=== PATIENT | female | born 1985 | race Caucasian/White ===

== ENCOUNTER 2023-02-04 21:21 | Emergency (ER) | payer OTHER, SELFPAY ==
[2023-02-04 21:29] VITALS: BP 140/104; PULSE 93; RESP 18; TEMP 37.6; O2SAT 98; BMI 32.8
--- NOTE | 2023-02-04 21:57 | XR_ITS ---
[address] [address] Patient Name: AMY SUTTON MRN: [id number] date: 1985 Sex: F Assigned Patient Location: ED.MAIN Current Patient Location: ER Accession/Order Number: [id number] Exam Date: 02/04/2023 22:25 Report Date: 02/04/2023 22:56 At the request of: JERROD HERNÁNDEZ Procedure: XR hip RT 2V w/ pelvis EXAM: XR hip RT 2V w/ pelvis HISTORY: Pain after stepping off of a conveyor belt COMPARISON: None. TECHNIQUE: AP pelvis and 2 views of the right hip FINDINGS: No osseous lesion, fracture, dislocation or subluxation. Joint spaces are normal. No visualized effusion. No visualized soft tissue edema. IMPRESSION: Normal x-rays Electronically authenticated by: BAM CAPUTO Date: 02/04/2023 22:56
--- NOTE | 2023-02-04 22:09 | ED.LOWEXI1 ---
HPI - Extremity Injury (Lower) General Chief Complaint: Extremity Injury, Lower Stated Complaint: WC-HIP PAIN Time Seen by Provider: 02/04/23 21:40 Source: patient Mode of arrival: walk-in Limitations: no limitations History of Present Illness HPI Narrative: This 37-year-old female presents from work for evaluation of right hip pain and decreased range of motion. The patient was at work and stepped up onto a conveyer belt approximately 18 inches off of the ground. She states when she put her leg up on this area she felt a pop in the anterior aspect of her right hip. She stepped down and now has pain with external rotation of the right hip and flexion at the right hip. She is able to ambulate. She states she feels like it needs to pop back in place but it has not. She denies any fall. She denies any weakness numbness or tingling. She has pain in the hip joint and medial aspect of the right leg. No additional injuries or complaints. She took Tylenol prior to arrival. Related Data Home Medications Medication Instructions Recorded Confirmed albuterol sulfate 90 mcg/actuation 2 puff inhalation Q6H PRN 02/04/23 02/04/23 aerosol inhaler shortness of breath or wheezing amitriptyline 10 mg tablet 10 mg PO BEDTIME 02/04/23 02/04/23 azelastine 137 mcg (0.1 %) nasal 1 spray intranasal Q12H 02/04/23 02/04/23 spray aerosol buspirone 10 mg tablet 10 mg PO BID 02/04/23 02/04/23 fluticasone 250 mcg-salmeterol 50 1 inh inhalation Q12H 02/04/23 02/04/23 mcg/dose blistr powdr for inhalation hydroxyzine HCl 25 mg tablet 25 mg PO Q8H PRN anxiety 02/04/23 02/04/23 levocetirizine 5 mg tablet 5 mg PO DAILY 02/04/23 02/04/23 montelukast 10 mg tablet 10 mg PO DAILY 02/04/23 02/04/23 sucralfate 1 gram tablet 1 g PO BID 02/04/23 02/04/23 Allergies Allergy/AdvReac Type Severity Reaction Status Date / Time Penicillins Allergy Unknown Verified 02/04/23 21:29 Review of Systems ROS Status of ROS 10 or more systems reviewed and unremarkable except as noted in history and below [facility] Social History Smoking status: Former smoker Exam Narrative Exam Narrative: Constitutional: Nontoxic, well-appearing female resting currently on the stretcher, respiratory distress Vital signs: Patient is afebrile with normal pulse, blood pressure is elevated at 140/104, she is not hypoxic with pulse ox of 98 percent on room air HEENT, normocephalic atraumatic, mucous murmurs are moist and pink, pupils are equal and reactive Neck: Supple, nontender Lungs: Clear to auscultation bilaterally with good air entry, no wheezing rhonchi or rales appreciated Abd; soft, nondistended, nontender Back: Nontender Extremity: Tenderness at the anterior right hip at the area of the insertion of the ilioinguinal tendon, patient is able to flex at the right hip to approximately 45 degrees and experiences pain. She has pain and decreased motion with adduction of the right hip, leg lengths are equal , no weakness or numbness appreciated Neuro: normal neuro exam, upper and lower extremity strength and sensation are intact Constitutional Vital Signs - 24 hr 02/04/23 21:29 Temperature 99.6 F Pulse Rate [Monitor] 93 H Respiratory Rate 18 Blood Pressure [Left Arm] 140/104 H Pulse Oximetry 98 Oxygen Delivery Method Room Air Course Vital Signs Vital signs: Vital Signs Temperature 99.6 F 02/04/23 21: Pulse Rate 93 H 02/04/23 21:29 Respiratory Rate 18 02/04/23 21:29 Blood Pressure 140/104 H 02/04/23 21:29 Pulse Oximetry 98 02/04/23 21:29 Oxygen Delivery Method Room Air 02/04/23 21:29 Temperature 99.6 F 02/04/23 21:29 Pulse Rate 93 H 02/04/23 21:29 Respiratory Rate 18 02/04/23 21:29 Blood Pressure 140/104 H 02/04/23 21:29 Pulse Oximetry 98 02/04/23 21:29 Oxygen Delivery Method Room Air 02/04/23 21:29 MDM - Extremity Injury (Lower) MDM Narrative Medical decision making narrative: This 37-year-old female presents for evaluation of a right hip/inguinal area injury. She was at work and stepped up onto a conveyer belt when she felt a pop in her hip area. Since that time she has had pain in the hip joint and ilioinguinal area of her right hip joint Pain with abduction of the right leg. Leg lengths are equal. She did not fall. She has pain and some tenderness along the medial aspect of the right femur as well. She is neurovascularly intact. She was medicated emergency department with ibuprofen and an x-ray of the right hip was ordered. The x-ray is normal. Gentle osteopathic manipulation was used to try to gently reduce the ligamentous strain. She tolerated this well but had minimal relief with it. She was medicated with a Norflex prior to discharge. She will be discharged home with prescription for ibuprofen and Flexeril to use as needed. She was given referral information for outpatient occupational health for follow-up. She is ambulatory and otherwise stable for discharge. Discharge Plan Discharge Chief Complaint: Extremity Injury, Lower Clinical Impression: Strain of right groin, Disorder of ligament of right hip Patient Disposition: Home, Self-Care Time of Disposition Decision: 23:10 Condition: Good Prescriptions / Home Meds: No Action albuterol sulfate 90 mcg/actuation HFA aerosol inhaler 2 puff INHALATION Q6H PRN (Reason: shortness of breath or wheezing) amitriptyline 10 mg tablet 10 mg PO BEDTIME azelastine 137 mcg (0.1 %) aerosol,spray 1 spray INTRANASAL Q12H buspirone 10 mg tablet 10 mg PO BID fluticasone propion-salmeterol 250-50 mcg/dose blister with device 1 inh INHALATION Q12H hydroxyzine HCl 25 mg tablet 25 mg PO Q8H PRN (Reason: anxiety) levocetirizine 5 mg tablet 5 mg PO DAILY montelukast 10 mg tablet 10 mg PO DAILY sucralfate 1 gram tablet 1 g PO BID Instructions: Groin Strain (ED) Additional Instructions: Perform gentle stretching, use moist heat, perform range of motion exercises as tolerated. Follow up with workman's comp as soon as possible. Use ibuprofen and muscle relaxants as needed for pain and spasm. Stand Alone Forms: Portal Instructions Referrals: CINTHIA MARK [Primary Care Provider] - 1 week
[2023-02-04] MEDS: IBUPROFEN 600 MG TABLET PO (22:40)
[2023-02-04] MEDS: ORPHENADRINE CITRATE 100 MG TABLET.ER PO (23:26)
== END 2023-02-04 23:30 | disposition home or self-care (01) ==
PROVIDERS: Emergency Provider Emergency Medicine; PCP Family Medicine
DX: S39.011A Strain of muscle, fascia and tendon of abdomen, initial encounter (principal); M24.251 Disorder of ligament, right hip; X50.9XXA Other and unspecified overexertion or strenuous movements or postures, initial encounter; Z87.891 Personal history of nicotine dependence; Z79.899 Other long term (current) drug therapy
CPT/HCPCS: 73502; 99283

== ENCOUNTER 2024-08-31 18:39 | Emergency (ER) | payer OTHER, SELFPAY ==
[2024-08-31 19:13] VITALS: BP 139/93; PULSE 91; TEMP 36.7; O2SAT 99; BMI 31.3
--- NOTE | 2024-08-31 19:47 | ED_ITS ---
HPI - Skin/Abscess/Foreign Bdy General Chief complaint: Skin/Abscess/Foreign Body Stated complaint: rash on hands Time Seen by Provider: 08/31/24 19:29 Source: patient Mode of arrival: walk-in Limitations: no limitations History of Present Illness HPI narrative: 39-year-old female presents for rash which is present on both hands. It started several days ago when she was at work. She wears gloves at work but they are the same close she has been wearing for an extended period of time. She has not come into contact with any chemicals or cleaning agents. She has worked at the same place for a year. It is on both hands but worse on the right than the left. She saw her family doctor who put her on a steroid cream but it does not seem to be helping. Related Data Home Medications ?Medication ?Instructions ?Recorded ?Confirmed albuterol sulfate 90 mcg/actuation 2 puff inhalation Q6H PRN 02/04/23 08/31/24 aerosol inhaler shortness of breath or wheezing amitriptyline 10 mg tablet 10 mg PO BEDTIME 02/04/23 08/31/24 azelastine 137 mcg (0.1 %) nasal 1 spray intranasal Q12H 02/04/23 08/31/24 spray buspirone 10 mg tablet 10 mg PO BID 02/04/23 08/31/24 fluticasone 250 mcg-salmeterol 50 1 inh inhalation Q12H 02/04/23 08/31/24 mcg/dose blistr powdr for inhalation hydroxyzine HCl 25 mg tablet 25 mg PO Q8H PRN anxiety 02/04/23 08/31/24 levocetirizine 5 mg tablet 5 mg PO DAILY 02/04/23 08/31/24 montelukast 10 mg tablet 10 mg PO DAILY 02/04/23 08/31/24 sucralfate 1 gram tablet 1 g PO BID 02/04/23 08/31/24 benralizumab 30 mg/mL subcutaneous mg subcut 08/31/24 auto-injector (Fasenra Pen) metformin 500 mg tablet,extended mg PO 08/31/24 release 24 hr Previous Rx's ?Medication ?Instructions ?Recorded prednisone 10 mg tablet See Rx Instructions .Route 08/31/24 .COMPLEX #30 tabs Allergies Allergy/AdvReac Type Severity Reaction Status Date / Time Penicillins Allergy Unknown Unknown Verified 08/31/24 19:18 Review of Systems ROS Narrative A ten point review of systems is negative except as noted above. PFSH PFSH Social History Smoking status: Former smoker Little interest or pleasure in doing things: not at all Feeling down, depressed, or hopeless: not at all Exam Narrative Exam Narrative: Nurses note and vital signs reviewed and patient is not hypoxic. General: The patient appears well and in no apparent distress. Patient is resting comfortably on cart. Skin: Warm, dry, no pallor noted. There is erythematous raised rash present on both hands, particular the dorsum of the right hand. There is no open area or drainage. Head: Normocephalic, atraumatic Eye: Normal conjunctiva, no drainage Ears, Nose, Mouth, and Throat: oral mucosa is moist. Nares patent. Tongue not swollen Cardiovascular: Regular Rate and Rhythm Respiratory: Patient is in no distress, no accessory muscle use Musculoskeletal: No joint swelling Neurological: A&O, normal speech Psychiatric: Cooperative Constitutional Vital Signs, click to edit/add: Last Vital Signs Temp 98.1 F 08/31/24 19:13 Pulse 91 H 08/31/24 19:13 Resp 18 08/31/24 19:13 BP 139/93 H 08/31/24 19:13 Pulse Ox 99 08/31/24 19:13 O2 Del Method Room Air 08/31/24 19:13 Course Vital Signs Vital signs: Vital Signs Temperature 98.1 F 08/31/24 19:13 Pulse Rate 91 H 08/31/24 19:13 Respiratory Rate 18 08/31/24 19:13 Blood Pressure 139/93 H 08/31/24 19:13 Pulse Oximetry 99 08/31/24 19:13 Oxygen Delivery Method Room Air 08/31/24 19:13 Temperature 98.1 F 08/31/24 19:13 Pulse Rate 91 H 08/31/24 19:13 Respiratory Rate 18 08/31/24 19:13 Blood Pressure 139/93 H 08/31/24 19:13 Pulse Oximetry 99 08/31/24 19:13 Oxygen Delivery Method Room Air 08/31/24 19:13 MDM - Skin/Abscess/Foreign Bdy MDM Narrative Medical decision making narrative: I suspect that this is a contact dermatitis and this was discussed thoroughly with the patient. She will continue the steroid cream but was given IM Solu- Medrol here and prescribed prednisone. She will take Benadryl at home for itching. Treatment diagnosis and follow-up were discussed with the patient. I do not suspect a fungal infection. Differential Diagnosis Differential diagnosis: Likely abscess of skin or subcutaneous tissue, dermatophytosis, allergic reaction to drug, cellulitis and contact dermatitis Discharge Plan Discharge Chief Complaint: Skin/Abscess/Foreign Body Clinical Impression: Contact dermatitis Patient Disposition: Home, Self-Care Time of Disposition Decision: 19:47 Condition: Good Mode of Transportation: Private Vehicle Prescriptions / Home Meds: New prednisone 10 mg tablet See Rx Instructions .ROUTE .COMPLEX Qty: 30 0RF Rx Instructions: 4 by mouth daily for three days then 3 by mouth daily for three days then 2 by mouth daily for three days then 1 by mouth daily for three days No Action albuterol sulfate 90 mcg/actuation HFA aerosol inhaler 2 puff INHALATION Q6H PRN (Reason: shortness of breath or wheezing) amitriptyline 10 mg tablet 10 mg PO BEDTIME azelastine 137 mcg (0.1 %) aerosol,spray 1 spray INTRANASAL Q12H buspirone 10 mg tablet 10 mg PO BID fluticasone propion-salmeterol 250-50 mcg/dose blister with device 1 inh INHALATION Q12H hydroxyzine HCl 25 mg tablet 25 mg PO Q8H PRN (Reason: anxiety) levocetirizine 5 mg tablet 5 mg PO DAILY montelukast 10 mg tablet 10 mg PO DAILY sucralfate 1 gram tablet 1 g PO BID metformin 500 mg tablet extended release 24 hr PO Fasenra Pen 30 mg/mL auto-injector SUBCUT Print Language: Liberian Instructions: Contact Dermatitis (ED) Referrals: Myranda Villegas NP [Primary Care Provider] - 1 week
[2024-08-31] MEDS: METHYLPREDNISOLONE SOD SUCC PF 125 MG/2 ML VIAL IM (19:55)
--- NOTE | 2024-08-31 20:14 | PC.NURSE ---
Bilateral hand red with rash to dorsum side of hands. C/O itching
== END 2024-08-31 20:05 | disposition home or self-care (01) ==
PROVIDERS: Emergency Provider Emergency Medicine; PCP Nurse Practitioner Family
DX: L25.9 Unspecified contact dermatitis, unspecified cause (principal); Z87.891 Personal history of nicotine dependence
CPT/HCPCS: 96372; 99284; J2919

== ENCOUNTER 2024-10-06 11:01 | Outpatient (OUT) | payer OTHER, SELFPAY ==
--- OUTSIDE RECORDS SUMMARY | 2024-10-06 11:18 | XMS_ITS | CCD ---
Author Organization [facility] Care Team Providers Care Photovoltaic Installation Technician Name Role Phone Balaa, Anas Unavailable Unavailable Balaa, Anas Unavailable Unavailable CASAREZ, TARANG Unavailable Unavailable ALELE, ESTER Unavailable Unavailable AMSTUTZ, NKECHI W Unavailable Unavailable Charlie Wolff Unavailable Unavailable D.DR JUANIS Unavailable Unavailable Saud Rutledge Unavailable Unavailable Amstutz, Nkechi Primary Care Provider MIYA MATSON Attending Unavailable MIYA MATSON Referring Unavailable AMSTUTZ, NKECHI Primary Care Unavailable MIYA MATSON Attending Unavailable MIYA MATSON Referring Unavailable AMSTUTZ, NKECHI Primary Care Unavailable Amstutz, Nkechi W Primary Care Provider Amstutz CHEMIST FOOD - LEADERSHIP DEVELOPMENT INSTRUCTOR, Nkechi W Primary Care Provider AMSTUTZ, NKECHI W Primary Care Unavailable GABE TOLEDO Referring Unavailable AMSTUTZ, NKECHI W Primary Care Unavailable GABE TOLEDO Referring Unavailable AMSTUTZ, NKECHI W Primary Care Unavailable GABE TOLEDO Referring Unavailable AMSTUTZ, NKECHI W Primary Care Unavailable AMSTUTZ, NKECHI W Primary Care Unavailable SKYE ANDERSONEN Referring Unavailable AMSTUTZ, NKECHI W Primary Care Unavailable SKYE ANDERSONEN Referring Unavailable AMSTUTZ, NKECHI W Primary Care Unavailable GABE TOLEDO Referring Unavailable AMSTUTZ, NKECHI W Primary Care Unavailable AMSTUTZ, NKECHI W Primary Care Unavailable AMSTUTZ, NKECHI W Primary Care Unavailable AMSTUTZ, NKECHI W Primary Care Unavailable AMSTUTZ, NKECHI W Primary Care Unavailable AMSTUTZ, NKECHI W Primary Care Unavailable AMSTUTZ, NKECHI W Primary Care Unavailable AMSTUTZ, NKECHI W Primary Care Unavailable AMSTUTZ, NKECHI W Primary Care Unavailable AMSTUTZ, NKECHI W Primary Care Unavailable AMSTUTZ, NKECHI W Primary Care Unavailable AMSTUTZ, NKECHI W Primary Care Unavailable AMSTUTZ, NKECHI W Primary Care Unavailable AMSTUTZ, NKECHI W Primary Care Unavailable AMSTUTZ, NKECHI W Primary Care Unavailable AMSTUTZ, NKECHI W Primary Care Unavailable AMSTUTZ, NKECHI W Primary Care Unavailable AMSTUTZ, NKECHI W Primary Care Unavailable AMSTUTZ, NKECHI W Primary Care Unavailable AMSTUTZ, NKECHI W Primary Care Unavailable AMSTUTZ, NKECHI W Primary Care Unavailable AMSTUTZ, NKECHI W Primary Care Unavailable AMSTUTZ, NKECHI W Primary Care Unavailable AMSTUTZ, NKECHI W Primary Care Unavailable AMSTUTZ, NKECHI W Primary Care Unavailable AMSTUTZ, NKECHI W Primary Care Unavailable AMSTUTZ, NKECHI W Primary Care Unavailable THEO CHAMBERS Attending Unavailable BREN ANDERSON Referring Unavailable AMSTUTZ, NKECHI W Primary Care Unavailable AMSTUTZ, NKECHI W Primary Care Unavailable AMSTUTZ, NKECHI W Primary Care Unavailable Jose Hines MD Referring Unavailable AMSTUTZ, NKECHI W Primary Care Unavailable Jose Hines MD Referring Unavailable AMSTUTZ, NKECHI W Primary Care Unavailable Jose Hines MD Referring Unavailable AMSTUTZ, NKECHI W Primary Care Unavailable BREN ANDERSON Referring Unavailable AMSTUTZ, NKECHI W Primary Care Unavailable AMSTUTZ, NKECHI W Primary Care Unavailable AMSTUTZ, NKECHI W Primary Care Unavailable AMSTUTZ, NKECHI W Primary Care Unavailable AMSTUTZ, NKECHI W Primary Care Unavailable AMSTUTZ, NKECHI W Primary Care Unavailable AMSTUTZ, NKECHI W Primary Care Unavailable AMSTUTZ, NKECHI W Primary Care Unavailable AMSTUTZ, NKECHI W Primary Care Unavailable AMSTUTZ, NKECHI W Primary Care Unavailable AMSTUTZ, NKECHI W Primary Care Unavailable AMSTUTZ, NKECHI W Primary Care Unavailable AMSTUTZ, NKECHI W Primary Care Unavailable AMSTUTZ, NKECHI W Primary Care Unavailable AMSTUTZ, NKECHI W Primary Care Unavailable AMSTUTZ, NKECHI W Primary Care Unavailable AMSTUTZ, NKECHI W Primary Care Unavailable AMSTUTZ, NKECHI W Primary Care Unavailable AMSTUTZ, NKECHI W Primary Care Unavailable AMSTUTZ, NKECHI W Primary Care Unavailable AMSTUTZ, NKECHI W Primary Care Unavailable AMSTUTZ, NKECHI W Primary Care Unavailable AMSTUTZ, NKECHI W Primary Care Unavailable AMSTUTZ, NKECHI W Primary Care Unavailable AMSTUTZ, NKECHI W Primary Care Unavailable AMSTUTZ, NKECHI W Primary Care Unavailable AMSTUTZ, NKECHI W Primary Care Unavailable AMSTUTZ, NKECHI W Primary Care Unavailable AMSTUTZ, NKECHI W Primary Care Unavailable BREN ANDERSON Referring Unavailable AMSTUTZ, NKECHI W Primary Care Unavailable AMSTUTZ, NKECHI W Primary Care Unavailable Amstutz LEADERSHIP DEVELOPMENT INSTRUCTOR, Nkechi Primary Care Provider Izabella Vargas Unavailable Yuko Stockton Unavailable KaleyEloisa Unavailable CINTHIA MARK Primary Care Unavailable AMEYA, DR TINY Yadav Admitting Unavailabl e AMEYA, DR TINY Yadav Attending Unavailabl e AMEYA, DR TINY Yadav Consulting Unavailabl e DAHLIA, DR BAM Townsend Consulting Unavailable Kampfer, Myranda Unavailable NO FAMILY, PHYSICIAN Primary Care Provider Unava ilable DO Javier Moralez Jr Attending Provider Kamnealfer, Myranda Primary Care Unavailable Keisha Brush MD Primary Care Provider Nelly SUPERVISOR PRESSING DEPARTMENT, Myranda Unavailable JENNIFER SALAS Attending Unavailable KAMPFER, MYRANDA A Referring Unavailable KAMPFER, MYRANDA A Primary Care Unavailable JENNIFER SALASG Attending Unavailable KAMPFER, MYRANDA A Referring Unavailable ESSEL, JENNIFER GONG Primary Care Unavailable ESSTYSON, JENNIFER GONG Referring Unavailable ESSEL, JENNIFER GONG Primary Care Unavailable ESSEL, JENNIFER GONG Referring Unavailable ESSEL, JENNIFER GONG Primary Care Unavailable Jennifer Salas MD Primary Care Provider JENNIFER SALAS Referring Unavailable ESSEL, JENNIFER GONG Primary Care Unavailable ESSEL, JENNIFER GONG Primary Care Unavailable MIYA VILCHIS Attending Unavailable NON STAFF Primary Care Provider UnavailSalvador Rachel DO Emergency Provider [phone] NON STAFF Primary Care Unavailable Salvador Brooke Attending Unavailable Salvador Brooke Admitting Unavailable Kampfer CHEMIST FOOD-LEADERSHIP DEVELOPMENT INSTRUCTOR, Myranda A Primary Care Provider NELLY, MYRANDA Attending Unavailable KAMPFER, MYRANDA Attending Unavailable KAMPFER, MYRANDA Attending Unavailable KAMPFER, MYRANDA Attending Unavailable ZACKMIHAELA MULLIGAN Attending Unavailable KARINA, CHARLES Attending Unavailable DION PERALTA Attending Unavailable DION PERALTA Referring Unavailable RAMBASEKARON Attending Unavailable KAMPFER, MYRANDA Referring Unavailable KAMPFER, MYRANDA Attending Unavailable RAMBASEK, ARON Kurtz Attending Unavailable MIHAELA DIXON Attending Unavailable KAMPFER, MYRANDA Attending Unavailable KARINA, CHARLES Attending Unavailable KAMPFER, MYRANDA Referring Unavailable KARINA, CHARLES Attending Unavailable KARINA, CHARLES Attending Unavailable LAKHWINDER, SHAUNA Attending Unavailable ZACK, MIHAELA Cole Attending Unavailable LAKHWINDER, SHAUNA Attending Unavailable Allergies Allergy Classification Reported Allergen(s) Allergy Type Date of Onset Reaction(s) Facility Bacitracin (1 source) Bacitracin Drug Allergy 7 Dermatitis [facility] Penicillins (antibiotic) (2 sources) Penicillins Drug Allergy 2 Rash, Other (See Comments), Anaphylaxis [facility] Phone: venlafaxine (1 source) venlafaxine Drug Allergy 9 [facility] Phone: (13 sources) penicillin; Translations: [penicillin] Drug Allergy [address] [facility] (20 sources) Bacitracin; Translations: [BACITRACIN] Drug Allergy 7 Dermatitis, Rash [place], [place] (18 sources) Penicillins; Translations: [PENICILLINS] Propensity to adverse reactions to drug 2 Rash, Other (See Comments) [place] (20 sources) venlafaxine; Translations: [VENLAFAXINE] Drug Allergy 9 Other: See Comments, Swelling [place], [place] (1 source) Penicillins Drug allergy (disorder) 4 [facility] Repository (10 sources) Penicillins Drug Allergy 2 Anaphylaxis, Other: See Comments, Rash, Hives, Other (See Comments) [facility] (20 sources) Penicillins Drug Intolerance 3 Unknown [facility] Medications Current Medications Medication Drug Class(es) Dates Sig (Normalized) Sig (Original) [id number] 200 actuat albuterol 0.09 mg/actuat metered dose inhaler (20 sources) beta2-Adrenergic Agonist Start: 04-03-2022 take 2 puff(s) by inhalation every four hours for wheezing albuterol HFA 90 mcg/act inhaler Indications: Moderate persistent asthma without complication ([facility]) Inhale 2 puffs every 4 (four) hours if needed for shortness of breath or wheezing 18 g 06/16/2024 Active Start: 07-22-2020 take 2 puff(s) by in halation four times daily as needed for wheezing albuterol sulfate HFA 108 (90 Base) MCG/ACT inhaler Indications: Mild persistent asthma without complication Inhale 2 puffs into the lungs 4 times daily as needed for Wheezing 1 Inhaler 5 07/22/2020 Active take 2 puff(s) by in halation every six hours as needed albuterol (PROVENTIL HFA;VENTOLIN HFA) 90 mcg/actuation inhaler Inhale 2 puffs every 6 (six) hours as needed. Active albuterol sulfate HFA 108 (90 Base) MCG/ACT inhaler (8 sources) Start: 07-22-2020 take 2 puff(s) by inhalation four times daily as needed for wheezing albuterol sulfate HFA 108 (90 Base) MCG/ACT inhaler Indications: Mild persistent asthma without complication Inhale 2 puffs into the lungs 4 times daily as needed for Wheezing 1 Inhaler 5 07/22/2020 Active Start: 04-03-2020 take 2 puff(s) by in halation four times daily as needed for wheezing albuterol sulfate HFA 108 (90 Base) MCG/ACT inhaler Indications: Mild persistent asthma without complication Inhale 2 puffs into the lungs 4 times daily as needed for Wheezing 1 Inhaler 3 04/03/2020 Active alcaftadine 2.5 mg/ml ophthalmic solution (20 sources) Start: 04-14-2024 End: 09-15-2024 take 1 drop(s) into the eye(s) once daily Alcaftadine 0.25 % solution Indications: Environmental allergies Administer 1 drop into affected eye(s) Daily 5 mL 3 04/14/2024 09/15/2024 Discontinued End: 04-12-2024 Alcaftadine 0.25 % solution Administer into affected eye(s) 04/12/2024 Discontinued (Reorder) amitriptyline hydrochloride 10 mg oral tablet (20 sources) Tricyclic Antidepressant Start: 03-17-2024 End: 09-13-2024 take 1 tablet by mouth at bedtime amitriptyline (Elavil) 10 MG tablet Indications: Anxious mood as adjustment reaction (CMS/HCC) , Depression, unspecified depression type (CMS/HCC) TAKE 1 TABLET BY MOUTH AT BEDTIME 90 tablet 1 09/11/2024 Active Start: 09-10-2023 End: 03-08-2024 take 1 tablet by mouth at bedtime amitriptyline (Elavil) 10 MG tablet Indications: Anxious mood as adjustment reaction (CMS/HCC) , Depression, unspecified depression type (CMS/HCC) Take 1 tablet (10 mg) by mouth at bedtime 90 tablet 1 09/10/2023 03/08/2024 Active Start: 03-08-2023 End: 09-08-2023 take 1 tablet by mouth at bedtime amitriptyline (Elavil) 10 MG tablet Indications: Anxious mood as adjustment reaction (CMS/HCC) , Depression, unspecified depression type (CMS/HCC) Take 1 tablet (10 mg) by mouth at bedtime. 90 tablet 1 03/08/2023 09/08/2023 Discontinued (Reorder) azelastine hydrochloride 0.137 mg/actuat metered dose nasal spray (20 sources) Histamine-1 Receptor Antagonist Start: 02-02-2024 End: 02-01-2025 take 2 spray(s) nasal route in the morning azelastine (Astelin) 0.1 % nasal spray Indications: Allergic rhinitis due to mold Administer 2 sprays into each nostril in the morning and 2 sprays before bedtime. Use in each nostril as directed. 90 mL 3 02/02/2024 02/01/2025 Active Start: 12-13-2023 End: 04-28-2024 take 1 spray(s) nasal route once azelastine (Astelin) 0.1 % nasal spray Indications: Allergic rhinitis, unspecified seasonality, unspecified trigger Administer 1 spray into each nostril every 12 (twelve) hours 30 mL 1 12/13/2023 04/28/2024 Discontinued (Duplicate order) Start: 11-04-2022 take 1 spray(s) nasal route on ce azelastine (Astelin) 0.1 % nasal spray Administer 1 spray into each nostril every 12 (twelve) hours. 0 11/04/2022 Active azelastine hydrochloride 0.137 mg/actuat / fluticasone propionate 0.05 mg/actuat metered dose nasal spray (6 sources) Corticosteroid, Histamine-1 Receptor Antagonist Start: 07-22-2020 take 1 spray(s) nasal route twice daily Azelastine-Fluticasone 137-50 MCG/ACT SUSP Indications: Non-seasonal allergic rhinitis due to pollen 1 spray to each nostril twice daily 3 Bottle 3 07/22/2020 Active 1 ml benralizumab 30 mg/ml auto-injector (20 sources) Interleukin-5 Receptor alpha-directed Cytolytic Antibody Start: 07-21-2024 Fasenra Pen 30 MG/ML injection Indications: Severe persistent asthma without complication (CMS/HCC) INJECT 1 PEN SUBCUTANEOUSLY EVERY 8 WEEKS 1 mL 6 07/21/2024 Active Start: 09-15-2023 End: 09-15-2023 benralizumab (Fasenra) injec tion 30 mg Start: 12-09-2022 End: 08-30-2024 benralizumab (Fasenra) 30 MG /ML injection Inject 30 mg under the skin every 28 (twenty-eight) days. 12/09/2022 08/30/2024 Discontinued inject 1 mL by subcu taneous injection once benralizumab (FASENRA PEN) 30 mg/mL SUBQ injection Inject 1 mL (30 mg total) under the skin once. Active busPIRone hydrochloride 10 mg oral tablet (20 sources) Start: 09-11-2024 take 1 tablet by mouth in the morning busPIRone (Buspar) 10 MG tablet Indications: Anxiety TAKE 1 TABLET BY MOUTH IN THE MORNING THEN TAKE 1 TABLET BEFORE BEDTIME 180 tablet 1 09/11/2024 Active Start: 03-17-2024 take 1 tablet by marysol th in the morning busPIRone (Buspar) 10 MG tablet Indications: Anxiety Take 1 tablet (10 mg) by mouth in the morning and 1 tablet (10 mg) before bedtime. 180 tablet 1 03/17/2024 Active Start: 03-15-2023 End: 09-14-2023 take 1 tablet by mouth twice daily busPIRone (Buspar) 10 MG tablet Indications: Anxiety take 1 tablet by mouth twice a day 180 tablet 1 09/14/2023 Active Start: 09-28-2022 take 1 tablet by marysol th at bedtime busPIRone (BUSPAR) 7.5 mg tablet Take 1 tablet (7.5 mg total) by mouth in the morning and at bedtime. 09/28/2022 Active cholecalciferol 5000 unt oral tablet (3 sources) Vitamin D take 1 tablet by mouth once daily Cholecalciferol (VITAMIN D3) 5000 units TABS Take 1 tablet by mouth daily 0 Active clindamycin 300 mg oral capsule (2 sources) Lincosamide Antibacterial Start: 025 clindamycin (Cleocin) 300 MG capsule 09/20/2024 Active cyproheptadine hydrochloride 4 mg oral tablet (3 sources) take 1 tablet by mouth every eight hours Cyproheptadine HCl 4 MG 1 tablet Orally Three times a day Active dexlansoprazole 60 mg delayed release oral capsule (2 sources) Proton Pump Inhibitor take 1 capsule by mouth once daily dexlansoprazole (DEXILANT) 60 MG CPDR delayed release capsule Take 60 mg by mouth daily 0 Active ERGOCALCIFEROL, VITAMIN D2, ORAL (9 sources) ERGOCALCIFEROL, VITAMIN D2, ORAL Take by mouth in the morning and at bedtime. Active ERGOCALCIFEROL, VITAMIN D2, ORAL Take by mouth in the morning and at bedtime. 0 Active escitalopram 20 mg oral tablet (15 sources) Serotonin Reuptake Inhibitor Start: 09-19-2020 take 1 tablet by mouth once daily escitalopram (LEXAPRO) 20 MG tablet Indications: TOSHIA (generalized anxiety disorder) Take 1 tablet by mouth daily 30 tablet 11 09/19/2020 Active Start: 02-19-2020 take 1 tablet by marysol th once daily escitalopram (LEXAPRO) 20 MG tablet Indications: TOSHIA (generalized anxiety disorder) Take 1 tablet by mouth daily 30 tablet 11 02/19/2020 Active Start: 05-29-2019 take 1 tablet by marysol th once daily escitalopram (LEXAPRO) 10 MG tablet Take 1 tablet by mouth daily 90 tablet 3 05/29/2019 Active Lexapro Active esomeprazole 40 mg granules for oral suspension (17 sources) Proton Pump Inhibitor take 40 mg by mouth once daily before breakfast esomeprazole (NexIUM) 40 mg packet Take 40 mg by mouth every morning before breakfast. Active take 40 mg by mouth twice daily esomeprazole Magnesium (NEXIUM) 40 MG PACK Take 40 mg by mouth 2 times daily 0 Active FA/mv,Ca,iron,min/lycopene/l ut (MULTIVITAL ORAL) (9 sources) FA/mv,Ca,iron,mi n/lycopene/lut (MULTIVITAL ORAL) Take by mouth daily. Active FA/mv,Ca,iron,mi n/lycopene/lut (MULTIVITAL ORAL) Take by mouth daily. 0 Active famotidine 20 mg oral tablet (6 sources) Histamine-2 Receptor Antagonist take 2 tablets by mouth once daily famotidine (PEPCID) 20 MG tablet Take 40 mg by mouth nightly 0 Active take 1 tablet by mouth once ren y famotidine (PEPCID) 20 MG tablet Take 20 mg by mouth nightly 0 Active fexofenadine hydrochloride 180 mg oral tablet (3 sources) Histamine-1 Receptor Antagonist Start: 04-03-2020 End: 05-03-2020 take 1 tablet by mouth once daily fexofenadine (ROSA ELENA) 180 MG tablet Take 1 tablet by mouth daily 30 tablet 0 04/03/2020 05/03/2020 Active fluticasone propionate 0.05 mg/actuat metered dose nasal spray (20 sources) Corticosteroid Start: 02-02-2024 End: 02-01-2025 take 2 spray(s) nasal route in the morning fluticasone propionate (FLONASE) 50 mcg/actuation nasal spray Administer 2 sprays into each nostril in the morning. 02/02/2024 02/01/2025 Active Start: 02-02-2024 End: 02-01-2025 take 2 spray(s) nasal route once daily fluticasone (Flonase) 50 MCG/ACT nasal spray Indications: Allergic rhinitis due to mold Administer 2 sprays into each nostril Daily Shake gently. Before first use, prime pump. After use, clean tip and replace cap. 48 g 11 02/02/2024 02/01/2025 Active Start: 10-08-2014 fluticasone (F LONASE) 50 mcg/actuation nasal spray Use in the nose q 24 HR. 0 10/08/2014 Active Start: 10-08-2014 take 1 spray(s) nasa l route once daily Fluticasone Propionate 50 MCG/ACT 1 spray in each nostril Nasally Once a day for 30 day(s) Oct, Not-Taking take 1 spray(s) nasa l route once daily fluticasone (FLONASE) 50 MCG/ACT nasal spray 1 spray by Each Nostril route daily 0 Active Comment on above: Use in the nose q 24 HR. 60 actuat formoterol fumarate 0.005 mg/actuat / mometasone furoate 0.2 mg/actuat metered dose inhaler (5 sources) Corticosteroid, beta2-Adrenergic Agonist Start: 020 take 2 puff(s) by mouth twice daily mometasone-formoterol (DULERA) 200-5 MCG/ACT inhaler 2 puffs inhaled twice daily. Rinse mouth well after use. 3 Inhaler 1 07/22/2020 Active hydrocortisone 25 mg/ml topical cream (3 sources) Corticosteroid Start: 024 End: 024 hydrocortisone 2.5 % cream Indications: Dermatitis Apply topically 2 (two) times a day for 14 days Apply wet cloth to the skin around the eyes for 5 minutes followed by hydrocortisone cream to the wet skin followed by petroleum jelly. 20 g 2 04/12/2024 04/26/2024 Active hydrOXYzine hydrochloride 25 mg oral tablet (20 sources) Antihistamine Start: 023 take 1 tablet by mouth three times daily as needed hydrOXYzine (ATARAX) 25 mg tablet Take 1 tablet (25 mg total) by mouth 3 (three) times a day as needed. 11/05/2022 Active Start: 04-01-2021 take 1 tablet by marysol th once daily at bedtime hydrOXYzine HCl (ATARAX) 25 mg tablet Take 1 tablet by mouth daily at bedtime. 0 04/01/2021 Active Start: 04-24-2019 hydrOXYzine (A TARAX) 25 MG tablet 1-2 tablets once daily at bedtime. May cause drowsiness. 60 tablet 11 04/24/2019 Active take 1 tablet by marysol th once daily hydrOXYzine (ATARAX) 25 MG tablet Take 25 mg by mouth daily 0 Active Comment on above: Take 1 tablet by marysol th daily at bedtime. hyoscyamine sulfate 0.125 mg sublingual tablet (4 sources) Start: 02-28-2020 Hyoscyamine Sulfate SL (LEVSIN/SL) 0.125 MG SUBL Indications: Hypersensitivity reaction, initial encounter , Esophageal dysphagia Take 1 SL tab every 4-6 hours as needed for esophogeal spasms 15 each 0 02/28/2020 Active Start: 02-19-2020 Hyoscyamine Barbosa lfate SL (LEVSIN/SL) 0.125 MG SUBL Indications: Hypersensitivity reaction, initial encounter , Esophageal dysphagia Take 1 SL tab every 4-6 hours as needed for esophogeal spasms 15 each 0 02/19/2020 Active levocetirizine dihydrochloride 5 mg oral tablet (20 sources) Histamine-1 Receptor Antagonist Start: 09-25-2022 End: 04-10-2024 take 1 tablet by mouth in the morning levocetirizine (XYZAL) 5 mg tablet Take 1 tablet (5 mg total) by mouth in the morning. 09/25/2022 Active Start: 11-29-2020 take 1 tablet by marysol th twice daily levocetirizine 5 mg tablet Take 1 tablet by mouth twice daily. 0 11/29/2020 Active Start: 07-29-2020 End: 10-27-2020 take 1 tablet by mouth twice daily levocetirizine (XYZAL ALLERGY 24HR) 5 MG tablet Indications: High plasma histamine Take 1 tablet by mouth 2 times daily 180 tablet 0 07/29/2020 10/27/2020 Active Start: 01-13-2019 End: 07-15-2019 take 1 tablet by mouth once daily levocetirizine (XYZAL) 5 MG tablet Indications: Foreign body sensation in throat , Seasonal allergic rhinitis due to pollen Take 1 tablet by mouth nightly 90 tablet 1 01/13/2019 07/15/2019 Active Comment on above: Take 1 tablet by marysol th twice daily. levothyroxine sodium 0.025 mg oral tablet (7 sources) l-Thyroxine Start: take 1 tablet by mouth once daily levothyroxine (SYNTHROID) 25 MCG tablet Indications: Subclinical hypothyroidism TAKE 1 TABLET BY MOUTH DAILY TAKE WITH WATER ON AN EMPTY STOMACH- WAIT 30 MINS BEFORE EATING/MEDS 90 tablet 1 01/07/2021 Active Start: 07-25-2018 take 1 tablet by marysol once daily SYNTHROID 25 MCG tablet Indications: Subclinical hypothyroidism Take 1 tablet by mouth daily Take with water on an empty stomach- wait 30 minutes before eating or taking other meds. 30 tablet 11 07/25/2018 Active 1 ml mepolizumab 100 mg/ml auto-injector (4 sources) Interleukin-5 Antagonist Start: 08-07-2020 NUCALA 100 MG/ML SOAJ injection Nucala Active 24 hr metFORMIN hydrochloride 500 mg extended release oral tablet (20 sources) Biguanide Start: 05-24-2024 End: 05-24-2025 take 1 tablet by mouth every twenty-four hours at mealtime metFORMIN XR (Glucophage-XR) 500 MG 24 hr tablet Indications: PCOS (polycystic ovarian syndrome) , Insulin resistance Take 1 tablet (500 mg) by mouth in the evening. Take with meals Do not crush, chew, or split. 30 tablet 11 05/24/2024 05/24/2025 Active methylPREDNISolone 4 mg oral tablet (4 sources) Corticosteroid Start: 07-26-2021 methylPREDNISolone 4 MG as directed Orally Once a day for 6 days Jul, Active Start: 03-23-2019 methylPREDNISo lone (MEDROL DOSEPACK) 4 MG tablet Indications: Throat swelling Take by mouth. 21 tablet 0 03/23/2019 Active 120 actuat mometasone furoate 0.1 mg/actuat metered dose inhaler (3 sources) Corticosteroid Start: 04-03-2020 take 2 puff(s) by inhalation twice daily mometasone (ASMANEX HFA) 100 MCG/ACT AERO inhaler Inhale 2 puffs into the lungs 2 times daily 1 Inhaler 1 04/03/2020 Active Multiple Vitamins-Minerals (MULTIVITAMIN ADULT, MINERALS, PO) (20 sources) Multiple Vitamins-Minerals (MULTIVITAMIN ADULT, MINERALS, PO) Multivitamin Active Multiple Vitamin s-Minerals (MULTIVITAMIN ADULT, MINERALS, PO) Multivitamin 0 Active NUCALA 100 MG/ML SOAJ injection (5 sources) Start: 08-07-2020 NUCALA 100 MG/ML SOAJ injection omeprazole 40 mg delayed release oral capsule (2 sources) Proton Pump Inhibitor Start: 04-18-2019 take 1 capsule by mouth twice daily omeprazole (PRILOSEC) 40 MG delayed release capsule TAKE 1 CAPSULE BY MOUTH TWICE A DAY 1 04/18/2019 Active pantoprazole 40 mg delayed release oral tablet (9 sources) Proton Pump Inhibitor take 1 tablet by mouth in the morning pantoprazole (PROTONIX) 40 mg EC tablet Take 1 tablet (40 mg total) by mouth in the morning. Active phentermine hydrochloride 37.5 mg oral tablet (20 sources) Sympathomimetic Amine Anorectic Start: 06-26-2024 End: 11-21-2024 take 1 tablet by mouth before mealtime phentermine (Adipex-P) 37.5 MG tablet Indications: Encounter for weight management Take 1 tablet (37.5 mg) by mouth in the morning. Take before meals. 90 tablet 08/23/2024 11/21/2024 Active polyethylene glycol 3350 79629 mg powder for oral solution (20 sources) Osmotic Laxative Start: 02-03-2024 polyethylene glycol, PEG, 3350 (Glycolax) 17 GM/SCOOP powder Indications: Slow transit constipation Take 17 g by mouth 1 (one) time each day at the same time 510 g 1 02/03/2024 Active Start: 11-04-2022 polyethylene g lycol, PEG, 3350 (Glycolax) 17 GM/SCOOP powder Take 17 g by mouth 1 (one) time each day at the same time. 0 11/04/2022 Active Post-OP Shoe/Soft Top Women - (1 source) Start: 07-30-2021 Post-OP Shoe/Soft Top Women - as directed contusion right foot Jul, Active Semaglutide-Weig ht Management (Wegovy) 0.25 MG/0.5ML solution auto-injector (7 sources) Start: 05-19-2024 End: 06-18-2024 inject 0.25 mg by subcutaneous injection every week Semaglutide-Weight Management (Wegovy) 0.25 MG/0.5ML solution auto-injector Indications: Obesity (BMI 30-39.9) , ZOEY (obstructive sleep apnea) Inject 0.25 mg under the skin 1 (one) time per week 2 mL 05/19/2024 06/18/2024 Active sennosides, fci 8.6 mg oral tablet (20 sources) Start: 11-04-2022 take 2 tablets by mouth once daily sennosides (Senokot) 8.6 MG tablet Take 2 tablets by mouth 1 (one) time each day at the same time. 11/04/2022 Active sucralfate 1000 mg oral tablet (20 sources) Aluminum Complex Start: 01-25-2023 take 1 tablet by mouth twice daily sucralfate (Carafate) 1 g tablet Indications: Gastroesophageal reflux disease without esophagitis take 1 tablet by mouth twice a day ON AN EMPTY STOMACH 60 tablet 1 01/25/2023 Active Start: 04-24-2019 End: 01-16-2020 take 1 tablet by mouth four times daily sucralfate (CARAFATE) 1 GM tablet Take 1 tablet by mouth 4 times daily 120 tablet 2 04/24/2019 01/16/2020 Discontinued 28 actuat tiotropium 0.86422 mg/actuat inhalation spray (20 sources) Anticholinergic Start: 03-31-2024 End: 03-31-2025 tiotropium (Spiriva Respimat) 1.25 MCG/ACT inhaler Indications: Severe persistent asthma without complication (CMS/HCC) Inhale 2 puffs Daily 1 each 5 03/31/2024 03/31/2025 Active Start: 09-15-2023 End: 09-14-2024 tiotropium (Spiriva Respimat ) 1.25 MCG/ACT inhaler Indications: Severe persistent asthma without complication (CMS/HCC) Inhale 2 puffs in the morning. 1 each 5 09/15/2023 09/14/2024 Active Start: 03-06-2021 take 1.25 ug by mouth once shahbaz ly tiotropium bromide (SPIRIVA RESPIMAT) 1.25 mcg/actuation mist INHALE 2 PUFFS BY MOUTH INTO THE LUNGS DAILY 0 03/06/2021 Active Start: 09-12-2020 SPIRIVA RESPIM AT 1.25 MCG/ACT AERS inhaler take 1 capsule by in halation once daily tiotropium (SPIRIVA) 18 mcg per inhalation capsule Indications: maintenance therapy for asthma Place 1 capsule into inhaler and inhale once daily Indications: controller medication for asthma. Active Comment on above: INHALE 2 PUFFS BY MO UTH INTO THE LUNGS DAILY topiramate 50 mg oral tablet (3 sources) topiramate (TOPAMAX) 50 MG tablet Indications: Shortness of breath , Amenorrhea , Sensation of swollen throat Take by mouth 2 times daily 0 Active ubrogepant 100 mg oral tablet (10 sources) Start: 08-04-20 End: 10-13-19 24 take 1 tablet by mouth once daily as needed Ubrogepant (Ubrelvy) 100 MG tablet Indications: Intractable migraine without status migrainosus, unspecified migraine type (CMS/HCC) Take 100 mg by mouth Daily as needed (migraines) 10 tablet 0 09/13/2023 10/13/2023 Active 24 hr venlafaxine 37.5 mg extended release oral capsule (4 sources) Serotonin and Norepinephrine Reuptake Inhibitor Start: 03-30-20 take 1 capsule by mouth once daily venlafaxine (EFFEXOR XR) 37.5 MG extended release capsule Indications: Anxiety Take 1 capsule by mouth daily I would prefer patient to have tablets 30 capsule 0 03/30/2019 Active Start: 06-29-[address] [facility] once daily venlafaxine (EFFEXOR XR) 75 MG extended release capsule Indications: Anxious mood as adjustment reaction Take 1 capsule by mouth daily 90 capsule 3 06/29/2018 Active Completed/Discontinued Medications Medication Drug Class(es) Dates Sig (Normalized) Sig (Original) azithromycin 250 mg oral tablet (3 sources) Macrolide Antimicrobial Start: 10-08-2014 Azithromycin 250 MG 2 tablets on the first day, then 1 tablet daily for 4 days Orally Once a day for 5 day(s) Oct, Not-Taking barium sulfate 60 % suspension 100 mL (1 source) Start: 02-23-2020 End: 02-23-2020 barium sulfate 60 % suspension 100 mL barium sulfate 98 % suspension 140 mL (1 source) Start: 02-23-2020 End: 02-23-2020 barium sulfate 98 % suspension 140 mL benoxinate hydrochloride 4 mg/ml / fluorescein sodium 2.5 mg/ml ophthalmic solution (1 source) Diagnostic Dye Start: 04-08-2022 End: 04-09-2022 fluorescein-benox inate 0.25-0.4 % 1 Drop (FLURESS) emollient clobetasol propionate 0.5 mg/ml topical cream (5 sources) Corticosteroid Start: 08-30-2024 End: 09-26-2024 clobetasol propionate (Temovate) 0.05 % emollient cream Indications: Dyshidrotic dermatitis Apply topically 2 (two) times a day Apply thin layer to affected area. 60 g 08/30/2024 09/26/2024 Discontinued (Other) dextromethorphan hydrobromide 3 mg/ml / promethazine hydrochloride 1.25 mg/ml oral solution (1 source) Phenothiazine, Uncompetitive C-atpolp-R-aspartat e Receptor Antagonist, Sigma-1 Agonist Start: 10-08-2014 Promethazine-DM 6.25-15 MG/5ML 5 ml as needed Orally every 4-6 hrs for 5 day(s) Oct, Not-Taking doxycycline hyclate 100 mg oral capsule (5 sources) Tetracycline-class Drug Start: 09-09-2024 End: 09-26-2024 take 1 capsule by mouth in the morning doxycycline (Vibramycin) 100 MG capsule Take 100 mg by mouth in the morning and 100 mg in the evening. 09/09/2024 09/26/2024 Discontinued (Other) Start: 05-13-2023 End: 09-08-2023 doxycycline (Vibramycin) 100 MG capsule [id number] 0.3 ml EPINEPHrine 1 mg/ml auto-injector (18 sources) alpha-Adrenergic Agonist, beta-Adrenergic Agonist, Catecholamine Start: 05-22-2020 EPINEPHrine (EPIP EN) 0.3 mg/0.3 mL auto-injector Dispense 2 packs of 2 (total 4 devices). Use as directed, STAT for allergic reaction. 0 05/22/2020 Active Start: 03-16-2019 EPINEPHrine (A UVI-Q) 0.3 MG/0.3ML SOAJ injection Indications: High plasma histamine , Throat fullness Dispense 2 packs of 2 (total 4 devices). Use as directed, STAT for allergic reaction. 4 each 2 03/16/2019 Active EPINEPHrine (EPI PEN) 0.3 MG/0.3ML SOAJ injection Inject 0.3 mg into the muscle as needed Use as directed for allergic reaction 0 Active Comment on above: Dispense 2 packs of 2 (total 4 devices). Use as directed, STAT for allergic reaction. ergocalciferol 1.25 mg oral capsule (20 sources) Provitamin D2 Compound Start: 03-17-20 take 1 capsule by mouth every week ergocalciferol 50,000 unit capsule (VITAMIN D2, DRISDOL) TAKE 1 CAPSULE BY MOUTH ONCE A WEEK FOR 90 DAYS 0 03/17/2022 Active ergocalciferol ( Vitamin D2) 1.25 MG (66863 UT) capsule Vitamin D (Ergocalciferol) Active Comment on above: TAKE 1 CAPSULE BY MO UTH ONCE A WEEK FOR 90 DAYS fluticasone / salmeterol (13 sources) Corticosteroid, beta2-Adrenergic Agonist Start: 02-20-2021 take 1 puff(s) by mouth twice daily fluticasone-salmet vaughn (ADVAIR, WIXELA) 250-50 mcg/dose inhaler One puff inhaled twice daily. Rinse mouth well after use. 0 02/20/2021 Active Start: 11-13-2020 take 1 puff(s) by mo uth twice daily fluticasone-salmeterol (ADVAIR DISKUS) 250-50 MCG/DOSE AEPB Indications: Moderate persistent asthma without complication One puff inhaled twice daily. Rinse mouth well after use. 1 Inhaler 11 11/13/2020 Active take 1 puff(s) by in halation in the morning fluticasone propion-salmeteroL (ADVAIR) 250-50 mcg/dose DISKUS Inhale 1 puff in the morning and 1 puff before bedtime. Active take 1 puff(s) by in halation in the morning fluticasone propion-salmeteroL (ADVAIR) 250-50 mcg/dose DISKUS Inhale 1 puff in the morning and 1 puff before bedtime. 0 Active End: 09-08-2023 fluticasone-salmeterol (Adva ir Diskus) 250-50 MCG/DOSE diskus inhaler Inhale 2 (two) times a day. 0 09/08/2023 Discontinued (Other) Comment on above: One puff inhaled twi ce daily. Rinse mouth well after use. gadoterate meglumine (DOTAREM) injection 13.5 mL (1 source) Start: 11-24-19 End: 11-24-19 gadoterate meglumine (DOTAREM) injection 13.5 mL gadoterate meglumine (DOTAREM) intravenous solution 18 mL (1 source) Start: 02-23-20 End: 02-23-20 gadoterate meglumine (DOTAREM) intravenous solution 18 mL ipratropium bromide 0.042 mg/actuat metered dose nasal spray (20 sources) Anticholinergic Start: 04-12-20 End: 09-26-19 take 2 spray(s) nasal route in the morning, then take 2 spray(s) nasal route in the evening, then take 2 spray(s) nasal route at bedtime ipratropium (Atrovent) 0.06 % nasal spray Indications: Chronic rhinitis Administer 2 sprays into each nostril in the morning and 2 sprays in the evening and 2 sprays before bedtime. 15 mL 11 04/12/2024 09/26/2024 Discontinued (Other) Start: 04-12-2024 End: 07-11-2024 take 2 spray(s) nasal route three times daily ipratropium (ATROVENT) 42 mcg (0.06 %) nasal spray Administer 2 sprays into each nostril 3 (three) times a day. 04/12/2024 07/11/2024 montelukast 10 mg oral tablet (17 sources) Leukotriene Receptor Antagonist Start: 07-24-2021 take 1 tablet by mouth once daily at bedtime montelukast (SINGULAIR) 10 mg tablet TAKE 1 TABLET BY MOUTH EVERYDAY AT BEDTIME 0 07/24/2021 Active Start: 05-22-2020 montelukast (S INGULAIR) 10 MG tablet Take one tablet once AT NIGHT 90 tablet 3 05/22/2020 Active Start: 03-16-2019 take 1 tablet by marysol th once daily montelukast (SINGULAIR) 10 MG tablet Indications: Non-seasonal allergic rhinitis due to pollen Take 1 tablet by mouth nightly 30 tablet 11 03/16/2019 Active Singulair Active Comment on above: TAKE 1 TABLET BY MARYSOL TH EVERYDAY AT BEDTIME Multivitamin preparation (1 source) multivitamin (MULTIPLE VITAMINS ORAL) Take by mouth. 0 Active Comment on above: Take by mouth. phenylephrine hydrochloride 25 mg/ml ophthalmic solution (1 source) alpha-1 Adrenergic Agonist Start: End: PHENYLephrine 2.5 % 1 Drop (AK-DILATE, KIKO-SYNEPHRINE) Promethazine-DM 6.25-15 MG/5ML (2 sources) Start: Promethazine-DM 6.25-15 MG/5ML 5 ml as needed Orally every 4-6 hrs for 5 day(s) Oct, Not-Taking proparacaine hydrochloride 5 mg/ml ophthalmic solution (1 source) Local Anesthetic Start: End: proparacaine 0.5 % 1 Drop (ALCAINE) sincalide 0.005 mg injection (1 source) Cholecystokinin Analog Start: End: sincalide (KINEVAC) injection 1.36 mcg sodium bicard-citric acid-simethicone (EZ GAS II) packet 1 each (1 source) Start: End: sodium bicard-citric acid-simethicone (EZ GAS II) packet 1 each technetium mebrofenin (CHOLETEC) injection 6 millicurie (1 source) Start: End: technetium mebrofenin (CHOLETEC) injection 6 millicurie traZODone hydrochloride 50 mg oral tablet (20 sources) Serotonin Reuptake Inhibitor Start: End: take 1 tablet by mouth at bedtime traZODone (Desyrel) 50 MG tablet Indications: ZOEY (obstructive sleep apnea) TAKE 1 TABLET BY MOUTH AT BEDTIME 30 tablet 1 06/16/2024 08/23/2024 Discontinued tropicamide 10 mg/ml ophthalmic solution (1 source) Anticholinergic Start: End: tropicamide 1 % 1 Drop (MYDRIACYL) Problems Active Problems Problem Classification Problem Date Documented Da te Episodic/Chronic Abdominal pain (1 source) Pain in female pelvis; Translations: [Pelvic and perineal pain] 06-26-2024 Episodic Adjustment disorders (20 sources) Adjustment disorder with anxious mood; Translations: [Adjustment disorder with anxiety] Onset: 10-14-2016 Chronic Administrative/social admission (6 sources) Counseling procedure with explicit context; Translations: [Other specified counseling] 09-07-2023 Episodic Adverse effects of medical drugs (1 source) Adverse effect of unspecified drugs, medicaments and biological substances, initial encounter; Translations: [Allergic reaction to allergen immunotherapy] Allergic reactions (2 sources) Flexural atopic dermatitis; Translations: [Other atopic dermatitis] 04-12-2024 Chronic Anxiety disorders (20 sources) Anxiety; Translations: [Anxiety disorder, unspecified] Onset: 3 01-16-2023 Chronic Asthma (20 sources) Uncomplicated mild persistent asthma; Translations: [Moderate persistent asthma] Onset: 0 Resolved: 1 04-18-2020 Chronic Esophageal disorders (20 sources) Laryngopharyngeal reflux; Translations: [Gastro-esophageal reflux disease without esophagitis] Onset: 7 07-07-2017 Chronic Headache; including migraine (20 sources) Migraine; Translations: [Migraine, unspecified, not intractable, without status migrainosus] Onset: 2 Chronic Inflammation; infection of eye (except that caused by tuberculosis or sexually transmitteddisease) (1 source) Disorder of optic nerve; Translations: [Unspecified optic neuritis] Chronic Malaise and fatigue (1 source) Fatigue; Translations: [Chronic fatigue] Episodic Menstrual disorders (20 sources) Dysmenorrhea; Translations: [Dysmenorrhea, unspecified] Onset: 4 05-19-2024 Chronic Mood disorders (1 source) Depressive disorder; Translations: [Depression, unspecified depression type (CMS/HCC)] 09-08-2023 Chronic Nonspecific chest pain (5 sources) Tight chest; Translations: [Other chest pain] Onset: 2 Episodic Nutritional deficiencies (20 sources) Vitamin D deficiency; Translations: [Vitamin D deficiency, unspecified] Onset: 2 01-16-2023 Chronic Other endocrine disorders (2 sources) Pituitary cyst; 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)] Chronic Other endocrine disorders (2 sources) Other disorders of pituitary gland; Translations: [Other disorders of pituitary gland] Onset: 9 Chronic Other endocrine disorders (4 sources) Polycystic ovary syndrome; Translations: [Polycystic ovarian syndrome] 09-08-2023 Chronic Other eye disorders (4 sources) Unspecified optic atrophy; 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, left] Onset: 9 Chronic Other female genital disorders (1 source) Pain in female genitalia on intercourse; Translations: [Unspecified dyspareunia] 06-26-2024 Chronic Other female genital disorders (1 source) Abnormal uterine bleeding; Translations: [Abnormal uterine and vaginal bleeding, unspecified] 09-26-2024 Chronic Other gastrointestinal disorders (1 source) Dysphagia; Translations: [Dysphagia, unspecified type] Episodic Other lower respiratory disease (5 sources) Dyspnea on exertion; Translations: [MG (dyspnea on exertion)] Episodic Other nervous system disorders (20 sources) Demyelinating disease of central nervous system; Translations: [Demyelinating disease of central nervous system, unspecified] Onset: 2 01-16-2023 Chronic Other nutritional; endocrine; and metabolic disorders (6 sources) Body mass index 30+ - obesity; Translations: [Obesity, unspecified] 05-19-2024 Chronic Other nutritional; endocrine; and metabolic disorders (2 sources) Obesity caused by energy imbalance; Translations: [Morbid (severe) obesity due to excess calories] 05-19-2024 Chronic Other nutritional; endocrine; and metabolic disorders (2 sources) Insulin resistance; Translations: [Insulin resistance] 05-24-2024 Chronic Other nutritional; endocrine; and metabolic disorders (14 sources) Weight increased; Translations: [Abnormal weight gain] Onset: 4 07-24-2024 Episodic Other screening for suspected conditions (not mental disorders or infectious disease) (11 sources) Abnormal quantity of physiologic substance; Translations: [Other specified abnormal findings of blood chemistry] Onset: 0 07-29-2020 Episodic Other skin disorders (1 source) Vesicular eczema; Translations: [Dyshidrosis [pompholyx]] 08-30-2024 Episodic Other upper respiratory disease (1 source) Allergic rhinitis due to pollen; Translations: [Allergic rhinitis due to pollen] Chronic Other upper respiratory disease (20 sources) Allergic rhinitis; Translations: [Allergic rhinitis, unspecified] Onset: 3 01-16-2023 Chronic Other upper respiratory disease (2 sources) Chronic rhinitis; Translations: [Chronic rhinitis] 04-12-2024 Chronic Other upper respiratory infections (17 sources) Chronic sphenoidal sinusitis; Translations: [Chronic pansinusitis] Onset: 7 07-26-2017 Chronic Residual codes; unclassified (20 sources) Obstructive sleep apnea syndrome; Translations: [Obstructive sleep apnea (adult) (pediatric)] Onset: 3 12-31-2022 Chronic Skin and subcutaneous tissue infections (4 sources) Cellulitis of right upper limb; Translations: [Cellulitis of right upper limb] Onset: 5 09-15-2024 Episodic Substance-related disorders (20 sources) Nicotine dependence, other tobacco product, uncomplicated; Translations: [Smoker] Onset: 2 01-16-2023 Chronic Unclassified (1 source) Abnormal Chemistries / [id number]() Onset: 8 Unclassified (20 sources) Patient on antidepressant monitoring plan Onset: 4 05-19-2024 Unclassified (1 source) Wound Check Onset: 5 Unclassified (1 source) had biopsy on wrist 1 week ago, pain in hand and going up arm Onset: 5 Unclassified (1 source) Genetic Evaluation Onset: 4 Past or Other Problems Problem Classification Problem Date Documented Da te Episodic/Chronic Allergic reactions (20 sources) Environmental allergy; Translations: [Allergy to nut] Onset: 7 10-14-2016 Episodic Blindness and vision defects (20 sources) Sector or arcuate defects, left eye; Translations: [Sector or arcuate visual field defects] Onset: 2 Episodic Cardiac dysrhythmias (10 sources) Palpitations; Translations: [Palpitations] Onset: 0 07-22-2020 Episodic Esophageal disorders (15 sources) Laryngopharyngeal reflux; Translations: [Laryngopharyngeal reflux (LPR)] Onset: 7 07-07-2017 Episodic Headache; including migraine (20 sources) Headache; Translations: [Rhinogenic headache] Onset: 7 07-24-2017 Episodic Immunizations and screening for infectious disease (2 sources) Contact with and (suspected) exposure to other viral communicable diseases Onset: 1 Resolved: 1 Episodic Mood disorders (20 sources) Mood disorders Onset: 3 Resolved: 4 05-14-2023 Nausea and vomiting (1 source) Nausea Onset: 1 Resolved: 1 Episodic Other connective tissue disease (1 source) Pain in right foot Onset: 1 Resolved: 1 Episodic Other gastrointestinal disorders (20 sources) Slow transit constipation; Translations: [Slow transit constipation] Onset: 3 01-16-2023 Episodic Other nutritional; endocrine; and metabolic disorders (16 sources) Weight gain; Translations: [Abnormal weight gain] Onset: 7 12-10-2016 Episodic Other upper respiratory disease (16 sources) Deviated nasal septum; Translations: [Deviated nasal septum] Onset: 7 07-24-2017 Episodic Other upper respiratory disease (16 sources) Bleeding from nose; Translations: [Epistaxis] Onset: 7 07-26-2017 Episodic Other upper respiratory disease (16 sources) Lennie bullosa; Translations: [Other specified disorders of nose and nasal sinuses] Onset: 7 07-24-2017 Episodic Other upper respiratory disease (16 sources) Hypertrophy of nasal turbinates; Translations: [Hypertrophy of nasal turbinates] Onset: 7 07-26-2017 Episodic Other upper respiratory infections (1 source) Acute upper respiratory infection, unspecified Onset: 1 Resolved: 1 Episodic Residual codes; unclassified (20 sources) Family history of malignant neoplasm of ovary; Translations: [Family history of malignant neoplasm of ovary] Onset: 4 09-08-2023 Episodic Residual codes; unclassified (3 sources) Family history of malignant neoplasm of ovary; Translations: [Family history of malignant neoplasm of ovary] Onset: 4 Episodic Retinal detachments; defects; vascular occlusion; and retinopathy (20 sources) Retinal round hole; Translations: [Round hole, left eye] Onset: 2 Episodic Superficial injury; contusion (1 source) Contusion of right foot, initial encounter Onset: 1 Resolved: 1 Episodic Unclassified (1 source) Abnormal Chemistries; Translations: [Abnormal Chemistries] Onset: 8 Results Test Name Value Interpretation Reference Range Facility BI MAMMOGRAM SCREENING TOMOS YNTHESIS BILATERALon 06-23-2024 BI MAMMOGRAM SCREENING TOMOSYNTHESIS BILATERAL This is a summary report. The complete report is available in the patient's medical record. If you cannot access the medical record, please contact the sending organization for a detailed fax or copy. Examination: BI MAMMOGRAM SCREENING TOMOSYNTHESIS BILATERAL Clinical History: screening Technique: Screening digital mammography study of both breasts was performed with 2-D and 3-D tomosynthesis imaging. Study was compared to the prior exam dated 05/31/2023. Findings: There is no evidence of interval dominant spiculated mass, grouped microcalcifications, or skin thickening which would be suggestive of malignancy. Axillary lymph nodes are noted bilaterally. IMPRESSION: Impression: No specific evidence of malignancy seen in either breast. BIRADS 2 - Benign DENSITY: The breasts are heterogeneously dense, which may obscure small masses FOLLOW-UP: Routine Screening Mamm ELECTRONICALLY SIGNED BY: Sukumar Fitzgerald M.D. Normal Not Available US PELVIC WITH TRANSVAGINALo n 05-08-2024 US PELVIC WITH TRANSVAGINAL US PELVIC WITH TRANSVAGINAL Clinical history: Dysmenorrhea family history of ovarian cancer Findings:Transabdomin al ultrasound was performed of the pelvis.. Endovaginal sonography was also performed to better evaluate the pelvic and adnexal structures.. Uterus measures 7.5 cm in length and 3.6 cm in AP diameter. Myometrium unremarkable. Endometrium trilaminar measuring 8.5 mm. Right ovary 3.7 x 1.7 x 2.4 cm. Left ovary 2.9 x 2.4 x 2.3 cm. No adnexal mass or free fluid in the pelvis. Small bilateral ovarian follicles. Impression: Unremarkable pelvic ultrasound. Finalized by Paresh Chacon MD on 05/08/2024 3:11 PM Normal [facility] HBSab Qnt LCon 03-18-2023 Hep B Surf Ab Quant LC <3.1 Low Immun ity>9. 9 [facility] Comment on above: Result Comment: Stat us of Immunity Anti-HBs Level Inconsistent with Immunity 0.0 - 9.9 Consistent with Immunity >9.9 Performed At: [facility] [address] [place], [place] [id number] Nayeli Hanna PhD Ph:[phone] Performed By: #### 5 [id number] #### [facility] (DEFAULT) [address] [place] [id number] Lab - Toxicology Resultson 0 03-18-2023 Lab - Toxicology Results [id number] Normal [facility] Measles/Mumps/Rubella Immuni ty LCon 03-18-2023 Mumps Abs, IgG LC 43.4 AU/mL Invalid Interpretation Code Immune >10.9 [facility] Comment on above: Result Comment: Nega tive <9.0 Equivocal 9.0 - 10.9 Positive >10.9 A positive result generally indicates past exposure to Mumps virus or previous vaccination. Performed At: [facility] [address] [place], [place] [id number] Nayeli Hanna PhD Ph:[phone] Performed By: #### 5 [id number] #### [facility] (DEFAULT) [address] [place] [id number] Rubella Antibodies, IgG LC 4.57 index Invalid Interpretation Code Immune >0.99 [facility] Comment on above: Result Comment: Non- immune <0.90 Equivocal 0.90 - 0.99 Immune >0.99 Performed By: #### 5 [id number] #### [facility] (DEFAULT) [address] [place] [id number] Rubeola Ab, IgG, EIA LC 93.3 AU/mL Invalid Interpretation Code Immune >16.4 [facility] Comment on above: Result Comment: Nega tive <13.5 Equivocal 13.5 - 16.4 Positive >16.4 Presence of antibodies to Rubeola is presumptive evidence of immunity except when acute infection is suspected. Performed By: #### 5 [id number] #### [facility] (DEFAULT) [address] [place] [id number] Nicotine Metabolite, Urine L Con 03-18-2023 Cotinine LC Negative Invalid Interpretation Code [id number] [facility] Comment on above: Result Comment: Perf ormed At: [facility] [address] [facility], [place] [id number] Maia Pascual PhD Ph:[phone] Performed By: #### 1 [id number] #### [facility] (DEFAULT) [address] [place] [address] Body fluid albumin measureme nt (mass/volume)Ordered By: Javier Moralez on 08-11-2022 Albumin (Body fld) [Mass/Vol] 4.2 g/dL 3.2-5.5 [facility] Cholesterol [Mass/volume] in Serum or PlasmaOrdered By: Javier Moralez on 08-11-2022 Cholesterol [Mass/Vol] 221 mg/dL 140-200 [facility] Comment on above: Chol less than 200 m g/dl low riskChol 201-239 mg/dl borderline riskChol 240 mg/dl and greater high risk Cholesterol in LDL Calc [Mas s/Vol]Ordered By: Javier Moralez on 08-11-2022 Cholesterol in LDL [Mass/Vol] 136 mg/dL 0-100 [facility] Comment on above: LDL ATP III CLASSIFI CATIONLDL less than 100 mg/dL OptimalLDL 100-129 mg/dL Near or above optimalLDL 130-159 mg/dL Borderline highLDL 160-189 mg/dL HighLDL greater than 189 mg/dL Very high Cholesterol in VLDL Calc [Ma ss/Vol]Ordered By: Javier Moralez on 08-11-2022 Cholesterol in VLDL [Mass/Vol] 45 mg/dL [facility] Creatinine and Glomerular fi ltration rate.predicted panel (S/P/Bld)Ordered By: Javier Moralez on 08-11-2022 Creatinine [Mass/Vol] 0.89 mg/dL 0.44-1.03 [facility] Estimated glomerular filtrat ion rate (GFR) non- AmericanOrdered By: Javier Moralez on 08-11-2022 GFR/1.73 sq M.predicted among non-blacks MDRD (S/P/Bld) [Vol rate/Area] > 60 mL/Min [facility] Globulin Calc (S) [Mass/Vol] Ordered By: Javier Moralez on 08-11-2022 Globulin (S) [Mass/Vol] 3.6 g/dL F [facility] - Chemistry and C hemistry - challengeOrdered By: Javier Moralez on 08-11-2022 Glucose [Mass/Vol] 88 mg/dL 70-100 [facility] No Panel InformationOrdered By: Javier Moralez on 08-11-2022 Estimated GFR () > 60 mL/Min [facility] Comment on above: GFR estimated refere nce range: According to KDOQI guidelines, <60 ml/min/1.73m2 is sufficient to diagnose a patient with chronic kidney disease. Pharmacy Creatinine Clearance (Chem N/A [facility] Triglycerides Reflex 229 mg/dL 35-149 [facility] Comment on above: TRIG ATP III CLASSIF ICATIONTRIG less than 150 mg/dL NormalTRIG 150-199 mg/dL Borderline highTRIG 200-500 mg/dL High TRIG greater than 500 mg/dL Very highStandard traceable to the Center for Disease Conrtrol and Prevention (CDC) test method. Protein [Mass/volume] in Ser um or PlasmaOrdered By: Javier Moralez on 08-11-2022 Protein [Mass/Vol] 7.8 g/dL 6.1-7.9 [facility] Serum or plasma alanine palma otransferase measurement without P-5'-P (enzymatic activiOrdered By: Javier Moralez on 08-11-2022 ALT No additional P-5'-P [Catalytic activity/Vol] 27 U/L 10-60 [facility] Serum or plasma albumin/glob ulin mass ratioOrdered By: Javier Moralez on 08-11-2022 Albumin/Globulin [Mass ratio] 1.2 {ratio} [facility] Serum or plasma alkaline dominic sphatase measurement (enzymatic activity/volume)Ordered By: Javier Moralez on 08-11-2022 ALP [Catalytic activity/Vol] 100 U/L 32-92 [facility] Serum or plasma anion gap de terminationOrdered By: Javier Moralez on 08-11-2022 Anion gap [Moles/Vol] 17.0 mmol/L 6.0-15.0 [facility] Serum or plasma aspartate am inotransferase measurement (enzymatic activity/volume)Ordered By: Javier Moralez on 08-11-2022 AST [Catalytic activity/Vol] 27 U/L 10-42 [facility] Serum or plasma calcium flor urement (mass/volume)Ordered By: Javier Moralez on 08-11-2022 Calcium [Mass/Vol] 9.4 mg/dL 8.2-10.2 [facility] Serum or plasma chloride drake surement (moles/volume)Ordered By: Javier Moralez on 08-11-2022 Chloride [Moles/Vol] 99 mmol/L 95-114 [facility] Serum or plasma high density lipoprotein (HDL) cholesterol measurementOrdered By: Javier Moralez on 08-11-2022 Cholesterol in HDL [Mass/Vol] 39 mg/dL 35-85 [facility] Comment on above: HDL CHOL ATP-III CLA SSIFICATION Cardiovascular RiskHDL > or equal to 60 mg/dL LOWHDL < 40 mg/dL HIGH Serum or plasma potassium me asurement (moles/volume)Ordered By: Javier Moralez on 08-11-2022 Potassium [Moles/Vol] 3.9 mmol/L 3.5-5.1 [facility] Serum or plasma sodium measu rement (moles/volume)Ordered By: Javier Moralez on 08-11-2022 Sodium [Moles/Vol] 135 mmol/L 136-146 [facility] Serum or plasma total biliru bin measurement (mass/volume)Ordered By: Javier Moralez on 08-11-2022 Bilirubin [Mass/Vol] 0.5 mg/dL 0.3-1.2 [facility] Serum or plasma total carbon dioxide measurement (moles/volume)Ordered By: Javier Moralez on 08-11-2022 CO2 [Moles/Vol] 22.9 mmol/L 22.0-30.0 [facility] Serum or plasma total choles terol/high density lipoprotein (HDL) cholesterol mass ratOrdered By: aJvier Moralez on 08-11-2022 Cholesterol.total/Mary Jo sterol in HDL [Mass ratio] 5.7 {ratio} <5.0 [facility] Serum or plasma urea nitroge n measurement (mass/volume)Ordered By: Javier Moralez on 08-11-2022 Urea nitrogen [Mass/Vol] 12 mg/dL 05-01 [facility] Cytology Cervical or vaginal smear or scraping studyon 07-01-2022 [facility] CBC AUTO DIFFon 04-10-2022 BASO # 0.1 103/ul Normal 0.0-0.1 [facility] Comment on above: Performed By: #### C BC #### [facility] [address] [address] [address] Gene Ryder Basophils/100 WBC (Bld) 0.9 % Normal 0.2-2.0 [facility] Comment on above: Performed By: #### C BC #### [facility] [address] [place] [address] Dr. Gene Ryder EO # 0.1 103/ul Normal 0.0-0.7 [facility] Comment on above: Performed By: #### C BC #### [facility] [address] [address] [address] Gene Ryder Eosinophils/100 WBC (Bld) 1.4 % Normal 0.9-7.0 [facility] Comment on above: Performed By: #### C BC #### [facility] [address] [address] [address] Gene Ryder Erythrocyte distribution width (RBC) [Ratio] 12.9 % Normal 11.0-15.0 [facility] Comment on above: Performed By: #### C BC #### [facility] [address] [place] [address] Dr. Gene Ryder Hematocrit (Bld) [Volume fraction] 40.4 % Normal 36.0-48.0 [facility] Comment on above: Performed By: #### C BC #### [facility] [address] [place] [address] Dr. Gene Ryder Hemoglobin (Bld) [Mass/Vol] 13.0 g/dL Normal 12.0-16.0 [facility] Comment on above: Performed By: #### C BC #### [facility] [address] [place] [address] Dr. Gene Ryder IG # 0.03 10e3/ul Normal 0.00-0.03 [facility] Comment on above: Performed By: #### C BC #### [facility] [address] [place] [address] Dr. Gene Ryder IG % 0.4 % Normal 0.0-0.5 [facility] Comment on above: Performed By: #### C BC #### [facility] [address] [place] [address] Dr. Gene Ryder LYMPH # 2.1 103/ul Normal 1.2-3.8 [facility] Comment on above: Performed By: #### C BC #### [facility] [address] [place] [address] Dr. Gene Ryder Lymphocytes/100 WBC (Bld) 27.4 % Normal 20.5-60.0 [facility] Comment on above: Performed By: #### C BC #### [facility] [address] [place] [address] Dr. Gene Ryder MANUAL DIFF REQ NO Normal [facility] Comment on above: Performed By: #### C BC #### [facility] [address] [place] [address] Dr. Gene Ryder MCH (RBC) [Entitic mass] 29.0 pg Normal 26.7-34.0 [facility] Comment on above: Performed By: #### C BC #### [facility] [address] [place] [address] Dr. Gene Ryder MCHC (RBC) [Mass/Vol] 32.2 g/dL Normal 29.9-35.2 [facility] Comment on above: Performed By: #### C BC #### [facility] [address] [place] [address] Dr. Gene Ryder MCV (RBC) [Entitic vol] 90.2 fL Normal 81.0-99.0 [facility] Comment on above: Performed By: #### C BC #### [facility] [address] [place] [address] Dr. Gene Ryder MONO # 0.6 103/ul Normal 0.3-0.8 [facility] Comment on above: Performed By: #### C BC #### [facility] [address] [place] [address] Dr. Gene Ryder Monocytes/100 WBC (Bld) 8.1 % Normal 1.7-12.0 [facility] Comment on above: Performed By: #### C BC #### [facility] [address] [place] [address] Dr. Gene Ryder NEUT # 4.7 103/ul Normal 1.4-6.5 [facility] Comment on above: Performed By: #### C BC #### [facility] [address] [place] [address] Dr. Gene Ryder Neutrophils/100 WBC (Bld) 61.8 % Normal 43.0-75.0 [facility] Comment on above: Performed By: #### C BC #### [facility] [address] [place] [address] Dr. Gene Ryder Platelet mean volume (Bld) [Entitic vol] 9.6 fL Normal 9.5-13.5 [facility] Comment on above: Performed By: #### C BC #### [facility] [address] [place] [address] Dr. Gene Ryder PLT 248 103/ul Normal 150-450 [facility] Comment on above: Performed By: #### C BC #### [facility] [address] [place] [address] Dr. Gene Ryder RBC 4.48 106/ul Normal 4.20-5.40 [facility] Comment on above: Performed By: #### C BC #### [facility] [address] [place] [address] Dr. Gene Ryder WBC 7.7 103/ul Normal 4.0-11.0 [facility] Comment on above: Performed By: #### C BC #### [facility] [address] [place] [address] Dr. Gene Ryder PROF CHEM 8 (BAS METB)on Anion gap [Moles/Vol] 9.7 mmol/L Normal [facility] Comment on above: Performed By: #### B PAPITO, HSTROPN #### [facility] [address] [address] [address] Gene Ryder Calcium [Mass/Vol] 8.7 mg/dL Normal 8.5-10.1 [facility] Comment on above: Performed By: #### B PAPITO, HSTROPN #### [facility] [address] [address] [address] Gene Ryder Chloride [Moles/Vol] 105 mmol/L Normal 98-107 [facility] Comment on above: Performed By: #### B PAPITO, HSTROPN #### [facility] [address] [place] [address] Dr. Gene Ryder CO2 [Moles/Vol] 29.6 mmol/L Normal 21.0-32.0 [facility] Comment on above: Performed By: #### B PAPITO, HSTROPN #### [facility] [address] [place] [address] Dr. Gene Ryder Creatinine [Mass/Vol] 0.85 mg/dL Normal 0.55-1.02 [facility] Comment on above: Performed By: #### B PAPITO, HSTROPN #### [facility] [address] [place] [address] Dr. Gene Ryder EGFR-AF MALAGASY >60 Normal >=60 [facility] Comment on above: Performed By: #### B PAPITO, HSTROPN #### [facility] [address] [place] [address] Dr. Gene Ryder EGFR-NON AF MALAGASY >60 Normal >=60 [facility] Comment on above: Performed By: #### B PAPITO, HSTROPN #### [facility] [address] [place] [address] Dr. Gene Ryder Glucose [Mass/Vol] 101 mg/dL Normal 74-106 [facility] Comment on above: Performed By: #### B PAPITO, HSTROPN #### [facility] [address] [place] [address] Dr. Gene Ryder Potassium [Moles/Vol] 4.3 mmol/L Normal 3.5-5.1 [facility] Comment on above: Performed By: #### B PAPITO, HSTROPN #### [facility] [address] [address] [address] Gene Ryder Sodium [Moles/Vol] 140 mmol/L Normal 136-145 [facility] Comment on above: Performed By: #### B PAPITO, HSTROPN #### [facility] [address] [address] [address] Gene Ryder Urea nitrogen [Mass/Vol] 12.0 mg/dL Normal 7.0-18.0 [facility] Comment on above: Performed By: #### B PAPITO, HSTROPN #### [facility] [address] [place] [address] Dr. Gene Ryder Urea nitrogen/Creatinine [Mass ratio] 14.1 mg/mg Normal [facility] Comment on above: Performed By: #### B PAPITO, HSTROPN #### [facility] [address] [place] [address] Dr. Gene Ryder TROPONIN, HIGH SENSITIVITYon 04-10-2022 HSTROP 3.1 pg/mL Critically low 4.0-51.3 [facility] Comment on above: Result Comment: CUT- OFF POINTS HAVE BEEN ESTABLISHED BASED ON THE FOURTH UNIVERSAL DEFINITIONS OF MYOCARDIAL INFARCTION. THE UPPER REFERENCE LIMIT (URL) OF TROPONIN, DEFINED THE 99TH PERCENTILE OF cTnI DISTRIBUTION IN A REFERENCE POPULATION, HAS BEEN CONFIRMED THE DECISION THRESHOLD FOR [place] DIAGNOSIS. Performed By: #### B PAPITO, HSTROPN #### [facility] [address] [place] [address] Dr. Gene Ryder XR CHEST 1 Von 04-10-2022 XR CHEST 1 V EXAMINATION: XR CHES T 1 V HISTORY: CHEST PAIN, UNSPECIFIED COMPARISON: No relevant comparison available. TECHNIQUE: Portable FINDINGS: LUNGS: No significant pulmonary parenchymal abnormalities. VASCULATURE: No increased pulmonary vasculature. PLEURA: No pneumothorax, effusion, or pleural thickening. CARDIAC: No cardiomegaly or cardiac silhouette abnormality. MEDIASTINUM: No visible mass or adenopathy. BONES: No fracture or visible bone lesion. OTHER: Negative. IMPRESSION: No acute disease. Electronically authenticated by: BMA VILLAGOMEZ Date: 2022-04-10 11:59 Normal [facility] XR Chest 2 Views*on 03-17-20 22 XR Chest 2 Views* HISTORY: Asthma FINDINGS: No acute cardiac or pulmonary disease is identified. No worrisome mass lesions or infiltrates are seen. No pulmonary edema or pneumothorax is present. Cardiac silhouette size is normal. Skeletal structures are unremarkable. IMPRESSION: No focal infiltrates, evidence of air trapping or significant peribronchial thickening. Report reported and signed by Tapan Prado on 03/17/[address] [facility] XR foot RT min 3V*on 021 XR foot RT min 3V* [facility] Other XR foot RT min 3V* [facility] Main [place] [employer] Other XR foot RT min 3V* [address] [place] [address] [facility] [employer] Other XR foot RT min 3V* [place] [id number] [facility] [employer] Other XR foot RT min 3V* XRay Report [employer] Other XR foot RT min 3V* Signed [employer] Other XR foot RT min 3V* Patient: Becka Loredo MR#: [id number] [employer] Other XR foot RT min 3V* 843 [facility] [employer] Other XR foot RT min 3V* : 1985 Acct:[id number] [employer] Other XR foot RT min 3V* Age/Sex: 36 / F ADM Date: 07/30/21 [employer] [facility] Other XR foot RT min 3V* Loc: XDUCLY Room: Type: [facility] Other XR foot RT min 3V* Attending Dr: [place] WIGGINS [employer] Other XR foot RT min 3V* Ordering Provider: FELICIANO [place] [employer] Other XR foot RT min 3V* Date of Service: 07/30/21 [employer] Other XR foot RT min 3V* XR/XR foot RT min 3V*: Right foot pain [employer] Other XR foot RT min 3V* Copies to: FELICIANO [place] [employer] Other XR foot RT min 3V* CLINICAL HISTORY: Patient dropped a heavy ceramic plant pot on her right foot yesterday, pain over [employer] Other XR foot RT min 3V* the dorsal surface o f the mid to distal first and second metatarsals and first and second toes. [employer] Other XR foot RT min 3V* XR foot RT min 3V* [employer] Other XR foot RT min 3V* COMPARISON: None [employer] Other XR foot RT min 3V* FINDINGS: AP, latera l and oblique views of the right foot were obtained. There is no evidence of [employer] Other XR foot RT min 3V* fracture, dislocatio n or bony erosion. No radiopaque foreign body is noted. [employer] Other XR foot RT min 3V* XR/XR foot RT min 3V* [employer] Other XR foot RT min 3V* IMPRESSION: [employer] Other XR foot RT min 3V* INTACT BONY STRUCTURES. [employer] Other XR foot RT min 3V* Impression dictated by: Sachin Monroy M.D.07/30/2021 9:51 AM [employer] Other XR foot RT min 3V* Dictation Location: RADIO-PC-13 [facility] [employer] Other XR foot RT min 3V* Transcribed By: GURJIT 07/30/21 0951 [place] [employer] Other XR foot RT min 3V* Dictated By: Sachin Monroy MD 07/30/21 0946 [place] [employer] Other XR foot RT min 3V* Signed By: [employer] Other XR foot RT min 3V* 07/30/21 0951 [place] [employer] Other COVID Quick Testingon 2020 Result Negative [employer] Other COVID Quick Testingon 2020 Result Negative [employer] Other MRI BRAIN WITHOUT AND WITH C ONTRASTon 02-23-2021 MRI BRAIN WITHOUT AND WITH CONTRAST MRI BRAIN WITHOUT AND WITH CONTRAST, 02/22/2021 10:56 AM. INDICATION: Paresthesia, Vitamin D deficiency, Optic atrophy, Hyperreflexia, . COMPARISON: No applicable prior studies available for comparison in the PACS at time of image interpretation. TECHNIQUE: Multiple axial diffusion, axial gradient echo, axial and sagittal T2 FLAIR, axial T2, axial T1, as well as post gadolinium axial, coronal, and sagittal T1 weighted images were obtained through the brain. FINDINGS: No intracranial hemorrhage. No extra-axial fluid collection. No mass effect. No midline shift. No herniation. No pathologic intracranial enhancement. No acute infarct. No focal parenchymal signal abnormality. Ventricles and sulci are age appropriate. Basal cisterns are patent and symmetric. Central intracranial vascular flow voids appear grossly intact. Dural venous sinuses, which this examination is not tailored to evaluate, appear to enhance normally. Trace mucosal inflammatory changes in the bilateral ethmoid air cells. Slight rightward nasal septal deviation. Mastoid air cells are essentially clear. Intraorbital soft tissues appear grossly normal. Calvarial marrow signal appears normal. Metallic susceptibility artifact noted in the region of the right temporal scalp. IMPRESSION: AGE-APPROPRIATE MRI BRAIN WITHOUT AND WITH GADOLINIUM. DICTATED BY MIYA CARLSON M.D. Workstation ID:[id number] Pt has bar ear piercing that can't be taken out. 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 INDICATION: Paresthesia, Vitamin D deficiency, Optic atrophy, Hyperreflexia, . COMPARISON: No applicable prior studies available for comparison in the PACS at time of image interpretation. TECHNIQUE: Multiple axial and sagittal pre-gadolinium T1, postgadolinium T1, and T2 weighted images as well as sagittal STIR images were obtained through the cervical spine. FINDINGS: Straightening of cervical lordosis. Vertebral alignment is anatomic. Vertebral body heights maintained at all visualized levels. No evidence of acute fracture or aggressive intraosseous lesion. Moderate chronic degenerative endplate changes noted at C6-7 in association with Schmorl's node deformities and some mineralization of the disc. Mild multilevel cervical spondylotic changes with degenerative endplate changes, disc desiccation and slight loss of height, posterior disc bulging and associated marginal endplate osteophytosis, uncovertebral and facet arthropathy with ligamentum flavum thickening, as follows: C2-3: Mild posterior disc osteophyte complex and ligamentum flavum thickening slightly contours the ventral and dorsolateral thecal sac with slight abutment of the dorsal cord, without significant canal stenosis. Bilateral neural foramina are patent. C3-4: Mild posterior disc osteophyte complex and ligamentum flavum thickening slightly contours the ventral and dorsolateral thecal sac without significant canal stenosis. Minimal uncovertebral and facet arthropathy without significant neural foraminal stenosis. C4-5: Mild posterior disc osteophyte complex and ligamentum flavum thickening slightly contours the ventral and dorsolateral thecal sac without significant canal stenosis. Minimal uncovertebral and facet arthropathy without significant neural foraminal stenosis. C5-6: Mild posterior disc osteophyte complex and ligamentum flavum thickening slightly contours the ventral and dorsolateral thecal sac with slight abutment of the ventral cord, without significant canal stenosis. Mild uncovertebral and facet arthropathy mildly asymmetrically narrows the left neural foramen. C6-7: Posterior disc osteophyte complex slightly eccentric to the right, slightly indenting the right ventral cord without significant canal stenosis. Mild uncovertebral and facet arthropathy without significant neural foraminal stenosis. C7-T1: Slight generalized disc bulge and facet arthropathy without significant canal or neural foraminal stenosis. Cervical cord demonstrates normal signal throughout. No pathologic intrathecal mass lesion or focal signal abnormality. No epidural hematoma or abscess. Paraspinous musculature and prevertebral soft tissues appear normal. Mild multilevel anterior endplate osteophytosis most pronounced at C6-7. No extraspinal abnormality identified within the [id number]. IMPRESSION: NO EVIDENCE OF ACUTE CERVICAL SPINE FRACTURE/MALALIGNMENT . NONSPECIFIC STRAIGHTENING OF CERVICAL LORDOSIS, POSSIBLY REFLECTING MUSCLE SPASM. MILD MULTILEVEL CERVICAL SPONDYLOTIC CHANGES DETAILED ABOVE, MOST PRONOUNCED AT C6-7 WHERE THERE IS SLIGHT INDENTATION OF THE RIGHT VENTRAL CORD WITHOUT SIGNIFICANT CANAL OR NEURAL FORAMINAL STENOSIS. NO CORD LESION, EDEMA OR COMPRESSION. NO EPIDURAL ABSCESS OR HEMATOMA.. 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 It has not been cleared or approved by the [place] Food and Drug Administration. This test was performed in a CLIA certified laboratory and is intended for clinical purposes. Performed By: [facility] [address] [place] [address] Assistant County Attorney: Radha Zheng MD Performed By: #### C BCWD #### [facility] [address] [place] [address] #### MGT2, MGT1, AIISE #### [facility] [address] [facility] [address] IG Stephna 01-11-2021 IG E 33 IU/mL Normal <101 [facility] Comment on above: Result Comment: [employer] [address] [place] [address] [phone] Performed By: #### C BCWD #### [facility] [address] [place] [address] #### MGT2, MGT1, AIISE #### [facility] [address] [facility] [address] CBC Auto DifferentialOrdered By: Bren Anderson on 01-10-2021 Basophils (Bld) [#/Vol] 0.1 10*3/uL [facility] Work Phone: Basophils/100 WBC (Bld) 1.4 % [facility] [employer] Work Phone: Eosinophils Absolute 0.1 [facility] [employer] Work Phone: Eosinophils/100 WBC (Bld) 1.1 % [facility] Phone: Erythrocyte distribution width (RBC) [Ratio] 13.5 % 11.5 - 14.5 % [facility] Phone: Erythrocyte distribution width (RBC) [Ratio] 46.8 fL High 35.0 - 45.0 fL [employer] Work Phone: Hematocrit (Bld) [Volume fraction] 43.3 % 37.0 - 47.0 % [facility] Phone: Hemoglobin.gastrointest inal spec 1 Ql (Stl) 13.2 Gend[employer] Jamalon Work Phone: Immature Grans (Abs) 0.01 [facility] [employer] Work Phone: Immature granulocytes/100 WBC (Bld) 0.2 % [employer] Work Phone: Interpretation and review of laboratory results Abnormal [employer] Work Phone: Lymphocytes Absolute 2.0 [facility] [employer] Work Phone: Lymphocytes/100 WBC (Bld) 30.3 % [facility] Phone: MCH (RBC) [Entitic mass] 28.8 pg 26.0 - 33.0 pg [employer] Work Phone: MCHC (RBC) [Mass/Vol] 30.5 g/dL Low [facility] Work Phone: MCV (RBC) [Entitic vol] 94.3 fL 81.0 - 99.0 fL [facility] [employer] Work Phone: Monocytes Absolute 0.6 [facility] [employer] Work Phone: Monocytes/100 WBC (Bld) 9.8 % M [facility] [employer] Work Phone: nRBC 0 /100 wbc [facility] [employer] Work Phone: Comment on above: Performed at [facility] [address] [place] [id number] Platelet mean volume (Bld) [Entitic vol] 9.8 fL 9.4 - 12.4 fL [facility] [employer] Phone: Platelets (Bld) [#/Vol] 280 10*3/uL [facility] [employer] Work Phone: RBC (Bld) [#/Vol] 4.59 10*6/uL [facility] [employer] Work Phone: Segmented neutrophils/100 WBC (Bld) 57.2 % [facility] [employer] Work Phone: Segs Absolute 3.8 [facility] Work Phone: WBC (Bld) [#/Vol] 6.6 10*3/uL [facility] [employer] Work Phone: [facility] [employer] Work Phone: CBC WITH DIFFERENTIALon 06-0 4-2020 ABS BASOPHILS 0.1 thou/mm3 Normal 0.0-0.1 [facility] Comment on above: Performed By: #### Gurdeep BURGESSWD #### [facility] [address] [place] [address] #### MGT2, MGT1, AIISE #### [facility] [address] [facility] [address] ABS EOSINOPHILS 0.1 thou/mm3 Normal 0.0-0.4 [facility] Comment on above: Performed By: #### C JENIFERWD #### [facility] [address] [address] #### MGT2, MGT1, AIISE #### [facility] [address] [place] [address] ABS IMMATURE GRANS (IG) 0.01 thou/mm3 Normal 0.00-0.07 [facility] Comment on above: Performed By: #### C BCWD #### [address] [address] #### MGT2, MGT1, AIISE #### [facility] [address] [place] [address] ABS LYMPHOCYTES 2.0 thou/mm3 Normal 1.0-4.8 [facility] Comment on above: Performed By: #### C BCWD #### [address] [address] #### MGT2, MGT1, AIISE #### [facility] [address] [place] [address] ABS MONOCYTES 0.6 thou/mm3 Normal 0.4-1.3 [facility] Comment on above: Performed By: #### C BCWD #### [address] [address] #### MGT2, MGT1, AIISE #### [facility] [address] [place] [address] ABS NEUTROPHILS 3.8 thou/mm3 Normal 1.8-7.7 [facility] Comment on above: Performed By: #### C BCWD #### [address] [address] #### MGT2, MGT1, AIISE #### [facility] [address] [place] [address] Basophils/100 WBC (Bld) 1.4 % Normal [facility] Comment on above: Performed By: #### C BCWD #### [address] [address] #### MGT2, MGT1, AIISE #### [facility] [address] [place] [address] Eosinophils/100 WBC (Bld) 1.1 % Normal [facility] Comment on above: Performed By: #### C BCWD #### [address] [address] #### MGT2, MGT1, AIISE #### [facility] [address] [facility] [address] Erythrocyte distribution width (RBC) [Ratio] 13.5 % Normal 11.5-14.5 [facility] Comment on above: Performed By: #### C BCWD #### [address] [address] #### MGT2, MGT1, AIISE #### [facility] [address] [facility] [address] Hematocrit (Bld) [Volume fraction] 43.3 % Normal 37.0-47.0 [facility] Comment on above: Performed By: #### C BCWD #### [address] [address] #### MGT2, MGT1, AIISE #### [facility] [address] [facility] [address] Hemoglobin (Bld) [Mass/Vol] 13.2 g/dL Normal 12.0-16.0 [facility] Comment on above: Performed By: #### C BCWD #### [address] [address] #### MGT2, MGT1, AIISE #### [facility] [address] [facility] [address] IMMATURE GRANS (IG) 0.2 % Normal [facility] Comment on above: Performed By: #### C BCWD #### [address] [address] #### MGT2, MGT1, AIISE #### [facility] [address] [facility] [address] Lymphocytes/100 WBC (Bld) 30.3 % Normal [facility] Comment on above: Performed By: #### C BCWD #### [address] [address] #### MGT2, MGT1, AIISE #### [facility] [address] [facility] [address] MCH (RBC) [Entitic mass] 28.8 pg Normal 26.0-33.0 [facility] Comment on above: Performed By: #### C BCWD #### [facility] [address] [address] #### MGT2, MGT1, AIISE #### [facility] [address] [facility] [place] [address] MCHC (RBC) [Mass/Vol] 30.5 g/dL Low 32.2-35.5 [facility] Comment on above: Performed By: #### C BCWD #### [facility] [address] [place] [address] #### MGT2, MGT1, AIISE #### [facility] [address] [facility] [place] [address] MCV (RBC) [Entitic vol] 94.3 fL Normal 81.0-99.0 [facility] Comment on above: Performed By: #### C BCWD #### [address] [address] #### MGT2, MGT1, AIISE #### [facility] [address] [facility] [place] [address] Monocytes/100 WBC (Bld) 9.8 % Normal [facility] Comment on above: Performed By: #### C BCWD #### [facility] [address] [address] #### MGT2, MGT1, AIISE #### [facility] [address] [facility] [place] [address] Neutrophils/100 WBC (Bld) 57.2 % Normal [facility] Comment on above: Performed By: #### C BCWD #### [facility] [address] [address] #### MGT2, MGT1, AIISE #### [facility] [address] [facility] [place] [address] NRBC 0 /100 wbc Normal [facility] Comment on above: Performed By: #### C BCWD #### [facility] [address] [place] [address] #### MGT2, MGT1, AIISE #### [facility] [address] [facility] [place] [address] PLATELET 280 thou/mm3 Normal 130-400 [facility] Comment on above: Performed By: #### C BCWD #### [facility] [address] [address] #### MGT2, MGT1, AIISE #### [facility] [address] [facility] [address] Platelet mean volume (Bld) [Entitic vol] 9.8 fL Normal 9.4-12.4 [facility] Comment on above: Performed By: #### C BCWD #### [address] [address] #### MGT2, MGT1, AIISE #### [facility] [address] [facility] [address] RBC 4.59 mill/mm3 Normal 4.20-5.40 [facility] Comment on above: Performed By: #### C BCWD #### [address] [address] #### MGT2, MGT1, AIISE #### [facility] [address] [facility] [address] RDW-SD 46.8 fL High 35.0-45.0 [facility] Comment on above: Performed By: #### C BCWD #### [facility] [address] [place] [address] #### MGT2, MGT1, AIISE #### [facility] [address] [facility] [address] WBC 6.6 thou/mm3 Normal 4.8-10.8 [facility] Comment on above: Performed By: #### C BCWD #### [address] [address] #### MGT2, MGT1, AIISE #### [facility] [address] [facility] [address] PAPon 10-14-2020 Microscopic observation Cyto stain Nom (Cvx) SEE BELOW Normal [facility] Comment on above: Result Comment: INTERPRETATION Cervical-Endocervical material, (Thin prep vial, Imaging-assisted review): Specimen Adequacy: Satisfactory for evaluation. - Endocervical/transformation zone component present. Descriptive Diagnosis: NEGATIVE FOR INTRAEPITHELIAL LESION OR MALIGNANCY. Shift in eunice suggestive of bacterial vaginosis. Comments: High Risk HPV testing was ordered. Manager Economic: SELENE Neely(ASCP) Electronically Signed Out clifford/10/11/2020 Procedure/Addendum HPV Procedure Report Date Ordered: 10/10/2020 Status: Signed Out Date Complete: 10/10/2020 By: SELENE Gale(ASCP) Date Reported: 10/14/2020 INTERPRETATION Dwight HPV DNA High Risk HPV Sample Thin Prep (Ref Range) HPV Type 16 Not Detected (Not Detected) HPV Type 18 Not Detected (Not Detected) Other High Risk HPV Not Detected (Not Detected) This test amplifies and detects DNA of 14 high-risk HPV types associated with cervical cancer and its precursor lesions (HPV types 16, 18, 31, 33, 35, 39, 45, 51, 52, 56, 58, 59, 66, and 68). Sensitivity may be affected by specimen collection methods, stage of infection, and the presence of interfering substances. Results should be interpreted in conjunction with other available laboratory and clinical data. A negative high-risk HPV result does not exclude the possibility of future cytologic HSIL or underlying CIN2-3 or cancer. This test is intended for medical purposes only and is not valid for the evaluation of suspected sexual abuse or for other forensic purposes. Clinical History: Z12.4 Encounter for screening for malignant neoplasm of cervix Co-Test: ThinPrep Pap with high risk HPV testing Date of prior pap: 2017 LMP: 09/2020 Source of Specimen: 1: Cervical-Endocervical material, (Thin prep vial, Imaging-assisted review) Specimen was processed and screened at [facility], [address] [place] [id number] Patient Name: BECKA LOREDO MR#: [id number] Performed By: #### C BCWD #### [facility] [address] [place] [address] #### MGT2, MGT1, AIISE #### [facility] [address] [facility] [address] CORTISOL, FREE (URINE)on CORTISOL URINE FREE SEE BELOW Normal [facility] Comment on above: Result Comment: Hour s Collected Random hr Total Volume Random mL Cortisol, Urine Free - per volume 40.70 ug/L Cortisol, Urine Free - ratio to COLLAR STARCHER 25.92 ug/g C Reference Interval: Cortisol ug/g voice network administrator Female Prepubertal: Less than 25 ug/g voice network administrator 18 years and older: Less than 24 ug/g voice network administrator : Less than 59 ug/g voice network administrator Male Prepubertal: Less than 25 ug/g voice network administrator 18 years and older: Less than 32 ug/g voice network administrator Cortisol, Urine Free - per 24h N/A <=45.0 ug/d Creatinine, Urine - per volume 157 mg/dL Creatinine, Urine - per 24h N/A 700-1600 mg/d Cortisol, Urine Interpretation See Note INTERPRETIVE INFORMATION: Cortisol Urine Free by LC-MS/MS The optimal specimen for this testing is a 24-hour urine collection. Mass per day calculations are not reported for the following specimen types: a random collection, a collection with duration of less than 20 hours, a collection with duration of greater than 28 hours, or a collection with total volume less than 400 mL or greater than 5000 mL. Ratios to creatinine may be useful for these evaluations. Baseline urinary free cortisol excretion less than 5 ug/d may be consistent with adrenal insufficiency. Access complete set of age- and/or gender-specific reference intervals for this test in the [employer] ([employer]). Test developed and characteristics determined by [facility]. See Compliance Statement B: [employer]/Y[employer]uto Performed by [facility], [address] [place] [id number] [email or web address], Radha Zheng MD - Lab. Director Performed By: #### Gurdeep THOMPSON #### [facility] [address] [place] [address] #### MGT2, MGT1, AIISE #### [facility] [address] [facility] [address] HISTAMINE WHOLE BLOODon 08-10 HISTAMINE WHOLE BLOOD SEE BELOW Normal [facility] Comment on above: Result Comment: Hist amine, Whole Blood [phone] nmol/L INTERPRETIVE INFORMATION: Histamine, Whole Blood Test developed and characteristics determined by [facility]. See Compliance Statement D: [employer]/CS Performed By: [facility] [address] [place] [address] Assistant County Attorney: Radha Zheng MD Performed By: #### Gurdeep THOMPSON #### [facility] [address] [place] [address] #### MGT2, MGT1, AIISE #### [facility] [address] [facility] [address] ANION GAPon 09-03-2020 Anion gap [Moles/Vol] 9.0 mmol/L Normal 8.0-16.0 [facility] Comment on above: Result Comment: ANIO N GAP = Sodium -(Chloride + CO2) Performed By: #### C BCWD #### [facility] [address] [place] [address] #### MGT2, MGT1, AIISE #### [facility] [address] [facility] [address] Anion Gapon 09-03-2020 Anion gap [Moles/Vol] 9.0 mmol/L 8 - 16 meq/L [place], [place] Comment on above: ANION GAP = Sodium - (Chloride + CO2) Performed at [facility] [address] [place] [address] CALCIUM (IONIZED) * WBon CALCIUM (IONIZED) * WB 1.20 mmol/L Normal 1.12-1.32 [facility] Comment on above: Performed By: #### C BCWD #### [facility] [address] [place] [address] #### MGT2, MGT1, AIISE #### [facility] [address] [facility] [address] CARDIAC STRESS TEST EXERCISE ONLYon 09-03-2020 Non-Imaging Stress Test Demographics Patient Name HERMAN Patel Gender Female MR # [id number] Race Ethnicity Room Number Date of Study 09/03/2020 Accession Number [id number] Referring Physician BOSSMAN Durand Date of 1985 Stress staff Annemarie Bird LPN Age 35 year(s) Interpreting Flora Garcia MD Physician The procedure was explained in detail to the patient. Risks, complications and alternative treatments were reviewed. Written consent was obtained. Procedure Type of Study Nuclear Stress Test:Non-Imaging Stress Test, GXT Exercise. Procedure Date Date: 09/03/2020 Start: 11:28 Medical History:Patient history obtained by: Maliha MOSHER. Risk Factors The patient risk factors include:Current - Every day tobacco use and chronic lung disease. Rest ECG Normal sinus rhythm. No ischemic EKG changes. Standing HR:70 bpmStanding BP:107/69 mmHg Stress Stress Type: Exercise Peak HR: 174 bpm HR BP Product: 97634 Peak BP: 160/80 mmHg Max Exercise: 12.1 METS Predicted HR: 183 bpm % of predicted HR: 95 Test duration:10.02 min Reason for Termination: Physician request Stress Interpretation Exercise EKG stress test is not suggestive for ischemia. Results ECG Nonspecific ST-T wave changes. No ischemic EKG changes. Symptoms No chest pain during the stress. Patient developed SOB which resolved after she took her asthma inhaler at the end of the study.. Stress Protocol: Exercise - Varinder +--------+-----+----+ +-----+--- -----+---+--+-------- +------+----+ !Stage # !Time !Work!Speed/Grade!Hea rt!Blood !RPE!CP!Pain !Pain !Pain! ! ! ! ! !Rate !Pressure! ! !Location!Action!Type ! +--------+-----+----+ +-----+--- -----+---+--+-------- +------+----+ !1.0 !03:00!4.7 !1.7/10.0 !120 !140/80 ! ! ! ! ! ! +--------+-----+----+ +-----+--- -----+---+--+-------- +------+----+ !2.0 !06:00!7.1 !2.5/12.0 !142 !160/80 ! ! ! ! ! ! +--------+-----+----+ +-----+--- -----+---+--+-------- +------+----+ !3.0 !09:00!10.1!3.4/14.0 !158 !156/86 ! ! ! ! ! ! +--------+-----+----+ +-----+--- -----+---+--+-------- +------+----+ !4.0 !12:00!12.1!4.2/16.0 !174 ! ! ! ! ! ! ! +--------+-----+----+ +-----+--- -----+---+--+-------- +------+----+ !Recovery!00:00! ! !174 !152/84 ! ! ! ! ! ! +--------+-----+----+ +-----+--- -----+---+--+-------- +------+----+ !Recovery!02:00! ! !116 !145/80 ! ! ! ! ! ! +--------+-----+----+ +-----+--- -----+---+--+-------- +------+----+ !Recovery!05:00! ! !93 !123/69 ! ! ! ! ! ! +--------+-----+----+ +-----+--- -----+---+--+-------- +------+----+ Conclusions Summary No chest pain during the stress. Patient developed SOB which resolved after she took her asthma inhaler at the end of the study. 12.1 METS achieved. Exercise EKG stress test is not suggestive for ischemia. Recommendation Clinical correlation is recommended. Signatures - - [email or web address]?DocKey=[id number] [id number] [id number]%3d %3d [facility] [place] [place] Juan José, [place] Incoming Cardiovascular Orders To [facility] - 09/03/2020 7:36 PM EST Non-Imaging Stress Test Demographics Patient Name HERMAN Patel Gender Female MR # [id number] Race Ethnicity Room Number Date of Study 09/03/2020 Accession Number [id number] Referring Physician BOSSMAN Durand Date of 1985 Stress staff Annemarie Bird LPN Age 35 year(s) Interpreting Flora Garcia MD Physician The procedure was explained in detail to the patient. Risks, complications and alternative treatments were reviewed. Written consent was obtained. Procedure Type of Study Nuclear Stress Test:Non-Imaging Stress Test, GXT Exercise. Procedure Date Date: 09/03/2020 Start: 11:28 Medical History:Patient history obtained by: Maliha MOSHER. Risk Factors The patient risk factors include:Current - Every day tobacco use and chronic lung disease. Rest ECG Normal sinus rhythm. No ischemic EKG changes. Standing HR:70 bpmStanding BP:107/69 mmHg Stress Stress Type: Exercise Peak HR: 174 bpm HR BP Product: 33199 Peak BP: 160/80 mmHg Max Exercise: 12.1 METS Predicted HR: 183 bpm % of predicted HR: 95 Test duration:10.02 min Reason for Termination: Physician request Stress Interpretation Exercise EKG stress test is not suggestive for ischemia. Results ECG Nonspecific ST-T wave changes. No ischemic EKG changes. Symptoms No chest pain during the stress. Patient developed SOB which resolved after she took her asthma inhaler at the end of the study.. Stress Protocol: Exercise - Varinder +--------+-----+----+ +-----+--- -----+---+--+-------- +------+---- + !Stage # !Time !Work!Speed/Grade!Hea rt!Blood !RPE!CP!Pain !Pain !Pain! ! ! ! ! !Rate !Pressure! ! !Location!Action!Type ! +--------+-----+----+ +-----+--- -----+---+--+-------- +------+---- + !1.0 !03:00!4.7 !1.7/10.0 !120 !140/80 ! ! ! ! ! ! +--------+-----+----+ +-----+--- -----+---+--+-------- +------+---- + !2.0 !06:00!7.1 !2.5/12.0 !142 !160/80 ! ! ! ! ! ! +--------+-----+----+ +-----+--- -----+---+--+-------- +------+---- + !3.0 !09:00!10.1!3.4/14.0 !158 !156/86 ! ! ! ! ! ! +--------+-----+----+ +-----+--- -----+---+--+-------- +------+---- + !4.0 !12:00!12.1!4.2/16.0 !174 ! ! ! ! ! ! ! +--------+-----+----+ +-----+--- -----+---+--+-------- +------+---- + !Recovery!00:00! ! !174 !152/84 ! ! ! ! ! ! +--------+-----+----+ +-----+--- -----+---+--+-------- +------+---- + !Recovery!02:00! ! !116 !145/80 ! ! ! ! ! ! +--------+-----+----+ +-----+--- -----+---+--+-------- +------+---- + !Recovery!05:00! ! !93 !123/69 ! ! ! ! ! ! +--------+-----+----+ +-----+--- -----+---+--+-------- +------+---- + Conclusions Summary No chest pain during the stress. Patient developed SOB which resolved after she took her asthma inhaler at the end of the study. 12.1 METS achieved. Exercise EKG stress test is not suggestive for ischemia. Recommendation Clinical correlation is recommended. Signatures - - [email or web address]=[id number] ezyfwh4zeKxCWskNNS%3d %3d [place], [place] CBC Auto Differentialon 08-10 Basophils (Bld) [#/Vol] 0.1 10*3/uL [facility], [place] Basophils/100 WBC (Bld) 0.9 % M [place], [place] Eosinophils (Bld) [#/Vol] 0.1 10*3/uL [facility], [place] Eosinophils/100 WBC (Bld) 0.7 % [place], [place] Erythrocyte distribution width (RBC) [Ratio] 14.7 % High 11.5 - 14.5 % [place] Hematocrit (Bld) [Volume fraction] 43.4 % 37 - 47 % [place] Hemoglobin (Bld) [Mass/Vol] 13.7 g/dL [place] Immature Grans (Abs) 0.03 [place], [place] Immature granulocytes (Bld) [#/Vol] 0.4 % [place] Interpretation and review of laboratory results Abnormal [place] Lymphocytes (Bld) [#/Vol] 2.2 10*3/uL [place] Lymphocytes/100 WBC (Bld) 28.7 % [place] MCH (RBC) [Entitic mass] 28.7 pg 26 - 33 pg [place] MCHC (RBC) [Mass/Vol] 31.6 g/dL Low [facility] [place], [place] MCV (RBC) [Entitic vol] 90.8 fL 81 - 99 fL [place], [place] Monocytes (Bld) [#/Vol] 0.6 10*3/uL [place] Monocytes/100 WBC (Bld) 8.5 % [place], [place] Nucleated RBC/100 WBC (Bld) [Ratio] 0 % /100 wbc [place], [place] Comment on above: Performed at [facility] [address] [place] [address] Platelet mean volume (Bld) [Entitic vol] 9.9 fL 9.4 - 12.4 fL [place], [place] Platelets (Bld) [#/Vol] 245 10*3/uL [place] RBC (Bld) [#/Vol] 4.78 10*6/uL [place] RDW-SD 49.2 fL High 35 - 45 fL [place] Segmented neutrophils/100 WBC (Bld) 60.8 % [place] Segs Absolute 4.6 [place], [place] WBC (Bld) [#/Vol] 7.5 10*3/uL [place] CBC WITH DIFFERENTIALon 08-10 ABS BASOPHILS 0.1 thou/mm3 Normal 0.0-0.1 [facility] Comment on above: Performed By: #### C BCWD #### [facility] [address] [place] [address] #### MGT2, MGT1, AIISE #### [facility] [address] [place] [address] ABS EOSINOPHILS 0.1 thou/mm3 Normal 0.0-0.4 [facility] Comment on above: Performed By: #### C BCWD #### [address] [address] #### MGT2, MGT1, AIISE #### [facility] [address] [place] [address] ABS IMMATURE GRANS (IG) 0.03 thou/mm3 Normal 0.00-0.07 [facility] Comment on above: Performed By: #### C BCWD #### [address] [address] #### MGT2, MGT1, AIISE #### [facility] [address] [facility] [place] [address] ABS LYMPHOCYTES 2.2 thou/mm3 Normal 1.0-4.8 [facility] Comment on above: Performed By: #### C BCWD #### [address] [address] #### MGT2, MGT1, AIISE #### [facility] [address] [place] [address] ABS MONOCYTES 0.6 thou/mm3 Normal 0.4-1.3 [facility] Comment on above: Performed By: #### C BCWD #### [facility] [address] [place] [address] #### MGT2, MGT1, AIISE #### [facility] [address] [place] [address] ABS NEUTROPHILS 4.6 thou/mm3 Normal 1.8-7.7 [facility] Comment on above: Performed By: #### C BCWD #### [facility] [address] [place] [address] #### MGT2, MGT1, AIISE #### [facility] [address] [facility] [place] [address] Basophils/100 WBC (Bld) 0.9 % Normal [facility] Comment on above: Performed By: #### C BCWD #### [address] [address] #### MGT2, MGT1, AIISE #### [facility] [address] [facility] [address] Eosinophils/100 WBC (Bld) 0.7 % Normal [facility] Comment on above: Performed By: #### C BCWD #### [address] [address] #### MGT2, MGT1, AIISE #### [facility] [address] [facility] [address] Erythrocyte distribution width (RBC) [Ratio] 14.7 % High 11.5-14.5 [facility] Comment on above: Performed By: #### C BCWD #### [address] [address] #### MGT2, MGT1, AIISE #### [facility] [address] [facility] [address] Hematocrit (Bld) [Volume fraction] 43.4 % Normal 37.0-47.0 [facility] Comment on above: Performed By: #### C BCWD #### [address] [address] #### MGT2, MGT1, AIISE #### [facility] [address] [facility] [address] Hemoglobin (Bld) [Mass/Vol] 13.7 g/dL Normal 12.0-16.0 [facility] Comment on above: Performed By: #### C BCWD #### [address] [address] #### MGT2, MGT1, AIISE #### [facility] [address] [facility] [address] IMMATURE GRANS (IG) 0.4 % Normal [facility] Comment on above: Performed By: #### C BCWD #### [address] [address] #### MGT2, MGT1, AIISE #### [facility] [address] [facility] [address] Lymphocytes/100 WBC (Bld) 28.7 % Normal [facility] Comment on above: Performed By: #### C BCWD #### [address] [address] #### MGT2, MGT1, AIISE #### [facility] [address] [facility] [place] [place] [address] MCH (RBC) [Entitic mass] 28.7 pg Normal 26.0-33.0 [facility] Comment on above: Performed By: #### C BCWD #### [address] [address] #### MGT2, MGT1, AIISE #### [facility] [address] [facility] [place] [address] MCHC (RBC) [Mass/Vol] 31.6 g/dL Low 32.2-35.5 [facility] Comment on above: Performed By: #### C BCWD #### [address] [address] #### MGT2, MGT1, AIISE #### [facility] [address] [facility] [place] [address] MCV (RBC) [Entitic vol] 90.8 fL Normal 81.0-99.0 [facility] Comment on above: Performed By: #### C BCWD #### [address] [address] #### MGT2, MGT1, AIISE #### [facility] [address] [facility] [place] [address] Monocytes/100 WBC (Bld) 8.5 % Normal [facility] Comment on above: Performed By: #### C BCWD #### [address] [address] #### MGT2, MGT1, AIISE #### [facility] [address] [facility] [place] [address] Neutrophils/100 WBC (Bld) 60.8 % Normal [facility] Comment on above: Performed By: #### C BCWD #### [facility] [address] [place] [address] #### MGT2, MGT1, AIISE #### [facility] [address] [facility] [address] NRBC 0 /100 wbc Normal [facility] Comment on above: Performed By: #### C BCWD #### [address] [address] #### MGT2, MGT1, AIISE #### [facility] [address] [facility] [address] PLATELET 245 thou/mm3 Normal 130-400 [facility] Comment on above: Performed By: #### C BCWD #### [facility] [address] [place] [address] #### MGT2, MGT1, AIISE #### [facility] [address] [facility] [place] [address] Platelet mean volume (Bld) [Entitic vol] 9.9 fL Normal 9.4-12.4 [facility] Comment on above: Performed By: #### C BCWD #### [facility] [address] [place] [address] #### MGT2, MGT1, AIISE #### [facility] [address] [facility] [address] RBC 4.78 mill/mm3 Normal 4.20-5.40 [facility] Comment on above: Performed By: #### C BCWD #### [facility] [address] [address] #### MGT2, MGT1, AIISE #### [facility] [address] [facility] [address] RDW-SD 49.2 fL High 35.0-45.0 [facility] Comment on above: Performed By: #### C BCWD #### [facility] [address] [address] #### MGT2, MGT1, AIISE #### [facility] [address] [facility] [address] WBC 7.5 thou/mm3 Normal 4.8-10.8 [facility] Comment on above: Performed By: #### C BCWD #### [facility] [address] [place] [address] #### MGT2, MGT1, AIISE #### [facility] [address] [facility] [address] COMP. METABOLIC PANELon 08-10 Albumin [Mass/Vol] 4.5 g/dL Normal 3.5-5.1 [facility] Comment on above: Performed By: #### C BCWD #### [facility] [address] [address] #### MGT2, MGT1, AIISE #### [facility] [address] [facility] [place] [address] ALP [Catalytic activity/Vol] 87 U/L Normal 38-126 [facility] Comment on above: Performed By: #### C BCWD #### [facility] [address] [place] [address] #### MGT2, MGT1, AIISE #### [facility] [address] [facility] [place] [address] ALT [Catalytic activity/Vol] 11 U/L Normal 11-66 [facility] Comment on above: Performed By: #### C BCWD #### [facility] [address] [place] [address] #### MGT2, MGT1, AIISE #### [facility] [address] [facility] [place] [address] AST [Catalytic activity/Vol] 17 U/L Normal 5-40 [facility] Comment on above: Performed By: #### C BCWD #### [facility] [address] [place] [address] #### MGT2, MGT1, AIISE #### [facility] [address] [facility] [place] [address] Bilirubin [Mass/Vol] 0.5 mg/dL Normal 0.3-1.2 [facility] Comment on above: Performed By: #### C BCWD #### [facility] [address] [place] [address] #### MGT2, MGT1, AIISE #### [facility] [address] [facility] [place] [address] Calcium [Mass/Vol] 9.6 mg/dL Normal 8.5-10.5 [facility] Comment on above: Performed By: #### C BCWD #### [facility] [address] [place] [address] #### MGT2, MGT1, AIISE #### [facility] [address] [facility] [place] [address] Chloride [Moles/Vol] 101 mmol/L Normal 98-111 [facility] Comment on above: Performed By: #### C BCWD #### [facility] [address] [place] [address] #### MGT2, MGT1, AIISE #### [facility] [address] [place] [address] CO2 [Moles/Vol] 28 mmol/L Normal 23-33 [facility] Comment on above: Performed By: #### C BCWD #### [facility] [address] [place] [address] #### MGT2, MGT1, AIISE #### [facility] [address] [place] [address] Creatinine [Mass/Vol] 0.7 mg/dL Normal 0.4-1.2 [facility] Comment on above: Performed By: #### C BCWD #### [facility] [address] [place] [address] #### MGT2, MGT1, AIISE #### [facility] [address] [place] [address] Glucose [Mass/Vol] 88 mg/dL Normal 70-108 [facility] Comment on above: Performed By: #### C BCWD #### [facility] [address] [place] [address] #### MGT2, MGT1, AIISE #### [facility] [address] [place] [address] Potassium [Moles/Vol] 4.3 mmol/L Normal 3.5-5.2 [facility] Comment on above: Performed By: #### C BCWD #### [facility] [address] [place] [address] #### MGT2, MGT1, AIISE #### [facility] [address] [place] [address] Protein [Mass/Vol] 7.2 g/dL Normal 6.1-8.0 [facility] Comment on above: Performed By: #### C BCWD #### [facility] [address] [place] [address] #### MGT2, MGT1, AIISE #### [facility] [address] [place] [address] Sodium [Moles/Vol] 138 mmol/L Normal 135-145 [facility] Comment on above: Performed By: #### C BCWD #### [facility] [address] [place] [address] #### MGT2, MGT1, AIISE #### [facility] [address] [facility] [place] [address] Urea nitrogen [Mass/Vol] 14 mg/dL Normal 7- [facility] Comment on above: Performed By: #### C BCWD #### [facility] [address] [place] [address] #### MGT2, MGT1, AIISE #### [facility] [address] [facility] [address] Calcium, Ionizedon Calcium [Mass/Vol] 1.2 mmol/L 1.12 - 1. 32 mmol/L [place], [place] Comment on above: Performed at [facility] [address] [place] [address] Comprehensive Metabolic Pane lexx 09-03-2020 Albumin [Mass/Vol] 4.5 g/dL 3.5 - 5.1 g/dL [place], [place] ALP [Catalytic activity/Vol] 87 U/L 38 - 126 U/L [place] ALT [Catalytic activity/Vol] 11 U/L 11 - 66 U/L [place] Comment on above: Performed at [facility] [address] [place] [address] AST [Catalytic activity/Vol] 17 U/L 5 - 40 U/L [place] Bilirubin Ql (U) 0.5 mg/dL 0.3 - 1.2 mg/dL [place] Calcium [Mass/Vol] 9.6 mg/dL 8.5 - 10. 5 mg/dL [place] Chloride [Moles/Vol] 101 mmol/L 98 - 11 1 meq/L [place] CO2 [Moles/Vol] 28 mmol/L 23 - 33 meq/L [place] Creatinine [Mass/Vol] 0.7 mg/dL 0.4 - 1.2 mg/dL [place] Glucose [Mass/Vol] 88 mg/dL 70 - 108 mg/dL [place] Potassium [Moles/Vol] 4.3 mmol/L 3.5 - 5.2 meq/L [place] Protein [Mass/Vol] 7.2 g/dL 6.1 - 8 g/dL [place] Sodium [Moles/Vol] 138 mmol/L 135 - 145 meq/L [place] Urea nitrogen [Mass/Vol] 14 mg/dL 7 - 22 mg/dL [place] ECHOCARDIOGRAM COMPLETE 2D W DOPPLER W COLORon 09-03-2020 ECHOCARDIOGRAM COMPLETE 2D W DOPPLER W COLOR Transthoracic Echocardiography Report (TTE) Demographics Patient Name HERMAN REYES Gender Female M MR # [id number] Race Ethnicity Room Number Date of Study 09/03/2020 Number Date of 1985 Referring Physician BOSSMAN Durand MD Age 35 year(s) Flight Service Agent Theo Mclean RDCS, T Interpreting Flora Garcia MD Physician Procedure Type of Study TTE procedure:ECHOCARDIOG CRISTEL COMPLETE 2D W DOPPLER W COLOR. Procedure Date Date: 09/03/2020 Start: 12:59 PM Study Location: Echo Lab Technical Quality: Adequate visualization Indications:Dyspnea on exertion. Additional Medical History:Pituitary cyst, GERD, Shortness of breath, Asthma, Smoker, Family history of heart disease. Patient Status: Routine Height: 65 inches Weight: 164 pounds BSA: 1.82 m^2 BMI: 27.29 kg/m^2 BP: 116/84 mmHg Conclusions Summary Normal left ventricle size and systolic function. Ejection fraction was estimated at 55-60%. There were no regional left ventricular wall motion abnormalities and wall thickness was within normal limits. Mild tricuspid regurgitation. Signature - - Findings Mitral Valve The mitral valve structure was normal with normal leaflet separation. DOPPLER: The transmitral velocity was within the normal range with no evidence for mitral stenosis. There was no evidence of mitral regurgitation. Aortic Valve The aortic valve was trileaflet with normal thickness and cuspal separation. DOPPLER: Transaortic velocity was within the normal range with no evidence of aortic stenosis. There was no evidence of aortic regurgitation. Tricuspid Valve The tricuspid valve structure was normal with normal leaflet separation. DOPPLER: There was no evidence of tricuspid stenosis. There was evidence of Mild tricuspid regurgitation. Pulmonic Valve The pulmonic valve leaflets exhibited normal thickness, no calcification, and normal cuspal separation. DOPPLER: The transpulmonic velocity was within the normal range with no evidence for regurgitation. Left Atrium Left atrial size was normal. Left Ventricle Normal left ventricle size and systolic function. Ejection fraction was estimated at 55-60%. There were no regional left ventricular wall motion abnormalities and wall thickness was within normal limits. Right Atrium Right atrial size was normal. Right Ventricle The right ventricular size was normal with normal systolic function and wall thickness. Pericardial Effusion The pericardium was normal in appearance with no evidence of a pericardial effusion. Pleural Effusion No evidence of pleural effusion. Aorta / Great Vessels -Aortic root dimension within normal limits. -The Pulmonary artery is within normal limits. -IVC size is within normal limits with normal respiratory phasic changes. M-Mode/2D Measurements AND Calculations LV Diastolic LV Systolic Dimension: AV Cusp Separation: 2 cmLA Dimension: 4.8 3.7 cm Dimension: 3.2 cmAO Root cm LV Volume Diastolic: 73.5 Dimension: 2.9 cmLA Area: 11 LV FS:22.9 % ml cm^2 LV PW LV Volume Systolic: 38.8 Diastolic: 0.7 ml cm LV EDV/LV EDV Index: 73.5 Septum ml/40 m^2LV ESV/LV ESV RV Diastolic Dimension: 2.3 cm Diastolic: 0.7 Index: 38.8 ml/21 m^2 cm EF Calculated: 47.2 % LA/Aorta: 1.1 LV Length: 7.6 cm LA volume/Index: 21.7 ml /12m^2 LV Area Diastolic: 25.8 cm^2 LV Area Systolic: 17.1 cm^2 Doppler Measurements AND Calculations MV Peak E-Wave: 95.5 cm/s AV Peak Velocity: 145 LVOT Peak Velocity: 113 MV Peak A-Wave: 57.8 cm/s cm/s cm/s MV E/A Ratio: 1.65 AV Peak Gradient: LVOT Peak Gradient: 5 MV Peak Gradient: 3.65 8.41 mmHg mmHg mmHg TV Peak E-Wave: 53.1 cm/s MV Deceleration Time: 232 TV Peak A-Wave: 36.8 cm/s msec IVRT: 77 msec TV Peak Gradient: 1.13 mmHg MV E' Septal Velocity: TR Velocity:190 cm/s 13.4 cm/s AV DVI (Vmax):0.78 TR Gradient:14.44 mmHg MV A' Septal Velocity: 9.8 PV Peak Velocity: 56.1 cm/s cm/s MV E' Lateral Velocity: PV Peak Gradient: 1.26 16.4 cm/s mmHg MV A' Lateral Velocity: 8.5 cm/s E/E' septal: 7.13 E/E' lateral: 5.82 [email or web address] %2fTpPTxEERtvA%3d%3d Normal [facility] Echo 2D w doppler w color co mpleteon 09-03-2020 Transthoracic Echocardiography Report (TTE) Demographics Patient Name HERMAN REYES Gender Female M MR # [id number] Race Ethnicity Room Number Date of Study 09/03/2020 Number Date of 1985 Referring Physician BOSSMAN Durand MD Age 35 year(s) Flight Service Agent Theo Mclean, TOBY, RVT Interpreting Flora Garcia MD Physician Procedure Type of Study TTE procedure:ECHOCARDIOG CRISTEL COMPLETE 2D W DOPPLER W COLOR. Procedure Date Date: 09/03/2020 Start: 12:59 PM Study Location: Echo Lab Technical Quality: Adequate visualization Indications:Dyspnea on exertion. Additional Medical History:Pituitary cyst, GERD, Shortness of breath, Asthma, Smoker, Family history of heart disease. Patient Status: Routine Height: 65 inches Weight: 164 pounds BSA: 1.82 m^2 BMI: 27.29 kg/m^2 BP: 116/84 mmHg Conclusions Summary Normal left ventricle size and systolic function. Ejection fraction was estimated at 55-60%. There were no regional left ventricular wall motion abnormalities and wall thickness was within normal limits. Mild tricuspid regurgitation. Signature - - Findings Mitral Valve The mitral valve structure was normal with normal leaflet separation. DOPPLER: The transmitral velocity was within the normal range with no evidence for mitral stenosis. There was no evidence of mitral regurgitation. Aortic Valve The aortic valve was trileaflet with normal thickness and cuspal separation. DOPPLER: Transaortic velocity was within the normal range with no evidence of aortic stenosis. There was no evidence of aortic regurgitation. Tricuspid Valve The tricuspid valve structure was normal with normal leaflet separation. DOPPLER: There was no evidence of tricuspid stenosis. There was evidence of Mild tricuspid regurgitation. Pulmonic Valve The pulmonic valve leaflets exhibited normal thickness, no calcification, and normal cuspal separation. DOPPLER: The transpulmonic velocity was within the normal range with no evidence for regurgitation. Left Atrium Left atrial size was normal. Left Ventricle Normal left ventricle size and systolic function. Ejection fraction was estimated at 55-60%. There were no regional left ventricular wall motion abnormalities and wall thickness was within normal limits. Right Atrium Right atrial size was normal. Right Ventricle The right ventricular size was normal with normal systolic function and wall thickness. Pericardial Effusion The pericardium was normal in appearance with no evidence of a pericardial effusion. Pleural Effusion No evidence of pleural effusion. Aorta / Great Vessels -Aortic root dimension within normal limits. -The Pulmonary artery is within normal limits. -IVC size is within normal limits with normal respiratory phasic changes. M-Mode/2D Measurements & Calculations LV Diastolic LV Systolic Dimension: AV Cusp Separation: 2 cmLA Dimension: 4.8 3.7 cm Dimension: 3.2 cmAO Root cm LV Volume Diastolic: 73.5 Dimension: 2.9 cmLA Area: 11 LV FS:22.9 % ml cm^2 LV PW LV Volume Systolic: 38.8 Diastolic: 0.7 ml cm LV EDV/LV EDV Index: 73.5 Septum ml/40 m^2LV ESV/LV ESV RV Diastolic Dimension: 2.3 cm Diastolic: 0.7 Index: 38.8 ml/21 m^2 cm EF Calculated: 47.2 % LA/Aorta: 1.1 LV Length: 7.6 cm LA volume/Index: 21.7 ml /12m^2 LV Area Diastolic: 25.8 cm^2 LV Area Systolic: 17.1 cm^2 Doppler Measurements & Calculations MV Peak E-Wave: 95.5 cm/s AV Peak Velocity: 145 LVOT Peak Velocity: 113 MV Peak A-Wave: 57.8 cm/s cm/s cm/s MV E/A Ratio: 1.65 AV Peak Gradient: LVOT Peak Gradient: 5 MV Peak Gradient: 3.65 8.41 mmHg mmHg mmHg TV Peak E-Wave: 53.1 cm/s MV Deceleration Time: 232 TV Peak A-Wave: 36.8 cm/s msec IVRT: 77 msec TV Peak Gradient: 1.13 mmHg MV E' Septal Velocity: TR Velocity:190 cm/s 13.4 cm/s AV DVI (Vmax):0.78 TR Gradient:14.44 mmHg MV A' Septal Velocity: 9.8 PV Peak Velocity: 56.1 cm/s cm/s MV E' Lateral Velocity: PV Peak Gradient: 1.26 16.4 cm/s mmHg MV A' Lateral Velocity: 8.5 cm/s E/E' septal: 7.13 E/E' lateral: 5.82 [id number]%[id number] tvA%3d%3d [facility] [place] [place] Juan José, [facility] Incoming Cardiovascular Orders To [facility] - 09/03/2020 7:19 PM EST Transthoracic Echocardiography Report (TTE) Demographics Patient Name HERMAN REYES Gender Female M MR # [id number] Race Ethnicity Room Number Date of Study 09/03/2020 Number Date of 1985 Referring Physician BOSSMAN Durand MD Age 35 year(s) Flight Service Agent Theo Mclean RDCS, RVT Interpreting Flora Garcia MD Physician Procedure Type of Study TTE procedure:ECHOCARDIOG CRISTEL COMPLETE 2D W DOPPLER W COLOR. Procedure Date Date: 09/03/2020 Start: 12:59 PM Study Location: Echo Lab Technical Quality: Adequate visualization Indications:Dyspnea on exertion. Additional Medical History:Pituitary cyst, GERD, Shortness of breath, Asthma, Smoker, Family history of heart disease. Patient Status: Routine Height: 65 inches Weight: 164 pounds BSA: 1.82 m^2 BMI: 27.29 kg/m^2 BP: 116/84 mmHg Conclusions Summary Normal left ventricle size and systolic function. Ejection fraction was estimated at 55-60%. There were no regional left ventricular wall motion abnormalities and wall thickness was within normal limits. Mild tricuspid regurgitation. Signature - - Findings Mitral Valve The mitral valve structure was normal with normal leaflet separation. DOPPLER: The transmitral velocity was within the normal range with no evidence for mitral stenosis. There was no evidence of mitral regurgitation. Aortic Valve The aortic valve was trileaflet with normal thickness and cuspal separation. DOPPLER: Transaortic velocity was within the normal range with no evidence of aortic stenosis. There was no evidence of aortic regurgitation. Tricuspid Valve The tricuspid valve structure was normal with normal leaflet separation. DOPPLER: There was no evidence of tricuspid stenosis. There was evidence of Mild tricuspid regurgitation. Pulmonic Valve The pulmonic valve leaflets exhibited normal thickness, no calcification, and normal cuspal separation. DOPPLER: The transpulmonic velocity was within the normal range with no evidence for regurgitation. Left Atrium Left atrial size was normal. Left Ventricle Normal left ventricle size and systolic function. Ejection fraction was estimated at 55-60%. There were no regional left ventricular wall motion abnormalities and wall thickness was within normal limits. Right Atrium Right atrial size was normal. Right Ventricle The right ventricular size was normal with normal systolic function and wall thickness. Pericardial Effusion The pericardium was normal in appearance with no evidence of a pericardial effusion. Pleural Effusion No evidence of pleural effusion. Aorta / Great Vessels -Aortic root dimension within normal limits. -The Pulmonary artery is within normal limits. -IVC size is within normal limits with normal respiratory phasic changes. M-Mode/2D Measurements & Calculations LV Diastolic LV Systolic Dimension: AV Cusp Separation: 2 cmLA Dimension: 4.8 3.7 cm Dimension: 3.2 cmAO Root cm LV Volume Diastolic: 73.5 Dimension: 2.9 cmLA Area: 11 LV FS:22.9 % ml cm^2 LV PW LV Volume Systolic: 38.8 Diastolic: 0.7 ml cm LV EDV/LV EDV Index: 73.5 Septum ml/40 m^2LV ESV/LV ESV RV Diastolic Dimension: 2.3 cm Diastolic: 0.7 Index: 38.8 ml/21 m^2 cm EF Calculated: 47.2 % LA/Aorta: 1.1 LV Length: 7.6 cm LA volume/Index: 21.7 ml /12m^2 LV Area Diastolic: 25.8 cm^2 LV Area Systolic: 17.1 cm^2 Doppler Measurements & Calculations MV Peak E-Wave: 95.5 cm/s AV Peak Velocity: 145 LVOT Peak Velocity: 113 MV Peak A-Wave: 57.8 cm/s cm/s cm/s MV E/A Ratio: 1.65 AV Peak Gradient: LVOT Peak Gradient: 5 MV Peak Gradient: 3.65 8.41 mmHg mmHg mmHg TV Peak E-Wave: 53.1 cm/s MV Deceleration Time: 232 TV Peak A-Wave: 36.8 cm/s msec IVRT: 77 msec TV Peak Gradient: 1.13 mmHg MV E' Septal Velocity: TR Velocity:190 cm/s 13.4 cm/s AV DVI (Vmax):0.78 TR Gradient:14.44 mmHg MV A' Septal Velocity: 9.8 PV Peak Velocity: 56.1 cm/s cm/s MV E' Lateral Velocity: PV Peak Gradient: 1.26 16.4 cm/s mmHg MV A' Lateral Velocity: 8.5 cm/s E/E' septal: 7.13 E/E' lateral: 5.82 [email or web address]%[id number] tvA%3d%3d [place], [place] Exercise Cardiolite Stresson 09-03-2020 Exercise Cardiolite Stress Non-Imaging Stress Test Demographics Patient Name HERMAN Patel Gender Female MR # [id number] Race Ethnicity Room Number Date of Study 09/03/2020 Accession Number [id number] Referring Physician BOSSMAN Durand Date of 1985 Stress staff Annemarie Bird LPN Age 35 year(s) Interpreting Flora Garcia MD Physician The procedure was explained in detail to the patient. Risks, complications and alternative treatments were reviewed. Written consent was obtained. Procedure Type of Study Nuclear Stress Test:Non-Imaging Stress Test, GXT Exercise. Procedure Date Date: 09/03/2020 Start: 11:28 Medical History:Patient history obtained by: Maliha MOSHER. Risk Factors The patient risk factors include:Current - Every day tobacco use and chronic lung disease. Rest ECG Normal sinus rhythm. No ischemic EKG changes. Standing HR:70 bpmStanding BP:107/69 mmHg Stress Stress Type: Exercise Peak HR: 174 bpm HR BP Product: [id number] Peak BP: 160/80 mmHg Max Exercise: 12.1 METS Predicted HR: 183 bpm % of predicted HR: 95 Test duration:10.02 min Reason for Termination: Physician request Stress Interpretation Exercise EKG stress test is not suggestive for ischemia. Results ECG Nonspecific ST-T wave changes. No ischemic EKG changes. Symptoms No chest pain during the stress. Patient developed SOB which resolved after she took her asthma inhaler at the end of the study.. Stress Protocol: Exercise - Varinder +--------+-----+----+ +-----+--- -----+---+--+-------- +------+----+ !Stage # !Time !Work!Speed/Grade!Hea rt!Blood !RPE!CP!Pain !Pain !Pain! ! ! ! ! !Rate !Pressure! ! !Location!Action!Type ! +--------+-----+----+ +-----+--- -----+---+--+-------- +------+----+ !1.0 !03:00!4.7 !1.7/10.0 !120 !140/80 ! ! ! ! ! ! +--------+-----+----+ +-----+--- -----+---+--+-------- +------+----+ !2.0 !06:00!7.1 !2.5/12.0 !142 !160/80 ! ! ! ! ! ! +--------+-----+----+ +-----+--- -----+---+--+-------- +------+----+ !3.0 !09:00!10.1!3.4/14.0 !158 !156/86 ! ! ! ! ! ! +--------+-----+----+ +-----+--- -----+---+--+-------- +------+----+ !4.0 !12:00!12.1!4.2/16.0 !174 ! ! ! ! ! ! ! +--------+-----+----+ +-----+--- -----+---+--+-------- +------+----+ !Recovery!00:00! ! !174 !152/84 ! ! ! ! ! ! +--------+-----+----+ +-----+--- -----+---+--+-------- +------+----+ !Recovery!02:00! ! !116 !145/80 ! ! ! ! ! ! +--------+-----+----+ +-----+--- -----+---+--+-------- +------+----+ !Recovery!05:00! ! !93 !123/69 ! ! ! ! ! ! +--------+-----+----+ +-----+--- -----+---+--+-------- +------+----+ Conclusions Summary No chest pain during the stress. Patient developed SOB which resolved after she took her asthma inhaler at the end of the study. 12.1 METS achieved. Exercise EKG stress test is not suggestive for ischemia. Recommendation Clinical correlation is recommended. Signatures - - [email or web address] Hour Translation/MDWeb?DocKey=[id number] Normal [facility] GFR, ESTIMATEDon 09-03-2020 GFR/1.73 sq M.predicted MDRD (S/P/Bld) [Vol rate/Area] mL/min/{1.73_m2} Normal [facility] Comment on above: Result Comment: Leandra kurtz Description GFR, ml/min/1.73 m2 - At increased risk > or = 60 (with chronic kidney disease risk factors) 1 Normal or increased GFR > or = 90 2 Mildly or decreased GFR 60 - 89 3 Moderately decreased GFR 30 - 59 4 Severely decreased GFR 15 - 29 5 Kidney failure <15 (or dialysis) Estimated GFR calculated using abbreviated MDRD formula as recommended by National Kidney Foundation. Calculation based upon serum creatinine and adjusted for age, gender & race. Giovanna. Internal Med., Vol. 139 (2) pg 137-147. Performed By: #### [facility] #### [facility] [address] [place] [address] #### MGT2, MGT1, AIISE #### [facility] [address] [facility] [address] Glomerular Filtration Rate, Estimatedon 09-03-2020 Gary Jacques Filt Rate >90 ml/min/1 .73 m2 [place], [place] Comment on above: Stage Description GF R, ml/min/1.73 m2 - At increased risk > or = 60 (with chronic kidney disease risk factors) 1 Normal or increased GFR > or = 90 2 Mildly or decreased GFR 60 - 89 3 Moderately decreased GFR 30 - 59 4 Severely decreased GFR 15 - 29 5 Kidney failure <15 (or dialysis) Estimated GFR calculated using abbreviated MDRD formula as recommended by National Kidney Foundation. Calculation based upon serum creatinine and adjusted for age, gender & race. Giovanna. Internal Med., Vol. 139 (2) pg 137-147. Performed at [facility] [address] [place] [address] Holter monitor 48 houron Zakiya Mclean 09/03/2020 4:22 PM The skin was prepped and a holter monitor was applied. The patient was instructed on the documentation of symptoms and the purpose of the holter as well as the things to avoid while wearing the holter. The patient was instructed to remove and return the holter on 09/05/2020. The serial number of the holter that was applied is [id number] [place], [place] LIPID PANELon 09-03-2020 Cholesterol [Mass/Vol] 178 mg/dL Normal 100-199 [facility] Comment on above: Result Comment: <200 Desirable 200 - 239 Borderline High >239 High Performed By: #### C BCWD #### [facility] [address] [address] #### MGT2, MGT1, AIISE #### [facility] [address] [facility] [address] Cholesterol in HDL [Mass/Vol] 44 mg/dL Normal [facility] Comment on above: Result Comment: Refe r to General Chemistry for CHOL and TRIG results. HDL CLASSIFICATIONS FOR PATIENTS > 20 YEARS OLD. <40 Undesirable (Major Risk Factor) >60 Protective (Negative Risk Factor) Performed By: #### C BCWD #### [facility] [address] [place] [address] #### MGT2, MGT1, AIISE #### [facility] [address] [facility] [address] Cholesterol in LDL [Mass/Vol] 103 mg/dL Normal [facility] Comment on above: Result Comment: Refe r to General Chemistry for CHOL and TRIG results. LDL CLASSIFICATIONS FOR PATIENTS >20 YEARS OLD: Determination Invalid if TRIG >400 <100 Optimal 100 - 129 Near or Above Optimal 130 - 159 Borderline High 160 - 189 High Risk >189 Very High Risk Performed By: #### C BCWD #### [facility] [address] [place] [address] #### MGT2, MGT1, AIISE #### [facility] [address] [facility] [address] Triglyceride [Mass/Vol] 157 mg/dL Normal 0-199 S [facility] Comment on above: Result Comment: <150 Desirable 150 - 199 Borderline High 200 - 499 High >449 Very High Ranges are based upon NCEP/ATP III guidelines. Performed By: #### C BCWD #### [facility] [address] [place] [address] #### MGT2, MGT1, AIISE #### [facility] [address] [facility] [address] Lipid Panelon 09-03-2020 Cholesterol [Mass/Vol] 178 mg/dL 100 - 199 mg/dL [place] Comment on above: <200 Desirable 200 - 239 Borderline High >239 High Cholesterol in HDL [Mass/Vol] 44 mg/dL [place] Comment on above: Refer to General Paula simone for CHOL and TRIG results. HDL CLASSIFICATIONS FOR PATIENTS > 20 YEARS OLD. <40 Undesirable (Major Risk Factor) >60 Protective (Negative Risk Factor) Cholesterol in LDL [Mass/Vol] 103 mg/dL [place] Comment on above: Refer to General Paula simone for CHOL and TRIG results. LDL CLASSIFICATIONS FOR PATIENTS >20 YEARS OLD: Determination Invalid if TRIG >400 <100 Optimal 100 - 129 Near or Above Optimal 130 - 159 Borderline High 160 - 189 High Risk >189 Very High Risk Performed at [facility] [address] [place] [address] Triglyceride [Mass/Vol] 157 mg/dL 0 - 199 mg/dL [place] Comment on above: <150 Desirable 150 - 199 Borderline High 200 - 499 High >449 Very High Ranges are based upon NCEP/ATP III guidelines. PARATHYROID HORMONE (PTH)on 09-03-2020 PARATHYROID HORMONE (PTH) 31.6 pg/mL Normal 15.0-65.0 [facility] Comment on above: Performed By: #### C BCWD #### [facility] [address] [place] [address] #### MGT2, MGT1, AIISE #### [facility] [address] [facility] [address] PTH, Intacton 09-03-2020 Pth Intact 31.6 pg/mL 15 - 65 pg/mL [place] Comment on above: Performed at [facility] [address] [place] [address] ANION GAPon 08-23-2020 Anion gap [Moles/Vol] 13.0 mmol/L Normal 8.0-16.0 [facility] Comment on above: Result Comment: ANIO N GAP = Sodium -(Chloride + CO2) Performed By: #### C BCWD #### [facility] [address] [place] [address] #### MGT2, MGT1, AIISE #### [facility] [address] [facility] [address] Anion Gapon 08-23-2020 Anion gap [Moles/Vol] 13.0 mmol/L 8 - 16 meq/L [place] Comment on above: ANION GAP = Sodium - (Chloride + CO2) Performed at [facility] [address] [place] [address] Brain Natriuretic Peptideon 08-23-2020 Natriuretic peptide B (Bld) [Mass/Vol] 95.2 pg/mL 0 - 450 pg/mL [place] Comment on above: Values < 300 pg/ml rule out , or make the probability of heart failure highly unlikely. Values which rule in heart failue are as follows: AGE RANGE <50 years >450 pg/ml 50-75 years >900 pg/ml >75 years >1800 pg/ml Performed at [facility] [address] [place] [address] CALCULATED OSMOLALITYon 08-09 Osmolality [Osmolality] 279.7 mosm/kg Normal 275.0-300 .0 [facility] Comment on above: Performed By: #### C BCWD #### [facility] [address] [place] [address] #### MGT2, MGT1, AIISE #### [facility] [address] [facility] [address] CBC Auto Differentialon 08-09 Basophils (Bld) [#/Vol] 0.1 10*3/uL [place] Basophils/100 WBC (Bld) 0.8 % [place] Elliptocytes 1+ Absent [place] Eosinophils (Bld) [#/Vol] 0.1 10*3/uL [place] Eosinophils/100 WBC (Bld) 1 % [place] Erythrocyte distribution width (RBC) [Ratio] 14.6 % High 11.5 - 14.5 % [place] Hematocrit (Bld) [Volume fraction] 40.7 % 37 - 47 % [place] Hemoglobin (Bld) [Mass/Vol] 12.8 g/dL [place] Immature Grans (Abs) 0.04 [place] Immature granulocytes (Bld) [#/Vol] 0.3 % [place] Interpretation and review of laboratory results Abnormal [place] Lymphocytes (Bld) [#/Vol] 5.8 10*3/uL [place] Lymphocytes/100 WBC (Bld) 43.9 % [place] MCH (RBC) [Entitic mass] 29.0 pg 26 - 33 pg [place] MCHC (RBC) [Mass/Vol] 31.4 g/dL [place] MCV (RBC) [Entitic vol] 92.1 fL 81 - 99 fL [place] Monocytes (Bld) [#/Vol] 1.1 10*3/uL [place] Monocytes/100 WBC (Bld) 8.5 % [place] Nucleated RBC/100 WBC (Bld) [Ratio] 0 % /100 wbc [place] Platelet mean volume (Bld) [Entitic vol] 10.7 fL 9.4 - 12.4 fL [place] Platelets (Bld) [#/Vol] 338 10*3/uL [place] Platelets (Bld) [#/Vol] ADEQUATE Adequate M [place], [place] Poikilocytes 1+ Absent [place] Comment on above: Performed at [facility] [address] [place] [address] RBC (Bld) [#/Vol] 4.42 10*6/uL [place] RDW-SD 49.5 fL High 35 - 45 fL [place] Segmented neutrophils/100 WBC (Bld) 45.5 % [place] Segs Absolute 6.0 [place], [place] WBC (Bld) [#/Vol] 13.1 10*3/uL [place] CBC WITH DIFFERENTIALon 08-09 ELLIPTOCYTES 1 Normal Absent [facility] Comment on above: Performed By: #### C BCWD #### [facility] [address] [place] [address] #### MGT2, MGT1, AIISE #### [facility] [address] [facility] [place] [address] PLATELET ESTIMATE ADEQUATE Normal Adequate [facility] Comment on above: Performed By: #### C BCWD #### [facility] [address] [place] [address] #### MGT2, MGT1, AIISE #### [facility] [address] [facility] [place] [address] POIKILOCYTOSIS [address] [facility] Comment on above: Performed By: #### C BCWD #### [facility] [address] [place] [address] #### MGT2, MGT1, AIISE #### [facility] [address] [facility] [place] [address] ABS BASOPHILS 0.1 thou/mm3 Normal 0.0-0.1 [facility] Comment on above: Performed By: #### C BCWD #### [facility] [address] [place] [address] #### MGT2, MGT1, AIISE #### [facility] [address] [place] [address] ABS EOSINOPHILS 0.1 thou/mm3 Normal 0.0-0.4 [facility] Comment on above: Performed By: #### C BCWD #### [address] [address] #### MGT2, MGT1, AIISE #### [facility] [address] [facility] [place] [place] [address] ABS IMMATURE GRANS (IG) 0.04 thou/mm3 Normal 0.00-0.07 [facility] Comment on above: Performed By: #### C BCWD #### [address] [address] #### MGT2, MGT1, AIISE #### [facility] [address] [facility] [place] [address] ABS LYMPHOCYTES 5.8 thou/mm3 High 1.0-4.8 [facility] Comment on above: Performed By: #### C BCWD #### [facility] [address] [place] [address] #### MGT2, MGT1, AIISE #### [facility] [address] [facility] [place] [address] ABS MONOCYTES 1.1 thou/mm3 Normal 0.4-1.3 [facility] Comment on above: Performed By: #### C BCWD #### [facility] [address] [place] [address] #### MGT2, MGT1, AIISE #### [facility] [address] [facility] [place] [address] ABS NEUTROPHILS 6.0 thou/mm3 Normal 1.8-7.7 [facility] Comment on above: Performed By: #### C BCWD #### [facility] [address] [place] [address] #### MGT2, MGT1, AIISE #### [facility] [address] [facility] [place] [address] Basophils/100 WBC (Bld) 0.8 % Normal [facility] Comment on above: Performed By: #### C BCWD #### [facility] [address] [place] [address] #### MGT2, MGT1, AIISE #### [facility] [address] [facility] [address] Eosinophils/100 WBC (Bld) 1.0 % Normal [facility] Comment on above: Performed By: #### C BCWD #### [address] [address] #### MGT2, MGT1, AIISE #### [facility] [address] [facility] [address] Erythrocyte distribution width (RBC) [Ratio] 14.6 % High 11.5-14.5 [facility] Comment on above: Performed By: #### C BCWD #### [address] [address] #### MGT2, MGT1, AIISE #### [facility] [address] [facility] [address] Hematocrit (Bld) [Volume fraction] 40.7 % Normal 37.0-47.0 [facility] Comment on above: Performed By: #### C BCWD #### [address] [address] #### MGT2, MGT1, AIISE #### [facility] [address] [facility] [address] Hemoglobin (Bld) [Mass/Vol] 12.8 g/dL Normal 12.0-16.0 [facility] Comment on above: Performed By: #### C BCWD #### [address] [address] #### MGT2, MGT1, AIISE #### [facility] [address] [facility] [address] IMMATURE GRANS (IG) 0.3 % Normal [facility] Comment on above: Performed By: #### C BCWD #### [address] [address] #### MGT2, MGT1, AIISE #### [facility] [address] [facility] [address] Lymphocytes/100 WBC (Bld) 43.9 % Normal [facility] Comment on above: Performed By: #### C BCWD #### [address] [address] #### MGT2, MGT1, AIISE #### [facility] [address] [facility] [place] [address] MCH (RBC) [Entitic mass] 29.0 pg Normal 26.0-33.0 [facility] Comment on above: Performed By: #### C BCWD #### [facility] [address] [place] [address] #### MGT2, MGT1, AIISE #### [facility] [address] [facility] [place] [address] MCHC (RBC) [Mass/Vol] 31.4 g/dL Low 32.2-35.5 [facility] Comment on above: Performed By: #### C BCWD #### [facility] [address] [place] [address] #### MGT2, MGT1, AIISE #### [facility] [address] [facility] [place] [address] MCV (RBC) [Entitic vol] 92.1 fL Normal 81.0-99.0 [facility] Comment on above: Performed By: #### C BCWD #### [facility] [address] [place] [address] #### MGT2, MGT1, AIISE #### [facility] [address] [facility] [place] [address] Monocytes/100 WBC (Bld) 8.5 % Normal [facility] Comment on above: Performed By: #### C BCWD #### [facility] [address] [place] [address] #### MGT2, MGT1, AIISE #### [facility] [address] [facility] [place] [address] Neutrophils/100 WBC (Bld) 45.5 % Normal [facility] Comment on above: Performed By: #### C BCWD #### [facility] [address] [place] [address] #### MGT2, MGT1, AIISE #### [facility] [address] [facility] [place] [address] NRBC 0 /100 wbc Normal [facility] Comment on above: Performed By: #### C BCWD #### [facility] [address] [place] [address] #### MGT2, MGT1, AIISE #### [facility] [address] [facility] [address] PLATELET 338 thou/mm3 Normal 130-400 [facility] Comment on above: Performed By: #### C BCWD #### [facility] [address] [place] [address] #### MGT2, MGT1, AIISE #### [facility] [address] [facility] [address] Platelet mean volume (Bld) [Entitic vol] 10.7 fL Normal 9.4-12.4 [facility] Comment on above: Performed By: #### C BCWD #### [address] [address] #### MGT2, MGT1, AIISE #### [facility] [address] [facility] [address] RBC 4.42 mill/mm3 Normal 4.20-5.40 [facility] Comment on above: Performed By: #### C BCWD #### [address] [address] #### MGT2, MGT1, AIISE #### [facility] [address] [facility] [address] RDW-SD 49.5 fL High 35.0-45.0 [facility] Comment on above: Performed By: #### C BCWD #### [address] [address] #### MGT2, MGT1, AIISE #### [facility] [address] [facility] [address] WBC 13.1 thou/mm3 High 4.8-10.8 [facility] Comment on above: Performed By: #### C BCWD #### [address] [address] #### MGT2, MGT1, AIISE #### [facility] [address] [facility] [address] COMP. METABOLIC PANELon 08-09 Albumin [Mass/Vol] 4.5 g/dL Normal 3.5-5.1 [facility] Comment on above: Performed By: #### C BCWD #### [address] [address] #### MGT2, MGT1, AIISE #### [facility] [address] [facility] [place] [address] ALP [Catalytic activity/Vol] 97 U/L Normal 38-126 [facility] Comment on above: Performed By: #### C BCWD #### [facility] [address] [place] [address] #### MGT2, MGT1, AIISE #### [facility] [address] [facility] [place] [address] ALT [Catalytic activity/Vol] 20 U/L Normal 11-66 [facility] Comment on above: Performed By: #### C BCWD #### [facility] [address] [place] [address] #### MGT2, MGT1, AIISE #### [facility] [address] [facility] [place] [address] AST [Catalytic activity/Vol] 25 U/L Normal 5-40 [facility] Comment on above: Performed By: #### C BCWD #### [facility] [address] [place] [address] #### MGT2, MGT1, AIISE #### [facility] [address] [facility] [place] [address] Bilirubin [Mass/Vol] 0.2 mg/dL Low 0.3-1.2 [facility] Comment on above: Performed By: #### C BCWD #### [facility] [address] [place] [address] #### MGT2, MGT1, AIISE #### [facility] [address] [facility] [place] [address] Calcium [Mass/Vol] 9.3 mg/dL Normal 8.5-10.5 [facility] Comment on above: Performed By: #### C BCWD #### [facility] [address] [place] [address] #### MGT2, MGT1, AIISE #### [facility] [address] [facility] [place] [address] Chloride [Moles/Vol] 103 mmol/L Normal 98-111 [facility] Comment on above: Performed By: #### C BCWD #### [facility] [address] [place] [address] #### MGT2, MGT1, AIISE #### [facility] [address] [place] [address] CO2 [Moles/Vol] 24 mmol/L Normal 23-33 [facility] Comment on above: Performed By: #### C BCWD #### [facility] [address] [place] [address] #### MGT2, MGT1, AIISE #### [facility] [address] [facility] [place] [address] Creatinine [Mass/Vol] 1.0 mg/dL Normal 0.4-1.2 [facility] Comment on above: Performed By: #### C BCWD #### [facility] [address] [place] [address] #### MGT2, MGT1, AIISE #### [facility] [address] [facility] [place] [address] Glucose [Mass/Vol] 109 mg/dL High 70-108 [facility] Comment on above: Performed By: #### C BCWD #### [facility] [address] [address] #### MGT2, MGT1, AIISE #### [facility] [address] [facility] [place] [address] POTASSIUM WITH REFLEX MG 3.5 meq/L Normal 3.5-5.2 [facility] Comment on above: Performed By: #### C BCWD #### [facility] [address] [place] [address] #### MGT2, MGT1, AIISE #### [facility] [address] [facility] [place] [address] Protein [Mass/Vol] 7.7 g/dL Normal 6.1-8.0 [facility] Comment on above: Performed By: #### C BCWD #### [facility] [address] [place] [address] #### MGT2, MGT1, AIISE #### [facility] [address] [facility] [place] [address] Sodium [Moles/Vol] 140 mmol/L Normal 135-145 [facility] Comment on above: Performed By: #### C BCWD #### [facility] [address] [place] [address] #### MGT2, MGT1, AIISE #### [facility] [address] [facility] [place] [address] Urea nitrogen [Mass/Vol] 12 mg/dL Normal 7-22 [facility] Comment on above: Performed By: #### C BCWD #### [facility] [address] [place] [address] #### MGT2, MGT1, AIISE #### [facility] [address] [facility] [address] Comprehensive Metabolic Pane l w/ Reflex to MGon 08-23-2020 Albumin [Mass/Vol] 4.5 g/dL 3.5 - 5.1 g/dL [place] ALP [Catalytic activity/Vol] 97 U/L 38 - 126 U/L [place] ALT [Catalytic activity/Vol] 20 U/L 11 - 66 U/L [place] Comment on above: Performed at [facility] [address] [place] [address] AST [Catalytic activity/Vol] 25 U/L 5 - 40 U/L [place] Bilirubin Ql (U) 0.2 mg/dL Low 0.3 - 1.2 mg/dL [place] Calcium [Mass/Vol] 9.3 mg/dL 8.5 - 10. 5 mg/dL [place] Chloride [Moles/Vol] 103 mmol/L 98 - 11 1 meq/L [place] CO2 [Moles/Vol] 24 mmol/L 23 - 33 meq/L [place] Creatinine [Mass/Vol] 1 mg/dL 0.4 - 1.2 mg/dL [place] Glucose [Mass/Vol] 109 mg/dL High 70 - 108 mg/dL [place] Interpretation and review of laboratory results Abnormal [place] Potassium [Moles/Vol] 3.5 mmol/L 3.5 - 5.2 meq/L [place] Protein [Mass/Vol] 7.7 g/dL 6.1 - 8 g/dL [place] Sodium [Moles/Vol] 140 mmol/L 135 - 145 meq/L [place] Urea nitrogen [Mass/Vol] 12 mg/dL 7 - 22 mg/dL [place] GFR, ESTIMATEDon 08-23-2020 GFR/1.73 sq M.predicted MDRD (S/P/Bld) [Vol rate/Area] 62 mL/min/{1.73_m2} Abnormal [facility] Comment on above: Result Comment: Sangvicenta e Description GFR, ml/min/1.73 m2 - At increased risk > or = 60 (with chronic kidney disease risk factors) 1 Normal or increased GFR > or = 90 2 Mildly or decreased GFR 60 - 89 3 Moderately decreased GFR 30 - 59 4 Severely decreased GFR 15 - 29 5 Kidney failure <15 (or dialysis) Estimated GFR calculated using abbreviated MDRD formula as recommended by National Kidney Foundation. Calculation based upon serum creatinine and adjusted for age, gender & race. Giovanna. Internal Med., Vol. 139 (2) pg 137-147. Performed By: #### C BCWD #### [facility] [address] [place] [address] #### MGT2, MGT1, AIISE #### [facility] [address] [facility] [address] Glomerular Filtration Rate, Estimatedon 08-23-2020 Est, Glom Filt Rate 62 Abnormal ml/min/1 .73 m2 [place] Comment on above: Stage Description GF R, ml/min/1.73 m2 - At increased risk > or = 60 (with chronic kidney disease risk factors) 1 Normal or increased GFR > or = 90 2 Mildly or decreased GFR 60 - 89 3 Moderately decreased GFR 30 - 59 4 Severely decreased GFR 15 - 29 5 Kidney failure <15 (or dialysis) Estimated GFR calculated using abbreviated MDRD formula as recommended by National Kidney Foundation. Calculation based upon serum creatinine and adjusted for age, gender & race. Giovanna. Internal Med., Vol. 139 (2) pg 137-147. Performed at [facility] [address] [place] [address] Interpretation and review of laboratory results Abnormal [place] MAGNESIUMon 08-23-2020 Magnesium [Mass/Vol] 2.1 mg/dL Normal 1.6-2.4 [facility] Comment on above: Performed By: #### C BCWD #### [facility] [address] [place] [address] #### MGT2, MGT1, AIISE #### [facility] [address] [facility] [address] Magnesiumon 08-23-2020 Magnesium [Mass/Vol] 2.1 mg/dL 1.6 - 2 .4 mg/dL [place] Comment on above: Performed at [facility] [address] [place] [address] NT PRO-B NATRIURETIC PEPTIDE on 08-23-2020 Natriuretic peptide B (Bld) [Mass/Vol] 95.2 pg/mL Normal 0.0-450.0 [facility] Comment on above: Result Comment: Valu es < 300 pg/ml rule out , or make the probability of heart failure highly unlikely. Values which rule in heart failue are as follows: AGE RANGE <50 years >450 pg/ml 50-75 years >900 pg/ml >75 years >1800 pg/ml Performed By: #### C BCWD #### [address] [address] #### MGT2, MGT1, AIISE #### [facility] [address] [facility] [address] Osmolalityon 08-23-2020 Osmolality Calc 279.7 [place], [place] Comment on above: Performed at [address] [address] SCAN OF BLOOD SMEARon 2020 SCAN OF BLOOD SMEAR see below Normal [facility] Comment on above: Result Comment: Kadet willi Exceeded; Scan of Differential Slide Performed Performed By: #### C BCWD #### [address] [address] #### MGT2, MGT1, AIISE #### [facility] [address] [facility] [address] Scan of Blood Smearon 2020 SCAN OF BLOOD SMEAR see below [place], [place] Comment on above: Criteria Exceeded; S can of Differential Slide Performed Performed at [address] [address] TROPONIN-Ton 08-23-2020 TROPONIN-T < 0.010 Normal [facility] Comment on above: Result Comment: <0.0 10 ng/ml Normal > or = 0.010 ng/ml Elevated (99%) Consistent with myocardial damage Cardiac troponin values can be elevated by many disease states in addition to acute ischemia. These include, but are not limited to: chronic renal failure, CHF, CVA, pulmonary embolus, COPD, myocardial trauma/surgery, myocarditis, pericarditis, tachycardia, aortic dissection, amyloidosis, sepsis and strenuous exercise. Serial measurement of troponin is strongly recommended as a first step in determining whether a low level elevation represents an acute or chronic condition. Performed By: #### C BCWD #### [facility] [address] [place] [address] #### MGT2, MGT1, AIISE #### [facility] [address] [facility] [address] Troponinon 08-23-2020 Troponin T.cardiac [Mass/Vol] ug/L ng/ml [facility] [place] Comment on above: <0.010 ng/ml Normal > or = 0.010 ng/ml Elevated (99%) Consistent with myocardial damage Cardiac troponin values can be elevated by many disease states in addition to acute ischemia. These include, but are not limited to: chronic renal failure, CHF, CVA, pulmonary embolus, COPD, myocardial trauma/surgery, myocarditis, pericarditis, tachycardia, aortic dissection, amyloidosis, sepsis and strenuous exercise. Serial measurement of troponin is strongly recommended as a first step in determining whether a low level elevation represents an acute or chronic condition. Performed at [facility] [address] [address] XR CHEST PORTABLEon 08-23-19 XR CHEST PORTABLE Chest X-ray, 1 View COMPARISON: DX,SR - XR CHEST STANDARD (2 VW) - 03/28/2019 04:03 PM EDT FINDINGS: No consolidation. No pleural effusion. No pneumothorax. No cardiomegaly. No acute fracture. IMPRESSION: No acute findings. This document has been electronically signed by: Gustavo Hernandez MD on 08/23/2020 12:51 AM Interpreted by: Gustavo Hernandez MD Signed by: Gustavo Hernandez MD 08/23/20 Final result Normal [facility] Chest X-ray, 1 View COMPARISON: DX,SR - XR CHEST STANDARD (2 VW) - 03/28/2019 04:03 PM EDT FINDINGS: No consolidation. No pleural effusion. No pneumothorax. No cardiomegaly. No acute fracture. [place], [place], [place] Incoming Radiant Results From [employer] - 08/23/2020 12:52 AM EST Chest X-ray, 1 View COMPARISON: DX,SR - XR CHEST STANDARD (2 VW) - 03/28/2019 04:03 PM EDT FINDINGS: No consolidation. No pleural effusion. No pneumothorax. No cardiomegaly. No acute fracture. IMPRESSION: No acute findings. This document has been electronically signed by: Gustavo Hernandez MD on 08/23/2020 12:51 AM [place], [place] No acute findings. This document has been electronically signed by: Gustavo Hernandez MD on 08/23/2020 12:51 AM [place], [place] HISTAMINE WHOLE BLOODon 07-09 HISTAMINE WHOLE BLOOD SEE BELOW Normal [facility] Comment on above: Result Comment: Hist amine, Whole Blood 2611 H 180-1800 nmol/L INTERPRETIVE INFORMATION: Histamine, Whole Blood Test developed and characteristics determined by [facility]. See Compliance Statement D: [address].[employer]/ Performed By: [facility] [address] [place] [address] Assistant County Attorney: Radha Zheng MD Performed By: #### C BCWD #### [facility] [address] [place] [address] #### MGT2, MGT1, AIISE #### [facility] [address] [facility] [address] THRYOID PEOXIDASE ABon 07-24 THRYOID PEOXIDASE AB < 10.0 Normal 0.0-35.0 [facility] Comment on above: Result Comment: [employer] [address] [place] [address] Performed By: #### C BCWD #### [facility] [address] [place] [address] #### MGT2, MGT1, AIISE #### [facility] [address] [facility] [address] THYROXINE, TOTALon 0 T4 [Mass/Vol] 6.0 ug/dL Normal 4.5-10.9 [facility] Comment on above: Result Comment: [employer] [address] [place] [address] [phone] ([phone] Performed By: #### C BCWD #### [place] [address] #### MGT2, MGT1, AIISE #### [facility] [address] [facility] [address] T3 TOTALon 07-22-2020 T3 TOTAL 112 ng/dL Normal 72-181 [facility] Comment on above: Performed By: #### C BCWD #### [place] [address] #### MGT2, MGT1, AIISE #### [facility] [address] [facility] [address] T4 (FREE)on 07-22-2020 T4 (FREE) 0.88 ng/dL Low 0.93-1.76 [facility] Comment on above: Performed By: #### C BCWD #### [place] [address] #### MGT2, MGT1, AIISE #### [facility] [address] [facility] [address] TSH W/ REFLEX FT4on 07-22-20 20 TSH THIRD GENERATION 2.870 uIU/mL Normal 0.400-4.200 S [facility] Comment on above: Performed By: #### C BCWD #### [place] [address] #### MGT2, MGT1, AIISE #### [facility] [address] [facility] [address] ALLERGEN, INTERP, IMMUNCAP S CORE IGEon 06-01-2020 ALLERGEN, INTERP, IMMUNCAP SCORE IGE SEE BELOW Normal [facility] Comment on above: Result Comment: Kelvin rgen, Interp, Immunocap Score Ig See Note REFERENCE INTERVAL: Allergen, Interpretation Less than 0.10 kU/L......Class 0.....No significant level detected 0.10-0.34 kU/L...........Class 0/1...Clinical relevance undetermined 0.35-0.70 kU/L...........Class 1.....Low 0.71-3.50 kU/L...........Class 2.....Moderate 3.51-17.50 kU/L..........Class 3.....High 17.51-50.00 kU/L.........Class 4.....Very High 50.01-100.00 kU/L........Class 5.....Very High Greater than 100.00kU/L..Class 6.....Very High Allergen results of 0.10-0.34 kU/L are intended for specialist use as the clinical relevance is undetermined. Even though increasing ranges are reflective of increasing concentrations of allergen-specific IgE, these concentrations may not correlate with the degree of clinical response or skin testing results when challenged with a specific allergen. The correlation of allergy laboratory results with clinical history and in vivo reactivity to specific allergens is essential. A negative test may not rule out clinical allergy or even anaphylaxis. Performed By: [facility] [address] [place] [id number] Assistant County Attorney: Radha Zheng MD Performed By: #### V D25, VB12F #### [facility] [address] [place] [address] #### MGT1, AIISE #### [facility] [address] [facility] [address] [facility]. #1 REFERENCE GROUP [facility] 06-01-2020 [facility]. #1 REFERENCE REPORT SEE BELOW Abnormal [facility] Comment on above: Result Comment: Test name Result Flag Units RefRange Allergen, Food, Peanut IgE <0.10 kU/L <=0.34 Allergen, Food, Severe Peanut Johanna h 1 <0.10 kU/L <=0.09 Allergen, Food, Severe Peanut Johanna h 2 <0.10 kU/L <=0.09 Allergen, Food, Severe Peanut Johanna h 3 <0.10 kU/L <=0.09 Allergen, Food, Severe Peanut Johanna h 6 <0.10 kU/L <=0.09 Allergen, Food, Severe Peanut Johanna h 9 0.22 H kU/L <=0.09 Allergen, Food, Mild Peanut Johanna h 8 <0.10 kU/L <=0.09 Allergen, Food, Peanut Components Interp See Note Inconclusive: One or more peanut components were positive but Peanut IgE (whole peanut) was negative. Repeat testing with a new specimen or refer to a specialist. EER Allergen, Peanut Components See Note Access [facility] Enhanced Report using the link below: -Direct access: [email or web address] Performed By: [facility] [address] [place] [address] Assistant County Attorney: Radha Zheng MD Performed By: #### V D25, VB12F #### [facility] [address] [place] [address] #### MGT1, AIISE #### [facility] [address] [facility] [address] VITAMIN B12 FOLATEon 020 Cobalamin (Vitamin B12) [Mass/Vol] 572 pg/mL Normal 211-911 [facility] Comment on above: Performed By: #### V D25, VB12F #### [facility] [address] [place] [address] #### MGT1, AIISE #### [facility] [address] [facility] [address] FOLATE 19.0 ng/mL Normal 4.8-24.2 [facility] Comment on above: Performed By: #### V D25, VB12F #### [facility] [address] [place] [address] #### MGT1, AIISE #### [facility] [address] [facility] [address] VITAMIN D TOTAL 25 ([place])on VITAMIN D TOTAL 25 (OH) 29 ng/ml Low 30-100 S [facility] Comment on above: Result Comment: Iris min D Status Range Deficiency <20 ng/ml Insuffiency 20-30 ng/ml Sufficiency 30-100 ng/ml Toxicity >100 ng/ml Performed By: #### V D25, VB12F #### [facility] [address] [place] [address] #### MGT1, AIISE #### [facility] [address] [facility] [address] MISC REFERENCE TESTon 2019 MISC REFERENCE TEST see below Normal [facility] Comment on above: Performed By: #### C BCWD #### [facility] [address] [place] [address] #### MGT2, MGT1, AIISE #### [facility] [address] [facility] [address] HISTAMINE WHOLE BLOODon 05-09 HISTAMINE WHOLE BLOOD SEE BELOW Normal [facility] Comment on above: Result Comment: Hist amine, Whole Blood 2623 H 180-1800 nmol/L INTERPRETIVE INFORMATION: Histamine, Whole Blood Test developed and characteristics determined by [facility]. See Compliance Statement D: [employer] Performed By: [facility] [address] [place] [address] Assistant County Attorney: Radha Zheng MD Performed By: #### C BCWD #### [facility] [address] [place] [address] #### MGT2, MGT1, AIISE #### [facility] [address] [facility] [address] ALLERGEN, INTERP, IMMUNCAP S CORE IGEon 05-25-2020 ALLERGEN, INTERP, IMMUNCAP SCORE IGE SEE BELOW Normal [facility] Comment on above: Result Comment: Kelvin maria estheren, Interp, Immunocap Score Ig See Note REFERENCE INTERVAL: Allergen, Interpretation Less than 0.10 kU/L......Class 0.....No significant level detected 0.10-0.34 kU/L...........Class 0/1...Clinical relevance undetermined 0.35-0.70 kU/L...........Class 1.....Low 0.71-3.50 kU/L...........Class 2.....Moderate 3.51-17.50 kU/L..........Class 3.....High 17.51-50.00 kU/L.........Class 4.....Very High 50.01-100.00 kU/L........Class 5.....Very High Greater than 100.00kU/L..Class 6.....Very High Allergen results of 0.10-0.34 kU/L are intended for specialist use as the clinical relevance is undetermined. Even though increasing ranges are reflective of increasing concentrations of allergen-specific IgE, these concentrations may not correlate with the degree of clinical response or skin testing results when challenged with a specific allergen. The correlation of allergy laboratory results with clinical history and in vivo reactivity to specific allergens is essential. A negative test may not rule out clinical allergy or even anaphylaxis. Performed By: [facility] [address] [place] [address] Assistant County Attorney: Radha Zheng MD Performed By: #### C BCWD #### [place] [address] #### MGT2, MGT1, AIISE #### [facility] [address] [facility] [address] [facility]. #1 REFERENCE GROUP [facility] 05-25-2020 [facility]. #1 REFERENCE REPORT SEE BELOW Normal [facility] Comment on above: Result Comment: Test name Result Flag Units RefRange Allergen, Food, [place] IgE <0.10 kU/L <=0.34 Allergen, Food, [place] Nut IgE <0.10 kU/L <=0.34 Allergen, Food, Cashew IgE <0.10 kU/L <=0.34 Allergen, Food, Hazelnut IgE <0.10 kU/L <=0.34 Allergen, Food, Peanut IgE <0.10 kU/L <=0.34 Allergen, Food, Pecan IgE <0.10 kU/L <=0.34 Allergen, Food, [place] IgE <0.10 kU/L <=0.34 Allergen, Food, [place] (Juglans spp) IgE <0.10 kU/L <=0.34 Allergen, Interp, Immunocap Score IgE See Note REFERENCE INTERVAL: Allergen, Interpretation Less than 0.10 kU/L......Class 0.....No significant level detected 0.10-0.34 kU/L...........Class 0/1...Clinical relevance undetermined 0.35-0.70 kU/L...........Class 1.....Low 0.71-3.50 kU/L...........Class 2.....Moderate 3.51-17.50 kU/L..........Class 3.....High 17.51-50.00 kU/L.........Class 4.....Very High 50.01-100.00 kU/L........Class 5.....Very High Greater than 100.00kU/L..Class 6.....Very High Allergen results of 0.10-0.34 kU/L are intended for specialist use as the clinical relevance is undetermined. Even though increasing ranges are reflective of increasing concentrations of allergen-specific IgE, these concentrations may not correlate with the degree of clinical response or skin testing results when challenged with a specific allergen. The correlation of allergy laboratory results with clinical history and in vivo reactivity to specific allergens is essential. A negative test may not rule out clinical allergy or even anaphylaxis. Performed By: [facility] [address] [place] [address] Assistant County Attorney: Radha Zheng MD Performed By: #### C BCWD #### [place] [address] #### MGT2, MGT1, AIISE #### [facility] [address] [place] [id number] [facility]. #2 REFERENCE GROUP ONEAL Ton 05-25-2020 [facility]. #2 REFERENCE REPORT SEE BELOW Abnormal [facility] Comment on above: Result Comment: Test name Result Flag Units RefRange Allergen, Food, Peanut IgE <0.10 kU/L <=0.34 Allergen, Food, Severe Peanut Johanna h 1 <0.10 kU/L <=0.09 Allergen, Food, Severe Peanut Johanna h 2 <0.10 kU/L <=0.09 Allergen, Food, Severe Peanut Johanna h 3 <0.10 kU/L <=0.09 Allergen, Food, Severe Peanut Johanna h 6 <0.10 kU/L <=0.09 Allergen, Food, Severe Peanut Johanna h 9 0.27 H kU/L <=0.09 Allergen, Food, Mild Peanut Johanna h 8 <0.10 kU/L <=0.09 Allergen, Food, Peanut Components Interp See Note Inconclusive: One or more peanut components were positive but Peanut IgE (whole peanut) was negative. Repeat testing with a new specimen or refer to a specialist. EER Allergen, Peanut Components See Note Access [facility] Enhanced Report using the link below: -Direct access: [email or web address] Performed By: [facility] [address] [place] [address] Assistant County Attorney: Radha Zheng MD Performed By: #### Gurdeep THOMPSON #### [address] [address] #### MGT2, MGT1, AIISE #### [facility] [address] [facility] [address] IG Stephan 05-24-2020 IG E 35 IU/mL Normal <101 [facility] Comment on above: Result Comment: [address] [phone] ([phone] Performed By: #### Gurdeep BURGESSWD #### [address] [address] #### MGT2, MGT1, AIISE #### [facility] [address] [facility] [address] CBC WITH DIFFERENTIALon 05-09 ABS BASOPHILS 0.1 thou/mm3 Normal 0.0-0.1 [facility] Comment on above: Performed By: #### C JENIFERWD #### [address] [address] #### MGT2, MGT1, AIISE #### [facility] [address] [place] [address] ABS EOSINOPHILS 0.1 thou/mm3 Normal 0.0-0.4 [facility] Comment on above: Performed By: #### C BCWD #### [facility] [address] [place] [address] #### MGT2, MGT1, AIISE #### [facility] [address] [place] [address] ABS IMMATURE GRANS (IG) 0.03 thou/mm3 Normal 0.00-0.07 [facility] Comment on above: Performed By: #### C BCWD #### [address] [address] #### MGT2, MGT1, AIISE #### [facility] [address] [place] [address] ABS LYMPHOCYTES 2.6 thou/mm3 Normal 1.0-4.8 [facility] Comment on above: Performed By: #### C BCWD #### [address] [address] #### MGT2, MGT1, AIISE #### [facility] [address] [facility] [place] [place] [address] ABS MONOCYTES 0.8 thou/mm3 Normal 0.4-1.3 [facility] Comment on above: Performed By: #### C BCWD #### [address] [address] #### MGT2, MGT1, AIISE #### [facility] [address] [facility] [place] [place] [address] ABS NEUTROPHILS 4.3 thou/mm3 Normal 1.8-7.7 [facility] Comment on above: Performed By: #### C BCWD #### [address] [address] #### MGT2, MGT1, AIISE #### [facility] [address] [place] [address] Basophils/100 WBC (Bld) 1.1 % Normal [facility] Comment on above: Performed By: #### C BCWD #### [address] [address] #### MGT2, MGT1, AIISE #### [facility] [address] [facility] [place] [address] Eosinophils/100 WBC (Bld) 1.8 % Normal [facility] Comment on above: Performed By: #### C BCWD #### [address] [address] #### MGT2, MGT1, AIISE #### [facility] [address] [facility] [address] Erythrocyte distribution width (RBC) [Ratio] 14.4 % Normal 11.5-14.5 [facility] Comment on above: Performed By: #### C BCWD #### [address] [address] #### MGT2, MGT1, AIISE #### [facility] [address] [facility] [address] Hematocrit (Bld) [Volume fraction] 41.3 % Normal 37.0-47.0 [facility] Comment on above: Performed By: #### C BCWD #### [address] [address] #### MGT2, MGT1, AIISE #### [facility] [address] [facility] [address] Hemoglobin (Bld) [Mass/Vol] 12.7 g/dL Normal 12.0-16.0 [facility] Comment on above: Performed By: #### C BCWD #### [address] [address] #### MGT2, MGT1, AIISE #### [facility] [address] [facility] [address] IMMATURE GRANS (IG) 0.4 % Normal [facility] Comment on above: Performed By: #### C BCWD #### [address] [address] #### MGT2, MGT1, AIISE #### [facility] [address] [facility] [address] Lymphocytes/100 WBC (Bld) 32.6 % Normal [facility] Comment on above: Performed By: #### C BCWD #### [address] [address] #### MGT2, MGT1, AIISE #### [facility] [address] [facility] [address] MCH (RBC) [Entitic mass] 29.6 pg Normal 26.0-33.0 [facility] Comment on above: Performed By: #### C BCWD #### [facility] [address] [place] [address] #### MGT2, MGT1, AIISE #### [facility] [address] [facility] [place] [address] MCHC (RBC) [Mass/Vol] 30.8 g/dL Low 32.2-35.5 [facility] Comment on above: Performed By: #### C BCWD #### [facility] [address] [place] [address] #### MGT2, MGT1, AIISE #### [facility] [address] [place] [address] MCV (RBC) [Entitic vol] 96.3 fL Normal 81.0-99.0 [facility] Comment on above: Performed By: #### C JAY #### [address] [address] #### MGT2, MGT1, AIISE #### [facility] [address] [facility] [place] [address] Monocytes/100 WBC (Bld) 10.2 % Normal [facility] Comment on above: Performed By: #### C BCWD #### [facility] [address] [address] #### MGT2, MGT1, AIISE #### [facility] [address] [facility] [place] [place] [address] Neutrophils/100 WBC (Bld) 53.9 % Normal [facility] Comment on above: Performed By: #### C BCWD #### [address] [address] #### MGT2, MGT1, AIISE #### [facility] [address] [place] [address] NRBC 0 /100 wbc Normal [facility] Comment on above: Performed By: #### C BCWD #### [address] [address] #### MGT2, MGT1, AIISE #### [facility] [address] [place] [address] PLATELET 270 thou/mm3 Normal 130-400 [facility] Comment on above: Performed By: #### C BCWD #### [address] [address] #### MGT2, MGT1, AIISE #### [facility] [address] [facility] [address] Platelet mean volume (Bld) [Entitic vol] 10.9 fL Normal 9.4-12.4 [facility] Comment on above: Performed By: #### C BCWD #### [address] [address] #### MGT2, MGT1, AIISE #### [facility] [address] [facility] [address] RBC 4.29 mill/mm3 Normal 4.20-5.40 [facility] Comment on above: Performed By: #### C BCWD #### [address] [address] #### MGT2, MGT1, AIISE #### [facility] [address] [facility] [address] RDW-SD 50.4 fL High 35.0-45.0 [facility] Comment on above: Performed By: #### C BCWD #### [address] [address] #### MGT2, MGT1, AIISE #### [facility] [address] [facility] [address] WBC 8.0 thou/mm3 Normal 4.8-10.8 [facility] Comment on above: Performed By: #### C BCWD #### [address] [address] #### MGT2, MGT1, AIISE #### [facility] [address] [facility] [address] COVID-19 (SARS-COV-2), NAAon 04-12-2020 SARS-CoV-2 (COVID-19) RNA DENNISE+probe Ql (Unsp spec) Not detected Normal Not Detected [facility] Comment on above: Result Comment: This nucleic acid amplification test was developed and its performance characteristics determined by [facility]. Nucleic acid amplification tests include PCR and TMA. This test has not been FDA cleared or approved. This test has been authorized by FDA under an Emergency Use Authorization (EUA). This test is only authorized for the duration of time the declaration that circumstances exist justifying the authorization of the emergency use of in vitro diagnostic tests for detection of SARS-CoV-2 virus and/or diagnosis of COVID-19 infection under section 564(b)(1) of the Act, 21 U.S.C. 360bbb-3(b) (1), unless the authorization is terminated or revoked sooner. When diagnostic testing is negative, the possibility of a false negative result should be considered in the context of a patient's recent exposures and the presence of clinical signs and symptoms consistent with COVID-19. An individual without symptoms of COVID-19 and who is not shedding SARS-CoV-2 virus would expect to have a negative (not detected) result in this assay. Performed at: [facility] [address] [facility] [place] [id number] Stenocaptioner: Gil Zimmer MD, Phone: [phone] [place] ESOPHAGRAMon 02-23-2020 Normal esophagram. Final report electronically signed by Dr. Phil Mclean on 02/23/2020 9:35 AM [place], [place] PROCEDURE: FL ESOPHAGRAM CLINICAL INFORMATION: Gastroesophageal reflux TECHNIQUE: Following the oral administration of barium, swallowing mechanism and anatomy of the esophagus were evaluated in a double contrast esophagram. Swallowing was further evaluated with a marshmallow and bagel. 7 images were obtained. Total fluoroscopy time 1.5 minutes. COMPARISON: None FINDINGS: Swallowing mechanism is normal. No strictures or extrinsic abnormalities are identified in the esophagus. No mucosal lesions or ulcerations are seen. There is no stenosis or gastroesophageal reflux in the distal esophagus. No hiatal hernia is present. Both a marshmallow and bagel passed through the esophagus within 2 peristaltic contractions. [facility] [place], [place] Juan José, [facility] Incoming Radiant Results From [employer] retargetinge/Pacs - 02/23/2020 9:37 AM EDT PROCEDURE: FL ESOPHAGRAM CLINICAL INFORMATION: Gastroesophageal reflux TECHNIQUE: Following the oral administration of barium, swallowing mechanism and anatomy of the esophagus were evaluated in a double contrast esophagram. Swallowing was further evaluated with a marshmallow and bagel. 7 images were obtained. Total fluoroscopy time 1.5 minutes. COMPARISON: None FINDINGS: Swallowing mechanism is normal. No strictures or extrinsic abnormalities are identified in the esophagus. No mucosal lesions or ulcerations are seen. There is no stenosis or gastroesophageal reflux in the distal esophagus. No hiatal hernia is present. Both a marshmallow and bagel passed through the esophagus within 2 peristaltic contractions. IMPRESSION: Normal esophagram. Final report electronically signed by Dr. Phil Mclean on 02/23/2020 9:35 AM [employer] XR CHEST STANDARD (2 VW)on 03-28-2019 No acute disease. This report has been created using voice recognition software. It may contain minor errors which are inherent in voice recognition technology. Final report electronically signed by Dr. Ahmet Barrios on 03/28/2019 4:42 PM [place] PROCEDURE: XR CHEST (2 VW) CLINICAL INFORMATION: Short of breath on exertion. COMPARISON: Multiple previous most recent 11/03/2018 TECHNIQUE: PA and lateral views the chest. FINDINGS: Heart size is normal. No pleural effusions. No acute infiltrate. Subtle S-shaped scoliosis. [email or web address] [place] Juan José, [facility] Incoming Radiant Results From [employer] - 03/28/2019 4:44 PM EDT PROCEDURE: XR CHEST (2 VW) CLINICAL INFORMATION: Short of breath on exertion. COMPARISON: Multiple previous most recent 11/03/2018 TECHNIQUE: PA and lateral views the chest. FINDINGS: Heart size is normal. No pleural effusions. No acute infiltrate. Subtle S-shaped scoliosis. IMPRESSION: No acute disease. This report has been created using voice recognition software. It may contain minor errors which are inherent in voice recognition technology. Final report electronically signed by Dr. Ahmet Barrios on 03/28/2019 4:42 PM [employer] Homocysteine, Totalon 2018 Homocysteine, Total 9 mcmol/L Normal [facility] Comment on above: Result Comment: Refe rence Range: <=13 (Fasting) ADDITIONAL INFORMATION This test was developed and its performance characteristics determined by [facility] in a manner consistent with CLIA requirements. This test has not been cleared or approved by the U.S. Food and Drug Administration. Test Performed by: [facility], [place] [address] [place] [address] Performed By: #### L 913.90330 #### [facility] [address] [place] [address] Monoclonal Protein Studyon 0 02-27-2019 AG/G Ratio 1.09 Normal [facility] Comment on above: Performed By: #### L 922.1810 #### [facility] [address] [place] [address]8940 Albumin [Mass/Vol] 3.9 g/dL Normal 3.4-4.7 [facility] Comment on above: Performed By: #### L 922.1810 #### [facility] [address] [place] [address] 79752 Alpha-1 Globulin 0.2 g/dL Normal 0.1-0.3 [facility] Comment on above: Performed By: #### L 922.1810 #### [facility] [address] [place] [address] 95942 Alpha-2 Globulin 1.0 g/dL Normal 0.6-1.0 [facility] Comment on above: Performed By: #### L 922.1810 #### [facility] [address] [place] [address] 42719 Beta-Globulin 1.1 g/dL Normal 0.7-1.2 [facility] Comment on above: Performed By: #### L 922.1810 #### [facility] [address] [place] [address] 48099 Gamma-Globulin 1.2 g/dL Normal 0.6-1.6 [facility] Comment on above: Performed By: #### L 922.1810 #### [facility] [address] [place] [address] 33474 Immunofixation See Comments [facility] Comment on above: Result Comment: RESU LT: No monoclonal protein detected. Test Performed by: [facility] [address] [place] [address] Performed By: #### L 922.1810 #### [facility] [address] [place] [address] 95978 Impression See Comments Normal [facility] Comment on above: Result Comment: No a pparent monoclonal protein on serum electrophoresis. See Immunofixation. Performed By: #### L 922.1810 #### [facility] [address] [place] [address] 45078 Protein [Mass/Vol] 7.4 g/dL Normal 6.3 - 7.9 [facility] Comment on above: Performed By: #### L 922.1810 #### [facility] [address] [place] [address] 13881 DILIP Screenon 02-23-2019 DILIP Screen Negative Normal Negative [facility] Comment on above: Performed By: #### L 800.1101 #### Main Laboratory ([facility]) [address] [place] [address] Tommie Unger MD Lupus Like Anticoagulanton 0 02-23-2019 aPTT Coag (Bld) [Time] 33 s Normal 26 - 36 [facility] Comment on above: Performed By: #### L 910.93562, L910.77295, L911.87886, L913.58000 #### [facility] [address] [place] [address] 19368 DRVVT Screen Ratio 1.1 ratio Normal 0.0 - 1.1 [facility] Comment on above: Performed By: #### L 910.63136, L910.65491, L911.97685, L913.98449 #### [facility] [address] [place] [address] 84249 INR Coag (PPP) [Relative time] 1.0 {INR} Normal [facility] Comment on above: Performed By: #### L 910.40644, L910.10684, L911.96450, L913.84847 #### [facility] [address] [place] [address]324 Interpretation See Comments Normal [facility] Comment on above: Result Comment: No e vidence of a lupus-like anticoagulant based on results of Prothrombin Time (PT), Activated Partial Thromboplastin Time (APTT), and Dilute Russells Viper Venom Time (DRVVT). Interpretation not reviewed by physician. Test Performed by: [facility], [place] [address] [place] [address] Performed By: #### L 910.65132, L910.74562, L911.07203, L913.04136 #### [facility] [address] [place] [address] 19598 PT Coag (PPP) [Time] 11.2 s Normal 10.3 - 12.8 [facility] Comment on above: Performed By: #### L 910.34013, L910.92059, L911.82437, L913.11189 #### [facility] [address] [place] [address] 94932 Phospholipid Abs,IgG & IgMon 02-23-2019 Phospholipid Ab, IgG <9.4 Normal [facility] Comment on above: Result Comment: Refe rence Range: <15.0 (Negative) Test Performed by: [facility] [address] [place] [address] Performed By: #### L 910.14159, L910.29865, L911.56999, L913.25081 #### [address] [address] Phospholipid Ab, IgM <9.4 Normal [facility] Comment on above: Result Comment: Refe rence Range: <15.0 (Negative) Performed By: #### L 910.22682, L910.49168, L911.48474, L913.80697 #### [facility] [address] [place] [address]111 Protein C Activity Plasmaon 02-23-2019 Protein [Mass/Vol] 104 % Normal 70 - 150 [facility] Comment on above: Result Comment: ---- ADDITIONAL INFORMATION This test has been modified from the induction brazer's instructions. Its performance characteristics were determined by [facility] in a manner consistent with CLIA requirements. This test has not been cleared or approved by the U.S. Food and Drug Administration. Test Performed by: [facility], [place] [address] [place] [address] Performed By: #### L 910.13940, L910.35119, L911.19870, L913.27206 #### [address] [address] Protein S Antigenon 02-24-20 19 Protein [Mass/Vol] 108 % Normal 50 - 160 [facility] Comment on above: Result Comment: ---- ADDITIONAL INFORMATION This test has been modified from the induction brazer's instructions. Its performance characteristics were determined by [facility] in a manner consistent with CLIA requirements. This test has not been cleared or approved by the U.S. Food and Drug Administration. Test Performed by: [facility], [place] [address] [place] [address] Performed By: #### L 910.88283, L910.13559, L911.76042, L913.73857 #### [address] [address] C-Reactive Proteinon 019 CRP [Mass/Vol] mg/L Normal <1.0 [facility] Comment on above: Performed By: #### L 404.6400 #### Main Laboratory ([facility]) [address] [place] [address] Tommie Unger MD Erythrocyte Sedimentation Ra jessica 02-21-2019 ESR (Bld) [Velocity] 8 mm/h Normal <=20 [facility] Comment on above: Performed By: #### L 150.0000 #### Main Laboratory ([facility]) [address] [place] [address] Tommie Unger MD MRI Cervical Spine w/wo Cont joni 02-02-2019 MRI Cervical Spine w/wo Contr [facility] Radiology Department Patient: BECKA LOREDO [address] : 1985 Sex: Shereen [place] [id number] Location: MRI [phone] Unit #: [id number] [facility] #: [id number] Ordering Phys: Galo [place] MD Exam Date: 02/02/19 Exam: MRI MRI Cervical Spine w/wo Contr Result: STUDY: MRI CERVICAL SPINE WITH AND WITHOUT CONTRAST REASON FOR EXAM: Female, 33 years old. Optic neuritis, dizziness and loss of peripheral vision TECHNIQUE: Standardized fat and water weighted pulse sequences were obtained in the sagittal and axial following administration of 15ML IV Magnevist. COMPARISON: None FINDINGS: Normal foramen magnum and brainstem-cervical cord junction. Normal craniovertebral junction. Normal anterior atlantoaxial articulation. Normal odontoid process. There is straightening of the normal cervical lordosis. Normal vertebral bodies and posterior osseous elements. C2-3: Normal endplates. Normal disc height, signal and morphology. Normal central canal and intervertebral neural foramina. C3-4: Normal endplates. Normal disc height, signal and morphology. Normal central canal and intervertebral neural foramina. C4-5: Normal endplates. There is mild posterior disc bulge. Normal central canal and intervertebral neural foramina. C5-6: Normal endplates. There is mild posterior disc bulge. Normal central canal and intervertebral neural foramina. C6-7: There is moderate intervertebral disc space narrowing and mild Modic changes of the C7 superior endplate. There is mild posterior disc bulge and mild ventral thecal sac narrowing. Normal intervertebral neural foramina. C7-T1: Normal endplates. Normal disc height, signal and morphology. Normal central canal and intervertebral neural foramina. Normal cervical cord. No enhancing abnormality. Normal visualized soft tissue structures. IMPRESSION: Normal cervical cord. No enhancing abnormality. Mild degenerative changes of the cervical spine. Electronically Signed: Carolann Stover, at 12:54 EDT Tel , Service support , cc: Nkechi Durand [facility]; Galo Park MD Dictated by: Carolann Stover MD on 02/02/19 1251 Technologist: Becka Gibson RT(R) Transcribed by: Carolann Stover MD on 02/02/19 1254 Report Signed by: Jolanta ACOSTA, Carolann Oconnell on 02/02/19 1254 [facility] MR BRAIN WITH AND WITHOUT CO NTRASTon 11-23-2018 MR BRAIN WITH AND WITHOUT CONTRAST EXAMINATION: MRI OF THE BRAIN WITHOUT AND WITH CONTRAST; MRI OF THE ORBITS WITH AND WITHOUT CONTRAST 11/23/2018 TECHNIQUE: Multiplanar multisequence MRI of the head/brain was performed without and with the administration of intravenous contrast.; Multiplanar multisequence MRI of the orbits was performed with and without the administration of intravenous contrast. COMPARISON: None. 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 FINDINGS: INTRACRANIAL STRUCTURES/VENTRICLES : There is no acute infarct. The ventricles and cisternal spaces are normal in size, shape, and configuration for the age of the patient. No areas of abnormal signal are identified in the brain parenchyma. There is no midline shift or mass effect. No abnormal areas of enhancement are identified. Images through the pituitary reveal no obvious focal abnormality. The pituitary gland is normal in size and contour. The pituitary stock is midline. ORBITS: There is no abnormality of the visualized globes. The rectus muscles are symmetric bilaterally. There is slight increased fluid around the left optic nerve which may be related to atrophy. No abnormal enhancement of the optic nerves are identified. There is no obvious abnormality of the cavernous sinus region. This superior ophthalmic veins are normal bilaterally. SINUSES: There is minimal mucoperiosteal thickening of the ethmoid air cells. The remainder of the sinuses are clear. The mastoid air cells are clear. BONES/SOFT TISSUES: The bone marrow signal intensity appears normal. The soft tissues demonstrate no acute abnormality. IMPRESSION: No acute brain parenchymal abnormality. No obvious abnormality of the pituitary gland. There appears to be mild left optic atrophy. No abnormal enhancement is identified of the optic nerves. Mild mucoperiosteal thickening of the ethmoid air cells. ARCHANA/sy Workstation ID: [id number] Dictated by: JERROD TALAMANTES on WedNov 23, 2018 11:55:21 AM EDT Transcribed by: EMIL PATEL on WedNov 23, 2018 12:50:12 PM EDT Finalized by: JERROD TALAMANTES on WedNov 24, 2018 5:04:01 PM EDT Normal [facility] Comment on above: Order Comment: PT/FX PRECERT Reason for exam?: Optic disc atrophy Injury/Trauma or Illness?:Illness/Other How long have you had these symptoms (acute/chronic)?:Unknown Type of Exam?:Unknown Additional signs and symptoms?:1 yr ago loss of peripheral vision found on routine eye exam worse this years exam, headaches, pt states has optic neuritis MR ORBITS WITH AND WITHOUT C [facility] 11-23-2018 MR ORBITS WITH AND WITHOUT CONTRAST EXAMINATION: MRI OF THE BRAIN WITHOUT AND WITH CONTRAST; MRI OF THE ORBITS WITH AND WITHOUT CONTRAST 11/23/2018 TECHNIQUE: Multiplanar multisequence MRI of the head/brain was performed without and with the administration of intravenous contrast.; Multiplanar multisequence MRI of the orbits was performed with and without the administration of intravenous contrast. COMPARISON: None. 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 FINDINGS: INTRACRANIAL STRUCTURES/VENTRICLES : There is no acute infarct. The ventricles and cisternal spaces are normal in size, shape, and configuration for the age of the patient. No areas of abnormal signal are identified in the brain parenchyma. There is no midline shift or mass effect. No abnormal areas of enhancement are identified. Images through the pituitary reveal no obvious focal abnormality. The pituitary gland is normal in size and contour. The pituitary stock is midline. ORBITS: There is no abnormality of the visualized globes. The rectus muscles are symmetric bilaterally. There is slight increased fluid around the left optic nerve which may be related to atrophy. No abnormal enhancement of the optic nerves are identified. There is no obvious abnormality of the cavernous sinus region. This superior ophthalmic veins are normal bilaterally. SINUSES: There is minimal mucoperiosteal thickening of the ethmoid air cells. The remainder of the sinuses are clear. The mastoid air cells are clear. BONES/SOFT TISSUES: The bone marrow signal intensity appears normal. The soft tissues demonstrate no acute abnormality. IMPRESSION: No acute brain parenchymal abnormality. No obvious abnormality of the pituitary gland. There appears to be mild left optic atrophy. No abnormal enhancement is identified of the optic nerves. Mild mucoperiosteal thickening of the ethmoid air cells. [employer] Workstation ID: [id number] Dictated by: JERROD TALAMANTES on WedNov 23, 2018 11:55:21 AM EDT Transcribed by: EMIL PATEL on WedNov 23, 2018 12:50:12 PM EDT Finalized by: JERROD TALAMANTES on WedNov 24, 2018 5:04:01 PM EDT Normal [facility] Comment on above: Order Comment: PT/FX PRECERT Reason for exam?: Optic disc atrophy Injury/Trauma or Illness?:Illness/Other How long have you had these symptoms (acute/chronic)?:Unknown Type of Exam?:Unknown Additional signs and symptoms?:1 yr ago loss of peripheral vision found on routine eye exam worse this years exam, headaches, pt states has optic neuritis Gastroenterology Office/Clin ic Noteon 11-08-2017 Gastroenterology Office/Clinic Note Chief Complaint Acid reflux sore throatHistory of Present Illness Ms. Loredo is a 32 yo female who presents to the office for phlegm in the throat. She states she has constant throat drainage and feels like there is a mucus glob in the back of her throat. She says sometimes she cannot take a deep breath in. She gets chest tightness and feels like there is an air bubble trapped in the epigastric region. She gets reflux about once a week. She denies heartburn, a bad taste in her mouth or taste of bile/vomit, dysphagia, and weight loss. She says she was on Omeprazole 40mg daily for one year for these symptoms and was switched to Protonix 40mg daily 3 weeks ago. She states she has not noticed a difference since switching medications. She takes Tums daily because she feels like it coats her throat. She says she is unable to expel the phlegm to know what it looks like. Her PCP also thought her symptoms could be anxiety related so he increased her Effexor to 150mg daily which she states she has not noticed a difference. Originally her PCP thought it was sinus related because she has had frequent sinus issues and infections. She had sinus surgery in July by ENT Dr. Ambrose, in [place]. She says he did do a scope in the office and he said she had reflux disease. She drinks a lot of water at work. She states she only has these symptoms on the days she works. She works at [employer] and is exposed to a lot of chemicals, so she is unsure if it is an allergy or chemical related or relfux disease. She only get a 20 minute lunch break at work so she does eat fast sometimes. She has a history of constipation. She has a bowel movement 1-2 times a week. She takes Miralax three times a week. She does not take it more because it makes her stools soft and makes her go daily and she did not like that. She denies blood in the stool. She had a colonoscopy 06/24/16 that showed functional constipation.Review of Systems Constitutional: No fevers, chills, sweats Eye: No recent visual problems ENMT: No ear pain, nasal congestion, sore throat Respiratory: No shortness of breath, cough Cardiovascular: No Chest pain, palpitations, syncope Gastrointestinal: see HPI Genitourinary: No hematuriaPhysical Exam Vitals & Measurements BP: 118/80 HT: 165 cm WT: 71 kg BMI: 26.08 General: Alert and oriented, well nourished, no acute distress Eye: PERRL, normal conjunctiva Neck: Supple, non-tender, no JVD, no lymphadenopathy. Lungs: Clear to auscultation, non-labored respiration. Heart: Normal rate, regular rhythm, no murmur, gallop or edema. Abdomen: Soft, non-tender, non-distended, normal bowel sounds, no masses. Skin: Skin is warm, dry and pink, no rashes or lesions. Psychiatric: Cooperative, appropriate mood and affect. Additional Vitals Body Mass Index Measured: 26.08 kg/m2 BP Position/Location: SittingAssessment/Jaron n Constipation - Miralax daily - Fiber supplement daily - High fiber diet - Continue to drink a lot of water - Follow-up 5 weeks GERD (gastroesophageal reflux disease) - Continue Pantoprazole 40mg daily, denies need for refills - Avoid NSAIDs - GERD diet discussed & handout given - Avoid over eating, avoid eating 3 hours before bed - Elevate head at night - Eat slow during meals - Follow-up 5 weeks Phlegm in throat - Continue Pantoprazole 40mg daily, denies need for refills - Avoid NSAIDs - GERD diet discussed & handout given - Avoid over eating, avoid eating 3 hours before bed - Elevate head at night - Eat slow during meals - GERD vs. allergy/sinus vs. chemical exposure - May try an OTC allergy tablet daily on work days - Follow-up 5 weeksProblem List/Past Medical History Ongoing Menstrual abnormality Pituitary cyst Historical No qualifying dataProcedure/Surgica l History Colonoscopy (06/24/2016), DIAGNOSTIC COLONOSCOPY (06/24/2016).Medicati ons Effexor XR 150 mg oral capsule, extended release, 150 mg, 1 caps, Oral, Daily Protonix, Oral, DailyAllergies penicillin (rash)Social History Alcohol Current Substance Abuse Denies All Tobacco Current every day smoker, CigarettesFamily History Breast cancer: Grandmother (P). Heart disease: Father and Grandfather (P).Electronically signed by Becka Hancock CNP 11/08/17 14:[address] [facility] Hand Righton 03-10-2017 Hand Right [place] [id number] Diagnostic Imaging Radiology Report Name: HERMANVLADISLAVBECKA M Pt Type: REG ER MR #: [id number] Room & Bed: Date of : 1985 Date of Service: 03/10/17 Age: 31 Ordering Doctor: Charlie Wolff MD Sex: Female Family Doctor: Saud Rutledge Order #: [id number] Dictating Doctor: Paresh Catherine Admit Date: CC: WHRPT:HIE RIGHT HAND ADDITIONAL CLINICAL INFORMATION: Fourth finger pain following trauma. FINDINGS: Three views of the right hand were obtained. There is no evidence of fracture, dislocation, or radiopaque foreign body. IMPRESSION: Unremarkable right hand. THIS REPORT HAS BEEN ELECTRONICALLY SIGNED BY: 03/10/2017 21:00: Paresh Catherine MD 03/10/17 2104 DICTATED BY: Paresh Catherine CC: CONFIDENTIALITY NOTICE: This report is for the sole use of the intended recipient and may contain confidential and privileged information. Any unauthorized review, use, disclosure or distribution is prohibited. If you are not the intended recipient, please contact [facility] at [phone] and destroy all copies of the original. Normal [facility] No Panel Information [facility] Vital Signs Date Time Vital Sign Value Performing Clinician Facility 09-26-2024 10:50-0500 Body mass index (BMI) [Ratio] 33.98 kg/m2 [employer] Work Phone: [facility] 09-26-2024 10:50-0500 Body weight 87 kg [employer] Work Phone: [facility] 09-26-2024 10:50-0500 Diastolic blood pressure 84 mm[Hg] [employer] Work Phone: [facility] 09-26-2024 10:50-0500 Systolic blood pressure 112 mm[Hg] [employer] Work Phone: [facility] 09-20-2024 02:48-0500 Body height 165.1 cm [facility] 09-20-2024 02:48-0500 Body temperature 98.6 [degF] [facility] 09-20-2024 02:48-0500 Body weight 85.27 kg [facility] 09-20-2024 02:48-0500 Diastolic blood pressure 86 mm[Hg] [facility] 09-20-2024 02:48-0500 Heart rate 94 /min [facility] [facility] 09-20-2024 02:48-0500 Respiratory rate 20 /min [facility] 09-20-2024 02:48-0500 SaO2% (BldA) [Mass fraction] 100 % [facility] 09-20-2024 02:48-0500 Systolic blood pressure 141 mm[Hg] [facility] 09-15-2024 13:01-0500 Body height 160 cm Myranda Villegas [employer] Work Phone: [facility] 09-15-2024 13:01-0500 Body mass index (BMI) [Ratio] 33.34 kg/m2 Myranda Villegas [employer] Work Phone: [facility] 09-15-2024 13:01-0500 Body temperature 97.3 [degF] Myranda Villegas [employer] Work Phone: [facility] 09-15-2024 13:01-0500 Body weight 85.37 kg Myranda Villegas [employer] Work Phone: [facility] 09-15-2024 13:01-0500 Diastolic blood pressure 72 mm[Hg] Myranda Villegas [employer] Work Phone: [facility] 09-15-2024 13:01-0500 Heart rate 88 /min Myranda Villegas [employer] Work Phone: [facility] 09-15-2024 13:01-0500 SaO2% (BldA) [Mass fraction] 98 % Myranda Villegas [employer] Work Phone: [facility] 09-15-2024 13:01-0500 Systolic blood pressure 112 mm[Hg] Myranda Villegas [employer] Work Phone: [facility] 08-30-2024 15:21-0500 Body height 165.1 cm Myranda Villegas [employer] Work Phone: [facility] 08-30-2024 15:21-0500 Body mass index (BMI) [Ratio] 31.48 kg/m2 Myranda Villegas [employer] Work Phone: [facility] 08-30-2024 15:21-0500 Body temperature 98.29 [degF] Myranda Villegas [employer] Work Phone: [facility] 08-30-2024 15:21-0500 Body weight 85.82 kg Myranda Villegas [employer] Work Phone: [facility] 08-30-2024 15:21-0500 Diastolic blood pressure 80 mm[Hg] Myranda Villegas [employer] Work Phone: [facility] 08-30-2024 15:21-0500 Heart rate 95 /min Myranda Villegas [employer] Work Phone: [facility] 08-30-2024 15:21-0500 SaO2% (BldA) [Mass fraction] 99 % Myranda Villegas [employer] Work Phone: [facility] 08-30-2024 15:21-0500 Systolic blood pressure 124 mm[Hg] Myranda Villegas [employer] Work Phone: [facility] 08-23-2024 15:45-0500 Body mass index (BMI) [Ratio] 31.92 kg/m2 Shauna Keane PA Work Phone: [facility] 08-23-2024 15:45-0500 Body weight 87 kg Shauna Lakhwinder PA Work Phone: [facility] 08-23-2024 15:45-0500 Diastolic blood pressure 70 mm[Hg] Shauna Keane PA Work Phone: [facility] 08-23-2024 15:45-0500 Systolic blood pressure 120 mm[Hg] Shauna Lakhwinder PA Work Phone: [facility] 08-18-2024 09:00-0500 Body height 165.1 cm Mihaela Zack DO Work Phone: [facility] 08-18-2024 09:00-0500 Body mass index (BMI) [Ratio] 32.02 kg/m2 Mihaela Zack DO Work Phone: [facility] 08-18-2024 09:00-0500 Body weight 87.27 kg Mihaela Zack DO Work Phone: [facility] 08-18-2024 09:00-0500 Diastolic blood pressure 82 mm[Hg] Mihaela Zack DO Work Phone: [facility] 08-18-2024 09:00-0500 Heart rate 81 /min Mihaela Zack DO Work Phone: [facility] 08-18-2024 09:00-0500 SaO2% (BldA) [Mass fraction] 98 % Mihaela Zack DO Work Phone: [facility] 08-18-2024 09:00-0500 Systolic blood pressure 128 mm[Hg] Mihaela Zack DO Work Phone: [facility] 07-24-2024 11:32-0500 Body mass index (BMI) [Ratio] 31.95 kg/m2 Shauna EL Work Phone: [facility] 07-24-2024 11:32-0500 Body weight 87.09 kg Shauna EL Work Phone: [facility] 07-24-2024 11:32-0500 Diastolic blood pressure 72 mm[Hg] Shauna EL Work Phone: [facility] 07-24-2024 11:32-0500 Systolic blood pressure 118 mm[Hg] Shauna EL Work Phone: [facility] 06-26-2024 10:23-0500 Body mass index (BMI) [Ratio] 33.97 kg/m2 Chalres Karina DO Work Phone: [facility] 06-26-2024 10:23-0500 Body weight 92.59 kg Charles Karina DO Work Phone: [facility] 06-26-2024 10:23-0500 Diastolic blood pressure 84 mm[Hg] Charles Karina DO Work Phone: [facility] 06-26-2024 10:23-0500 Systolic blood pressure 122 mm[Hg] Charles Karina DO Work Phone: [facility] 05-24-2024 13:22-0400 Body mass index (BMI) [Ratio] 35.01 kg/m2 Charles Karina DO Work Phone: [facility] 05-24-2024 13:22-0400 Body weight 95.44 kg Charles Karina DO Work Phone: [facility] 05-24-2024 13:22-0400 Diastolic blood pressure 70 mm[Hg] Charels Karina DO Work Phone: [facility] 05-24-2024 13:22-0400 Systolic blood pressure 112 mm[Hg] Charles Karina DO Work Phone: [facility] 05-19-2024 10:53-0400 Body height 165.1 cm Myranda Marcusmelany [employer]PER[employer]OR [employer] Work Phone: [facility] 05-19-2024 10:53-0400 Body mass index (BMI) [Ratio] 35.18 kg/m2 Myranda Marcusmelany [employer]PER[employer]OR [employer] Work Phone: [facility] 05-19-2024 10:53-0400 Body weight 95.89 kg Myranda Marcusnealprema [employer]PER[employer]OR [employer] Work Phone: [facility] 05-19-2024 10:53-0400 Diastolic blood pressure 72 mm[Hg] Myranda Marcusnealprema [employer]PER[employer] Work Phone: [facility] 05-19-2024 10:53-0400 Heart rate 82 /min Myranda Marcusmelany SUPER[employer]OR [employer] Work Phone: [facility] 05-19-2024 10:53-0400 SaO2% (BldA) [Mass fraction] 97 % Myranda Marcusmelany [employer]PER[employer] Work Phone: [facility] 05-19-2024 10:53-0400 Systolic blood pressure 124 mm[Hg] Myranda Marcusmelany [employer]PER[employer] Work Phone: [facility] 05-02-2024 15:20-0400 Body height 165.1 cm Jennifer Salas MD Work Phone: [facility] 05-02-2024 15:20-0400 Body mass index (BMI) [Ratio] 35.51 kg/m2 Jennifer Salas MD Work Phone: [facility] [employer] 05-02-2024 15:20-0400 Body temperature 98.01 [degF] Jennifer Salas MD Work Phone: [facility] [employer] [facility] 05-02-2024 15:20-0400 Body weight 96.8 kg Jennifer Salas MD Work Phone: [facility] [employer] [facility] 05-02-2024 15:20-0400 Diastolic blood pressure 60 mm[Hg] Jennifer Salas MD Work Phone: [facility] 05-02-2024 15:20-0400 Heart rate 77 /min Jennifer Salas MD Work Phone: [facility] 05-02-2024 15:20-0400 SaO2% (BldA) [Mass fraction] 99 % Jennifer Salas MD Work Phone: [facility] [employer] [facility] 05-02-2024 15:20-0400 Systolic blood pressure 112 mm[Hg] Jennifer Salas MD Work Phone: [facility] [employer] [facility] 04-28-2024 11:06-0400 Body height 165.1 cm Mihaela Zack DO Work Phone: [facility] [employer] 04-28-2024 11:06-0400 Body mass index (BMI) [Ratio] 35.94 kg/m2 Mihaela Zack DO Work Phone: [facility] [employer] 04-28-2024 11:06-0400 Body weight 97.98 kg Mihaela Zack DO Work Phone: [facility] [employer] 04-28-2024 11:06-0400 Diastolic blood pressure 79 mm[Hg] Mihaela Zack DO Work Phone: [facility] [employer] 04-28-2024 11:06-0400 Heart rate 70 /min Mihaela Zack DO Work Phone: [facility] 04-28-2024 11:06-0400 SaO2% (BldA) [Mass fraction] 95 % Mihaela Zack DO Work Phone: [facility] 04-28-2024 11:06-0400 Systolic blood pressure 126 mm[Hg] Mihaela Zack DO Work Phone: [facility] 04-12-2024 14:42-0400 Body mass index (BMI) [Ratio] 35.45 kg/m2 Aron Newberry MD Work Phone: [facility] 04-12-2024 14:42-0400 Body weight 96.62 kg Aron Newberry MD Work Phone: [facility] 09-15-2023 16:04-0500 Body height 165.1 cm Mihaela Zack DO Work Phone: [facility] 09-15-2023 16:04-0500 Body mass index (BMI) [Ratio] 34.68 kg/m2 Mihaela Zack DO Work Phone: [facility] 09-15-2023 16:04-0500 Body weight 94.53 kg Mihaela Zack DO Work Phone: [facility] 09-15-2023 16:04-0500 Diastolic blood pressure 87 mm[Hg] Mihaela Zack DO Work Phone: [facility] 09-15-2023 16:04-0500 Heart rate 99 /min Mihaela Zack DO Work Phone: [facility] 09-15-2023 16:04-0500 SaO2% (BldA) [Mass fraction] 99 % Mihaela Zack DO Work Phone: [facility] 09-15-2023 16:04-0500 Systolic blood pressure 122 mm[Hg] Mihaela Zack DO Work Phone: [facility] 07-30-2021 10:05-0500 Body height 167.64 cm Yuko [place] [employer] Other 07-30-2021 10:05-0500 Body mass index (BMI) [Ratio] 29.86 kg/m2 [employer] [place] [employer] Other 07-30-2021 10:05-0500 Body temperature 97.8 [degF] [employer] [place] [employer] Other 07-30-2021 10:05-0500 Body weight 83.92 kg Yuko [place] [employer] Other 07-30-2021 10:05-0500 Diastolic blood pressure 95 mm[Hg] [employer] [place] [employer] Other 07-30-2021 10:05-0500 Respiratory rate 18 /min [employer]o [place] [employer] Other 07-30-2021 10:05-0500 SaO2% (BldA) [Mass fraction] 98 % [employer]o [place] [employer] Other 07-30-2021 10:05-0500 Systolic blood pressure 146 mm[Hg] [employer] [place] [employer] Other 07-26-2021 11:15-0500 Body height 167.64 cm Eloisa Roche Other [employer] Other 07-26-2021 11:15-0500 Body temperature 96.9 [degF] Eloisa Roche Other [employer] Other 07-26-2021 11:15-0500 SaO2% (BldA) [Mass fraction] 96 % Eloisa Roche [facility] [employer] Other 06-19-2021 10:55-0500 Body height 167.64 cm Izabella Ginty Other [employer] Other 06-19-2021 10:55-0500 Body mass index (BMI) [Ratio] 29.86 kg/m2 Izabella Ginty [facility] [employer] Other 06-19-2021 10:55-0500 Body temperature 98.5 [degF] Izabella Ginty Other [employer] Other 06-19-2021 10:55-0500 Body weight 83.92 kg Izabella Ginty Other [employer] Other 06-19-2021 10:55-0500 Respiratory rate 18 /min Izabella Ginty [facility] [employer] Other 06-19-2021 10:55-0500 SaO2% (BldA) [Mass fraction] 97 % Izabella Ginty [facility] [employer] Other 08-23-2020 01:29-0500 BP Diastolic 72 mm[Hg] [facility] [employer] [facility] , [place] 08-23-2020 01:29-0500 BP Systolic 114 mm[Hg] [facility] [employer] [facility] , [place] 08-23-2020 01:29-0500 Pulse (Heart Rate) 62 /min [facility], [place] 08-23-2020 01:29-0500 Pulse Oximetry 98 % [facility] , [place] 08-23-2020 01:29-0500 Respiratory Rate 14 /min [facility] [employer] [facility], [place] 08-22-2020 23:11-0500 BMI (Body Mass Index) 27.46 kg/m2 [facility], [place] 08-22-2020 23:11-0500 Body Temperature 98.4 [degF] Kenny [facility], [place] 08-22-2020 23:11-0500 Body weight 74.84 kg [facility] , [place] 08-22-2020 23:11-0500 Height 165.1 cm [facility] [place] 04-25-2020 09:42-0400 BMI (Body Mass Index) 24.96 kg/m2 Str 1 [facility], [place] 04-25-2020 09:42-0400 Body weight 68.[address] [facility] , [place] 01-16-2020 09:13-0400 Body Temperature 97.39 [degF] [facility] [place] 01-16-2020 09:13-0400 BP Diastolic 80 mm[Hg] Enrique [facility] , [place] 01-16-2020 09:13-0400 BP Systolic 129 mm[Hg] [facility] , [place] 01-16-2020 09:13-0400 Pulse (Heart Rate) 79 /min Enrique [facility], [place] 01-16-2020 09:13-0400 Pulse Oximetry 99 % [facility] , [place] 01-16-2020 09:13-0400 Respiratory Rate 16 /min Enrique [facility], [place] 11-23-2018 09:16-0400 Weight 68.[address] [facility] Encounters Encounter Date Encounter Type Care Provider Facility Start: 09-29-2024 End: 09-29-2024 Telephone encounter Melanie Mullen [facility] Work Phone: [facility] Start: 09-26-2024 End: 09-26-2024 Office outpatient visit 15 minutes Charles Collins DO Work Phone: [facility] Comment on above: Pre-op examination; Family history of ovarian cancer; Abnormal uterine bleeding (AUB); Menorrhagia with irregular cycle Start: 09-26-2024 End: 09-26-2024 Preprocedural examination done Charles Collins DO Work Phone: [facility] Start: 09-26-2024 End: 09-26-2024 ambulatory CHARLES PANDYAO Not Available Start: 09-20-2024 End: 09-20-2024 Emergency department patient visit [facility] Work Phone: Start: 09-15-2024 End: 09-15-2024 Bamboo flowsheet Myranda Villegas [employer]PER[employer] Work Phone: [facility] Start: 09-15-2024 End: 09-15-2024 Bamboo flowsheet Myranda Marcusnealprema [employer]PER[employer]OR [employer] Work Phone: [facility] Start: 09-15-2024 End: 09-15-2024 Office outpatient visit 15 minutes Myranda Marcusnealprema [employer] Work Phone: [facility] Comment on above: Cellulitis of right upper extremity (Primary Dx) Start: 09-15-2024 End: 09-15-2024 ambulatory MYRANDA VILLEGAS Not Available Start: 09-09-2024 End: 09-10-2024 Emergency department patient visit JENNIFER ANALI 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) Start: 08-30-2024 End: 08-30-2024 ambulatory MYRANDA VILLEGAS Not Available Start: 08-30-2024 End: 08-30-2024 Bamboo flowsheet Myranda Villegas [employer]PER[employer] Work Phone: [facility] Start: 08-30-2024 End: 08-30-2024 Bamboo flowsheet Myranda Villegas [employer]PER[employer] Work Phone: [facility] Start: 08-23-2024 End: 08-23-2024 Office outpatient visit 15 minutes Shauna EL Work Phone: [facility] Comment on above: Encounter for weight management Start: 08-23-2024 End: 08-23-2024 ambulatory SHAUNA KEANE Not Available Start: 08-23-2024 End: 08-23-2024 Bamboo flowsheet Shauna EL Work Phone: [facility] Start: 08-23-2024 End: 08-23-2024 Bamboo flowsheet Shauna EL Work Phone: [facility] Start: 08-18-2024 End: 08-18-2024 Bamboo flowsheet Mihaela K Zack DO Work Phone: [facility] Start: 08-18-2024 End: 08-18-2024 Bamboo flowsheet Mihaela K Zack DO Work Phone: [facility] Start: 08-18-2024 End: 08-18-2024 Office outpatient visit 15 minutes Mihaela K Zack DO Work Phone: [facility] Comment on above: Severe persistent as thma without complication (CMS/HCC) (Primary Dx) Start: 08-18-2024 End: 08-18-2024 ambulatory MIHAELA Kelsey ZACK Not Available Start: 08-11-2024 End: 08-11-2024 Telephone encounter Melanie Mullen [facility] Work Phone: [facility] Comment on above: Verbal Re-Assessment (Genetics Result Disclosure) Start: 07-24-2024 End: 07-24-2024 Bamboo flowsheet Shauna EL Work Phone: [facility] Start: 07-24-2024 End: 07-24-2024 Bamboo flowsheet Shauna EL Work Phone: [facility] Start: 07-24-2024 End: 07-24-2024 Patient encounter procedure Shauna EL Work Phone: [facility] Comment on above: Weight gain; Encounter for weight management Start: 07-24-2024 End: 07-24-2024 ambulatory SHAUNA KEANE Not Available Start: 07-21-2024 End: 07-21-2024 Refill Mihaelaaudelia Dixon DO Work Phone: [facility] Comment on above: Severe persistent as thma without complication (CMS/HCC) (Primary Dx) Start: 07-20-2024 End: 07-20-2024 ambulatory JENNIFER BRIONES [facility] Start: 07-19-2024 End: 07-19-2024 Telephone encounter Es Amara Chavez [facility] Work Phone: [facility] Start: 07-11-2024 End: 07-11-2024 ambulatory CHARLES KARINA Not Available Start: 07-11-2024 End: 07-11-2024 Phys/qhp telephone evaluation 5-10 min Charles Karina DO Work Phone: [facility] Comment on above: Family history of ov homero cancer Start: 06-26-2024 End: 06-26-2024 ambulatory CHARLES KARINA Not Available Start: 06-26-2024 End: 06-26-2024 Office outpatient visit 15 minutes Charles Karina DO Work Phone: [facility] Comment on above: Pre-op examination; Menorrhagia with regular cycle; Pelvic pain in female; Dyspareunia in female; Dysmenorrhea; Encounter for weight management Start: 06-26-2024 End: 06-26-2024 Preprocedural examination done Charles Karina DO Work Phone: [facility] Start: 06-23-2024 End: 06-23-2024 ambulatory MYRANDA VILLEGAS Not Available Start: 06-16-2024 End: 06-16-2024 Refill Myranda Villegas [employer] Work Phone: [facility] Comment on above: ZOEY (obstructive sle ep apnea) Start: 06-13-2024 End: 06-13-2024 Orders Only Myranda Villegas [employer] Work Phone: [facility] Comment on above: Obesity (BMI 30-39.9 ) (Primary Dx) Start: 05-31-2024 End: 05-31-2024 Telephone encounter Jennifer Salas MD Work Phone: [facility] Comment on above: Appointment Start: 05-30-2024 End: 05-30-2024 Telephone encounter Jennifer Salas MD Work Phone: [facility] Comment on above: Family history of ov homero cancer (Primary Dx) Start: 05-30-2024 End: 05-30-2024 ambulatory JENNIFER SALAS [facility] Start: 05-24-2024 End: 05-24-2024 Bamboo flowsheet Charles Karina DO Work Phone: [facility] Start: 05-24-2024 End: 05-24-2024 Bamboo flowsheet Charles Karina DO Work Phone: [facility] Start: 05-24-2024 End: 05-24-2024 Office outpatient visit 15 minutes Charles Karina DO Work Phone: [facility] Comment on above: PCOS (polycystic ova micah syndrome); Family history of ovarian cancer; Insulin resistance Start: 05-24-2024 End: 05-24-2024 ambulatory CHARLES KARINA Not Available Start: 05-19-2024 End: 05-19-2024 Bamboo flowsheet Myranda Villegas SUPER[employer] Work Phone: [facility] Start: 05-19-2024 End: 05-19-2024 Bamboo flowsheet Myranda Villegas SUPER[employer] Work Phone: [facility] Start: 05-19-2024 End: 05-19-2024 Patient encounter status Myranda Villegas SUPER[employer]OR [employer]MENT Work Phone: [facility] Work Phone: Start: 05-19-2024 End: 05-19-2024 Periodic preventive med est patient 40-64yrs yMranda Villegas SUPERVISOR [employer]MENT Work Phone: [facility] Comment on above: ZOEY (obstructive sle ep apnea) (Primary Dx); Encounter for wellness examination; Obesity (BMI 30-39.9); Screening mammogram for breast cancer; Morbid (severe) obesity due to excess calories ([facility]/HCC); Gastro-esophageal reflux disease without esophagitis; Body mass index (BMI) 35.0-35.9, adult; Demyelinating disease of central nervous system (HCC) ([facility]/HCC); Dysmenorrhea; Intractable migraine without status migrainosus, unspecified migraine type (CMS/HCC); Gastroesophageal reflux disease without esophagitis; Moderate persistent asthma without complication ([facility]/HCC); Environmental allergies; Retinal hole of left eye; Anxiety; Vitamin D deficiency; Allergic rhinitis, unspecified seasonality, unspecified trigger; Screening, lipid Start: 05-19-2024 End: 05-19-2024 ambulatory MYRANDA MARCUSNealPREMA Not Available Start: 05-09-2024 End: 05-09-2024 [facility] Start: 05-08-2024 End: 05-08-2024 ambulatory DORA ANALI [facility] Start: 05-03-2024 End: 08-14-2024 Telephone encounter Melanie Mullen [facility] Work Phone: [facility] Comment on above: GENETICS (CLERICAL) Start: 05-02-2024 End: 05-02-2024 Office outpatient new 60 minutes Jennifer Salas MD Work Phone: [facility] Comment on above: Dysmenorrhea (Primar y Dx); Family history of ovarian cancer Start: 05-02-2024 ambulatory JENNIFER SALAS [facility] Start: 04-28-2024 End: 04-28-2024 Bamboo flowsdelonte Dixon DO Work Phone: [facility] Start: 04-28-2024 End: 04-28-2024 Bamboo flowsdelonte Dixon DO Work Phone: [facility] Start: 04-28-2024 End: 04-28-2024 Office outpatient visit 25 minutes Mihaela Dixon DO Work Phone: [facility] Comment on above: Severe persistent as thma without complication (CMS/HCC) (Primary Dx) Start: 04-28-2024 End: 04-28-2024 ambulatory MIHAELA DIXON Not Available Start: 04-12-2024 End: 04-12-2024 Office outpatient visit 25 minutes Aron Newberry MD Work Phone: [facility] Comment on above: Gastroesophageal ref lux disease without esophagitis (Primary Dx); Chronic rhinitis; Flexural atopic dermatitis Start: 04-12-2024 End: 04-12-2024 Bamboo flowsheet Aron Newberry MD Work Phone: [facility] Start: 04-12-2024 End: 04-12-2024 Bamboo flowsheet Aron Newberry MD Work Phone: [facility] Start: 04-12-2024 End: 04-14-2024 Refill Keisha Brush MD Work Phone: [facility] Comment on above: Environmental allerg ies (Primary Dx) Start: 04-10-2024 End: 04-11-2024 Refill Myranda Villegas [employer] Work Phone: [facility] Comment on above: Allergic rhinitis, u nspecified seasonality, unspecified trigger Start: 03-08-2024 End: 03-08-2024 ambulatory MYRANDA VILLEGAS Not Available Start: 02-02-2024 End: 02-02-2024 ambulatory ARON ENWBERRY Not Available Start: 01-11-2024 End: 01-11-2024 ambulatory DION PERALTA Not Available Start: 01-07-2024 End: 01-07-2024 ambulatory MIHAELA DIXON Not Available Start: 12-17-2023 End: 12-17-2023 ambulatory MYRANDA VILLEGAS Not Available Start: 12-10-2023 End: 12-10-2023 ambulatory MYRANDA VILLEGAS Not Available Start: 09-27-2023 Telephone encounter Bhavani Cárdenas RN [facility] Start: 09-15-2023 End: 09-15-2023 Office outpatient visit 25 minutes Mihaela Marieeck DO Work Phone: [facility] Comment on above: Severe persistent as thma without complication (CMS/HCC) (Primary Dx) Start: 09-15-2023 Bamboo flowsheet Mihaela K Stra ck DO Work Phone: [facility] Start: 09-15-2023 Bamboo flowsheet Mihaela K Stra ck DO Work Phone: [facility] Start: 09-15-2023 Telephone encounter Brie Aranda RN [facility] Start: 09-14-2023 Chart abstracting Mihaela Cole Str ack DO Work Phone: [facility] Start: 09-14-2023 Refill Myranda Villegas [employer] Work Phone: [facility] Comment on above: Anxiety Start: 09-13-2023 Refill Keisha waddell MD Work Phone: [facility] Comment on above: Intractable migraine without status migrainosus, unspecified migraine type (CMS/HCC) (Primary Dx) Start: 09-11-2023 Refill Myranda Villegas [employer] Work Phone: [facility] Comment on above: Allergic rhinitis, u nspecified seasonality, unspecified trigger Start: 09-08-2023 End: 09-08-2023 Office outpatient visit 15 minutes Charles Pandyao DO Work Phone: [facility] Comment on above: Encounter to discuss procedure; PCOS (polycystic ovarian syndrome); Family history of ovarian cancer Start: 09-08-2023 Refill Myranda Villegas NP Work Phone: [facility] Comment on above: Anxious mood as adju stment reaction (CMS/HCC); Depression, unspecified depression type (CMS/HCC) Start: 03-17-2023 End: 03-18-2023 ambulatory Myranda Villegas Facility:[facility] Start: 08-11-2022 End: 08-11-2022 ambulatory PHYSICIAN FANY [facility] Work Phone: Start: 08-11-2022 End: 08-11-2022 Departed Referred PHYSICIAN FANY [facility] [address] Work Phone: Start: 04-10-2022 End: 04-10-2022 ambulatory CINTHIA MARK Facility:[facility] Start: 04-08-2022 End: 04-08-2022 Patient encounter procedure Sasha Perez MD Work Phone: Ophthalmology Comment on above: Sector visual field defect, left (Primary Dx); Retinal hole of left eye; Optic neuropathy, left; Migraine, hemicrania Start: 07-30-2021 End: 07-30-2021 ambulatory Yuko Stockton Other [facility] Other Start: 07-30-2021 Office outpatient vi sit 15 minutes Yuko Kath [facility] Start: 07-26-2021 End: 07-26-2021 ambulatory Eloisa Kaley Other [facility] Other Start: 07-26-2021 Office outpatient vi sit 15 minutes Eloisa Kaley [facility] Start: 06-19-2021 End: 06-19-2021 ambulatory Izabella Ginty Other [facility] Other Start: 06-19-2021 Office outpatient vi sit 15 minutes Izabella Ginty [facility] Start: 02-22-2021 End: 02-22-2021 Subsequent hospital visit by physician Radha Hutton MD Work Phone: [facility] Start: 02-17-2021 End: 02-17-2021 ambulatory NKECHI DURAND [facility] Start: 01-10-2021 End: 01-11-2021 ambulatory BREN ANDERSON [facility] Start: 01-10-2021 End: 01-10-2021 Subsequent hospital visit by physician Nkechi Durand [employer] - LEADERSHIP DEVELOPMENT INSTRUCTOR Work Phone: [facility] Comment on above: Non-seasonal allergi c rhinitis due to pollen; Moderate persistent asthma without complication Start: 12-30-2020 End: 12-30-2020 ambulatory NKECHI [facility] Start: 12-26-2020 End: 12-26-2020 ambulatory NKECHI W [facility] Start: 12-24-2020 End: 12-24-2020 ambulatory NKECHI W [facility] Start: 12-19-2020 End: 12-19-2020 ambulatory NKECHI [facility] Start: 12-12-2020 End: 12-12-2020 ambulatory NKECHI [facility] Start: 12-09-2020 End: 12-09-2020 ambulatory NKECHI [facility] Start: 12-05-2020 End: 12-05-2020 ambulatory NKECHI [facility] Start: 12-03-2020 End: 12-03-2020 ambulatory NKECHI [facility] Start: 12-02-2020 End: 12-02-2020 ambulatory NKECHI [facility] Start: 11-18-2020 End: 11-18-2020 ambulatory NKECHI W [facility] Start: 11-14-2020 End: 11-14-2020 ambulatory NKECHI [facility] Start: 11-11-2020 End: 11-11-2020 ambulatory NKECHI [facility] Start: 11-04-2020 ambulatory NKECHI W [facility] Start: 10-30-2020 End: 10-30-2020 ambulatory NKECHI [facility] Start: 10-28-2020 End: 10-28-2020 ambulatory NKECHI [facility] Start: 10-16-2020 End: 10-16-2020 ambulatory NKECHI W [facility] Start: 10-14-2020 End: 10-14-2020 ambulatory NKECHI W [facility] Start: 10-09-2020 ambulatory NKECHI W [facility] Start: 10-09-2020 End: 10-09-2020 ambulatory NKECHI W [facility] Start: 10-07-2020 End: 10-07-2020 ambulatory NKECHI W [facility] Start: 10-03-2020 End: 10-03-2020 ambulatory NKECHI W [facility] Start: 09-30-2020 End: 09-30-2020 ambulatory NKECHI W [facility] Start: 09-26-2020 End: 09-26-2020 ambulatory NKECHI W [facility] Start: 09-23-2020 End: 09-23-2020 ambulatory NKECHI W [facility] Start: 09-19-2020 End: 09-19-2020 ambulatory NKECHI W [facility] Start: 09-16-2020 End: 09-16-2020 ambulatory NKECHI W [facility] Start: 09-12-2020 End: 09-12-2020 ambulatory NKECHI W [facility] Start: 09-03-2020 End: 09-04-2020 ambulatory BREN ANDERSON [facility] Start: 09-03-2020 End: 09-03-2020 ambulatory Jose Hines [facility] Start: 09-03-2020 End: 09-03-2020 Subsequent hospital visit by physician Nkechi [facility] Comment on above: Chronic fatigue; High plasma histamine; Palpitation; MG (dyspnea on exertion) Start: 09-03-2020 End: 09-03-2020 Subsequent hospital visit by physician Boaz Dow Exam Rm 01 [facility] E[facility] Comment on above: Palpitation; MG (dyspnea on exertion) Start: 09-02-2020 End: 09-02-2020 ambulatory NKECHI Amara [facility] Start: 08-23-2020 End: 08-23-2020 ambulatory BREN [facility] Start: 08-23-2020 End: 08-23-2020 Emergency department patient visit NKECHI W [facility] Start: 08-22-2020 End: 08-23-2020 Emergency department patient visit Kenny Maguire Work Phone: [facility] Comment on above: Tight chest (Primary Dx); Allergic reaction to allergen immunotherapy Start: 08-21-2020 End: 08-21-2020 ambulatory NKECHI W [facility] Start: 08-19-2020 End: 08-19-2020 ambulatory NKECHI W [facility] Start: 08-15-2020 End: 08-15-2020 ambulatory NKECHI W [facility] Start: 08-12-2020 End: 08-12-2020 ambulatory NKECHI W [facility] Start: 07-31-2020 End: 07-31-2020 ambulatory NKECHI W [facility] Start: 07-29-2020 End: 07-29-2020 ambulatory NKECHI W [facility] Start: 07-25-2020 End: 07-25-2020 ambulatory NKECHI W [facility] Start: 07-22-2020 End: 07-22-2020 ambulatory NKECHI W [facility] Start: 07-22-2020 End: 07-22-2020 ambulatory NKECHI W [facility] Start: 07-18-2020 End: 07-18-2020 ambulatory NKECHI W [facility] Start: 07-15-2020 End: 07-15-2020 ambulatory NKECHI W [facility] Start: 07-11-2020 End: 07-11-2020 ambulatory NKECHI W [facility] Start: 07-03-2020 End: 07-03-2020 ambulatory NKECHI W [facility] Start: 07-01-2020 End: 07-01-2020 ambulatory NKECHI W [facility] Start: 06-24-2020 End: 06-24-2020 ambulatory NKECHI W [facility] Start: 06-20-2020 End: 06-20-2020 ambulatory NKECHI W [facility] Start: 06-17-2020 End: 06-17-2020 ambulatory NKECHI W [facility] Start: 06-13-2020 End: 06-13-2020 ambulatory NKECHI W [facility] Start: 06-06-2020 End: 06-06-2020 ambulatory NKECHI W [facility] Start: 05-30-2020 End: 05-30-2020 ambulatory NKECHI W [facility] Start: 05-30-2020 End: 05-30-2020 ambulatory NKECHI [facility] Start: 05-27-2020 End: 05-27-2020 ambulatory NKECHI [facility] Start: 05-22-2020 End: 05-22-2020 [facility] NKECHI [facility] Start: 05-22-2020 End: 05-22-2020 ambulatory NKECHI [facility] Start: 04-25-2020 End: 04-26-2020 ambulatory GABE Cornell [facility] Start: 04-25-2020 End: 04-25-2020 Subsequent hospital visit by physician Boaz [facility] R[facility] Nuclear Medicine Comment on above: Arrived Start: 04-18-2020 End: 04-19-2020 ambulatory [facility] Start: 04-18-2020 End: 04-18-2020 Subsequent hospital visit by physician Boaz Pulmonary Function Room 2 [facility] Pulm Function Test Comment on above: Mild persistent asth ma without complication Start: 04-10-2020 End: 04-11-2020 ambulatory [facility] Start: 04-10-2020 End: 04-10-2020 Subsequent hospital visit by physician [facility]chi [facility] Start: 04-03-2020 End: 04-03-2020 ambulatory NKECHI DURAND [facility] Start: 02-29-2020 End: 03-01-2020 ambulatory [facility] Start: 02-23-2020 End: 02-24-2020 ambulatory [facility] Start: 02-23-2020 End: 02-23-2020 Subsequent hospital visit by physician Boaz Fluoro Room 4 [facility] Radiology Comment on above: Dysphagia, unspecifi ed type Start: 02-19-2020 End: 02-19-2020 ambulatory NKECHI DURAND [facility] Start: 01-16-2020 End: 01-16-2020 Subsequent hospital visit by physician Enrique Stephens Work Phone: [facility] Start: 01-12-2020 End: 01-12-2020 Subsequent hospital visit by physician Nkechi [facility] Start: 04-07-2019 End: 04-07-2019 Subsequent hospital visit by physician Boaz Ct [facility] Rm1 [facility] Comment on above: Chronic pansinusitis Start: 03-28-2019 End: 03-28-2019 Subsequent hospital visit by physician Boaz Xr Rm 1 [facility] Comment on above: Short of breath on e xertion Start: 03-20-2019 End: 03-20-2019 Subsequent hospital visit by physician Nkechi SANTANA [facility] Comment on above: History of food anap hylaxis; Penicillin allergy Start: 11-23-2018 End: 11-24-2018 Patient encounter procedure MIYA MATSON [facility] Start: 11-23-2018 End: 11-23-2018 Patient encounter procedure Miya Matson Work Phone: [facility] MRI Comment on above: Optic disc atrophy, left; Cyst of pituitary gland (HCC) Start: 12-20-2017 Ambulatory Anas Balaa Facility:[facility] Start: 11-08-2017 End: 11-09-2017 Ambulatory Anas Balaa Facility:[facility] Start: 09-20-2017 Ambulatory EMILIO [facility] Start: 03-10-2017 End: 03-10-2017 Emergency department patient visit [facility] Facility:[facility] Procedures Date Procedure Procedure Detail Performing Clinician Start: 06-23-2024 Mammography Charles marsh DO Work Phone: Start: 05-31-2023 Mammography Myranda hickman [employer]PER[employer]MENT Work Phone: Start: 07-01-2022 Microscopic observat ion [Identifier] in Cervix by Cyto stain Myranda Villegas [employer]PER[employer]MENT Work Phone: Start: 07-01-2022 Cytp cerv/vag auto t hin layer prep mnl screen Gretchen Narvaez CNM Work Phone: Start: 04-08-2022 End: 04-08-2022 Fundus photography w/interpretation & report Sasha Perez MD Work Phone: Start: 04-08-2022 Visual field xm uni/ bi w/interp extended exam Sasha Perez MD Work Phone: Start: 02-22-2021 Mri spinal canal cer vical w/o & w/contr matrl Radha Hutton MD Work Phone: Start: 01-10-2021 Blood count complete auto&auto difrntl wbc Bren Anderson [employer] - LEADERSHIP DEVELOPMENT INSTRUCTOR Work Phone: Start: 09-03-2020 HOLTER MONITOR 48 HOUR Ayyash Melhem Work Phone: Start: 09-03-2020 Echo tthrc r-t 2d w/wom-mode compl spec&colr d Ayyash Melhem Work Phone: Start: 09-03-2020 Blood count complete auto&auto difrntl wbc Bren Anderson Work Phone: Start: 09-03-2020 Anion gap [Moles/Vol] C nata Anderson Work Phone: Start: 09-03-2020 Assay of parathormone C nata Anderson Work Phone: Start: 09-03-2020 Calcium ionized Bren Anderson Work Phone: Start: 09-03-2020 Comprehensive metabo lic panel Bren Anderson Work Phone: Start: 09-03-2020 GLOMERULAR FILTRATIO N RATE, ESTIMATED Bren Anderson Work Phone: Start: 09-03-2020 Lipid panel Jose Boyle hem Work Phone: Start: 09-03-2020 Exercise stress test study Jose Boylehem Work Phone: Start: 08-23-2020 Radiologic exam ches t single view Theo Chambers Work Phone: Start: 08-22-2020 Anion gap [Moles/Vol] S vetlana Stancheva Work Phone: Start: 08-22-2020 Assay of magnesium Svet shanika Stancheva Work Phone: Start: 08-22-2020 Assay of osmolality blood Janet Stancheva Work Phone: Start: 08-22-2020 Assay of troponin quantitative Janet Stancheva Work Phone: Start: 08-22-2020 Blood count complete auto&auto difrntl wbc Janet Stancheva Work Phone: Start: 08-22-2020 GLOMERULAR FILTRATIO N RATE, ESTIMATED Janet Stancheva Work Phone: Start: 08-22-2020 Natriuretic peptide Sve tlana Stancheva Work Phone: Start: 08-22-2020 SCAN OF BLOOD SMEAR Sve tlana Stancheva Work Phone: Start: 05-30-2020 25 hydroxy includes fractions if performed NKECHI AMSTUTZ Start: 05-30-2020 Unlis misc path NKECHI AM ISHA Start: 05-22-2020 Assay of gammaglobulin ige NKECHI AMSTUTZ Start: 05-22-2020 Unlis misc path NKECHI AM ISHA Start: 05-22-2020 Allergen spec ige cr ude allergen extract each NKECHIJOSE L DURAND Start: 04-25-2020 Hepatobil syst imag inc gb w/pharma intervenj Gabe Toledo Work Phone: Start: 04-18-2020 Brncdilat rspse spmt ry pre&post-brncdilat admn NKECHIJOSE L THOMPSONTDUANE Start: 04-18-2020 Brncdilat rspse spmt ry pre&post-brncdilat admn Bren Anderson Work Phone: Start: 04-10-2020 COVID-19 AMBULATORY YOUNG C DONNATDUANE Start: 02-29-2020 Us abdominal real ti me w/image limited NKECHI DONNATDUANE Start: 02-29-2020 Hepatobil syst imag inc gb w/pharma intervenj NKECHI DURAND Start: 02-23-2020 Radiologic exam esop hagus single contrast study NKECHI DURAND Start: 02-23-2020 Radex esophagus Gabe Toledo Work Phone: Start: 03-28-2019 Radiologic exam ches t 2 views Bren Anderson Work Phone: Start: 11-23-2018 Mri brain brain stem w/o w/contrast material Miya Matson Work Phone: Start: 11-23-2018 MRI of orbit Miya Matson Work Phone: Plan of Treatment Date Care Activity Detail Author Start: 09-09-2034 DTaP,Tdap and Td Vaccines (2 - Td or Tdap) DTaP,Tdap and Td Vaccines (2 - Td or Tdap) [facility] Start: 07-01-2027 Screening for malign ant neoplasm of cervix [facility] Start: 09-09-2025 Adult BMI Screening Adult BMI Screen ing [facility] Start: 09-09-2025 Tobacco Screening Tobacco Screening [facility] Start: 07-01-2025 Screening for malign ant neoplasm of cervix Pap Smear [facility] Start: 06-23-2025 Screening for malign ant neoplasm of breast Mammogram [facility] Start: 05-02-2025 Adult BMI Screening Adult BMI Screen ing [facility] Start: 05-02-2025 Tobacco Screening Tobacco Screening [facility] Start: 03-02-2025 End: 03-02-2025 Patient encounter procedure 03/02/2025 11:00 AM EDT Office Visit [facility] [address] [place] [phone] Mihaela Dixon, DO [address] [place] [address] [facility] Start: 02-05-2025 Influenza vaccination Influenza Vacc ine (#1) [facility] Comment on above: Postponed from 04/09 (Patient Refused) Start: 11-15-2024 End: 11-15-2024 Patient encounter procedure 11/15/2024 10:30 AM EDT Office Visit [facility] [address] [place] [phone] Shauna Keane PA [address] [place] [address] [facility] Start: 10-11-2024 End: 10-11-2024 Patient encounter procedure 10/11/2024 9:40 AM EST Office Visit [facility] [address] [facility] [place] [phone] Aron Newberry MD [address] [facility] [place] [address] [facility] Start: 09-26-2024 End: 09-26-2024 Patient encounter procedure 09/26/2024 10:50 AM EST Consult [facility] [address] [place] [phone] Charles Collins DO [address] [place] [address] [facility] Start: 09-15-2024 End: 09-15-2024 Patient encounter procedure 09/15/2024 1:00 PM EST Office Visit [facility] [address] [place] [phone] Myranda Villegas, SUPERVISOR [employer]ING [employer]PARTMENT [address] [place] [address] Arrived [facility] Comment on above: Arrived Start: 08-30-2024 End: 08-30-2024 Patient encounter procedure 08/30/2024 3:30 PM EST Office Visit [facility] [address] [place] [phone] Myranda Villegas, SUPERVISOR [employer]ING [employer]PARTMENT [address] [place] [address] Arrived [facility] Comment on above: Arrived Start: 08-23-2024 End: 08-23-2024 Patient encounter procedure 08/23/2024 3:40 PM EST Office Visit [facility] [address] [place] [phone] Shauna Keane, PA [address] [place] [address] Arrived [facility] Comment on above: Arrived Start: 08-22-2024 End: 08-22-2024 Patient encounter procedure 08/22/2024 11:20 AM EST Office Visit [facility] [address] [place] [phone] Shauna Keane, PA [address] [place] [address] [facility] Start: 08-18-2024 End: 08-18-2024 Patient encounter procedure [facility] Comment on above: Arrived Start: 08-14-2024 End: 08-14-2024 Patient encounter procedure 08/14/2024 3:20 PM EST Office Visit [facility] [address] [place] [address] Aron Newberry MD [address] [facility] [address] [place] [address] [facility] Start: 07-24-2024 End: 07-24-2024 Patient encounter procedure [facility] Comment on above: Arrived Start: 07-20-2024 End: 07-20-2024 Patient encounter procedure 07/20/2024 11:30 AM EST Appointment [facility] Oncology - Radiation Oncology [address] [place] [address] Millie Arauz, [facility] [address] [facility] [address] [place] [address] [facility] Oncology - Radiation Oncology Start: 06-26-2024 End: 06-26-2024 Patient encounter procedure 06/26/2024 9:40 AM EST Consult [facility] [address] [place] [phone] Charles Collins DO [address] [place] [address] [place], [facility] Start: 06-23-2024 End: 06-23-2024 Patient encounter procedure 06/23/2024 11:30 AM EST Office Visit [facility] [address] [place] [phone] Myranda Villegas NP [address] [place] [address] [facility] Start: 06-23-2024 End: 06-23-2024 Professional / ancillary services management 06/23/2024 11:00 AM EST Ancillary [facility] [address] [facility] [address] [place] [phone] [facility] Start: 05-31-2024 Screening for malign ant neoplasm of breast Mammogram [facility] Start: 05-30-2024 End: 05-30-2024 Telephone encounter 05/30/2024 11:30 AM EDT Telephone Visit [facility] [address] [place] [phone] Jennifer Salas MD [address] [place] [address] [facility] Start: 05-24-2024 End: 05-24-2024 Patient encounter procedure [facility] Comment on above: Arrived Start: 05-19-2024 End: 05-19-2025 25-hydroxyvitamin D3 [Mass/volume] in Serum or Plasma Vitamin D 25 hydroxy Lab Routine Encounter for wellness examination Vitamin D deficiency Obesity (BMI 30-39.9) Expected: 05/19/2024 (Approximate), Expires: 05/19/2025 [facility] Comment on above: Expected: 05/19/2024 (Approximate), Expires: 05/19/2025 Start: 05-19-2024 End: 05-19-2025 Comprehensive metabolic 2000 panel - Serum or Plasma Comprehensive metabolic panel Lab Routine Encounter for wellness examination Obesity (BMI 30-39.9) Expected: 05/19/2024 (Approximate), Expires: 05/19/2025 [facility] Comment on above: Expected: 05/19/2024 (Approximate), Expires: 05/19/2025 Start: 05-19-2024 End: 07-19-2025 DBT Breast - bilateral screening Bilateral screening mammogram with tomosynthesis Imaging Routine Screening mammogram for breast cancer Expected: 05/19/2024, Expires: 07/19/2025 [facility] Comment on above: Expected: 05/19/2024 , Expires: 07/19/2025 Start: 05-19-2024 End: 05-19-2025 Lipid 1996 panel - Serum or Plasma Lipid panel Lab Routine Encounter for wellness examination Screening, lipid Obesity (BMI 30-39.9) Expected: 05/19/2024 (Approximate), Expires: 05/19/2025 [facility] Work Phone: Comment on above: Expected: 05/19/2024 (Approximate), Expires: 05/19/2025 Start: 05-19-2024 End: 05-19-2025 TSH W/REFLEX TO FT4 TSH W/REFLEX TO FT4 Lab Routine Encounter for wellness examination Obesity (BMI 30-39.9) Expected: 05/19/2024 (Approximate), Expires: 05/19/2025 [facility] Comment on above: Expected: 05/19/2024 (Approximate), Expires: 05/19/2025 Start: 05-19-2024 End: 05-19-2024 Patient encounter procedure 05/19/2024 11:00 AM EDT Office Visit [facility] [address] [place] [address] Myranda Villegas NP [address] [place], [place] [phone] Arrived [facility] Comment on above: Arrived Start: 05-02-2024 End: 05-02-2025 US Pelvis transabdominal and transvaginal Ultrasound pelvic with transvaginal Imaging Routine Dysmenorrhea Family history of ovarian cancer Expected: 05/02/2024, Expires: 05/02/2025 [facility] Work Phone: Comment on above: Expected: 05/02/2024 , Expires: 05/02/2025 Start: 04-28-2024 End: 04-28-2024 Patient encounter procedure [facility] Comment on above: Arrived Start: 04-12-2024 End: 04-12-2024 Patient encounter procedure [facility] Comment on above: Arrived Start: 04-09-2024 COVID-19 Vaccine ( season) COVID-19 Vaccine ( season) [facility] Start: 04-09-2024 COVID-19 Vaccine ( season) COVID-19 Vaccine ( season) [facility] Start: 04-09-2024 Influenza vaccination [facility] Start: 02-06-2024 Influenza vaccination Influenza Vacc ine (#1) [facility] Comment on above: Postponed from 04/09 (Patient Refused) Start: 01-20-2024 Adult BMI Screening Adult BMI Screen ing [facility] Start: 01-20-2024 Tobacco Screening Tobacco Screening [facility] Start: 12-08-2023 End: 12-08-2023 Patient encounter procedure 12/08/2023 10:15 AM EDT Office Visit [facility] [address] [place] [address] Mihaela Dixon, [address] [place] [address] [facility] Start: 09-15-2023 End: 09-15-2023 Patient encounter procedure [facility] Comment on above: Severe persistent as thma without complication (CMS/HCC) (Primary Dx) Start: 09-08-2023 End: 09-08-2024 DHEA DHEA Lab Routine PCOS (polycystic ovarian syndrome) Expected: 09/08/2023 (Approximate), Expires: 09/08/2024 [facility] Comment on above: Expected: 09/08/2023 (Approximate), Expires: 09/08/2024 Start: 09-08-2023 End: 09-08-2024 US for US PELVIS-TRANSVAG IF INDICATED Imaging Routine PCOS (polycystic ovarian syndrome) Expected: 09/08/2023 (Approximate), Expires: 09/08/2024 [facility] Comment on above: Expected: 09/08/2023 (Approximate), Expires: 09/08/2024 Start: 04-09-2023 Influenza vaccination Influenza Vacc ine [facility] Start: 04-09-2022 Influenza vaccination INFLUENZA (#1) [facility] Start: 04-08-2022 End: 06-08-2022 AGED OR DISABLED CARE WORKER DEMYELINATING DISEASE EVALUATION, SERUM AGED OR DISABLED CARE WORKER DEMYELINATING DISEASE EVALUATION, SERUM Lab Routine Sector visual field defect, left Optic neuropathy, left Expected: 04/08/2022, Expires: 06/08/2022 [facility] Work Phone: Comment on above: Expected: 04/08/2022 , Expires: 06/08/2022 Start: 04-09-2021 Influenza vaccination Flu vacc ine (Season Ended) [facility] Work Phone: Start: 04-01-2021 End: 04-01-2021 Patient encounter procedure 04/01/2021 Office Visit Neurology Radha Hutton MD [address] [facility] [address] [place] [address] [phone] [facility] Start: 03-09-2021 Influenza vaccination INFLUENZA VACC INE [facility] Start: 02-28-2021 End: 02-28-2021 Office Visit 02/28/2021 Office Visit Cardiology Jose Hines MD [address] [address] [phone] [facility] Start: 02-17-2021 End: 02-17-2021 Patient encounter procedure 02/17/2021 Office Visit Allergy Bren Anderson APRN - CNP [address] [address] [facility] Start: 01-13-2021 End: 01-13-2021 Nursing evaluation of patient and report 01/13/2021 Nurse Only Allergy [facility] Start: 11-04-2020 End: 11-04-2020 Office Visit 11/04/2020 Office Visit Allergy Bren Anderson APRN - CNP [address] [address] [facility] Ast[facility] Start: 10-14-2020 End: 10-14-2020 Office Visit 10/14/2020 Office Visit Allergy Bren Anderson APRN - CNP [address] [address] [facility] Start: 10-03-2020 End: 10-03-2020 Nurse Only 10/03/2020 Nurse Only Allergy [facility] Start: 09-30-2020 End: 09-30-2020 Nurse Only 09/30/2020 Nurse Only Allergy [facility] Start: 09-26-2020 End: 09-26-2020 Nurse Only 09/26/2020 Nurse Only Allergy [facility] Start: 09-23-2020 End: 09-23-2020 Nurse Only 09/23/2020 Nurse Only Allergy [facility] Start: 09-19-2020 End: 09-19-2020 Nurse Only 09/19/2020 Nurse Only Allergy [facility] Start: 09-16-2020 End: 09-16-2020 Nurse Only 09/16/2020 Nurse Only Allergy [facility] Start: 09-12-2020 End: 09-12-2020 Nurse Only 09/12/2020 Nurse Only Allergy [facility] Start: 09-09-2020 End: 09-09-2020 Nurse Only 09/09/2020 Nurse Only Allergy [facility] Start: 09-02-2020 End: 09-02-2020 Office Visit [facility] Start: 08-28-2020 End: 08-28-2020 Nurse Only 08/28/2020 Nurse Only Allergy [facility] Start: 08-26-2020 End: 08-26-2020 Nurse Only 08/26/2020 Nurse Only Allergy [facility] Start: 08-23-2020 End: 08-23-2020 Office Visit 08/23/2020 Office Visit Cardiology Jose Hines MD [address] [address] [phone] [facility] Start: 05-22-2020 End: 05-22-2020 Procedure visit 05/22/2020 Procedure visit Allergy Bren Anderson, LUANNE - LEADERSHIP DEVELOPMENT INSTRUCTOR [address] [address] [phone] [facility] Start: 05-15-2020 Influenza vaccination Flu vacc ine (Season Ended) [facility] [place] Comment on above: Postponed from 04/09 (Patient Refused) Start: 04-25-2020 End: 04-25-2020 Appointment 04/25/2020 Appointment Radiology [facility] Start: 04-18-2020 End: 04-18-2020 Appointment 04/18/2020 Appointment Pulmonary Function Testing STR Pulm Function Test Start: 04-09-2020 Influenza vaccination Flu vaccine (# 1) [facility] [place] Start: 02-29-2020 End: 02-29-2020 Appointment 02/29/2020 Appointment Radiology [facility] Ultrasound Start: 01-16-2020 End: 01-16-2020 Hospital Encounter STR ENDOSCOPY Comment on above: ESOPHAGEAL MOTILITY/ MANOMETRY STUDY Start: 09-29-2019 End: 09-29-2019 Appointment 09/29/2019 Appointment Radiology [facility] ULTRASOUND Start: 09-11-2019 End: 09-11-2019 Office Visit 09/11/2019 Office Visit Allergy Bren Anderson APRN - LEADERSHIP DEVELOPMENT INSTRUCTOR [address] [address] [phone] [facility] Start: 05-01-2019 End: 05-01-2019 Office Visit 05/01/2019 Office Visit Pulmonology Ray Betancourt MD [address] [facility] [address] [place] [address] [phone] [facility] Start: 04-24-2019 End: 04-24-2019 Office Visit 04/24/2019 Office Visit Allergy Bren Anderson APRN - LEADERSHIP DEVELOPMENT INSTRUCTOR [address] [address] [facility] Start: 04-09-2019 Influenza vaccination Flu vaccine (# 1) [facility] [place] Start: 03-30-2019 End: 03-30-2019 Office Visit 03/30/2019 Office Visit Allergy Bren Anderson, CHEMIST FOOD - LEADERSHIP DEVELOPMENT INSTRUCTOR [address] [place] [address] [place] [address] [phone] [facility] Start: 04-09-2018 Cervical cancer screen Cervical canc er [place] Start: 04-09-2018 Influenza vaccinatio n given SEQUENTIAL INFLUENZA VACCINE (#1) [facility] Start: 04-09-2018 Screening for malign ant neoplasm of cervix Cervical cancer screen [place], [place] Start: 2013 HPV TESTING HPV TESTING [facility] Start: 2008 COTEST / HPV COTEST / HPV [facility] Start: 2008 Screening for malign ant neoplasm of cervix CERVICAL CANCER SCREENING [facility] Start: 2004 Microscopic observat ion [Identifier] in Cervix by Cyto stain PAP SMEAR [facility] Start: 2004 PAP TESTING PAP TESTING [facility] Start: 2004 Screening for malign ant neoplasm of cervix Pap Smear [facility] Start: 2002 DTaP,Tdap and Td Vaccines (1 - Tdap) DTaP,Tdap and Td Vaccines (1 - Tdap) [facility] Start: 2002 DTaP/Tdap/Td vaccine (1 - Tdap) DTaP/Tdap/Td vaccine (1 - Tdap) [place] Start: 2002 Urine microalbumin profile DTAP,TDAP,TD (1 - Tdap) [facility] Start: 2001 Adult BMI Follow Up Plan Adult BMI Follow Up Plan [facility] Start: 2001 HEPATITIS C SCREENING HEPATITIS C SC REENING [facility] Start: 2001 HIV SCREENING HIV SCREENING [facility] Start: 1998 HIV SCREENING HIV SCREENING [facility] Start: 1996 Varicella Vaccine (1 of 2 - 13+ 2-dose series) Varicella Vaccine (1 of 2 - 13+ 2-dose series) [place] Start: 1995 Adult depression screening assessment DEPRESSION SCREENING [facility] Start: 1995 COVID-19 Vaccine (1) COVID-19 Vaccin e (1) [facility] [employer] Phone: Start: 1994 TETANUS VACCINE 11+ TETANUS VACCINE 11+ [facility] Start: 1989 Pneumococcal 0-64 ye ars Vaccine (1 of 1 - PPSV23) Pneumococcal 0-64 years Vaccine (1 of 1 - PPSV23) [place] Start: 1989 Pneumococcal 0-64 ye ars Vaccine (1 of 2 - PPSV23) Pneumococcal 0-64 years Vaccine (1 of 2 - PPSV23) [facility] [employer] Phone: Start: 1986 History and physical examination, annual for health maintenance Wellness Visit [facility] Start: 1984 Varicella vaccine (1 of 2 - 2-dose childhood series) Varicella vaccine (1 of 2 - 2-dose childhood series) [place] Start: 1983 COVID-19 VACCINE (#1) COVID-19 VACCI NE (#1) [facility] Start: 1983 HEPATITIS B (1 of 3 - 3-dose series) HEPATITIS B (1 of 3 - 3-dose series) [facility] Start: 1983 Hepatitis C screening Hepatitis C sc reen [place] Start: 1983 Screening for malign ant neoplasm of cervix PAP SMEAR [facility] Start: 1983 Tetanus vaccination TETANUS EVERY [address] [facility] CBC W Auto Different ial panel - Blood CBC and differential Lab Routine PCOS (polycystic ovarian syndrome) Ordered: 09/08/2023 [facility] Comment on above: Ordered: 09/08/2023 End: 09-03-2020 Cortisol, Urine, Free Cortisol, Urine, Free Lab Routine Chronic fatigue 1 Occurrences starting 09/03/2020 until 09/03/2020 [place] Comment on above: 1 Occurrences starti ng 09/03/2020 until 09/03/2020 Cortisol, Urine, Free Cortisol, Urine, Free Lab Routine Chronic fatigue 09/03/2020 12:53 PM EST [place] End: 01-12-2020 COVID-19 COVID-19 Lab Routine Once for 1 Occurrences starting 01/12/2020 until 01/12/2020 [place] Comment on above: Once for 1 Occurrenc es starting 01/12/2020 until 01/12/2020 COVID-19 COVID-19 Lab Rou akira 01/12/2020 1:20 PM EDT [place] End: 04-10-2020 Covid-19 Ambulatory Covid-19 Ambulatory Lab Routine Once for 1 Occurrences starting 04/10/2020 until 04/10/2020 [place] Comment on above: Once for 1 Occurrenc es starting 04/10/2020 until 04/10/2020 Covid-19 Ambulatory Covid-19 Amb ulatory Lab Routine 04/10/2020 10:06 AM EDT [place] End: 04-07-2019 CT SINUS WO CONTRAST CT SINUS WO CONTRAST Imaging Routine Chronic pansinusitis 1 Occurrences starting 04/07/2019 until 04/07/2019 [place] Comment on above: 1 Occurrences starti ng 04/07/2019 until 04/07/2019 CT SINUS WO CONTRAST CT SINUS WO CONTRAST Imaging Routine Chronic pansinusitis 04/07/2019 4:51 PM EDT [place] DHEA-sulfate DHEA-sulfate Lab Routine PCOS (polycystic ovarian syndrome) Ordered: 09/08/2023 [facility] Comment on above: Ordered: 09/08/2023 Follicle stimulating hormone Follicle stimulating hormone Lab Routine PCOS (polycystic ovarian syndrome) Ordered: 09/08/2023 [facility] Comment on above: Ordered: 09/08/2023 hCG, quantitative, hCG, quantitative, Lab Routine PCOS (polycystic ovarian syndrome) Ordered: 09/08/2023 [facility] Work Phone: Comment on above: Ordered: 09/08/2023 Hemoglobin A1c measurement Hemoglobin A1c Lab Routine PCOS (polycystic ovarian syndrome) Ordered: 09/08/2023 [facility] Comment on above: Ordered: 09/08/2023 End: 09-03-2020 Histamine Histamine Lab Routine High plasma histamine 1 Occurrences starting 09/03/2020 until 09/03/2020 [place] Comment on above: 1 Occurrences starti ng 09/03/2020 until 09/03/2020 Histamine [place] End: 01-10-2021 Histamine Histamine Lab Routine Non-seasonal allergic rhinitis due to pollen Moderate persistent asthma without complication 1 Occurrences starting 01/10/2021 until 01/10/2021 [employer] Phone: Comment on above: 1 Occurrences starti ng 01/10/2021 until 01/10/2021 End: 01-10-2021 IgE [Units/volume] in Serum or Plasma IgE Lab Routine Non-seasonal allergic rhinitis due to pollen Moderate persistent asthma without complication 1 Occurrences starting 01/10/2021 until 01/10/2021 [employer] Phone: Comment on above: 1 Occurrences starti ng 01/10/2021 until 01/10/2021 IgE [Units/volume] i n Serum or Plasma IgE Lab Routine Non-seasonal allergic rhinitis due to pollen Moderate persistent asthma without complication 01/10/2021 2:17 PM EDT [employer] Phone: Luteinizing hormone Luteinizing hormone Lab Routine PCOS (polycystic ovarian syndrome) Ordered: 09/08/2023 [facility] Comment on above: Ordered: 09/08/2023 End: 03-20-2019 Miscellaneous Sendout 1 Miscellaneous Sendout 1 Lab Routine Once for 1 Occurrences starting 03/20/2019 until 03/20/2019 [facility] Comment on above: Once for 1 Occurrenc es starting 03/20/2019 until 03/20/2019 Miscellaneous Sendout 1 Miscella neous Sendout 1 Lab Routine 03/20/2019 7:54 PM EDT [facility] Brain With And Without Contrast MR Brain With And Without Contrast Routine Optic disc atrophy, left Cyst of pituitary gland (HCC) 11/23/2018 11:[address] [facility] MRI of orbit MR Orbits With A nd Without Contrast Routine Optic disc atrophy, left Cyst of pituitary gland (HCC) 11/23/2018 11:[address] [facility] Patient Education Cellulitis (sk in infection) in adults - ED discharge instructions [facility] Work Phone: Patient referral [facility] Work Phone: End: 03-20-2019 Penicillin G IgE Penicillin G IgE Lab Routine Penicillin allergy 1 Occurrences starting 03/20/2019 until 03/20/2019 [place] Comment on above: 1 Occurrences starti ng 03/20/2019 until 03/20/2019 Thyrotropin [Units/volume] in Serum or Plasma TSH Lab Routine PCOS (polycystic ovarian syndrome) Ordered: 09/08/2023 [facility] Comment on above: Ordered: 09/08/2023 Thyroxine (T4) free [Mass/volume] in Serum or Plasma T4, free Lab Routine PCOS (polycystic ovarian syndrome) Ordered: 09/08/2023 [facility] Comment on above: Ordered: 09/08/2023 End: 03-20-2019 Tryptase Tryptase Lab Routine History of food anaphylaxis 1 Occurrences starting 03/20/2019 until 03/20/2019 [place] Comment on above: 1 Occurrences starti ng 03/20/2019 until 03/20/2019 Tryptase Tryptase Lab Rou akira History of food anaphylaxis 03/20/2019 7:54 PM EDT [place] Immunizations Immunization Date Immunization Notes Care Provider Fa gabriela 09-09-2024 tetanus toxoid, redu bubba diphtheria toxoid, and acellular pertussis vaccine, adsorbed Melanie Mullen [facility] Work Phone: [facility] 05-14-2021 Pfizer Purple Cap SARS-CoV-2 Vaccination Mihaela Zack DO Work Phone: [facility] 11-05-2020 Pfizer Purple Cap SARS-CoV-2 Vaccination Mihaela Zack DO Work Phone: [facility] Payers Date Payer Category Payer Private Health Insurance [id number] 2023 Unknown [id number] 2022 Managed Care Other (unspecified) [id number]. 9. [id number] 2022 Private Health Insurance [id number] 2022 Unknown [id number]. 1.13.159.2.7.3. [id number] 2018 Unknown xxxxxxxxx 1.2.840.515120.1.13.385.2.7.3. 745914.315 2018 Unknown [id number] 2018 Unknown [id number] 1.2.840.380569.1.13.239.2.7.3. 929349.315 2017 Private Health Insurance 2016 Unknown [id number] 1983 Unknown [id number] 2.16.840.1.878566.3.579.2.900 1983 Unknown [id number] 2.16840.1.465592.3.579.2.900 1983 Unknown [id number] 2.840.1.988537.3.579.2.93 1983 Unknown [id number] 2.840.1.184806.3.579.2.93 1983 Unknown [id number] 2.840.1.052460.3.579.2. 1983 Unknown [id number] 2.840.1.359675.3.579.2.93 1983 Unknown [id number] 2.840.1.609427.3.579.2.93 1983 Unknown [id number] 2.840.1.108125.3.579.2.93 1983 Unknown [id number] 2.840.1.266822.3.579.2.93 1983 Unknown [id number] 2.840.1.374777.3.579.2.93 1983 Unknown [id number] 2.840.1.539869.3.579.2.93 1983 Unknown [id number] 2.16840.1.090317.3.579.2.93 1983 Unknown [id number] 2.16840.1.960865.3.579.2.93 1983 Unknown [id number] 2.16840.1.071678.3.579.2. 1983 Unknown [id number] .840.1.883336.3.579.2. 1983 Unknown [id number] .840.1.799936.3.579.2 1983 Unknown [id number] 2.840.1.948225.3.579.2. 1983 Unknown [id number] .840.1.168342.3.579.2 1983 Unknown [id number] .840.1.907265.3.579.2 1983 Unknown [id number] .0.1.908228.3.579.2 1983 Unknown [id number] 09.24.830.1.469036.3.579.2 1983 Unknown [id number] 09.24.830.1.135753.3.579.2 1983 Unknown [id number] .1.288142.3.579.2 1983 Unknown [id number] .1.856163.3.579.2 1983 Unknown [id number] 840.1.089332.3.579.2. 1983 Unknown [id number] 09.24.830.1.839099.3.579.2. 1983 Unknown [id number] 840.1.888118.3.579.2. 1983 Unknown [id number] 09.24.830.1.969196.3.579.2. 1983 Unknown [id number] 840.1.199074.3.579.2. 1983 Unknown [id number] 2840.1.527726.3.579.2. 1983 Unknown [id number] 2.16.840.1.763519.3.579.2. 1983 Unknown [id number] 2.840.1.410152.3.579.2. 1983 Unknown [id number] 2.840.1.711082.3.579.2. 1983 Unknown [id number] 2.840.1.001660.3.579.2. 1983 Unknown [id number] 2.840.1.120801.3.579.2. 1983 Unknown [id number] .840.1.767753.3.579.2. 1983 Unknown [id number] 2.840.1.090438.3.579.2. 1983 Unknown [id number] .840.1.243533.3.579.2. 1983 Unknown [id number] 2.840.1.127700.3.579.2. 1983 Unknown [id number] 840.1.553704.3.579.2. 1983 Unknown [id number] .840.1.471058.3.579.2. 1983 Unknown [id number] 840.1.286377.3.579.2. 1983 Unknown [id number] .840.1.933323.3.579.2. 1983 Unknown [id number] .840.1.999034.3.579.2. 1983 Unknown [id number] 2.840.1.336394.3.579.2. 1983 Unknown [id number] 2.840.1.495031.3.579.2. 1983 Unknown [id number] 2.840.1.622179.3.579.2. 1983 Unknown [id number] 2.840.1.670371.3.579.2. 1983 Unknown [id number] 2..840.1.418918.3.579.2. 1983 Unknown [id number] 2.840.1.847000.3.579.2. 1983 Unknown [id number] 2.840.1.218514.3.579.2. 1983 Unknown [id number] .840.1.417818.3.579.2. 1983 Unknown [id number] .840.1.943156.3.579.2. 1983 Unknown [id number] 840.1.702954.3.579.2. 1983 Unknown [id number] .840.1.950774.3.579.2. 1983 Unknown [id number] .840.1.281594.3.579.2. 1983 Unknown [id number] .840.1.756434.3.579.2. 1983 Unknown [id number] 840.1.067551.3.579.2. 1983 Unknown [id number] .840.1.257925.3.579.2. 1983 Unknown [id number] .840.1.033927.3.579.2. 1983 Unknown [id number] 2.16840.1.224292.3.579.2. 1983 Unknown [id number] .840.1.548817.3.579.2. 1983 Unknown [id number] .840.1.415049.3.579.2.93 1983 Unknown [id number] 2.840.1.236997.3.579.2.93 1983 Unknown [id number] 2.16.840.1.944737.3.579.2.93 1983 Unknown [id number] 2.840.1.629783.3.579.2. 1983 Unknown [id number] 2.840.1.273563.3.579.2. 1983 Unknown [id number] 2.840.1.109009.3.579.2. 1983 Unknown [id number] 2.840.1.760085.3.579.2. 1983 Unknown [id number] 840.1.584915.3.579.2. 1983 Unknown [id number] 2.840.1.121301.3.579.2. 1983 Unknown [id number] 2.0.1.283020.3.579.2. 1983 Unknown [id number] 2.840.1.075719.3.579.2.93 1983 Unknown [id number] 840.1.521821.3.579.2.593 1983 Unknown [id number] .840.1.643217.3.579.2.1285 1983 Unknown [id number] .840.1.289666.3.579.2.1285 1983 Unknown [id number] 2.840.1.292778.3.579.2.1285 1983 Unknown [id number] 840.1.142205.3.579.2.1285 1983 Unknown [id number] 2.16.840.1.529731.3.579.2.1285 1983 Unknown [id number] 09.24.830.1.080079.3.579.2.1285 1983 Unknown [id number] .840.1.052617.3.579.2.1258 1983 Unknown [id number] 09.24.830.1.082019.3.579.2.1258 1983 Unknown [id number] 09.24.830.1.115938.3.579.2.1258 1983 Unknown [id number] .1.356672.3.579.2.1258 1983 Unknown [id number] .1.490268.3.579.2.1258 1983 Unknown [id number] .1.712969.3.579.2.1258 1983 Unknown [id number] .1.305023.3.579.2.1258 1983 Unknown [id number] .1.820487.3.579.2.1258 1983 Unknown [id number] .1.904617.3.579.2.1258 1983 Unknown [id number] .1.630229.3.579.2.1258 1983 Unknown [id number] 09.24.830.1.551421.3.579.2.1258 1983 Unknown [id number] .1.764684.3.579.2.1258 1983 Unknown [id number] 09.24.830.1.949393.3.579.2.1258 1983 Unknown [id number] 09.24.830.1.313900.3.579.2.1258 1983 Unknown [id number] 09.24.830.1.254475.3.579.2.9 1983 Unknown [id number] 2.16.840.1.615181.3.579.2.1258 1983 Unknown [id number] 2.16.840.1.789983.3.579.2.9 1983 Unknown [id number] 2.16840.1.048747.3.579.2.1258 1983 Unknown [id number] 2.16.840.1.149747.3.579.2.1258 1983 Unknown [id number] 2.16840.1.785355.3.579.2.9 1959 Unknown [id number] Self-pay Self Pay [id number] Unknown [id number] Unknown [id number] 2. 840.1.340030.19 Unknown Stefani BURGESS/BS [id number] Social History Date Type Detail Facility Tobacco smoking stat [facility] Unknown if ever smoked [facility] Start: 1985 Sex Assigned At Not on file [facility] Start: 10-02-2019 End: 12-15-2022 Tobacco smoking status NHIS Former smoker [facility] Start: 02-04-1999 End: 04-09-2022 History of tobacco use Current [place] Start: 02-04-1999 End: 04-09-2022 History of tobacco use Cigarette [place] Start: 10-02-2019 End: 09-09-2024 Cigarettes smoked current (pack per day) - Reported [facility] Start: 10-02-2019 End: 04-08-2022 Alcohol intake Current drinker of alcohol (finding) [place] Start: 01-17-2016 Alcohol Comment rare Rosa [place] Start: 02-19-2020 End: 02-11-2021 Tobacco smoking status NHIS Current every day smoker [place] Start: 02-19-2020 End: 12-15-2022 Tobacco use and exposure [facility] Start: 03-29-2022 End: 04-08-2022 Exposure to SARS-CoV-2 (event) Not sure Rosa [facility] Start: 02-04-1999 End: 03-23-2019 Tobacco smoking status NHIS Current some day smoker [facility] Start: 03-23-2019 End: 09-09-2024 Alcohol intake Yes [facility] Start: 04-08-2022 History SDOH Alcohol Comment on occasion [facility] Start: 1985 Sex Assigned At Female F [facility] Start: 09-08-2023 End: 09-15-2024 Alcohol intake Lifetime non-drinker (finding) [facility] Start: 02-05-2023 Alcohol Comment caffeine: 1-2 cups per day coffee [facility] Start: 05-09-2024 End: 09-09-2024 Alcoholic beverage intake Ex-drinker (finding) [facility] Unknown [facility] Start: 03-14-2015 End: 09-20-2024 Sex Female (finding) [facility] Goals Date Patient Goal Desired Activity /State Personal health goal Clinical Notes 02-23-2020 to 09-29-2024 Telephone Encounter - KATI Chandler - 09/29/2024 12:08 PM ESTTelephone Encounter - KATI Chandler - 09/29/2024 12:08 PM Abad Hernandez LPN - 09/26/2024 10:50 AM EST Note Date & Type Note Facility 09-29-2024 Miscellaneous Notes Connected with Becka. Discussed prescribed HRT doses are usually lower than what body produces naturally. Additionally, NCCN guidelines offers option of HRT after BSO in BRCA positive women. Her BRCA testing is negative and therefore her breast cancer risk is even lower than that population. It really comes down to a risk/benefit discussion between patient and provider on benefits on options related to HRT. documented in this encounter [facility] 09-29-2024 Telephone encounter Note Connected with Becka. Discussed prescribed HRT doses are usually lower than what body produces naturally. Additionally, NCCN guidelines offers option of HRT after BSO in BRCA positive women. Her BRCA testing is negative and therefore her breast cancer risk is even lower than that population. It really comes down to a risk/benefit discussion between patient and provider on benefits on options related to HRT. [facility] [place] Work Phone: 09-26-2024 History of Presen t illness Narrative Reason for Appointment: Patient ID: Becka Loredo is a 39 y.o. female who presents for Pre-op Visit Patient presents today for Pre Op appointment. Patient is scheduled to undergo Da Kelly assisted Diagnostic Laparoscopy with BSO, possible EVERARDO, and possible FOE on 10/20/[address] Collins at [facility]. MEDICATIONS Current Outpatient Medications Medication Instructions albuterol HFA 90 mcg/act inhaler 2 puffs, Inhalation, Every 4 hours PRN amitriptyline (ELAVIL) 10 mg, Oral, Nightly azelastine (Astelin) 0.1 % nasal spray 2 sprays, Each Nostril, 2 times daily, Use in each nostril as directed busPIRone (Buspar) 10 MG tablet TAKE 1 TABLET BY MOUTH IN THE MORNING THEN TAKE 1 TABLET BEFORE BEDTIME clindamycin (Cleocin) 300 MG capsule ergocalciferol (Vitamin D2) 1.25 MG (34505 UT) capsule Vitamin D (Ergocalciferol) Fasenra Pen 30 MG/ML injection INJECT 1 PEN SUBCUTANEOUSLY EVERY 8 WEEKS fluticasone (Flonase) 50 MCG/ACT nasal spray 2 sprays, Each Nostril, Daily, Shake gently. Before first use, prime pump. After use, clean tip and replace cap. hydrOXYzine HCl (ATARAX) 25 mg, 3 times daily PRN levocetirizine (XYZAL) 5 mg, Oral, Nightly metFORMIN XR (GLUCOPHAGE-XR) 500 mg, Oral, Daily with evening meal, Do not crush, chew, or split. Multiple Vitamins-Minerals (MULTIVITAMIN ADULT, MINERALS, PO) Multivitamin phentermine (ADIPEX-P) 37.5 mg, Oral, Daily before breakfast polyethylene glycol (PEG) 3350 (GLYCOLAX) 17 g, Oral, Every 24 hours sennosides (Senokot) 8.6 MG tablet 2 tablets, Every 24 hours sucralfate (Carafate) 1 g tablet take 1 tablet by mouth twice a day ON AN EMPTY STOMACH tiotropium (Spiriva Respimat) 1.25 MCG/ACT inhaler 2 puffs, Inhalation, Daily ALLERGIES Allergies Allergen Reactions Bacitracin Rash Dermatitis Penicillins Unknown Patient not sure of reaction. Sees cdl service technician in January 2024 to confirm this Venlafaxine Swelling Makes throat feel thick like she cannot swallow PROBLEMS Active Ambulatory Problems Diagnosis Date Noted ZOEY (obstructive sleep apnea) 12/31/2022 Allergic rhinitis 01/16/2023 Anxiety 01/16/2023 Anxious mood as adjustment reaction ([facility]) 10/14/2016 Demyelinating disease of central nervous system (HCC) ([facility]) 03/16/2022 Environmental allergies 10/14/2016 Gastroesophageal reflux disease 04/15/2022 Intractable migraine without status migrainosus ([facility]) 01/16/2023 Moderate persistent asthma ([facility]) 07/25/2020 Panic attacks ([facility]) 01/16/2023 Retinal hole of left eye 04/08/2022 Rhinogenic headache 07/24/2017 Sector visual field defect, left 04/08/2022 Slow transit constipation 01/16/2023 Smoker 03/16/2022 Vitamin D deficiency 03/16/2022 Family history of ovarian cancer 05/02/2024 Dysmenorrhea 05/02/2024 Weight gain 07/24/2024 Resolved Ambulatory Problems Diagnosis Date Noted No Resolved Ambulatory Problems Past Medical History: Diagnosis Date Asthma ([facility]) Hypothyroidism ([facility]) Migraine ([facility]) Uncomplicated asthma ([facility]) 12/31/2022 HISTORY PAST MEDICAL HISTORY SOCIAL HISTORY Past Medical History: Diagnosis Date Allergic rhinitis 01/16/2023 Anxiety 01/16/2023 Anxious mood as adjustment reaction (CMS/HCC) 10/14/2016 Asthma ([facility]) Demyelinating disease of central nervous system (HCC) ([facility]) 03/16/2022 Environmental allergies 10/14/2016 Gastroesophageal reflux disease 04/15/2022 Hypothyroidism (CMS/HCC) Intractable migraine without status migrainosus ([facility]/HCC) 01/16/2023 Migraine ([facility]/HCC) Moderate persistent asthma ([facility]/HCC) 07/25/2020 ZOEY (obstructive sleep apnea) 12/31/2022 Panic attacks ([facility]/HCC) 01/16/2023 Retinal hole of left eye 04/08/2022 Rhinogenic headache 07/24/2017 Sector visual field defect, left 04/08/2022 Slow transit constipation 01/16/2023 Smoker 03/16/2022 Uncomplicated asthma ([facility]/HCC) 12/31/2022 Vitamin D deficiency 03/16/2022 Social History Tobacco Use Smoking status: Former Current packs/day: 0.00 Types: Cigarettes Start date: 04/09/2006 Quit date: 04/09/2022 Years since quittin.4 Smokeless tobacco: Never Vaping Use Vaping status: Never Used Substance Use Topics Alcohol use: Never Comment: caffeine: 1-2 cups per day coffee Drug use: Never FAMILY HISTORY Family History Problem Relation Name Age of Onset Hyperlipidemia Mother Heart disease Father Ovarian cancer Maternal Grandmother Breast cancer Paternal Grandmother SURGICAL HISTORY Past Surgical History: Procedure Laterality Date SINUS SURGERY 2016 REVIEW OF SYSTEMS Review of Systems: Review of Systems Constitutional: Negative. HENT: Negative. Eyes: Negative. Respiratory: Negative. Cardiovascular: Negative. Gastrointestinal: Negative. Genitourinary: Negative. Musculoskeletal: Negative. Skin: Negative. Neurological: Negative. All other systems reviewed and are negative. Hematological: Negative. Endocrine: Negative. Allergic/Immunologic: Negative. OBJECTIVE Objective: Physical Exam Constitutional: Appearance: Normal appearance. She is well-developed. Cardiovascular: Rate and Rhythm: Normal rate and regular rhythm. Pulmonary: Effort: Pulmonary effort is normal. Breath sounds: Normal breath sounds. Abdominal: General: Bowel sounds are normal. There is no distension. Palpations: Abdomen is soft. Tenderness: There is no abdominal tenderness. There is no guarding or rebound. Musculoskeletal: General: No swelling. Normal range of motion. Right lower leg: No edema. Left lower leg: No edema. Neurological: Mental Status: She is alert and oriented to person, place, and time. Skin: General: Skin is warm and dry. Psychiatric: Mood and Affect: Mood normal. Behavior: Behavior normal. Vitals and nursing note reviewed. Exam conducted with a vice president of nursing present. Vitals: Estimated body mass index is 33.98 kg/m as calculated from the following: Height as of 09/15/24: 5' 3 . Weight as of this encounter: 191 lb 12.8 oz. BP: 112/84 Patient's last menstrual period was 08/26/2024 (approximate). ASSESSMENT & PLAN ICD-10-CM 1. Pre-op examination Z01.818 2. Family history of ovarian cancer Z80.41 3. Abnormal uterine bleeding (AUB) N93.9 4. Menorrhagia with irregular cycle N92.1 Pre Op: Patient is doing well but has complaints of family history of ovarian cancer, genetic testing revealed recommended ovarian removal. I have discussed conservative management vs. surgical management with the patient in detail and patient desires surgical management at this time. Patient will undergo Da Kelly assisted Diagnostic Laparoscopy with BSO, possible EVERARDO, and possible FOE on 10/20/2024. Surgical consents were signed, mmc was reviewed, and patient is to proceed to [facility] OR. Follow Up: Patient is to follow up between 1-2 weeks post operative to assess proper healing and recovery from procedure. Documented by Bailey Hernandez LPN on behalf of: Charles Collins DO documented in this encounter [facility] 09-15-2024 History of Presen t illness Narrative Images from the original note were not included. Becka Loredo is a 39 y.o. female presents with chief complaint of ER Follow-up HPI: HPI Flowsheet Row Office Visit from 09/15/2024 in [facility] with Myranda Villegas NP Hospital Information ED, Hospital or Halfway Facility Discharge? ED Patient has been contacted within 1 week of being seen in the ED Yes Diagnosis MRSA/Cellulitius. Discharge Date 09/09/24 Discharged To: Home Setting Discharge Hospital [facility] Hospital Engagement Medications Discharge medications reviewed and reconciled from hospital? Yes Is the patient having any side effects they believe may be caused by any medication additions or changes? No Does the patient have all medications ordered at discharge? Yes Is the patient taking all medications as directed (includes completed medication regime)? Yes Appointments Does the patient have a primary care provider? Yes Does the patient have any upcoming specialty appointments? No Self Management Patient Teaching Does the patient have access to their discharge instructions? Yes What is the patient's perception of their health status since discharge? Improving Is the patient/caregiver able to teach back the hierarchy of who to call/visit for symptoms/problems? PCP, Specialist, Home Health nurse, Urgent Care, ED, 911 Yes Wrap Up Pt did have 2 ER visits. 08/31 they dx with allergic dermitis. And gave referral to derm. On 09/01, did biopsy on hand. Was told it was folliculitis. She went again to ER [facility] on 09/09 Was told she had MRSA/staff, and cellulitis. They are treating like MRSA. Gave tetanus, and abx and steroid. SUBJECTIVE: MEDICATIONS: Current Outpatient Medications Medication Instructions albuterol HFA 90 mcg/act inhaler 2 puffs, Inhalation, Every 4 hours PRN amitriptyline (ELAVIL) 10 mg, Oral, Nightly azelastine (Astelin) 0.1 % nasal spray 2 sprays, Each Nostril, 2 times daily, Use in each nostril as directed busPIRone (Buspar) 10 MG tablet TAKE 1 TABLET BY MOUTH IN THE MORNING THEN TAKE 1 TABLET BEFORE BEDTIME clobetasol propionate (Temovate) 0.05 % emollient cream Topical, 2 times daily, Apply thin layer to affected area. doxycycline (VIBRAMYCIN) 100 mg, 2 times daily ergocalciferol (Vitamin D2) 1.25 MG (56301 UT) capsule Vitamin D (Ergocalciferol) Fasenra Pen 30 MG/ML injection INJECT 1 PEN SUBCUTANEOUSLY EVERY 8 WEEKS fluticasone (Flonase) 50 MCG/ACT nasal spray 2 sprays, Each Nostril, Daily, Shake gently. Before first use, prime pump. After use, clean tip and replace cap. hydrOXYzine HCl (ATARAX) 25 mg, 3 times daily PRN ipratropium (Atrovent) 0.06 % nasal spray 2 sprays, Each Nostril, 3 times daily levocetirizine (XYZAL) 5 mg, Oral, Nightly metFORMIN XR (GLUCOPHAGE-XR) 500 mg, Oral, Daily with evening meal, Do not crush, chew, or split. Multiple Vitamins-Minerals (MULTIVITAMIN ADULT, MINERALS, PO) Multivitamin phentermine (ADIPEX-P) 37.5 mg, Oral, Daily before breakfast polyethylene glycol (PEG) 3350 (GLYCOLAX) 17 g, Oral, Every 24 hours sennosides (Senokot) 8.6 MG tablet 2 tablets, Every 24 hours sucralfate (Carafate) 1 g tablet take 1 tablet by mouth twice a day ON AN EMPTY STOMACH tiotropium (Spiriva Respimat) 1.25 MCG/ACT inhaler 2 puffs, Inhalation, Daily REVIEW OF SYMPTOMS: Review of Systems OBJECTIVE: Visit Vitals BP 112/72 (BP Location: Left arm, Patient Position: Sitting, BP Cuff Size: Large adult) Pulse 88 Temp 97.3 F (Tympanic) Ht 5' 3 Wt 188 lb 3.2 oz LMP 07/10/2024 SpO2 98% BMI 33.34 kg/m OB Status Having periods Smoking Status Former BSA 1.95 m Physical Exam Vitals reviewed. Constitutional: Appearance: She is obese. HENT: Head: Normocephalic and atraumatic. Mouth/Throat: Mouth: Mucous membranes are moist. Eyes: Pupils: Pupils are equal, round, and reactive to light. Cardiovascular: Rate and Rhythm: Normal rate and regular rhythm. Pulses: Normal pulses. Heart sounds: Normal heart sounds. Pulmonary: Effort: Pulmonary effort is normal. Breath sounds: Normal breath sounds. Musculoskeletal: Cervical back: Neck supple. Skin: General: Skin is warm and dry. Capillary Refill: Capillary refill takes less than 2 seconds. Findings: No rash. Comments: Small circular wound to posterior right, no swelling, mild surrounding erythema, no drainage noted, wound bed minimal slough Neurological: General: No focal deficit present. Mental Status: She is alert and oriented to person, place, and time. ASSESSMENT AND PLAN: Assessment/Plan Diagnoses and all orders for this visit: Cellulitis of right upper extremity -finish doxy as prescribed. Wound care discussed. documented in this encounter [facility] 08-30-2024 History of Presen t illness Narrative Images from the original note were not included. Becka Loredo is a 39 y.o. female presents with chief complaint of Rash (Bilateral, ) HPI: HPI History of Present Illness The patient presents for evaluation of itching and burning sensation in her hands. 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 She typically wears nylon gloves provided by her employer. The burning sensation was followed by intense itching that disrupted her sleep. Upon waking, she noticed the development of small bumps on her hands, extending between her fingers. The symptoms began yesterday and have since spread from the initial site to her fingers and inter-digital spaces. She also reports mild itching on her wrist but no visible signs of skin changes. Her work schedule is from 3 PM to 1 AM, and she recalls experiencing the burning sensation after returning from her break at 11 PM. She has not taken Benadryl for this issue. She takes Xyzal nightly for allergies. She has been self-managing the itching with hydrocortisone cream and wax balm. Her anxiety is getting better. She has lost 20 pounds. She has changed her eating habits and cut out a lot of sweets. She is tolerating the medication well. SOCIAL HISTORY She works at [employer]. MEDICATIONS Current: Hydrocortisone cream, Xyzal. SUBJECTIVE: MEDICATIONS: Current Outpatient Medications Medication Instructions albuterol HFA 90 mcg/act inhaler 2 puffs, Inhalation, Every 4 hours PRN Alcaftadine 0.25 % solution 1 drop, Ophthalmic, Daily amitriptyline (ELAVIL) 10 mg, Oral, Nightly azelastine (Astelin) 0.1 % nasal spray 2 sprays, Each Nostril, 2 times daily, Use in each nostril as directed busPIRone (BUSPAR) 10 mg, Oral, 2 times daily ergocalciferol (Vitamin D2) 1.25 MG (40304 UT) capsule Vitamin D (Ergocalciferol) Fasenra Pen 30 MG/ML injection INJECT 1 PEN SUBCUTANEOUSLY EVERY 8 WEEKS fluticasone (Flonase) 50 MCG/ACT nasal spray 2 sprays, Each Nostril, Daily, Shake gently. Before first use, prime pump. After use, clean tip and replace cap. hydrOXYzine HCl (ATARAX) 25 mg, 3 times daily PRN ipratropium (Atrovent) 0.06 % nasal spray 2 sprays, Each Nostril, 3 times daily levocetirizine (XYZAL) 5 mg, Oral, Nightly metFORMIN XR (GLUCOPHAGE-XR) 500 mg, Oral, Daily with evening meal, Do not crush, chew, or split. Multiple Vitamins-Minerals (MULTIVITAMIN ADULT, MINERALS, PO) Multivitamin phentermine (ADIPEX-P) 37.5 mg, Oral, Daily before breakfast polyethylene glycol (PEG) 3350 (GLYCOLAX) 17 g, Oral, Every 24 hours sennosides (Senokot) 8.6 MG tablet 2 tablets, Every 24 hours sucralfate (Carafate) 1 g tablet take 1 tablet by mouth twice a day ON AN EMPTY STOMACH tiotropium (Spiriva Respimat) 1.25 MCG/ACT inhaler 2 puffs, Inhalation, Daily REVIEW OF SYMPTOMS: Review of Systems Constitutional: Negative. HENT: Negative. Eyes: Negative. Respiratory: Negative. Cardiovascular: Negative. Gastrointestinal: Negative. Genitourinary: Negative. Musculoskeletal: Negative. Skin: Positive for rash. Neurological: Negative. OBJECTIVE: Visit Vitals BP 124/80 (BP Location: Left arm, Patient Position: Sitting, BP Cuff Size: Large adult) Pulse 95 Temp 98.3 F (Tympanic) Ht 5' 5 Wt 189 lb 3.2 oz LMP 07/10/2024 SpO2 99% BMI 31.48 kg/m OB Status Having periods Smoking Status Former BSA 1.98 m Physical Exam Vitals reviewed. Constitutional: Appearance: She is obese. HENT: Head: Normocephalic and atraumatic. Mouth/Throat: Mouth: Mucous membranes are moist. Eyes: Pupils: Pupils are equal, round, and reactive to light. Cardiovascular: Rate and Rhythm: Normal rate and regular rhythm. Pulses: Normal pulses. Heart sounds: Normal heart sounds. Pulmonary: Effort: Pulmonary effort is normal. Breath sounds: Normal breath sounds. Musculoskeletal: Cervical back: Normal range of motion and neck supple. Skin: General: Skin is warm and dry. Capillary Refill: Capillary refill takes less than 2 seconds. Findings: Rash present. Comments: Erythematous papules to bilateral hands extending in between fingers and back of hands, pruritic Neurological: General: No focal deficit present. Mental Status: She is alert and oriented to person, place, and time. ASSESSMENT AND PLAN: Assessment/Plan Diagnoses and all orders for this visit: Dyshidrotic dermatitis - clobetasol propionate (Temovate) 0.05 % emollient cream; Apply topically 2 (two) times a day Apply thin layer to affected area. -initiate topical steroid cream, moisturize regularly. documented in this encounter [facility] 08-23-2024 History of Presen t illness Narrative Reason for Appointment: Patient ID: Becka Loredo is a 39 y.o. female who presents for encounter for weight management (Adipex #3) Patient presents today for Weight Management Consult. MEDICATIONS Current Outpatient Medications Medication Instructions albuterol HFA 90 mcg/act inhaler 2 puffs, Inhalation, Every 4 hours PRN Alcaftadine 0.25 % solution 1 drop, Ophthalmic, Daily amitriptyline (ELAVIL) 10 mg, Oral, Nightly azelastine (Astelin) 0.1 % nasal spray 2 sprays, Each Nostril, 2 times daily, Use in each nostril as directed busPIRone (BUSPAR) 10 mg, Oral, 2 times daily ergocalciferol (Vitamin D2) 1.25 MG (65162 UT) capsule Vitamin D (Ergocalciferol) Fasenra Pen 30 MG/ML injection INJECT 1 PEN SUBCUTANEOUSLY EVERY 8 WEEKS Fasenra 30 mg, Every 28 days fluticasone (Flonase) 50 MCG/ACT nasal spray 2 sprays, Each Nostril, Daily, Shake gently. Before first use, prime pump. After use, clean tip and replace cap. hydrOXYzine HCl (ATARAX) 25 mg, 3 times daily PRN ipratropium (Atrovent) 0.06 % nasal spray 2 sprays, Each Nostril, 3 times daily levocetirizine (XYZAL) 5 mg, Oral, Nightly metFORMIN XR (GLUCOPHAGE-XR) 500 mg, Oral, Daily with evening meal, Do not crush, chew, or split. Multiple Vitamins-Minerals (MULTIVITAMIN ADULT, MINERALS, PO) Multivitamin phentermine (ADIPEX-P) 37.5 mg, Oral, Daily before breakfast polyethylene glycol (PEG) 3350 (GLYCOLAX) 17 g, Oral, Every 24 hours sennosides (Senokot) 8.6 MG tablet 2 tablets, Every 24 hours sucralfate (Carafate) 1 g tablet take 1 tablet by mouth twice a day ON AN EMPTY STOMACH tiotropium (Spiriva Respimat) 1.25 MCG/ACT inhaler 2 puffs, Inhalation, Daily ALLERGIES Allergies Allergen Reactions Bacitracin Rash Dermatitis Penicillins Unknown Patient not sure of reaction. Sees cdl service technician in January 2024 to confirm this Venlafaxine Swelling Makes throat feel thick like she cannot swallow PROBLEMS Active Ambulatory Problems Diagnosis Date Noted ZOEY (obstructive sleep apnea) 12/31/2022 Allergic rhinitis 01/16/2023 Anxiety 01/16/2023 Anxious mood as adjustment reaction ([facility]/HCC) 10/14/2016 Demyelinating disease of central nervous system (HCC) ([facility]/HCC) 03/16/2022 Environmental allergies 10/14/2016 Gastroesophageal reflux disease 04/15/2022 Intractable migraine without status migrainosus (CMS/HCC) 01/16/2023 Moderate persistent asthma ([facility]/HCC) 07/25/2020 Panic attacks (CMS/HCC) 01/16/2023 Retinal hole of left eye 04/08/2022 Rhinogenic headache 07/24/2017 Sector visual field defect, left 04/08/2022 Slow transit constipation 01/16/2023 Smoker 03/16/2022 Vitamin D deficiency 03/16/2022 Family history of ovarian cancer 05/02/2024 Dysmenorrhea 05/02/2024 Weight gain 07/24/2024 Resolved Ambulatory Problems Diagnosis Date Noted No Resolved Ambulatory Problems Past Medical History: Diagnosis Date Asthma (CMS/HCC) Hypothyroidism (CMS/HCC) Migraine ([facility]/HCC) Uncomplicated asthma (CMS/HCC) 12/31/2022 HISTORY PAST MEDICAL HISTORY SOCIAL HISTORY Past Medical History: Diagnosis Date Allergic rhinitis 01/16/2023 Anxiety 01/16/2023 Anxious mood as adjustment reaction (CMS/HCC) 10/14/2016 Asthma ([facility]) Demyelinating disease of central nervous system (HCC) (CMS/HCC) 03/16/2022 Environmental allergies 10/14/2016 Gastroesophageal reflux disease 04/15/2022 Hypothyroidism ([facility]) Intractable migraine without status migrainosus (CMS/HCC) 01/16/2023 Migraine (CMS/HCC) Moderate persistent asthma (CMS/HCC) 07/25/2020 ZOEY (obstructive sleep apnea) 12/31/2022 Panic attacks (CMS/HCC) 01/16/2023 Retinal hole of left eye 04/08/2022 Rhinogenic headache 07/24/2017 Sector visual field defect, left 04/08/2022 Slow transit constipation 01/16/2023 Smoker 03/16/2022 Uncomplicated asthma (CMS/HCC) 12/31/2022 Vitamin D deficiency 03/16/2022 Social History Tobacco Use Smoking status: Former Current packs/day: 0.00 Types: Cigarettes Start date: 04/09/2006 Quit date: 04/09/2022 Years since quittin.3 Smokeless tobacco: Never Vaping Use Vaping status: Never Used Substance Use Topics Alcohol use: Never Comment: caffeine: 1-2 cups per day coffee Drug use: Never FAMILY HISTORY Family History Problem Relation Name Age of Onset Hyperlipidemia Mother Heart disease Father Ovarian cancer Maternal Grandmother Breast cancer Paternal Grandmother SURGICAL HISTORY Past Surgical History: Procedure Laterality Date SINUS SURGERY 2016 REVIEW OF SYSTEMS Review of Systems: Review of Systems Constitutional: Negative. HENT: Negative. Eyes: Negative. Respiratory: Negative. Cardiovascular: Negative. Gastrointestinal: Negative. Genitourinary: Negative. Musculoskeletal: Negative. Skin: Negative. Neurological: Negative. All other systems reviewed and are negative. Hematological: Negative. Endocrine: Negative. Allergic/Immunologic: Negative. OBJECTIVE Objective: Physical Exam Constitutional: Appearance: Normal appearance. She is normal weight. HENT: Head: Normocephalic. Cardiovascular: Rate and Rhythm: Normal rate. Pulses: Normal pulses. Pulmonary: Effort: Pulmonary effort is normal. Breath sounds: Normal breath sounds. Abdominal: Palpations: Abdomen is soft. Musculoskeletal: General: Normal range of motion. Neurological: General: No focal deficit present. Mental Status: She is alert and oriented to person, place, and time. Psychiatric: Mood and Affect: Mood normal. Behavior: Behavior normal. Thought Content: Thought content normal. Judgment: Judgment normal. Vitals and nursing note reviewed. Vitals: Estimated body mass index is 31.92 kg/m as calculated from the following: Height as of 08/18/24: 5' 5 . Weight as of this encounter: 191 lb 12.8 oz. BP: 120/70 Patient's last menstrual period was 07/10/2024. ASSESSMENT & PLAN ICD-10-CM 1. Encounter for weight management Z76.89 phentermine (Adipex-P) 37.5 MG tablet Patient presents today for 3rd Adipex prescription. Patient desires additional weigh loss and she is currently taking metformin along with working out to achieve further results. The possibility of Ozempic for future use has been discussed. Weight and blood pressure has been captured and it has been discussed/reiterated the importance of keeping a food journal, proper nutrition/diet, and exercise regimen. Patient verbalized understanding. Patient has lost more than 5% of her initial body weight Follow Up: Patient is to return to the office in 3month for further evaluation to assess patient progress. Weight and blood pressure will need to be obtained in order for patient to receive 4th Adipex prescription. Documented by NIKKO Heller on behalf of: NIKKO Heller documented in this encounter [facility] 08-18-2024 History of Presen t illness Narrative Images from the original note were not included. Becka Loredo presents today for follow up on Asthma. She was last seen 4 months ago. Since her last office visit she states her breathing has been stable. She was able to obtain her Fasenra shipments at home. She has been using these every 8 weeks. She does continue with albuterol on as needed basis, but states she has not needed to use this very much at all. She does also continue with Spiriva once daily. She denies any current complaints of increasing shortness of breath at rest or with exertion. She denies any ER visits, exacerbation, or nighttime symptoms. She denies any complaints of chest pain, palpitations, fevers, chills, sweats, or recent unintentional weight changes. She denies any other complaints at today's office visit. Allergies: Allergies Allergen Reactions Bacitracin Rash Dermatitis Penicillins Unknown Patient not sure of reaction. Sees cdl service technician in January 2024 to confirm this Venlafaxine Swelling Makes throat feel thick like she cannot swallow Medications: Current Outpatient Medications: albuterol HFA 90 mcg/act inhaler, Inhale 2 puffs every 4 (four) hours if needed for shortness of breath or wheezing, Disp: 18 g, Rfl: 0 Alcaftadine 0.25 % solution, Administer 1 drop into affected eye(s) Daily, Disp: 5 mL, Rfl: 3 amitriptyline (Elavil) 10 MG tablet, Take 1 tablet (10 mg) by mouth at bedtime, Disp: 90 tablet, Rfl: 1 azelastine (Astelin) 0.1 % nasal spray, Administer 2 sprays into each nostril in the morning and 2 sprays before bedtime. Use in each nostril as directed., Disp: 90 mL, Rfl: 3 benralizumab (Fasenra) 30 MG/ML injection, Inject 30 mg under the skin every 28 (twenty-eight) days., Disp: , Rfl: busPIRone (Buspar) 10 MG tablet, Take 1 tablet (10 mg) by mouth in the morning and 1 tablet (10 mg) before bedtime., Disp: 180 tablet, Rfl: 1 ergocalciferol (Vitamin D2) 1.25 MG (73065 UT) capsule, Vitamin D (Ergocalciferol), Disp: , Rfl: Fasenra Pen 30 MG/ML injection, INJECT 1 PEN SUBCUTANEOUSLY EVERY 8 WEEKS, Disp: 1 mL, Rfl: 6 fluticasone (Flonase) 50 MCG/ACT nasal spray, Administer 2 sprays into each nostril Daily Shake gently. Before first use, prime pump. After use, clean tip and replace cap., Disp: 48 g, Rfl: 11 hydrOXYzine HCl (Atarax) 25 MG tablet, Take 25 mg by mouth 3 (three) times a day as needed for anxiety, allergies or itching., Disp: , Rfl: levocetirizine (Xyzal) 5 MG tablet, Take 1 tablet (5 mg) by mouth at bedtime, Disp: 90 tablet, Rfl: 1 metFORMIN XR (Glucophage-XR) 500 MG 24 hr tablet, Take 1 tablet (500 mg) by mouth in the evening. Take with meals Do not crush, chew, or split., Disp: 30 tablet, Rfl: 11 Multiple Vitamins-Minerals (MULTIVITAMIN ADULT, MINERALS, PO), Multivitamin, Disp: , Rfl: phentermine (Adipex-P) 37.5 MG tablet, Take 1 tablet (37.5 mg) by mouth in the morning. Take before meals., Disp: 30 tablet, Rfl: 0 polyethylene glycol, PEG, 3350 (Glycolax) 17 GM/SCOOP powder, Take 17 g by mouth 1 (one) time each day at the same time, Disp: 510 g, Rfl: 1 sennosides (Senokot) 8.6 MG tablet, Take 2 tablets by mouth 1 (one) time each day at the same time., Disp: , Rfl: sucralfate (Carafate) 1 g tablet, take 1 tablet by mouth twice a day ON AN EMPTY STOMACH, Disp: 60 tablet, Rfl: 1 tiotropium (Spiriva Respimat) 1.25 MCG/ACT inhaler, Inhale 2 puffs Daily, Disp: 1 each, Rfl: 5 traZODone (Desyrel) 50 MG tablet, TAKE 1 TABLET BY MOUTH AT BEDTIME, Disp: 30 tablet, Rfl: 1 ipratropium (Atrovent) 0.06 % nasal spray, Administer 2 sprays into each nostril in the morning and 2 sprays in the evening and 2 sprays before bedtime., Disp: 15 mL, Rfl: 11 phentermine (Adipex-P) 37.5 MG tablet, Take 1 tablet (37.5 mg) by mouth in the morning. Take before meals., Disp: 30 tablet, Rfl: 0 Past Medical History: Past Medical History: Diagnosis Date Allergic rhinitis 01/16/2023 Anxiety 01/16/2023 Anxious mood as adjustment reaction ([facility]) 10/14/2016 Asthma ([facility]) Demyelinating disease of central nervous system (HCC) ([facility]) 03/16/2022 Environmental allergies 10/14/2016 Gastroesophageal reflux disease 04/15/2022 Hypothyroidism ([facility]) Intractable migraine without status migrainosus ([facility]/HCC) 01/16/2023 Migraine ([facility]) Moderate persistent asthma ([facility]) 07/25/2020 ZOEY (obstructive sleep apnea) 12/31/2022 Panic attacks ([facility]) 01/16/2023 Retinal hole of left eye 04/08/2022 Rhinogenic headache 07/24/2017 Sector visual field defect, left 04/08/2022 Slow transit constipation 01/16/2023 Smoker 03/16/2022 Uncomplicated asthma (CMS/HCC) 12/31/2022 Vitamin D deficiency 03/16/2022 Social History: Social History Tobacco Use Smoking status: Former Current packs/day: 0.00 Types: Cigarettes Start date: 04/09/2006 Quit date: 04/09/2022 Years since quittin.3 Smokeless tobacco: Never Substance Use Topics Alcohol use: Never Comment: caffeine: 1-2 cups per day coffee Vitals: BP 128/82 (BP Location: Left arm, Patient Position: Sitting) Pulse 81 Ht 5' 5 Wt 192 lb 6.4 oz SpO2 98% BMI 32.02 kg/m Exam: Heart: regular rate Lungs: clear to auscultation bilaterally, no wheezes/rales/rhonchi, no resp distress Extremities: no edema noted, no visible rashes Neuro: alert, oriented x3 Imaging Reviewed: None Assessment/Plan: Diagnoses and all orders for this visit: Severe persistent asthma without complication (CMS/HCC) Asthma -- at this time her breathing is well controlled with her current regimen. She has been able to obtain Fasenra at home. She does continue with this every 8 weeks. She does continue with Spiriva once daily as well. Given that she does have good control her breathing, no changes will be made. She will follow here in 6 months time unless needed before then. Follow up in about 6 months (around 02/15/2025) for asthma. Mihaela Dixon DO documented in this encounter [facility] 08-11-2024 Miscellaneous Notes LVM for patient to return call to schedule genetics results phone disclosure. x1 RS patient Becka Loredo : 1985 DOS: 08/11/24 This is the follow up genetics documentation for Becka Loredo who pursued genetic counseling at the request of Dr. Jennifer Salas to discuss her family history of cancer. I spent less than 15 minutes over the phone with her, discussing her negative test results. Summary: Ms. Loredo underwent BRCANext +RNA testing through [facility] for 19 genes. No mutations were found. Medical History: For the complete medical history, see the clinic note from the original genetic counseling visit. Ms. Loredo is a woman who has no history of cancer at age 39 y.o.. She is followed with annual mammograms which have been normal. Her ovaries and uterus are intact. Given the family history of ovarian cancer, she is considering undergoing a TAHBSO and has had discussions with her physicians. Family History: The pedigree was documented and is available in the electronic medical record. Family History Problem Relation Age of Onset Multiple myeloma Maternal Aunt 50 Prostate cancer Paternal Uncle Ovarian cancer Maternal Grandmother 57 Breast cancer Paternal Grandmother Ovarian cancer Maternal great-grandmother Test Results and Interpretation: The following genes on BRCANext were tested for sequence and deletion/duplication errors (19 total): RAFAEL, BARD1, BRCA1, BRCA2, BRIP1, CDH1, CHEK2, EPCAM, MLH1, MSH2, MSH6, NF1, PALB2, PMS2, PTEN, RAD51C, RAD51D, STK11, and TP53 . No mutations were identified. Testing was completed July 2024. Testing included analysis of the RNA product of all of these genes to identify mutations which might be missed with DNA analysis alone. Because testing was initiated in an individual without a personal history of the cancers associated with these genes, the results are considered inconclusive in defining her exact risk of developing the cancers seen in her family. There are several ways to interpret why a pathogenic mutation was not identified: There may be a detectable mutation in one of these genes in her family that she did not inherit. There may be a mutation in these genes that is not detectable by current commercial testing. There may be a gene yet to be identified and described that is responsible for her family history of cancer. The cancers in her family may be sporadic/environmental and not due to a genetic predisposition. Risk Assessment: Ms. Loredo understands that her risk to develop the cancers seen in her family remains elevated because of her family history. According to the Tyrer-Cuzick model, which takes into account family history of breast cancer, her risk of breast cancer is 20.6% in her lifetime. Because her Tyrer-Cuzick lifetime risk exceeds 20%, she should be followed with breast MRI and mammogram alternating every 6 months. Note, if she proceeds with hystBSO, then this calculation would fall below 20%. We discussed her remaining risk (after uninformative negative genetic testing) for ovarian cancer is estimated at less than 5%. We defer discussions of surgical options to her providers. Genetic counseling and testing is recommended for her mother and maternal aunts, who may have a mutation which Ms. Loredo did not inherit. For family members in [facility] and [facility], a genetic counseling appointment can be scheduled at a [facility] facility by calling [phone]. A physician referral is required and can be faxed to [phone]. For those who are not in the area, a local genetic counselor can be found at [email or web address]. Plan: 1. Inform relatives of uninformative negative results. 2. Ms. Loredo remains at increased risk of the cancers seen in the family and should discuss screening with her physician. 3. Encourage her mother and maternal aunts to be tested. Testing in relatives may help us to better interpret Ms. Loredo's results. 4. Breast MRIs and mammograms alternating every 6 months are recommended based on her elevated Tyrer-Cuzick lifetime risk of breast cancer. (Re-evaluate if she becomes post-menopausal with hystBSO) A copy of this letter is being sent to Ms. Loredo for her records. As genetics progresses, we expect that additional genes will be discovered and will become available for testing. Ms. Loredo should contact us every couple years to learn if updated testing is available. If you have any questions, please feel free to call the office at [phone]. Sincerely, KATI Chandler Licensed Certified Genetic Counselor CC: MD Charles Reyna DO ([facility]) Total time spent was 17 minutes on date of encounter: Reviewing and interpreting genetic testing results (not reported separately) Communicating results to the patient/family/caregiver Documenting results disclosure in the electronic health record documented in this encounter [facility] 08-11-2024 Telephone encounter Note LVM for patient to return call to schedule genetics results phone disclosure. x1 RS patient [employer] Work Phone: 08-11-2024 Telephone encounter Note Becka Loredo : 1985 DOS: 08/11/24 This is the follow up genetics documentation for Becka Loredo who pursued genetic counseling at the request of Dr. Jennifer Salas to discuss her family history of cancer. I spent less than 15 minutes over the phone with her, discussing her negative test results. Summary: Ms. Loredo underwent BRCANext +RNA testing through [facility] for 19 genes. No mutations were found. Medical History: For the complete medical history, see the clinic note from the original genetic counseling visit. Ms. Loredo is a woman who has no history of cancer at age 39 y.o.. She is followed with annual mammograms which have been normal. Her ovaries and uterus are intact. Given the family history of ovarian cancer, she is considering undergoing a TAHBSO and has had discussions with her physicians. Family History: The pedigree was documented and is available in the electronic medical record. Family History Problem Relation Age of Onset Multiple myeloma Maternal Aunt 50 Prostate cancer Paternal Uncle Ovarian cancer Maternal Grandmother 57 Breast cancer Paternal Grandmother Ovarian cancer Maternal great-grandmother Test Results and Interpretation: The following genes on BRCANext were tested for sequence and deletion/duplication errors (19 total): RAFAEL, BARD1, BRCA1, BRCA2, BRIP1, CDH1, CHEK2, EPCAM, MLH1, MSH2, MSH6, NF1, PALB2, PMS2, PTEN, RAD51C, RAD51D, STK11, and TP53 . No mutations were identified. Testing was completed July 2024. Testing included analysis of the RNA product of all of these genes to identify mutations which might be missed with DNA analysis alone. Because testing was initiated in an individual without a personal history of the cancers associated with these genes, the results are considered inconclusive in defining her exact risk of developing the cancers seen in her family. There are several ways to interpret why a pathogenic mutation was not identified: There may be a detectable mutation in one of these genes in her family that she did not inherit. There may be a mutation in these genes that is not detectable by current commercial testing. There may be a gene yet to be identified and described that is responsible for her family history of cancer. The cancers in her family may be sporadic/environmental and not due to a genetic predisposition. Risk Assessment: Ms. Loredo understands that her risk to develop the cancers seen in her family remains elevated because of her family history. According to the Tyrer-Cuzick model, which takes into account family history of breast cancer, her risk of breast cancer is 20.6% in her lifetime. Because her Tyrer-Cuzick lifetime risk exceeds 20%, she should be followed with breast MRI and mammogram alternating every 6 months. Note, if she proceeds with hystBSO, then this calculation would fall below 20%. We discussed her remaining risk (after uninformative negative genetic testing) for ovarian cancer is estimated at less than 5%. We defer discussions of surgical options to her providers. Genetic counseling and testing is recommended for her mother and maternal aunts, who may have a mutation which Ms. Loredo did not inherit. For family members in [facility] and [facility], a genetic counseling appointment can be scheduled at a [facility] facility by calling [phone]. A physician referral is required and can be faxed to [phone]. For those who are not in the area, a local genetic counselor can be found at [email or web address]. Plan: 1. Inform relatives of uninformative negative results. 2. Ms. Loredo remains at increased risk of the cancers seen in the family and should discuss screening with her physician. 3. Encourage her mother and maternal aunts to be tested. Testing in relatives may help us to better interpret Ms. Loredo's results. 4. Breast MRIs and mammograms alternating every 6 months are recommended based on her elevated Tyrer-Cuzick lifetime risk of breast cancer. (Re-evaluate if she becomes post-menopausal with hystBSO) A copy of this letter is being sent to Ms. Loredo for her records. As genetics progresses, we expect that additional genes will be discovered and will become available for testing. Ms. Loredo should contact us every couple years to learn if updated testing is available. If you have any questions, please feel free to call the office at [phone]. Sincerely, KATI Chandler Licensed Certified Genetic Counselor CC: MD Charles Reyna DO ([facility]) Total time spent was 17 minutes on date of encounter: Reviewing and interpreting genetic testing results (not reported separately) Communicating results to the patient/family/caregiver Documenting results disclosure in the electronic health record [facility] 07-24-2024 History of Presen t illness Narrative Reason for Appointment: Patient ID: Becka Loredo is a 39 y.o. female who presents for Weight Management Patient presents today for a weight management consultation. Patient has been prescribed Adipex and she is here for her 2nd prescription. Today's Vitals: Estimated body mass index is 31.95 kg/m as calculated from the following: Height as of 05/19/24: 5' 5 . Weight as of this encounter: 192 lb. Previous Weight/BMI: Wt Readings from Last 2 Encounters: 07/24/24 192 lb 06/26/24 204 lb 1.9 oz BMI Readings from Last 2 Encounters: 07/24/24 31.95 kg/m 06/26/24 33.97 kg/m Allergies as of 07/24/2024 - Reviewed 06/26/2024 Allergen Reaction Noted Bacitracin Rash 07/26/2017 Penicillins Unknown 12/31/2022 Venlafaxine Swelling 05/11/2019 Past Medical History: Diagnosis Date Allergic rhinitis 01/16/2023 Anxiety 01/16/2023 Anxious mood as adjustment reaction (CMS/HCC) 10/14/2016 Asthma (CMS/HCC) Demyelinating disease of central nervous system (HCC) (CMS/HCC) 03/16/2022 Environmental allergies 10/14/2016 Gastroesophageal reflux disease 04/15/2022 Hypothyroidism (CMS/HCC) Intractable migraine without status migrainosus (CMS/HCC) 01/16/2023 Migraine (CMS/HCC) Moderate persistent asthma (CMS/HCC) 07/25/2020 ZOEY (obstructive sleep apnea) 12/31/2022 Panic attacks (CMS/HCC) 01/16/2023 Retinal hole of left eye 04/08/2022 Rhinogenic headache 07/24/2017 Sector visual field defect, left 04/08/2022 Slow transit constipation 01/16/2023 Smoker 03/16/2022 Uncomplicated asthma ([facility]/HCC) 12/31/2022 Vitamin D deficiency 03/16/2022 Past Surgical History: Procedure Laterality Date SINUS SURGERY 2016 Assessment/Plan Encounter Diagnoses Name Primary? Weight gain Encounter for weight management Adipex: Patient presents today for 2nd Adipex prescription. Patients weight and blood pressure has been captured and discussed with the patient. I have discussed/reiterated the importance of keeping a food journal, proper nutrition/diet, and exercise regimen while taking Adipex. Patient verbalized understanding and was given a printed prescription signed by provider to take to their local pharmacy. Follow Up: Patient is to return to the office in 1 month for further evaluation to assess patient progress. Weight and blood pressure will need to be obtained in order for patient to receive 3rd prescription. Documented by: Nydia Briones MA on behalf of NIKKO Heller documented in this encounter [facility] 07-19-2024 Miscellaneous Notes Patient called and would like to proceed with genetic testing for medical management purposes. We reviewed cost of testing, LUCILA, and types of results. We also dicussed testing options, and she chose to undergo BRCANext through [facility] for the following genes (19 total): RAFAEL, BARD1, BRCA1, BRCA2, BRIP1, CDH1, CHEK2, EPCAM, MLH1, MSH2, MSH6, NF1, PALB2, PMS2, PTEN, RAD51C, RAD51D, STK11, and TP53. I mentioned that results will be back 2-3 weeks after the blood draw only visit. She understands that one of my colleagues will likely disclose the results to her, as I will be on maternity leave starting 07/28. She had no other questions at this time. I transferred the call to our schedulers. documented in this encounter [facility] 07-19-2024 Telephone encounter Note Patient called and would like to proceed with genetic testing for medical management purposes. We reviewed cost of testing, LUCILA, and types of results. We also dicussed testing options, and she chose to undergo BRCANext through [facility] for the following genes (19 total): RAFAEL, BARD1, BRCA1, BRCA2, BRIP1, CDH1, CHEK2, EPCAM, MLH1, MSH2, MSH6, NF1, PALB2, PMS2, PTEN, RAD51C, RAD51D, STK11, and TP53. I mentioned that results will be back 2-3 weeks after the blood draw only visit. She understands that one of my colleagues will likely disclose the results to her, as I will be on maternity leave starting 07/28. She had no other questions at this time. I transferred the call to our schedulers. [employer] [employer] Work Phone: 07-11-2024 History of Presen t illness Narrative Reason for Appointment: Patient ID: Becka Loredo is a 39 y.o. female who presents for Telehealth (Family h/o ovarian cancer) Patient presents today via telephone call for a telehealth appointment. Patients Phone #: [phone] (mobile) Current Medications: has a current medication list which includes the following prescription(s): albuterol hfa, alcaftadine, amitriptyline, azelastine, fasenra, buspirone, ergocalciferol, fluticasone, hydroxyzine hcl, ipratropium, levocetirizine, metformin xr, multiple vitamins-minerals, phentermine, polyethylene glycol (peg) 3350, sennosides, sucralfate, spiriva respimat, and trazodone. Medical History: Active Ambulatory Problems Diagnosis Date Noted ZOEY (obstructive sleep apnea) 12/31/2022 Allergic rhinitis 01/16/2023 Anxiety 01/16/2023 Anxious mood as adjustment reaction ([facility]) 10/14/2016 Demyelinating disease of central nervous system (HCC) ([facility]) 03/16/2022 Environmental allergies 10/14/2016 Gastroesophageal reflux disease 04/15/2022 Intractable migraine without status migrainosus ([facility]) 01/16/2023 Moderate persistent asthma (CMS/HCC) 07/25/2020 Panic attacks (CMS/HCC) 01/16/2023 Retinal hole of left eye 04/08/2022 Rhinogenic headache 07/24/2017 Sector visual field defect, left 04/08/2022 Slow transit constipation 01/16/2023 Smoker 03/16/2022 Vitamin D deficiency 03/16/2022 Family history of ovarian cancer 05/02/2024 Dysmenorrhea 05/02/2024 Resolved Ambulatory Problems Diagnosis Date Noted No Resolved Ambulatory Problems Past Medical History: Diagnosis Date Asthma (CMS/HCC) Hypothyroidism (CMS/HCC) Migraine (CMS/HCC) Uncomplicated asthma (CMS/HCC) 12/31/2022 Family History Problem Relation Name Age of Onset Hyperlipidemia Mother Heart disease Father Ovarian cancer Maternal Grandmother Breast cancer Paternal Grandmother Social History Tobacco Use Smoking status: Former Current packs/day: 0.00 Types: Cigarettes Start date: 04/09/2006 Quit date: 04/09/2022 Years since quittin.2 Smokeless tobacco: Never Vaping Use Vaping status: Never Used Substance Use Topics Alcohol use: Never Comment: caffeine: 1-2 cups per day coffee Drug use: Never Past Surgical History: Procedure Laterality Date SINUS SURGERY 2017 Allergies Allergen Reactions Bacitracin Rash Dermatitis Penicillins Unknown Patient not sure of reaction. Sees cdl service technician in January 2024 to confirm this Venlafaxine Swelling Makes throat feel thick like she cannot swallow Vitals: Estimated body mass index is 33.97 kg/m as calculated from the following: Height as of 05/19/24: 5' 5 . Weight as of 06/26/24: 204 lb 1.9 oz. BP: No LMP recorded. Assessment/Plan Encounter Diagnosis Name Primary? Family history of ovarian cancer Pt was counseled on hysterectomy just for family history of ovarian cancer, because pt will not do genetic testing at this time. Discussed hysterectomy in great detail. Pt considering genetic testing. Pt voiced understanding. If pt starts with pain will call office and ultrasound will be ordered. Today's telehealth visit consisted of spending 5 minutes talking to patient on the phone. Documented by Bailey Hernandez LPN on behalf of: Charles Collins DO documented in this encounter [facility] 06-26-2024 History of Presen t illness Narrative Reason for Appointment: Patient ID: Becka Loredo is a 39 y.o. female who presents for Pre-op Visit and Medication Follow Up Patient presents today for Pre Op/Medication Follow Up appointment. Patient is scheduled to undergo Da Kelly assisted Laparoscopic Hysterectomy, possible exploratory laparotomy, possible BSO, possible cystoscopy on 07/25/[address] Collins at [facility]. MEDICATIONS Current Outpatient Medications Medication Instructions albuterol HFA 90 mcg/act inhaler 2 puffs, Inhalation, Every 4 hours PRN Alcaftadine 0.25 % solution 1 drop, Ophthalmic, Daily amitriptyline (ELAVIL) 10 mg, Oral, Nightly azelastine (Astelin) 0.1 % nasal spray 2 sprays, Each Nostril, 2 times daily, Use in each nostril as directed busPIRone (BUSPAR) 10 mg, Oral, 2 times daily ergocalciferol (Vitamin D2) 1.25 MG (69946 UT) capsule Vitamin D (Ergocalciferol) Fasenra 30 mg, Every 28 days fluticasone (Flonase) 50 MCG/ACT nasal spray 2 sprays, Each Nostril, Daily, Shake gently. Before first use, prime pump. After use, clean tip and replace cap. hydrOXYzine HCl (ATARAX) 25 mg, 3 times daily PRN ipratropium (Atrovent) 0.06 % nasal spray 2 sprays, Each Nostril, 3 times daily levocetirizine (XYZAL) 5 mg, Oral, Nightly metFORMIN XR (GLUCOPHAGE-XR) 500 mg, Oral, Daily with evening meal, Do not crush, chew, or split. Multiple Vitamins-Minerals (MULTIVITAMIN ADULT, MINERALS, PO) Multivitamin polyethylene glycol (PEG) 3350 (GLYCOLAX) 17 g, Oral, Every 24 hours sennosides (Senokot) 8.6 MG tablet 2 tablets, Every 24 hours sucralfate (Carafate) 1 g tablet take 1 tablet by mouth twice a day ON AN EMPTY STOMACH tiotropium (Spiriva Respimat) 1.25 MCG/ACT inhaler 2 puffs, Inhalation, Daily traZODone (DESYREL) 50 mg, Oral, Nightly ALLERGIES Allergies Allergen Reactions Bacitracin Rash Dermatitis Penicillins Unknown Patient not sure of reaction. Sees [employer]dl service technician in January 2024 to confirm this Venlafaxine Swelling Makes throat feel thick like she cannot swallow PROBLEMS Active Ambulatory Problems Diagnosis Date Noted ZOEY (obstructive sleep apnea) 12/31/2022 Allergic rhinitis 01/16/2023 Anxiety 01/16/2023 Anxious mood as adjustment reaction ([facility]/HCC) 10/14/2016 Demyelinating disease of central nervous system (HCC) ([facility]/HCC) 03/16/2022 Environmental allergies 10/14/2016 Gastroesophageal reflux disease 04/15/2022 Intractable migraine without status migrainosus ([facility]/HCC) 01/16/2023 Moderate persistent asthma ([facility]) 07/25/2020 Panic attacks ([facility]) 01/16/2023 Retinal hole of left eye 04/08/2022 Rhinogenic headache 07/24/2017 Sector visual field defect, left 04/08/2022 Slow transit constipation 01/16/2023 Smoker 03/16/2022 Vitamin D deficiency 03/16/2022 Family history of ovarian cancer 05/02/2024 Dysmenorrhea 05/02/2024 Resolved Ambulatory Problems Diagnosis Date Noted No Resolved Ambulatory Problems Past Medical History: Diagnosis Date Asthma ([facility]) Hypothyroidism ([facility]) Migraine ([facility]) Uncomplicated asthma ([facility]) 12/31/2022 HISTORY PAST MEDICAL HISTORY SOCIAL HISTORY Past Medical History: Diagnosis Date Allergic rhinitis 01/16/2023 Anxiety 01/16/2023 Anxious mood as adjustment reaction ([facility]) 10/14/2016 Asthma ([facility]) Demyelinating disease of central nervous system (HCC) ([facility]) 03/16/2022 Environmental allergies 10/14/2016 Gastroesophageal reflux disease 04/15/2022 Hypothyroidism ([facility]) Intractable migraine without status migrainosus ([facility]) 01/16/2023 Migraine ([facility]) Moderate persistent asthma ([facility]) 07/25/2020 ZOEY (obstructive sleep apnea) 12/31/2022 Panic attacks ([facility]/HCC) 01/16/2023 Retinal hole of left eye 04/08/2022 Rhinogenic headache 07/24/2017 Sector visual field defect, left 04/08/2022 Slow transit constipation 01/16/2023 Smoker 03/16/2022 Uncomplicated asthma ([facility]) 12/31/2022 Vitamin D deficiency 03/16/2022 Social History Tobacco Use Smoking status: Former Current packs/day: 0.00 Types: Cigarettes Start date: 04/09/2006 Quit date: 04/09/2022 Years since quittin.2 Smokeless tobacco: Never Vaping Use Vaping status: Never Used Substance Use Topics Alcohol use: Never Comment: caffeine: 1-2 cups per day coffee Drug use: Never FAMILY HISTORY Family History Problem Relation Name Age of Onset Hyperlipidemia Mother Heart disease Father Ovarian cancer Maternal Grandmother Breast cancer Paternal Grandmother SURGICAL HISTORY Past Surgical History: Procedure Laterality Date SINUS SURGERY 2017 REVIEW OF SYSTEMS Review of Systems: Review of Systems Constitutional: Negative. HENT: Negative. Eyes: Negative. Respiratory: Negative. Cardiovascular: Negative. Gastrointestinal: Negative. Genitourinary: Positive for dyspareunia and pelvic pain. Musculoskeletal: Negative. Skin: Negative. Neurological: Negative. All other systems reviewed and are negative. Hematological: Negative. Endocrine: Negative. Allergic/Immunologic: Negative. OBJECTIVE Objective: Physical Exam Constitutional: Appearance: Normal appearance. She is well-developed. Cardiovascular: Rate and Rhythm: Normal rate and regular rhythm. Pulmonary: Effort: Pulmonary effort is normal. Breath sounds: Normal breath sounds. Abdominal: General: Bowel sounds are normal. There is no distension. Palpations: Abdomen is soft. Tenderness: There is no abdominal tenderness. There is no guarding or rebound. Musculoskeletal: General: No swelling. Normal range of motion. Right lower leg: No edema. Left lower leg: No edema. Neurological: Mental Status: She is alert and oriented to person, place, and time. Skin: General: Skin is warm and dry. Psychiatric: Mood and Affect: Mood normal. Behavior: Behavior normal. Vitals and nursing note reviewed. Exam conducted with a vice president of nursing present. Vitals: Estimated body mass index is 35.01 kg/m as calculated from the following: Height as of 05/19/24: 5' 5 . Weight as of 05/24/24: 210 lb 6.4 oz. BP: No LMP recorded. ASSESSMENT & PLAN ICD-10-CM 1. Pre-op examination Z01.818 2. Menorrhagia with regular cycle N92.0 3. Pelvic pain in female R10.2 4. Dyspareunia in female N94.10 5. Dysmenorrhea N94.6 Pre Op: Patient is doing well but has complaints of pelvic pain. I have discussed conservative management vs. surgical management with the patient in detail and patient desires surgical management at this time. Patient will undergo Da Kelly assisted Laparoscopic Hysterectomy, possible exploratory laparotomy, possible BSO, possible cystoscopy on 07/25/2024. Surgical consents were signed, mmc was reviewed, and patient is to proceed to [facility] OR. Patient also brought in paperwork to be filled out for upcoming surgery. Patient also presents for initial Adipex prescription. The importance of keeping a food journal, proper nutrition/diet, and exercise regimen while taking Adipex has been discussed. Patient verbalized understanding and signed consents to initiate (Adipex) medication therapy. Patient was given a printed prescription signed by provider to take to their local pharmacy. Patient has been advised that she should not take Adipex 1 week prior to her hysterectomy procedure. Follow Up: Patient is to follow up at 1 & 6 weeks post operative to assess proper healing and recovery from procedure. return to the office in 1 month for further evaluation to assess patient progress. Weight and blood pressure will need to be captured in order for patient to receive 2nd prescription. Documented by Magdalena Garrison LPN on behalf of: Charles Collins DO documented in this encounter [facility] 05-31-2024 Miscellaneous Notes Backend Developer called patient and left a voice message to call and schedule appt documented in this encounter [facility] 05-31-2024 Telephone encounter Note Backend Developer called patient and left a voice message to call and schedule appt [facility] 05-30-2024 History of Presen t illness Narrative Attempted to call patient to follow-up on prior discussion as well as review US results and genetic counseling visit. No answer, left voicemail message. If patient calls back, please schedule for telephone visit. documented in this encounter [facility] 05-24-2024 History of Presen t illness Narrative Reason for Appointment: Patient ID: Becka Loredo is a 39 y.o. female who presents for follow up labs Patient presents today for Follow up appointment to discuss results. MEDICATIONS Current Outpatient Medications Medication Instructions albuterol HFA 90 mcg/act inhaler 2 puffs, Every 4 hours PRN Alcaftadine 0.25 % solution 1 drop, Ophthalmic, Daily amitriptyline (ELAVIL) 10 mg, Oral, Nightly azelastine (Astelin) 0.1 % nasal spray 2 sprays, Each Nostril, 2 times daily, Use in each nostril as directed busPIRone (BUSPAR) 10 mg, Oral, 2 times daily ergocalciferol (Vitamin D2) 1.25 MG (75676 UT) capsule Vitamin D (Ergocalciferol) Fasenra 30 mg, Every 28 days fluticasone (Flonase) 50 MCG/ACT nasal spray 2 sprays, Each Nostril, Daily, Shake gently. Before first use, prime pump. After use, clean tip and replace cap. hydrOXYzine HCl (ATARAX) 25 mg, 3 times daily PRN ipratropium (Atrovent) 0.06 % nasal spray 2 sprays, Each Nostril, 3 times daily levocetirizine (XYZAL) 5 mg, Oral, Nightly Multiple Vitamins-Minerals (MULTIVITAMIN ADULT, MINERALS, PO) Multivitamin polyethylene glycol (PEG) 3350 (GLYCOLAX) 17 g, Oral, Every 24 hours sennosides (Senokot) 8.6 MG tablet 2 tablets, Every 24 hours sucralfate (Carafate) 1 g tablet take 1 tablet by mouth twice a day ON AN EMPTY STOMACH tiotropium (Spiriva Respimat) 1.25 MCG/ACT inhaler 2 puffs, Inhalation, Daily traZODone (DESYREL) 50 mg, Oral, Nightly Wegovy 0.25 mg, Subcutaneous, Weekly ALLERGIES Allergies Allergen Reactions Bacitracin Rash Dermatitis Penicillins Unknown Patient not sure of reaction. Sees cdl service technician in January 2024 to confirm this Venlafaxine Swelling Makes throat feel thick like she cannot swallow PROBLEMS Active Ambulatory Problems Diagnosis Date Noted ZOEY (obstructive sleep apnea) 12/31/2022 Allergic rhinitis 01/16/2023 Anxiety 01/16/2023 Anxious mood as adjustment reaction (CMS/HCC) 10/14/2016 Demyelinating disease of central nervous system (HCC) (CMS/HCC) 03/16/2022 Environmental allergies 10/14/2016 Gastroesophageal reflux disease 04/15/2022 Intractable migraine without status migrainosus (CMS/HCC) 01/16/2023 Moderate persistent asthma (CMS/HCC) 07/25/2020 Panic attacks (CMS/HCC) 01/16/2023 Retinal hole of left eye 04/08/2022 Rhinogenic headache 07/24/2017 Sector visual field defect, left 04/08/2022 Slow transit constipation 01/16/2023 Smoker 03/16/2022 Vitamin D deficiency 03/16/2022 Family history of ovarian cancer 05/02/2024 Dysmenorrhea 05/02/2024 Resolved Ambulatory Problems Diagnosis Date Noted No Resolved Ambulatory Problems Past Medical History: Diagnosis Date Asthma (CMS/HCC) Hypothyroidism (CMS/HCC) Migraine (CMS/HCC) Uncomplicated asthma (CMS/HCC) 12/31/2022 HISTORY PAST MEDICAL HISTORY SOCIAL HISTORY Past Medical History: Diagnosis Date Allergic rhinitis 01/16/2023 Anxiety 01/16/2023 Anxious mood as adjustment reaction (CMS/HCC) 10/14/2016 Asthma (CMS/HCC) Demyelinating disease of central nervous system (HCC) (CMS/HCC) 03/16/2022 Environmental allergies 10/14/2016 Gastroesophageal reflux disease 04/15/2022 Hypothyroidism (CMS/HCC) Intractable migraine without status migrainosus (CMS/HCC) 01/16/2023 Migraine (CMS/HCC) Moderate persistent asthma (CMS/HCC) 07/25/2020 ZOEY (obstructive sleep apnea) 12/31/2022 Panic attacks (CMS/HCC) 01/16/2023 Retinal hole of left eye 04/08/2022 Rhinogenic headache 07/24/2017 Sector visual field defect, left 04/08/2022 Slow transit constipation 01/16/2023 Smoker 03/16/2022 Uncomplicated asthma (CMS/HCC) 12/31/2022 Vitamin D deficiency 03/16/2022 Social History Tobacco Use Smoking status: Former Current packs/day: 0.00 Types: Cigarettes Start date: 04/09/2006 Quit date: 04/09/2022 Years since quittin.1 Smokeless tobacco: Never Vaping Use Vaping status: Never Used Substance Use Topics Alcohol use: Never Comment: caffeine: 1-2 cups per day coffee Drug use: Never FAMILY HISTORY Family History Problem Relation Name Age of Onset Hyperlipidemia Mother Heart disease Father Ovarian cancer Maternal Grandmother Breast cancer Paternal Grandmother SURGICAL HISTORY Past Surgical History: Procedure Laterality Date SINUS SURGERY 2017 REVIEW OF SYSTEMS Review of Systems: Review of Systems Constitutional: Negative. HENT: Negative. Eyes: Negative. Respiratory: Negative. Cardiovascular: Negative. Gastrointestinal: Negative. Genitourinary: Negative. Musculoskeletal: Negative. Skin: Negative. Neurological: Negative. All other systems reviewed and are negative. Hematological: Negative. Endocrine: Negative. Allergic/Immunologic: Negative. OBJECTIVE Objective: Physical Exam Constitutional: Appearance: Normal appearance. She is well-developed. Cardiovascular: Rate and Rhythm: Normal rate and regular rhythm. Pulmonary: Effort: Pulmonary effort is normal. Breath sounds: Normal breath sounds. Abdominal: General: Bowel sounds are normal. There is no distension. Palpations: Abdomen is soft. Tenderness: There is no abdominal tenderness. There is no guarding or rebound. Musculoskeletal: General: No swelling. Normal range of motion. Right lower leg: No edema. Left lower leg: No edema. Neurological: Mental Status: She is alert and oriented to person, place, and time. Skin: General: Skin is warm and dry. Psychiatric: Mood and Affect: Mood normal. Behavior: Behavior normal. Vitals and nursing note reviewed. Exam conducted with a vice president of nursing present. Vitals: Estimated body mass index is 35.01 kg/m as calculated from the following: Height as of 05/19/24: 5' 5 . Weight as of this encounter: 210 lb 6.4 oz. BP: 112/70 No LMP recorded (within weeks). ASSESSMENT & PLAN ICD-10-CM 1. PCOS (polycystic ovarian syndrome) E28.2 2. Family history of ovarian cancer Z80.41 Pt presents for follow up to discuss surgery. Pt has a strong family history of ovarian cancer. Pt desires surgical management. Pt to be set up for robotic hysterectomy with bilateral salpingo-oophorectomy. Reviewed labs and ultrasound with pt in detail. Pt to start metformin- rx faxed to pharmacy. Pt to return in 4 weeks for Adipex. Documented by Bailey Hernandez LPN on behalf of: Charles Collins DO documented in this encounter [facility] 05-19-2024 History of Presen t illness Narrative Associated Problem(s): Allergic rhinitis Stable Associated Problem(s): Anxiety Mood is stable on current medications. Reviewed importance of healthy diet and exercise, stress management, and social support. Associated Problem(s): Retinal hole of left eye Followed by specialist Associated Problem(s): Environmental allergies Stable followed by cdl service technician Associated Problem(s): Moderate persistent asthma (CMS/HCC) Stable followed by pulmonology Associated Problem(s): Gastroesophageal reflux disease Continue medications as prescribed. Avoid triggers such as caffeine, ETOH, spicy foods. Avoid supine position 2-3 hours after eating. Elevate HOB. Associated Problem(s): Vitamin D deficiency Check vitamin d level Associated Problem(s): Intractable migraine without status migrainosus (CMS/HCC) Stable with medications Associated Problem(s): ZOEY (obstructive sleep apnea) Encouraged compliance wth cpap therapy, will trial trazodone at night to help with her sleep, may improve her compliance Associated Problem(s): Dysmenorrhea Followed by obgyn Associated Problem(s): Demyelinating disease of central nervous system (HCC) (CMS/HCC) Stable, followed by specialist Images from the original note were not included. Becka Loredo is a 39 y.o. female presents with chief complaint of Annual Exam HPI: HPI Presents to the office for annual wellness. She saw Dr. Collins and discussed family history of ovarian cancer, she had a second opinion, is hopping to go through for hysterectomy. She is scheduled to see him again on Wednesday. Not using cpap regularly, takes it off in the middle of the night. She is walking at least a half hour regularly, using an eliptical bike as well. Exercising at least 5 times a week for at least a half hour. Not eating out. Limits fatty fried foods. Drinking more smoothies. Struggling to loose weight despite lifestyle changes Over the past 2 weeks, how often have you been bothered by any of the following problems? Little interest or pleasure in doing things: Not at all Feeling down, depressed, or hopeless: Not at all Trouble falling or staying asleep, or sleeping too much: Not at all Feeling tired or having little energy: Not at all Poor appetite or overeating: Not at all Feeling bad about yourself - or that you are a failure or have let yourself or your family down: Not at all Trouble concentrating on things, such as reading the newspaper or watching television: Not at all Moving or speaking so slowly that other people could have noticed? Or the opposite - being so fidgety or restless that you have been moving around a lot more than usual.: Not at all Thoughts that you would be better off or hurting yourself in some way: Not at all Patient Health Questionnaire-9 Score: 0 Over the last 2 weeks, how often have you been bothered by any of the following problems? Feeling nervous, anxious, or on edge: Not at all Not being able to stop or control worrying: Not at all Worrying too much about different things: Not at all Trouble relaxing: Not at all Being so restless that it is hard to sit still: Not at all Becoming easily annoyed or irritable: Not at all Feeling afraid as if something awful might happen: Not at all TOSHIA-7 Total Score: 0 SUBJECTIVE: MEDICATIONS: Current Outpatient Medications Medication Instructions albuterol HFA 90 mcg/act inhaler 2 puffs, Inhalation, Every 4 hours PRN Alcaftadine 0.25 % solution 1 drop, Ophthalmic, Daily amitriptyline (ELAVIL) 10 mg, Oral, Nightly azelastine (Astelin) 0.1 % nasal spray 2 sprays, Each Nostril, 2 times daily, Use in each nostril as directed busPIRone (BUSPAR) 10 mg, Oral, 2 times daily ergocalciferol (Vitamin D2) 1.25 MG (08795 UT) capsule Vitamin D (Ergocalciferol) Fasenra 30 mg, Subcutaneous, Every 28 days fluticasone (Flonase) 50 MCG/ACT nasal spray 2 sprays, Each Nostril, Daily, Shake gently. Before first use, prime pump. After use, clean tip and replace cap. hydrOXYzine HCl (ATARAX) 25 mg, Oral, 3 times daily PRN ipratropium (Atrovent) 0.06 % nasal spray 2 sprays, Each Nostril, 3 times daily levocetirizine (XYZAL) 5 mg, Oral, Nightly Multiple Vitamins-Minerals (MULTIVITAMIN ADULT, MINERALS, PO) Multivitamin polyethylene glycol (PEG) 3350 (GLYCOLAX) 17 g, Oral, Every 24 hours sennosides (Senokot) 8.6 MG tablet 2 tablets, Oral, Every 24 hours sucralfate (Carafate) 1 g tablet take 1 tablet by mouth twice a day ON AN EMPTY STOMACH tiotropium (Spiriva Respimat) 1.25 MCG/ACT inhaler 2 puffs, Inhalation, Daily REVIEW OF SYMPTOMS: Review of Systems Constitutional: Negative. HENT: Negative. Eyes: Negative. Respiratory: Negative. Cardiovascular: Negative. Gastrointestinal: Negative. Genitourinary: Negative. Musculoskeletal: Negative. Skin: Negative. Neurological: Negative. OBJECTIVE: Visit Vitals BP 124/72 (BP Location: Left arm, Patient Position: Sitting, BP Cuff Size: Large adult) Pulse 82 Ht 5' 5 Wt 211 lb 6.4 oz SpO2 97% BMI 35.18 kg/m OB Status Having periods Smoking Status Former BSA 2.1 m Physical Exam Vitals reviewed. Constitutional: Appearance: She is obese. HENT: Head: Normocephalic and atraumatic. Right Ear: Tympanic membrane normal. Left Ear: Tympanic membrane normal. Nose: Nose normal. Mouth/Throat: Mouth: Mucous membranes are moist. Eyes: Extraocular Movements: Extraocular movements intact. Pupils: Pupils are equal, round, and reactive to light. Cardiovascular: Rate and Rhythm: Normal rate and regular rhythm. Pulses: Normal pulses. Heart sounds: Normal heart sounds. Pulmonary: Effort: Pulmonary effort is normal. Breath sounds: Normal breath sounds. Abdominal: General: Bowel sounds are normal. Palpations: Abdomen is soft. Tenderness: There is no abdominal tenderness. Musculoskeletal: General: Normal range of motion. Cervical back: Normal range of motion and neck supple. Right lower leg: No edema. Left lower leg: No edema. Skin: General: Skin is warm and dry. Capillary Refill: Capillary refill takes less than 2 seconds. Findings: No rash. Neurological: General: No focal deficit present. Mental Status: She is alert and oriented to person, place, and time. ASSESSMENT AND PLAN: Assessment/Plan Problem List Items Addressed This Visit ZOEY (obstructive sleep apnea) - Primary Encouraged compliance [facility] cpap therapy, will trial trazodone at night to help with her sleep, may improve her compliance Relevant Medications Semaglutide-Weight Management (Wegovy) 0.25 MG/0.5ML solution auto-injector traZODone (Desyrel) 50 MG tablet Allergic rhinitis Stable Anxiety Mood is stable on current medications. Reviewed importance of healthy diet and exercise, stress management, and social support. Demyelinating disease of central nervous system (HCC) (CMS/HCC) Stable, followed by specialist Environmental allergies Stable followed by cdl service technician Gastroesophageal reflux disease Continue medications as prescribed. Avoid triggers such as caffeine, ETOH, spicy foods. Avoid supine position 2-3 hours after eating. Elevate HOB. Intractable migraine without status migrainosus (CMS/HCC) Stable with medications Moderate persistent asthma (CMS/HCC) Stable followed by pulmonology Retinal hole of left eye Followed by specialist Vitamin D deficiency Check vitamin d level Relevant Orders Vitamin D 25 hydroxy Dysmenorrhea Followed by obgyn Other Visit Diagnoses Encounter for wellness examination Relevant Orders Lipid panel Comprehensive metabolic panel TSH W/REFLEX TO FT4 Vitamin D 25 hydroxy -Wellness performed at [facility] today. Height, weight, BMI, problem list, and immunizations records reviewed. Dental care discussed with patient. Encouraged annual vision screenings and semi-annual dental care. Encouraged healthy eating habits, limit or eliminate junk food and sources of excess calories. Encouraged regular periods of exercise, 150 minutes of exercise weekly or amount appropriate to current level of function. Discussed family/friend/social support and importance of maintaining emotional connections. Follow up annually and as needed. Obesity (BMI 30-39.9) Relevant Medications Semaglutide-Weight Management (Wegovy) 0.25 MG/0.5ML solution auto-injector Other Relevant Orders Lipid panel Comprehensive metabolic panel TSH W/REFLEX TO FT4 Vitamin D 25 hydroxy -Medication options discussed. She would like to trial GLP1, prescription sent to pharmacy. Continue exercising regularly. Healthy daniela garrett. Screening mammogram for breast cancer Relevant Orders Bilateral screening mammogram with tomosynthesis Morbid (severe) obesity due to excess calories (CMS/HCC) Gastro-esophageal reflux disease without esophagitis -Continue medications as prescribed. Avoid triggers such as caffeine, ETOH, spicy foods. Avoid supine position 2-3 hours after eating. Elevate HOB. Body mass index (BMI) 35.0-35.9, adult Screening, lipid Relevant Orders Lipid panel documented in this encounter [facility] 05-03-2024 Miscellaneous Notes LVM on 05/03/2024 at 3:51 PM asking patient to return call to schedule genetics appointment. DJO 05/04/2024, 12:17 PM PT RETURNED CALL & SCHEDULED PLC 05/09/24 @ 10:30 AM DJO 05/10/2024, 12:28 PM Mailed 05/09/24 Genetics Consult to patient and faxed/routed to all providers ON 05/10/24 LR 07/20/2024, 12:26 PM DOWNLOADED GENETIC CONSULT NOTES & PEDIGREE TO [facility] AT [facility] TRACKING # [id number] Mailed 08/11/24 Genetics Follow-up to patient and faxed/routed to all providers - 08/14/2024 at 2:57 PM KD documented in this encounter [facility] 05-03-2024 Telephone encounter Note LVM on 05/03/2024 at 3:51 PM asking patient to return call to schedule genetics appointment. DJO [facility] 05-03-2024 Telephone encounter Note 05/04/2024, 12:17 PM PT RETURNED CALL & SCHEDULED PLC 05/09/24 @ 10:30 AM DJO [facility] 05-03-2024 Telephone encounter Note 05/10/2024, 12:28 PM Mailed 05/09/24 Genetics Consult to patient and faxed/routed to all providers ON 05/10/24 LR [facility] 05-03-2024 Telephone encounter Note 07/20/2024, 12:26 PM DOWNLOADED GENETIC CONSULT NOTES & PEDIGREE TO [facility] AT [facility] TRACKING # [id number] [facility] 05-03-2024 Telephone encounter Note Mailed 08/11/24 Genetics Follow-up to patient and faxed/routed to all providers - 08/14/2024 at 2:57 PM KD [facility] 05-02-2024 History of Presen t illness Narrative Subjective: Becka is a 39 y.o. female here for consultation from Dr. Collins for evaluation and management of family history of ovarian cancer. Patient w records of ovarian cancer dx in [facility] and [facility]. Notably patient's mother and aunts all underwent hysterectomy / oophorectomy to mitigate risk of ovarian cancer, as did patient's sister. Patient denies any genetic testing in any family members. Patient desires risk-reducing hysterectomy / bilateral salpingo-oophorectomy. Patient otherwise reports regular menses lasting 1 day w pelvic cramping leading up to day of cycle. Oncology History No overview note OBHx: G0 GynHx: Reg / 1 day. Reports pain x1 week prior to onset of bleeding. Denies h/o abnl paps. Past Surgical History: Procedure Laterality Date SINUS SURGERY Past Medical History: Diagnosis Date Allergies Anxiety Asthma Hypothyroid Migraines Mild obstructive sleep apnea Retinal tear Vitamin D deficiency Family History Problem Relation Age of Onset High Cholesterol Mother Heart disease Father Ovarian cancer Maternal Grandmother Breast cancer Paternal Grandmother Ovarian cancer Maternal great-grandmother Social History Tobacco Use Smoking status: Former Types: Cigarettes Smokeless tobacco: Never Substance Use Topics Alcohol use: Not Currently Works for [email or web address]. Review of Symptoms: Pertinent items are noted in HPI. Objective: BP 112/60 Pulse 77 Temp 36.7 C (98 F) (Temporal) Ht 165.1 cm (5' 5 ) Wt 96.8 kg (213 lb 6.4 oz) SpO2 99% BMI 35.51 kg/m ECO- Asymptomatic General appearance: alert, appears stated age and cooperative Head: Normocephalic, without obvious abnormality, atraumatic Neck: no adenopathy, supple, symmetrical, trachea midline and thyroid not enlarged, symmetric, no tenderness/mass/nodules Lungs: clear to auscultation bilaterally Heart: regular rate and rhythm, S1, S2 normal, no murmur, click, rub or gallop Abdomen: Obese. Soft, NT, ND. No palpable abdominal masses. Pelvic: NEFG, cervix normal in appearance, uterus normal size, shape, and consistency, vagina normal without discharge and lesion. No palpable adnexal mass. (Pelvic exam in order to assess uterus / cervix / ovaries, Marketing Research Intern present) Rectal: RV septum thin, no nodules noted. Extremities: extremities normal, atraumatic, no cyanosis or edema Skin: Skin color, texture, turgor normal. No rashes or lesions Lymph nodes: Cervical, supraclavicular, and inguinal nodes normal. Neurologic: Grossly normal Assessment: 39 y.o. with family history of ovarian cancer and pelvic pain Family history of ovarian cancer --MGM and MGGM w ovarian cancer. --Pt's mother / Maunts / sister all underwent risk-reducing hyst/BSO. --No genetic testing available. Pelvic pain --Occurs x1 week prior to onset of menses. 3. Medical comorbidities --ZOEY. Does not utilize CPAP. --Asthma. Benralizumab inj s10gadi. Advair BID. Albuterol prn (uses 3x/mo - related to when allergies not well controlled). --Allergies. Levocetirizine 5mg qHS. Azelastine nasal spray BID. Another nasal spray. Eye drops. --Anxiety. Amitriptyline 10mg qHS. Buspirone 10mg BID. Atarax 25 mg TID prn (uses maybe 3x/yr). --Demyelinating disease of AGED OR DISABLED CARE WORKER. 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 Pt s/p workup w etiology unclear. --GERD. Protonix 40mg EC qd. Sucralfate 1g BID. --Migraine HAs. Currently no meds. Insurance will not cover ubrogepant. --Hypothyroidism. Resolved. No meds. --Constipation. Miralax qd. Senokot 2 tabs qd. --Other. Vit D2. Multivitamin. --PSHx: Sinus sx. 4. Healthcare maintenance. --Last pap smear 07/01/22 NILM, Neg HRHPV Plan: I reviewed Dr. Collins's clinic notes. I elicited a history, performed a physical exam, and formulated the plan of care. Patient is here w her mother, [place]. Ms. Loredo is a 39 y.o. with a strong family history of ovarian cancer in [facility] and [facility]. There is no known genetic testing. As a result, patient's mother, maternal aunts and sister all have undergone risk-reducing hysterectomy / BSO. Patient presents today requesting risk-reducing hyst/BSO. I recommend genetic testing, will refer to genetic counselors, appreciate expertise. Otherwise, patient w pelvic pain in week prior to menses. Will get pelvic US to assess pelvic organs. Refer to genetic counselors, appreciate expertise. Pelvic US ordered. Will touch base w patient in 5-6 weeks via telephone regarding results and next steps. 4. Total time spent was 60 minutes: Preparing to see the patient (e.g., review of tests) Performing a medically appropriate examination and/or evaluation Counseling and educating the patient/family/caregiver Ordering medications, tests, or procedures Referring and communicating with other health nonfarm animal caretaker (not separately reported) Documenting clinical information in the electronic or other health record Care coordination (not separately reported) JENNIFER SALAS MD [facility] History of Presen t illness Narrative Images from the original note were not included. Becka Loredo presents today for follow up on asthma. She was last seen several months ago. She does continue with Fasenra via samples. She does also continue with Flonase, Atrovent, Spiriva for treatment of her asthma. She states overall she has been fairly stable. She denies any ER visits or exacerbations of her breathing since her last office visit. She states she recently re-obtained insurance in is hoping to be able to have Fasenra ordered as opposed to relying on samples. She denies any current complaints of chest pain, palpitations, fevers, chills, sweats, or recent unintentional weight changes. She denies any other complaints this time. Allergies: Allergies Allergen Reactions Bacitracin Rash Dermatitis Penicillins Unknown Patient not sure of reaction. Sees cdl service technician in January 2024 to confirm this Venlafaxine Swelling Makes throat feel thick like she cannot swallow Medications: Current Outpatient Medications: albuterol HFA 90 mcg/act inhaler, Inhale 2 puffs every 4 (four) hours if needed for shortness of breath or wheezing., Disp: , Rfl: Alcaftadine 0.25 % solution, Administer 1 drop into affected eye(s) Daily, Disp: 5 mL, Rfl: 3 amitriptyline (Elavil) 10 MG tablet, Take 1 tablet (10 mg) by mouth at bedtime, Disp: 90 tablet, Rfl: 1 azelastine (Astelin) 0.1 % nasal spray, Administer 2 sprays into each nostril in the morning and 2 sprays before bedtime. Use in each nostril as directed., Disp: 90 mL, Rfl: 3 benralizumab (Fasenra) 30 MG/ML injection, Inject 30 mg under the skin every 28 (twenty-eight) days., Disp: , Rfl: busPIRone (Buspar) 10 MG tablet, Take 1 tablet (10 mg) by mouth in the morning and 1 tablet (10 mg) before bedtime., Disp: 180 tablet, Rfl: 1 ergocalciferol (Vitamin D2) 1.25 MG (82129 UT) capsule, Vitamin D (Ergocalciferol), Disp: , Rfl: fluticasone (Flonase) 50 MCG/ACT nasal spray, Administer 2 sprays into each nostril Daily Shake gently. Before first use, prime pump. After use, clean tip and replace cap., Disp: 48 g, Rfl: 11 hydrOXYzine HCl (Atarax) 25 MG tablet, Take 25 mg by mouth 3 (three) times a day as needed for anxiety, allergies or itching., Disp: , Rfl: ipratropium (Atrovent) 0.06 % nasal spray, Administer 2 sprays into each nostril in the morning and 2 sprays in the evening and 2 sprays before bedtime., Disp: 15 mL, Rfl: 11 levocetirizine (Xyzal) 5 MG tablet, Take 1 tablet (5 mg) by mouth at bedtime, Disp: 90 tablet, Rfl: 1 Multiple Vitamins-Minerals (MULTIVITAMIN ADULT, MINERALS, PO), Multivitamin, Disp: , Rfl: polyethylene glycol, PEG, 3350 (Glycolax) 17 GM/SCOOP powder, Take 17 g by mouth 1 (one) time each day at the same time, Disp: 510 g, Rfl: 1 sennosides (Senokot) 8.6 MG tablet, Take 2 tablets by mouth 1 (one) time each day at the same time., Disp: , Rfl: sucralfate (Carafate) 1 g tablet, take 1 tablet by mouth twice a day ON AN EMPTY STOMACH, Disp: 60 tablet, Rfl: 1 tiotropium (Spiriva Respimat) 1.25 MCG/ACT inhaler, Inhale 2 puffs Daily, Disp: 1 each, Rfl: 5 Past Medical History: Past Medical History: Diagnosis Date Allergic rhinitis 01/16/2023 Anxiety 01/16/2023 Anxious mood as adjustment reaction ([facility]) 10/14/2016 Asthma ([facility]) Demyelinating disease of central nervous system (HCC) ([facility]) 03/16/2022 Environmental allergies 10/14/2016 Gastroesophageal reflux disease 04/15/2022 Hypothyroidism ([facility]) Intractable migraine without status migrainosus ([facility]) 01/16/2023 Migraine ([facility]) Moderate persistent asthma ([facility]) 07/25/2020 ZOEY (obstructive sleep apnea) 12/31/2022 Panic attacks ([facility]/HCC) 01/16/2023 Retinal hole of left eye 04/08/2022 Rhinogenic headache 07/24/2017 Sector visual field defect, left 04/08/2022 Slow transit constipation 01/16/2023 Smoker 03/16/2022 Uncomplicated asthma ([facility]/HCC) 12/31/2022 Vitamin D deficiency 03/16/2022 Social History: Social History Tobacco Use Smoking status: Former Current packs/day: 0.00 Types: Cigarettes Start date: 04/09/2006 Quit date: 04/09/2022 Years since quittin.0 Smokeless tobacco: Never Substance Use Topics Alcohol use: Never Comment: caffeine: 1-2 cups per day coffee Vitals: BP 126/79 (BP Location: Left arm, Patient Position: Sitting) Pulse 70 Ht 5' 5 Wt 216 lb SpO2 95% BMI 35.94 kg/m Exam: Heart: regular rate Lungs: clear to auscultation bilaterally, no wheezes/rales/rhonchi, no resp distress Extremities: no edema noted, no visible rashes Neuro: alert, oriented x3 Imaging Reviewed: None Assessment/Plan: Diagnoses and all orders for this visit: Severe persistent asthma without complication ([facility]) Asthma -- at this time her breathing is currently well controlled. She denies any refills at this time. We will continue with her current regimen including Fasenra. She does not need additional samples. However I will work on getting the prescription to go through again now that she does have insurance. She otherwise will continue with her current regimen and follow here in a few months time unless needed before then. If she does need samples in the meantime, she will call the office. Follow up in about 4 months (around 08/28/2024) for asthma. Mihaela Dixon DO documented in this encounter [facility] 04-12-2024 History of Presen t illness Narrative Becka Loredo returns to the office today and notes that she added peanut into her diet and began to have a rash and went to see her PCP and was told she might be having reaction to peanut and stopped eating them and was given steroids and antibiotics. She is still having itching of the eyes. She did not feel any different eating peanut. Her rash started about one month after eating the peanut. She has a garden at home and wonders if she got into poison les. The rash looked like small pinpoint papules with discharge and swelling and severe itch. She was given steroid and antibiotics which was helpful and she has been off these meds for 3 weeks. She still has occasional itchy watery eyes. She had to use her albuterol a bit more over the past few days. She has been using flonase and astelin and 2 eye drop. Her chief complaint today is throat congestion and itchy watery eyes. She has occasional pyrosis. EXAM The patient appears comfortable in the office today. Lungs are clear to auscultation bilaterally. The oral mucosa is pink and healthy without any lesions or ulcers. The palate elevates in the midline. The nasal mucosa is pink and healthy. There is no epistaxis mucopus or nasal polyposis noted. The nasal septum is approximately in the midline. The skin is clear of any lesions, excoriations, or erythema. IMPRESSION: Atopic dermatitis - we agreed she would apply wet compress to the periocular skin followed by hydrocortisone then petroleum jelly once weekly when she is doing well and once or twice daily during a flare of her condition. I suggested she try and place peanut back in her diet as her symptoms did not start until about a month after she started eating this. And her skin testing was negative at her last assessment. Chronic rhinitis post nasal drip - continue flonase and astelin and add nasal ipratropium pharmacy = [facility] [place]. Gerd - We agreed the patient would use non pharmacologic measures for reflux disease specifically elevating the head of the bed avoiding late night meals and decreasing alcohol and caffeine ingestion. We agreed she would follow up in 4 months for reassessment and if her symptoms are persistent at that time consider allergen immunotherapy. documented in this encounter [facility] 09-27-2023 Miscellaneous Notes 3rd attempt to reach pt for SUPERVISOR PRESSING DEPARTMENT visit. No answer, LAUREANO left. documented in this encounter [facility] 09-27-2023 Telephone encounter Note 3rd attempt to reach pt for SUPERVISOR PRESSING DEPARTMENT visit. No answer, LAUREANO left. [facility] 09-15-2023 History of Presen t illness Narrative Images from the original note were not included. Becka Loredo presents today for follow up on her asthma. She was last seen several months ago. She has continued to receive Fasenra injections. She states her last injection was in July. She has stopped using Advair as she felt that this was making her breathing worse. She states previously she had been on Spiriva which had helped her breathing. However she had been on different injections at that point. She does note shortness breath with exertion. She does also notice a cough and some occasional sputum production. She denies any chest pain, palpitations, fevers, chills, sweats, or recent unintentional weight changes. She denies any other complaints at today's office visit. She is currently in the process of getting new insurance. She states today is her last day on her current insurance and will have a new insurance next month. She has been relying on samples of Fasenra given her changes in insurance frequently recently. Allergies: Allergies Allergen Reactions Bacitracin Rash Dermatitis Penicillins Unknown Venlafaxine Swelling Makes throat feel thick like she cannot swallow Medications: Current Outpatient Medications: albuterol HFA 90 mcg/act inhaler, Inhale 2 puffs every 4 (four) hours if needed for shortness of breath or wheezing., Disp: , Rfl: amitriptyline (Elavil) 10 MG tablet, Take 1 tablet (10 mg) by mouth at bedtime, Disp: 90 tablet, Rfl: 1 azelastine (Astelin) 0.1 % nasal spray, Administer 1 spray into each nostril every 12 (twelve) hours., Disp: , Rfl: benralizumab (Fasenra) 30 MG/ML injection, Inject 30 mg under the skin every 28 (twenty-eight) days., Disp: , Rfl: busPIRone (Buspar) 10 MG tablet, take 1 tablet by mouth twice a day, Disp: 180 tablet, Rfl: 1 ergocalciferol (Vitamin D2) 1.25 MG (38196 UT) capsule, Vitamin D (Ergocalciferol), Disp: , Rfl: hydrOXYzine HCl (Atarax) 25 MG tablet, Take 25 mg by mouth 3 (three) times a day as needed for anxiety, allergies or itching., Disp: , Rfl: levocetirizine (Xyzal) 5 MG tablet, take 1 tablet by mouth at bedtime, Disp: 90 tablet, Rfl: 1 Multiple Vitamins-Minerals (MULTIVITAMIN ADULT, MINERALS, PO), Multivitamin, Disp: , Rfl: polyethylene glycol, PEG, 3350 (Glycolax) 17 GM/SCOOP powder, Take 17 g by mouth 1 (one) time each day at the same time., Disp: , Rfl: sennosides (Senokot) 8.6 MG tablet, Take 2 tablets by mouth 1 (one) time each day at the same time., Disp: , Rfl: sucralfate (Carafate) 1 g tablet, take 1 tablet by mouth twice a day ON AN EMPTY STOMACH, Disp: 60 tablet, Rfl: 1 Ubrogepant (Ubrelvy) 100 MG tablet, Take 100 mg by mouth Daily as needed (migraines), Disp: 10 tablet, Rfl: 0 tiotropium (Spiriva Respimat) 1.25 MCG/ACT inhaler, Inhale 2 puffs in the morning., Disp: 1 each, Rfl: 5 No current facility-administered medications for this visit. Past Medical History: Past Medical History: Diagnosis Date Allergic rhinitis 01/16/2023 Anxiety 01/16/2023 Anxious mood as adjustment reaction ([facility]) 10/14/2016 Asthma ([facility]) Demyelinating disease of central nervous system (HCC) ([facility]) 03/16/2022 Environmental allergies 10/14/2016 Gastroesophageal reflux disease 04/15/2022 Hypothyroidism ([facility]) Intractable migraine without status migrainosus ([facility]) 01/16/2023 Migraine ([facility]) Moderate persistent asthma ([facility]) 07/25/2020 ZOEY (obstructive sleep apnea) 12/31/2022 Panic attacks ([facility]) 01/16/2023 Retinal hole of left eye 04/08/2022 Rhinogenic headache 07/24/2017 Sector visual field defect, left 04/08/2022 Slow transit constipation 01/16/2023 Smoker 03/16/2022 Uncomplicated asthma ([facility]) 12/31/2022 Vitamin D deficiency 03/16/2022 Social History: Social History Tobacco Use Smoking status: Former Years: 16 Types: Cigarettes Quit date: 04/09/2022 Years since quittin.4 Smokeless tobacco: Never Substance Use Topics Alcohol use: Never Comment: caffeine: 1-2 cups per day coffee Vitals: BP 122/87 (BP Location: Left arm, Patient Position: Sitting) Pulse 99 Ht 5' 5 Wt 208 lb 6.4 oz SpO2 99% BMI 34.68 kg/m Exam: Heart: regular rate Lungs: clear to auscultation bilaterally, no wheezes/rales/rhonchi, no resp distress Extremities: no edema noted, no visible rashes Neuro: alert, oriented x3 Imaging Reviewed: None Assessment/Plan: Diagnoses and all orders for this visit: Severe persistent asthma without complication ([facility]) - tiotropium (Spiriva Respimat) 1.25 MCG/ACT inhaler; Inhale 2 puffs in the morning. Asthma -- she does continue with some shortness of breath. At this time she has not using any inhaled medications other than rescue inhaler. She would previous use Spiriva and had noticed improvement. She was given samples and a prescription again of Spiriva at today's office visit. She did also receive samples of Fasenra. Once her insurance has been changed we will resubmit her step for Fasenra. She does have improvement of her breathing with use of this medication. She will continue with the above regimen and follow here in a few months time to reassess her symptoms with the Spiriva as well as address her needs for Fasenra. The patient understands the plan and is agreeable. Follow up in about 3 months (around 12/14/2023) for asthma. Mihaela Dixon DO documented in this encounter [facility] 09-15-2023 Miscellaneous Notes Left VM to schedule SUPERVISOR PRESSING DEPARTMENT appt with bulk cooler installer onc, call back # provided. documented in this encounter [facility] 09-15-2023 Telephone encounter Note Left VM to schedule SUPERVISOR PRESSING DEPARTMENT appt with bulk cooler installer onc, call back # provided. [facility] 09-08-2023 History of Presen t illness Narrative Reason for Appointment: Patient ID: Becka Loredo is a 38 y.o. female who presents for Consult (Consult hysterectomy referred /) Patient presents today for Acute Visit and Consult appointment. Current Medications: has a current medication list which includes the following prescription(s): albuterol hfa, amitriptyline, azelastine, fasenra, buspirone, ergocalciferol, hydroxyzine hcl, levocetirizine, multiple vitamins-minerals, polyethylene glycol (peg) 3350, sennosides, sucralfate, and ubrelvy. Medical History: Active Ambulatory Problems Diagnosis Date Noted ZOEY (obstructive sleep apnea) 12/31/2022 Uncomplicated asthma ([facility]/HCC) 12/31/2022 Allergic rhinitis 01/16/2023 Anxiety 01/16/2023 Anxious mood as adjustment reaction (CMS/HCC) 10/14/2016 Demyelinating disease of central nervous system (HCC) (CMS/HCC) 03/16/2022 Environmental allergies 10/14/2016 Gastroesophageal reflux disease 04/15/2022 Intractable migraine without status migrainosus (CMS/HCC) 01/16/2023 Moderate persistent asthma (CMS/HCC) 07/25/2020 Panic attacks (CMS/HCC) 01/16/2023 Retinal hole of left eye 04/08/2022 Rhinogenic headache 07/24/2017 Sector visual field defect, left 04/08/2022 Slow transit constipation 01/16/2023 Smoker 03/16/2022 Vitamin D deficiency 03/16/2022 Resolved Ambulatory Problems Diagnosis Date Noted No Resolved Ambulatory Problems Past Medical History: Diagnosis Date Asthma (CMS/HCC) Hypothyroidism (CMS/HCC) Migraine (CMS/HCC) Family History Problem Relation Name Age of Onset Hyperlipidemia Mother Heart disease Father Ovarian cancer Maternal Grandmother Breast cancer Paternal Grandmother Social History Tobacco Use Smoking status: Former Years: 14 Types: Cigarettes Quit date: 04/09/2022 Years since quittin.4 Smokeless tobacco: Never Substance Use Topics Alcohol use: Never Comment: caffeine: 1-2 cups per day coffee Drug use: Never Past Surgical History: Procedure Laterality Date SINUS SURGERY 2017 Allergies Allergen Reactions Bacitracin Rash Other Reaction(s): Dermatitis, Dermatitis Penicillins Unknown Venlafaxine Other Reaction(s): Other: See Comments Makes throat feel thick like she cannot swallow Other reaction(s): Other: See Comments Makes throat feel thick like she cannot swallow Makes throat feel thick like she cannot swallow Review of Systems: Review of Systems Constitutional: Negative. HENT: Negative. Eyes: Negative. Respiratory: Negative. Cardiovascular: Negative. Gastrointestinal: Negative. Genitourinary: Negative. Musculoskeletal: Negative. Skin: Negative. Neurological: Negative. All other systems reviewed and are negative. Hematological: Negative. Endocrine: Negative. Allergic/Immunologic: Negative. Objective Physical Exam Constitutional: Appearance: Normal appearance. She is well-developed. Cardiovascular: Rate and Rhythm: Normal rate and regular rhythm. Pulmonary: Effort: Pulmonary effort is normal. Breath sounds: Normal breath sounds. Abdominal: General: Bowel sounds are normal. There is no distension. Palpations: Abdomen is soft. Tenderness: There is no abdominal tenderness. There is no guarding or rebound. Musculoskeletal: General: No swelling. Normal range of motion. Right lower leg: No edema. Left lower leg: No edema. Neurological: Mental Status: She is alert and oriented to person, place, and time. Skin: General: Skin is warm and dry. Psychiatric: Mood and Affect: Mood normal. Behavior: Behavior normal. Vitals and nursing note reviewed. Exam conducted with a vice president of nursing present. Vitals: Estimated body mass index is 33.91 kg/m as calculated from the following: Height as of 05/14/23: 5' 5 . Weight as of 05/14/23: 203 lb 12.8 oz. BP: No LMP recorded. Assessment/Plan Encounter Diagnoses Name Primary? Encounter to discuss procedure PCOS (polycystic ovarian syndrome) Family history of ovarian cancer Pt presents for referral from Hayley Narvaez. Pt given labs and ultrasound order to have obtained. Pt to be referred to Dr Alonzo for consultation d/t family history of ovarian cancer. Pt voiced understanding. Will call pt with results of labs and ultrasound. Documented by Bailey Hernandez LPN on behalf of: Charles Collins DO documented in this encounter [facility] 04-08-2022 Note HNO ID: [id number] Author: Sasha Perez MD Service: ? Author Type: Physician Type: Progress Notes Filed: 04/14/2022 4:01 PM Note Text: Reviewed Epic, chart, labs, imaging studies. 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 She was evaluated for possible Optic Neuritis on several occassions. MRI brain and spine was normal . Neurologic exam was normal. A VEP showed slight asymmetry of responses between right and left optic nerves, but was read as not abnormal in either eye. There is no dyschromatopsia or Afferent pupillary defect. Visual acuity corrects to 20/20. Visual field OD is full and normal. Visual field OS has superior arcuate constriction. There is no Optic Atrophy or evidence of retinal vasculitis or vascular occlusion. Oct disc is symmetric and normal. There is thinning of the ganglion cell layer in the left inferior macula consistent with the field defect. We discussed that the pattern of field loss could also be caused by on old retinal vascular occlusion either Branch retinal artery occlussion or Branch retinal vein occlusion. At this point this would be difficult to prove. I offered to review old MRI images if she could get the MRI disc here. Would monitor Visual field annually. Ordered MOG and Aquaporin 2. Left side Headache began in 2016. Head pain is often centered in the left V2 distribution. The Headache has become chronic. A trial of Topamax was helpful in controlling the Headache . She was not tolerant of the medication however due to mental status changes. No evidence of orbital or retrobulbar cause for Headache and facial pain. Suggested evaluation by Headache Neurology. 3. Operculated retinal hole Left eye. Good laser surround is present. Not visually significant. I have confirmed and edited as necessary the relevant ophthalmic history, ROS, and the neuro exam findings as obtained by others. I have seen and examined Becka Loredo. I have discussed the case and the management of this patient's care with the Resident/Fellow, if applicable. I also have reviewed and agree with the assessment and plan as stated above and agree with all of its relevant components.The nature of the patient's eye disease, its relationship to systemic health, and its prognosis have been explained to the patient/family. The treatment options/risks/benefits have been discussed. Questions answered. Sasha Perez MD [facility] 04-08-2022 History of Presen t illness Narrative Reviewed Epic, chart, labs, imaging studies. 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 She was evaluated for possible Optic Neuritis on several occassions. MRI brain and spine was normal . Neurologic exam was normal. A VEP showed slight asymmetry of responses between right and left optic nerves, but was read as not abnormal in either eye. There is no dyschromatopsia or Afferent pupillary defect. Visual acuity corrects to 20/20. Visual field OD is full and normal. Visual field OS has superior arcuate constriction. There is no Optic Atrophy or evidence of retinal vasculitis or vascular occlusion. Oct disc is symmetric and normal. There is thinning of the ganglion cell layer in the left inferior macula consistent with the field defect. We discussed that the pattern of field loss could also be caused by on old retinal vascular occlusion either Branch retinal artery occlussion or Branch retinal vein occlusion. At this point this would be difficult to prove. I offered to review old MRI images if she could get the MRI disc here. Would monitor Visual field annually. Ordered MOG and Aquaporin 2. Left side Headache began in 2016. Head pain is often centered in the left V2 distribution. The Headache has become chronic. A trial of Topamax was helpful in controlling the Headache . She was not tolerant of the medication however due to mental status changes. No evidence of orbital or retrobulbar cause for Headache and facial pain. Suggested evaluation by Headache Neurology. 3. Operculated retinal hole Left eye. Good laser surround is present. Not visually significant. I have confirmed and edited as necessary the relevant ophthalmic history, ROS, and the neuro exam findings as obtained by others. I have seen and examined Becka Loredo. I have discussed the case and the management of this patient's care with the Resident/Fellow, if applicable. I also have reviewed and agree with the assessment and plan as stated above and agree with all of its relevant components.The nature of the patient's eye disease, its relationship to systemic health, and its prognosis have been explained to the patient/family. The treatment options/risks/benefits have been discussed. Questions answered. Sasha Perez MD documented in this encounter [facility] 07-30-2021 Evaluation note Encounter Date Diagnosis Assessment Notes Jul, Right foot pain (ICD-10 - M79.671) Jul, Contusion of right foot, initial encounter (ICD-10 - S90.31XA) Wear the Andrzej wrap for comfort and compression. Use the postop shoe for comfort. Take Tylenol or Motrin as needed for pain. Ice and elevate your foot is much as possible. Follow-up with your family physician if no improvement in 5 to 7 days [employer] Other 12-18-2021 Evaluation note* Encounter Date Diagnosis Assessment Notes Treatment Notes Treatment Clinical Notes Jul, Contact with and (suspected) exposure to other viral communicable diseases (ICD-10 - Z20.828) Today test was performed in office. Results are currently negative. That does not mean that you will not develop COVID or do not currently have a low viral count of COVID. The rapid test works best if symptoms have been over 72 hours and the results can vary if you are asymptomatic There is a higher chance of false negative results to occur if testing is performed too soon. It is recommended that even if results are negative and you have been exposed to someone that has COVID that you follow current CDC recommendations. These can be found at CDC.GOV. Follow up with primary care provider if symptoms persist or do not improve *VIRAL URI HANOUT GIVEN ON OTC TREATMENTS, FOLLOW UP AND WHEN TO SEEK EMERGENCY TREATMENT Jul, Moderate persistent asthma with exacerbation (ICD-10 - J45.41) Take medications as directed with food. Complete all doses of steroids. Use inhaler or nebulizer at least 2-3 times per day for next 48 hours. Increase fluid intake. Follow up with primary care provider is recommended to discuss treatment plan changes to asthma. Seek emergency help if difficulty breathing develops Jul, Other Additional time spent conducting pre-visit phone call, screening for symptoms, instructions on social distancing, application and removal of PPE, and cleaning of examination room, equipment and supplies was preformed. Patient education given for testing methodology and results. Patient care instructions given in writting by [employer] [facility] document. [employer] Other 11-11-2021 Evaluation note* Encounter Date Diagnosis Assessment Notes Treatment Notes Treatment Clinical Notes Jun, Viral URI with cough (ICD-10 - J06.9) Advised patient that COVID antigen test was negative today. Advised patient that will tx as viral URI. Supportive care as directed, increase fluids and rest, Tylenol/Motrin as directed, OTC cough/cold remedies as directed on packaging, cool mist humidifier, throat lozenges. Offered patient zofran for nausea, pt declines at this time. Discussed infection control practices such as good hand washing and mask wearing. Patient to follow up with PCP if sx persist or worsen despite treatment for COVID PCR test. Immediate eval for warning s/sx as discussed. Patient verbalizes understanding and is agreeable to treatment plan Jun, Nausea (ICD-10 - R11.0) Jun, Contact with and (suspected) exposure to other viral communicable diseases (ICD-10 - Z20.828) Jun, Other Additional time spent conducting pre-visit phone call, screening for symptoms, instructions on social distancing, application and removal of PPE, and cleaning of examination room, equipment and supplies was preformed. Patient education given for testing methodology and results. Patient care instructions given in writting by [employer] [facility] document [employer] Other 09-17-2020 NotePROCEDURE: NM HEPATOBILIARY SCAN W PHARMACOLOGICAL INTERVENTION CLINICAL INFORMATION: Right upper quadrant pain Radiopharmaceutical: 8.3 mCi technetium 99m mebrofenin, intravenously. TECHNIQUE: Anterior images of the abdomen were obtained for 60 minutes following radiopharmaceutical administration. 1.36 mcg of Kinevac were infused over 60 minutes while additional left anterior oblique images were obtained. Subsequently, a region of interest was drawn around the gallbladder and ejection fraction was calculated. COMPARISON: None FINDINGS: There is normal hepatic uptake of radiotracer. Activity is present in the gallbladder by 9 minutes. There is activity in the common bile duct and small bowel by 46 minutes. Following Kinevac administration, the calculated gallbladder ejection fraction is 83% (normal is 35% or greater). IMPRESSION: 1. Patent cystic and common bile ducts without evidence of acute cholecystitis. 2. Normal gallbladder ejection fraction. Final report electronically signed by Dr. Phil Mclean on 04/25/2020 1:04 PM Interpreted by: Phil Mclean MD Signed by: Phil Mclean MD 04/25/20 [facility] NotePROCEDURE: US GALLBLADDER RUQ CLINICAL INFORMATION: 34-year-old female with right upper quadrant abdominal pain. Bloating for a year. Epigastric pain. COMPARISON: CT 04/29/2016. TECHNIQUE: Multiplanar sonographic images were obtained of the structures in the right upper quadrant. FINDINGS: Gallbladder - 5.1 x 1.7 x 2.0 cm Gallbladder Wall - 0.19 cm Common Duct - 0.33 cm Aguirre's Sign: negative The liver is of normal echogenicity. No masses are noted. The pancreatic head and body are within normal limits. The tail is not well seen due to overlying bowel gas. The gallbladder is not distended. There is no pericholecystic fluid or gallbladder wall edema. No gallstones are identified. The common bile duct is normal and measures 3 mm. There is no hydronephrosis in the visualized aspects of the right kidney. IMPRESSION: No acute findings in the visualized upper abdomen. This report has been created using voice recognition software. It may contain minor errors which are inherent in voice recognition technology. Final report electronically signed by Dr Lukas Mota on 02/29/2020 8:53 AM Interpreted by: Lukas Mota MD Signed by: Lukas Mota MD 02/29/20 [facility] result[facility] NotePROCEDURE: FL ESOPHAGRAM CLINICAL INFORMATION: Gastroesophageal reflux TECHNIQUE: Following the oral administration of barium, swallowing mechanism and anatomy of the esophagus were evaluated in a double contrast esophagram. Swallowing was further evaluated with a marshmallow and bagel. 7 images were obtained. Total fluoroscopy time 1.5 minutes. COMPARISON: None FINDINGS: Swallowing mechanism is normal. No strictures or extrinsic abnormalities are identified in the esophagus. No mucosal lesions or ulcerations are seen. There is no stenosis or gastroesophageal reflux in the distal esophagus. No hiatal hernia is present. Both a marshmallow and bagel passed through the esophagus within 2 peristaltic contractions. IMPRESSION: Normal esophagram. Final report electronically signed by Dr. 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, left Other optic neuritis Migraine, hemicrania [facility] noteNo [facility] information available[facility] Work Phone: Evaluation note* Diagnosis Anxious mood as adjustment reaction (CMS/HCC) Adjustment disorder with anxiety Depression, unspecified depression type (CMS/HCC) [facility] Diagnosis Encounter to discuss procedure PCOS (polycystic ovarian syndrome) Polycystic ovaries Family history of ovarian cancer Family history of malignant neoplasm of ovary [facility] Diagnosis Allergic rhinitis, unspecified seasonality, unspecified trigger [facility]* Diagnosis Intractable migraine without status migrainosus, unspecified migraine type (CMS/HCC)- Primary [facility]* Diagnosis Anxiety Anxiety state, unspecified [facility]* Diagnosis Severe persistent asthma without complication (CMS/HCC)- Primary [facility]* Diagnosis ZOEY (obstructive sleep apnea)- Primary Obstructive sleep apnea (adult) (pediatric) Encounter for wellness examination Obesity (BMI 30-39.9) Screening mammogram for breast cancer Morbid (severe) obesity due to excess calories (CMS/HCC) Gastro-esophageal reflux disease without esophagitis Body mass index (BMI) 35.0-35.9, adult Demyelinating disease of central nervous system (HCC) (CMS/HCC) Unspecified demyelinating disease of central nervous system Dysmenorrhea Intractable migraine without status migrainosus, unspecified migraine type (CMS/HCC) Gastroesophageal reflux disease without esophagitis Esophageal reflux Moderate persistent asthma without complication (CMS/HCC) Environmental allergies Other allergy, other than to medicinal agents Retinal hole of left eye Anxiety Anxiety state, unspecified Vitamin D deficiency Allergic rhinitis, unspecified seasonality, unspecified trigger Screening, lipid [facility] Diagnosis ZOEY (obstructive sleep apnea)- Primary Obstructive sleep apnea (adult) (pediatric) Encounter for wellness examination Obesity (BMI 30-39.9) Screening mammogram for breast cancer Morbid (severe) obesity due to excess calories (CMS/HCC) Gastro-esophageal reflux disease without esophagitis Body mass index (BMI) 35.0-35.9, adult Demyelinating disease of central nervous system (HCC) (CMS/HCC) Unspecified demyelinating disease of central nervous system Dysmenorrhea Intractable migraine without status migrainosus, unspecified migraine type (CMS/HCC) Gastroesophageal reflux disease without esophagitis Esophageal reflux Moderate persistent asthma without complication (CMS/HCC) Environmental allergies Other allergy, other than to medicinal agents Retinal hole of left eye Anxiety Anxiety state, unspecified Vitamin D deficiency Allergic rhinitis, unspecified seasonality, unspecified trigger Screening, lipid PCOS (polycystic ovarian syndrome) Polycystic ovaries Family history of ovarian cancer Family history of malignant neoplasm of ovary Insulin resistance Other abnormal glucose documented in [facility] encounter [facility]* Diagnosis ZOEY (obstructive sleep apnea)- Primary Obstructive sleep apnea (adult) (pediatric) Encounter for wellness examination Obesity (BMI 30-39.9) Screening mammogram for breast cancer Morbid (severe) obesity due to excess calories (CMS/HCC) Gastro-esophageal reflux disease without esophagitis Body mass index (BMI) 35.0-35.9, adult Demyelinating disease of central nervous system (HCC) (CMS/HCC) Unspecified demyelinating disease of central nervous system Dysmenorrhea Intractable migraine without status migrainosus, unspecified migraine type (CMS/HCC) Gastroesophageal reflux disease without esophagitis Esophageal reflux Moderate persistent asthma without complication (CMS/HCC) Environmental allergies Other allergy, other than to medicinal agents Retinal hole of left eye Anxiety Anxiety state, unspecified Vitamin D deficiency Allergic rhinitis, unspecified seasonality, unspecified trigger Screening, lipid Obesity (BMI 30-39.9)- Primary [facility] Diagnosis ZOEY (obstructive sleep apnea)- Primary Obstructive sleep apnea (adult) (pediatric) Encounter for wellness examination Obesity (BMI 30-39.9) Screening mammogram for breast cancer Morbid (severe) obesity due to excess calories (CMS/HCC) Gastro-esophageal reflux disease without esophagitis Body mass index (BMI) 35.0-35.9, adult Demyelinating disease of central nervous system (HCC) (CMS/HCC) Unspecified demyelinating disease of central nervous system Dysmenorrhea Intractable migraine without status migrainosus, unspecified migraine type (CMS/HCC) Gastroesophageal reflux disease without esophagitis Esophageal reflux Moderate persistent asthma without complication (CMS/HCC) Environmental allergies Other allergy, other than to medicinal agents Retinal hole of left eye Anxiety Anxiety state, unspecified Vitamin D deficiency Allergic rhinitis, unspecified seasonality, unspecified trigger Screening, lipid ZOEY (obstructive sleep apnea) Obstructive sleep apnea (adult) (pediatric) [facility]* Diagnosis ZOEY (obstructive sleep apnea)- Primary Obstructive sleep apnea (adult) (pediatric) Encounter for wellness examination Obesity (BMI 30-39.9) Screening mammogram for breast cancer Morbid (severe) obesity due to excess calories (CMS/HCC) Gastro-esophageal reflux disease without esophagitis Body mass index (BMI) 35.0-35.9, adult Demyelinating disease of central nervous system (HCC) (CMS/HCC) Unspecified demyelinating disease of central nervous system Dysmenorrhea Intractable migraine without status migrainosus, unspecified migraine type (CMS/HCC) Gastroesophageal reflux disease without esophagitis Esophageal reflux Moderate persistent asthma without complication (CMS/HCC) Environmental allergies Other allergy, other than to medicinal agents Retinal hole of left eye Anxiety Anxiety state, unspecified Vitamin D deficiency Allergic rhinitis, unspecified seasonality, unspecified trigger Screening, lipid Pre-op examination Menorrhagia with regular cycle Pelvic pain in female Unspecified symptom associated with female genital organs Dyspareunia in female Dysmenorrhea Encounter for weight management [facility] Diagnosis ZOEY (obstructive sleep apnea)- Primary Obstructive sleep apnea (adult) (pediatric) Encounter for wellness examination Obesity (BMI 30-39.9) Screening mammogram for breast cancer Morbid (severe) obesity due to excess calories (CMS/HCC) Gastro-esophageal reflux disease without esophagitis Body mass index (BMI) 35.0-35.9, adult Demyelinating disease of central nervous system (HCC) (CMS/HCC) Unspecified demyelinating disease of central nervous system Dysmenorrhea Intractable migraine without status migrainosus, unspecified migraine type (CMS/HCC) Gastroesophageal reflux disease without esophagitis Esophageal reflux Moderate persistent asthma without complication (CMS/HCC) Environmental allergies Other allergy, other than to medicinal agents Retinal hole of left eye Anxiety Anxiety state, unspecified Vitamin D deficiency Allergic rhinitis, unspecified seasonality, unspecified trigger Screening, lipid Family history of ovarian cancer Family history of malignant neoplasm of ovary [facility]* Diagnosis ZOEY (obstructive sleep apnea)- Primary Obstructive sleep apnea (adult) (pediatric) Encounter for wellness examination Obesity (BMI 30-39.9) Screening mammogram for breast cancer Morbid (severe) obesity due to excess calories (CMS/HCC) Gastro-esophageal reflux disease without esophagitis Body mass index (BMI) 35.0-35.9, adult Demyelinating disease of central nervous system (HCC) (CMS/HCC) Unspecified demyelinating disease of central nervous system Dysmenorrhea Intractable migraine without status migrainosus, unspecified migraine type (CMS/HCC) Gastroesophageal reflux disease without esophagitis Esophageal reflux Moderate persistent asthma without complication (CMS/HCC) Environmental allergies Other allergy, other than to medicinal agents Retinal hole of left eye Anxiety Anxiety state, unspecified Vitamin D deficiency Allergic rhinitis, unspecified seasonality, unspecified trigger Screening, lipid Severe persistent asthma without complication (CMS/HCC)- Primary [facility]* Diagnosis ZOEY (obstructive sleep apnea)- Primary Obstructive sleep apnea (adult) (pediatric) Encounter for wellness examination Obesity (BMI 30-39.9) Screening mammogram for breast cancer Morbid (severe) obesity due to excess calories (CMS/HCC) Gastro-esophageal reflux disease without esophagitis Body mass index (BMI) 35.0-35.9, adult Demyelinating disease of central nervous system (HCC) (CMS/HCC) Unspecified demyelinating disease of central nervous system Dysmenorrhea Intractable migraine without status migrainosus, unspecified migraine type (CMS/HCC) Gastroesophageal reflux disease without esophagitis Esophageal reflux Moderate persistent asthma without complication (CMS/HCC) Environmental allergies Other allergy, other than to medicinal agents Retinal hole of left eye Anxiety Anxiety state, unspecified Vitamin D deficiency Allergic rhinitis, unspecified seasonality, unspecified trigger Screening, lipid Weight gain Other symptoms concerning nutrition, metabolism, and development Encounter for weight management [facility]* Diagnosis Allergic rhinitis, unspecified seasonality, unspecified trigger [facility]* Diagnosis Gastroesophageal reflux disease without esophagitis- Primary Esophageal reflux Chronic rhinitis Flexural atopic dermatitis Other atopic dermatitis and related conditions [facility]* Diagnosis Environmental allergies- Primary Other allergy, other than to medicinal agents [facility]* Diagnosis Severe persistent asthma without complication (CMS/HCC)- Primary documented in this encounter [facility]* Diagnosis ZOEY (obstructive sleep apnea)- Primary Obstructive sleep apnea (adult) (pediatric) Encounter for wellness examination Obesity (BMI 30-39.9) Screening mammogram for breast cancer Morbid (severe) obesity due to excess calories (CMS/HCC) Gastro-esophageal reflux disease without esophagitis Body mass index (BMI) 35.0-35.9, adult Demyelinating disease of central nervous system (HCC) (CMS/HCC) Unspecified demyelinating disease of central nervous system Dysmenorrhea Intractable migraine without status migrainosus, unspecified migraine type (CMS/HCC) Gastroesophageal reflux disease without esophagitis Esophageal reflux Moderate persistent asthma without complication (CMS/HCC) Environmental allergies Other allergy, other than to medicinal agents Retinal hole of left eye Anxiety Anxiety state, unspecified Vitamin D deficiency Allergic rhinitis, unspecified seasonality, unspecified trigger Screening, lipid Severe persistent asthma without complication (CMS/HCC)- Primary documented in this encounter [facility]* Diagnosis ZOEY (obstructive sleep apnea)- Primary Obstructive sleep apnea (adult) (pediatric) Encounter for wellness examination Obesity (BMI 30-39.9) Screening mammogram for breast cancer Morbid (severe) obesity due to excess calories (CMS/HCC) Gastro-esophageal reflux disease without esophagitis Body mass index (BMI) 35.0-35.9, adult Demyelinating disease of central nervous system (HCC) (CMS/HCC) Unspecified demyelinating disease of central nervous system Dysmenorrhea Intractable migraine without status migrainosus, unspecified migraine type (CMS/HCC) Gastroesophageal reflux disease without esophagitis Esophageal reflux Moderate persistent asthma without complication (CMS/HCC) Environmental allergies Other allergy, other than to medicinal agents Retinal hole of left eye Anxiety Anxiety state, unspecified Vitamin D deficiency Allergic rhinitis, unspecified seasonality, unspecified trigger Screening, lipid Encounter for weight management documented in this encounter [facility]* Diagnosis ZOEY (obstructive sleep apnea)- Primary Obstructive sleep apnea (adult) (pediatric) Encounter for wellness examination Obesity (BMI 30-39.9) Screening mammogram for breast cancer Morbid (severe) obesity due to excess calories (CMS/HCC) Gastro-esophageal reflux disease without esophagitis Body mass index (BMI) 35.0-35.9, adult Demyelinating disease of central nervous system (HCC) (CMS/HCC) Unspecified demyelinating disease of central nervous system Dysmenorrhea Intractable migraine without status migrainosus, unspecified migraine type (CMS/HCC) Gastroesophageal reflux disease without esophagitis Esophageal reflux Moderate persistent asthma without complication (CMS/HCC) Environmental allergies Other allergy, other than to medicinal agents Retinal hole of left eye Anxiety Anxiety state, unspecified Vitamin D deficiency Allergic rhinitis, unspecified seasonality, unspecified trigger Screening, lipid Dyshidrotic dermatitis- Primary Dyshidrosis documented in this encounter [facility] HealthcareEvaluation note* Diagnosis ZOEY (obstructive sleep apnea)- Primary Obstructive sleep apnea (adult) (pediatric) Encounter for wellness examination Obesity (BMI 30-39.9) Screening mammogram for breast cancer Morbid (severe) obesity due to excess calories (CMS/HCC) Gastro-esophageal reflux disease without esophagitis Body mass index (BMI) 35.0-35.9, adult Demyelinating disease of central nervous system (HCC) (CMS/HCC) Unspecified demyelinating disease of central nervous system Dysmenorrhea Intractable migraine without status migrainosus, unspecified migraine type (CMS/HCC) Gastroesophageal reflux disease without esophagitis Esophageal reflux Moderate persistent asthma without complication (CMS/HCC) Environmental allergies Other allergy, other than to medicinal agents Retinal hole of left eye Anxiety Anxiety state, unspecified Vitamin D deficiency Allergic rhinitis, unspecified seasonality, unspecified trigger Screening, lipid Cellulitis of right upper extremity- Primary documented in this encounter [facility] HealthcareEvaluation note* Diagnosis Family history of ovarian cancer- Primary Family history of malignant neoplasm of ovary [facility] Diagnosis Dysmenorrhea- Primary Family history of ovarian cancer Family history of malignant neoplasm of ovary [facility] Diagnosis ZOEY (obstructive sleep apnea)- Primary Obstructive sleep apnea (adult) (pediatric) Encounter for wellness examination Obesity (BMI 30-39.9) Screening mammogram for breast cancer Morbid (severe) obesity due to excess calories (CMS/HCC) Gastro-esophageal reflux disease without esophagitis Body mass index (BMI) 35.0-35.9, adult Demyelinating disease of central nervous system (HCC) (CMS/HCC) Unspecified demyelinating disease of central nervous system Dysmenorrhea Intractable migraine without status migrainosus, unspecified migraine type (CMS/HCC) Gastroesophageal reflux disease without esophagitis Esophageal reflux Moderate persistent asthma without complication (CMS/HCC) Environmental allergies Other allergy, other than to medicinal agents Retinal hole of left eye Anxiety Anxiety state, unspecified Vitamin D deficiency Allergic rhinitis, unspecified seasonality, unspecified trigger Screening, lipid Pre-op examination Family history of ovarian cancer Family history of malignant neoplasm of ovary Abnormal uterine bleeding (AUB) Menorrhagia with irregular cycle documented in this encounter [facility] Narrative - Reported* Type Description Date Medical History Asthma Medical History Anxiety Surgical History Sinus Surgery Hab Housing Other InstructionsNot on filedocumented in this encounter [employer] SystemInstructionsNot on filedocumented in this encounter [employer] SystemInstructionsNot on filedocumented in this encounter [employer] SystemInstructionsNot on filedocumented in this encounter [employer] SystemInstructionsNot on filedocumented in this encounter [employer] SystemReason for referral (narrative)* Consultation (Routine) - Pending Review Specialty Diagnoses / Procedures Referred By Audrey palmer Referred To Contact Genetics Diagnoses Family history of ovarian cancer Jennifer Salas MD [address] [place] [address] [facility] Oncology Telegenetics [address] [place] [address] Referral ID Status Reason Start Date Expiration Date Visits Requested Visits Authorized [id number] Pending Review Specialty Services Required 05/02/2024 05/02/2025 1 1 [facility] Summary Purpose Family History No Family History Records FoundNo Family History Records FoundNo Family History Records FoundNo Family History Records FoundNo Family History Records FoundNo Family History Records FoundNo Family History Records FoundNo Family History Records FoundNo Family History Records FoundNo Family History Records FoundNo Family History Records FoundNo Family History Records FoundNo Family History Records FoundNo Family History Records FoundNo Family History Records FoundNo Family History Records Found Advance Directives Documents on File Type Date Recorded Patient Mill Stenciler Expl anation Advance Directives and Living Will Power of Clerk Funeral Detail Documents on File Type Date Recorded Patient Mill Stenciler Expl anation Advance Directives and Living Will Power of Clerk Funeral Detail Documents on File Type Date Recorded Patient Mill Stenciler Expl anation ACP-Advance Directive ACP-Power of Clerk Funeral Detail Documents on File Type Date Recorded Patient Mill Stenciler Expl anation ACP-Advance Directive ACP-Power of Clerk Funeral Detail Advance Directive Response Recorded Date/ Time Advance Directives No July 5:54pm Assessments Diagnosis Optic disc atrophy, left Unspecified optic atrophy Cyst of pituitary gland (HCC) Other disorders of the pituitary and other syndromes of diencephalohypophyseal origin Diagnosis Optic disc atrophy, left Unspecified optic atrophy Cyst of pituitary gland (HCC) Other disorders of the pituitary and other syndromes of diencephalohypophyseal origin Diagnosis Dysphagia, unspecified type Diagnosis Palpitation Palpitations MG (dyspnea on exertion) Other dyspnea and respiratory abnormality Diagnosis Chronic fatigue Other malaise and fatigue High plasma histamine Palpitation Palpitations MG (dyspnea on exertion) Other dyspnea and respiratory abnormality Diagnosis Mild persistent asthma without complication Unspecified asthma Diagnosis Chronic pansinusitis Other chronic sinusitis Diagnosis Tight chest- Primary Other chest pain Allergic reaction to allergen immunotherapy Diagnosis Short of breath on exertion Diagnosis History of food anaphylaxis Personal history of anaphylaxis Penicillin allergy Other drug allergy Reason for Referral Status Reason Specialty Diagnoses / Procedures Referre d By Contact Referred To Contact Closed Radiology Diagnoses Optic disc atrophy, left Cyst of pituitary gland (HCC) Procedures MR Brain With And Without Contrast Miya Matson MD [address] [facility] [address] [place] [address] Status Reason Specialty Diagnoses / Procedures Referre d By Contact Referred To Contact Closed Radiology Diagnoses Dysphagia, unspecified type Procedures FL ESOPHAGRAM Gabe Toledo MD [address] [facility] [address] [place] [address] Status Reason Specialty Diagnoses / Procedures Referre d By Contact Referred To Contact Closed Diagnoses Palpitation MG (dyspnea on exertion) Procedures Holter monitor 48 hour Jose Hines MD [address] [facility] [address] [place] [address] Status Reason Specialty Diagnoses / Procedures Referre d By Contact Referred To Contact Closed Cardiology Diagnoses Palpitation MG (dyspnea on exertion) Procedures CARDIAC STRESS TEST EXERCISE ONLY Jose Hines MD [address] [address] Status Reason Specialty Diagnoses / Procedures Referre d By Contact Referred To Contact Closed Cardiology Diagnoses Palpitation MG (dyspnea on exertion) Procedures Echo 2D w doppler w color complete Jose Hines MD [address] [place] [address] Status Reason Specialty Diagnoses / Procedures Re ferred By Contact Referred To Contact Closed Diagnoses Mild persistent asthma without complication Procedures Full PFT Study With Bronchodilator Bren Anderson APRN - CNP [address] [place] [address] Status Reason Specialty Diagnoses / Procedures Referre d By Contact Referred To Contact Closed Radiology Diagnoses Chronic pansinusitis Procedures CT SINUS WO CONTRAST Bren Andreson APRN - CNP [address] [place] [address] History of Present Illness * Millie Pelayo RN - 01/16/2020 11:14 AM EDT Patient admitted to endoscopy for 24 hr ph and EFT. Consent signed. Manometry probe passed through left nares into stomach Liquid swallows at 49 cm comfortec Z ph probe lot # [id number] Inserted into left nares and advanced into the stomach. Gastric ph secured to be 2.1 Probe pulled back to 37 [address] And secured in place. Logging began discharge instructions given. Verbalizes understanding. Patient tolerated procedure well. Discharged home per self. * Millie Pelayo RN - 01/16/2020 9:23 AM EDT Patient admitted to endoscopy consent signed. documented in this encounter* Chika Mitchell RCP - 04/18/2020 8:00 AM EDT Prescreening performed prior to testing. The following symptons may indicate COVID-19 infection: One of the following criteria: Temperature taken, patient temperature was 98.8 F. Fever greater 100.0 F -no Cough - no New onset shortness of breath -no New onset difficulty breathing -no And/or Two or more of the following criteria: Muscle aches -no Headache -no Sore throat -no New onset loss of smell/taste -no New onset diarrhea -no Patient's screening was negative. PFT will be performed. documented in this encounter Discharge Instructions * Attachments The following attachments cannot be sent through Care Everywhere. * Medication Side Effects (Kittitian) * Chest Pain: Musculoskeletal (Kittitian) documented in this encounter Medications Administered Section Inactive Administered Medications - up to 3 most recent administrations Medication Order MAR Action Action Date Dose Rate Site fluorescein-benoxinate 0.25-0.4 % 1 Drop (FLURESS) 1 Drop, BOTH EYES, DIRECTED, Starting on Wed04/08/22 at 1330, Until Vanessa 04/09/22 at 0129, Administer for applanation tonometry. In the event of a Fluress shortage, administer 1 drop of Thi-Fluor into both eyes as directed for applanation tonometry. Given 04/08/2022 1:30 PM EDT 1 Drop PHENYLephrine 2.5 % 1 Drop (AK-DILATE, KIKO-SYNEPHRINE) 1 Drop, BOTH EYES, DIRECTED, Starting on Wed04/08/22 at 1330, Until Vanessa 04/09/22 at 0129, Administer for dilation PROTECT FROM LIGHT Given 04/08/2022 2:01 PM EDT 1 Drop tropicamide 1 % 1 Drop (MYDRIACYL) 1 Drop, BOTH EYES, DIRECTED, Starting on Wed04/08/22 at 1330, Until Vanessa 04/09/22 at 0129, Administer for dilation Given 04/08/2022 2:01 PM EDT 1 Drop Chief Complaint and Reason for Visit Chief Complaint new hire labs Chief Complaint Admit Date abcess right hand/dx MRSA September 20, 2024 2:41am Additional Source Comments INFORMATION SOURCE (unrecogn ized section and content) DATE CREATED AUTHOR 01/27/2018 [facility] DATE CREATED AUTHOR AUTHOR'S ORGANIZ ATION 01/31/2018 [facility] DATE CREATED AUTHOR AUTHOR'S ORGANIZ ATION 02/02/2018 [facility] DATE CREATED AUTHOR AUTHOR'S ORGANIZ ATION 11/25/2018 [facility] DATE CREATED AUTHOR AUTHOR'S ORGANIZ ATION 01/12/2020 [facility] DATE CREATED AUTHOR AUTHOR'S ORGANIZ ATION 02/17/[address] [facility] DATE CREATED AUTHOR AUTHOR'S ORGANIZ ATION 02/23/2021 [facility] DATE CREATED AUTHOR AUTHOR'S ORGANIZ ATION 03/18/2022 [facility] dical Specialist DATE CREATED AUTHOR AUTHOR'S ORGANIZ ATION 04/13/2022 [facility] DATE CREATED AUTHOR AUTHOR'S ORGANIZ ATION 04/15/2022 [facility] DATE CREATED AUTHOR AUTHOR'S ORGANIZ ATION 03/19/2023 [facility] DATE CREATED AUTHOR AUTHOR'S ORGANIZ ATION 06/01/2024 [facility] DATE CREATED AUTHOR AUTHOR'S ORGANIZ ATION 07/23/2024 [facility] DATE CREATED AUTHOR AUTHOR'S ORGANIZ ATION 09/11/2024 [facility] DATE CREATED AUTHOR AUTHOR'S ORGANIZ ATION 09/22/2024 [facility] DATE CREATED AUTHOR AUTHOR'S ORGANIZ ATION 09/27/2024 [facility] dical Specialists EPIC Reason for Visit (unrecogniz ed section and content) Status Reason Specialty Diagnoses / Procedures Referre d By Contact Referred To Contact Closed Radiology Diagnoses Optic disc atrophy, left Cyst of pituitary gland (HCC) Procedures MR Orbits With And Without Contrast MR Brain/Orbit With And Without Contrast Miya Matson MD [address] [facility] [address] [place] [address] Status Reason Specialty Diagnoses / Procedures Referre d By Contact Referred To Contact Closed Radiology Diagnoses Optic disc atrophy, left Cyst of pituitary gland (HCC) Procedures MR Brain With And Without Contrast Miya Matson MD [address] [facility] [address] [place] [address] Status Reason Specialty Diagnoses / Procedures Referre d By Contact Referred To Contact Diagnoses Reflux esophagitis Reflux Procedures CT OFFICE/OUTPT VISIT,PROCEDURE ONLY CT OFFICE/OUTPT VISIT,PROCEDURE ONLY CT ESOPHAGEAL MOTILITY STUDY W/INTERP&RPT CT GERD TST W/ MUCOS IMPEDE ELECTROD,>1HR ESOPHAGEAL MOTILITY/MANOMETRY STUDY ESOPHAGEAL PH MONITORING (NO EGD) Enrique Stephens MD [address] [place] [address] [facility] Status Reason Specialty Diagnoses / Procedures Referre d By Contact Referred To Contact Closed Radiology Diagnoses Dysphagia, unspecified type Procedures FL ESOPHAGRAM Gabe Toledo MD [address] [place] [address] Status Reason Specialty Diagnoses / Procedures Referre d By Contact Referred To Contact Closed Radiology Diagnoses RUQ pain Procedures NM HEPATOBILIARY SCAN W EJECTION FRACTION NM Hepatobiliary Gabe Toledo MD [address] [place] [address] Status Reason Specialty Diagnoses / Procedures Referre d By Contact Referred To Contact Closed Diagnoses Palpitation MG (dyspnea on exertion) Procedures Holter monitor 48 hour Jose Hines MD [address] [place] [address] Status Reason Specialty Diagnoses / Procedures Referre d By Contact Referred To Contact Closed Cardiology Diagnoses Palpitation MG (dyspnea on exertion) Procedures CARDIAC STRESS TEST EXERCISE ONLY Jose Hines MD [address] [address] Status Reason Specialty Diagnoses / Procedures Referre d By Contact Referred To Contact Closed Cardiology Diagnoses Palpitation MG (dyspnea on exertion) Procedures Echo 2D w doppler w color complete Jose Hines MD [address] [place] [address] Status Reason Specialty Diagnoses / Procedures Re ferred By Contact Referred To Contact Closed Diagnoses Mild persistent asthma without complication Procedures Full PFT Study With Bronchodilator Bren Anderson APRN - LEADERSHIP DEVELOPMENT INSTRUCTOR [address] [address] Status Reason Specialty Diagnoses / Procedures Referre d By Contact Referred To Contact Closed Radiology Diagnoses Chronic pansinusitis Procedures CT SINUS WO CONTRAST Bren Anderson APRN - LEADERSHIP DEVELOPMENT INSTRUCTOR [address] [address] Reason Comments Allergic Reaction Status Reason Specialty Diagnoses / Procedures Referre d By Contact Referred To Contact Closed Diagnoses Paresthesia Vitamin D deficiency Optic atrophy Hyperreflexia Procedures MRI SPINE CERVICAL WITHOUT AND WITH CONTRAST Radha Hutton MD [address] [address] Reason Comments Visual Field Loss Evaluation Reason Onset Date Comments Med Refill 09/08/2023 Reason Comments Consult Consult hysterectomy referred Reason Comments Med Refill Reason Onset Date Comments Med Refill 09/13/2023 Reason Comments Asthma Fasenra injection Reason Comments Annual Exam Reason Comments follow up labs Reason Comments Pre-op Visit Medication Follow Up Reason Comments Telehealth Family h/o ovarian c ancer Reason Comments Weight Management Reason Onset Date Comments Med Refill 04/10/2024 Reason Comments Follow-up No surgeries; no hos pital stays. Still has itchy eyes, Possibly a peanut issue. Reason Onset Date Comments Med Refill 04/12/2024 Reason Comments Asthma 4 month follow up Reason Onset Date Comments Verbal Re-Assessment 08/11/2024 Genetics Re sult Disclosure Reason Onset Date Comments GENETICS 05/03/2024 CLERICAL Reason Comments encounter for weight management Adipex # 3 Reason Comments Rash Bilateral, Reason Comments ER Follow-up Reason Onset Date Comments Appointment 05/31/2024 Reason Comments Pre-op Visit Source Comments (unrecognize d section and content) In the event this informatio n is protected by the Federal Confidentiality of Alcohol and Drug Abuse Patient Records regulations: The Federal rules restrict any use of the information to criminally investigate or prosecute any alcohol or drug abuse patient.[facility] Care Teams (unrecognized sec tion and content) Photovoltaic Installation Technician Relationship Specialty Start Date End Date Myranda Villegas [address] [facility] [place] [address] Referring Family Practice 03/20/22 Team Status: Inactive Member Role Status Dates PHYSICIAN NO FAMILY Primary Care Provider Active Javier Moralez Jr, DO Attending Provider Active Team Status: Active Member Role Status Dates PHYSICIAN NO FAMILY Primary Care Provider Active Photovoltaic Installation Technician Relationship Specialty Start Date End Date Keisha Brush MD [address] [place] [address] PCP - General Family Medicine 01/18/23 Photovoltaic Installation Technician Relationship Specialty Start Date End Date Keisha Brush MD [address] [place] [address] PCP - General Family Medicine 01/18/23 Photovoltaic Installation Technician Relationship Specialty Start Date End Date Keisha Brush MD [address] [place] [address] PCP - General Family Medicine 01/18/23 Photovoltaic Installation Technician Relationship Specialty Start Date End Date Keisha Brush MD [address] [place] [address] PCP - General Family Medicine 01/18/23 Photovoltaic Installation Technician Relationship Specialty Start Date End Date Keisha Brush MD [address] [place] [address] PCP - General Family Medicine 01/18/23 Photovoltaic Installation Technician Relationship Specialty Start Date End Date Keisha Brush MD [address] [place] [address] PCP - General Family Medicine 01/18/23 Photovoltaic Installation Technician Relationship Specialty Start Date End Date Keisha Brush MD [address] [place] [address] PCP - General Family Medicine 01/18/23 Photovoltaic Installation Technician Relationship Specialty Start Date End Date Keisha Brush MD [address] [place] [address] PCP - General Family Medicine 01/18/23 Photovoltaic Installation Technician Relationship Specialty Start Date End Date Keisha Brush MD [address] [place] [address] PCP - General Family Medicine 01/18/23 Myranda Villegas NP [address] [place] [address] Nurse Practitioner Family Medicine 05/19/24 Photovoltaic Installation Technician Relationship Specialty Start Date End Date Keisha Brush MD [address] [place] [address] PCP - General Family Medicine 01/18/23 Myranda Villegas NP [address] [place] [address] Nurse Practitioner Family Medicine 05/19/24 Photovoltaic Installation Technician Relationship Specialty Start Date End Date Keisha Brush MD [address] [place] [address] PCP - General Family Medicine 01/18/23 Myranda Villegas NP [address] [place] [address] Nurse Practitioner Family Medicine 05/19/24 Photovoltaic Installation Technician Relationship Specialty Start Date End Date Keisha Brush MD [address] [place] [address] PCP - General Family Medicine 01/18/23 Myranda Villegas NP [address] [place] [address] Nurse Practitioner Family Medicine 05/19/24 Photovoltaic Installation Technician Relationship Specialty Start Date End Date Keisha Brush MD [address] [place] [address] PCP - General Family Medicine 01/18/23 Myranda Villegas NP [address] [place] [address] Nurse Practitioner Family Medicine 05/19/24 Photovoltaic Installation Technician Relationship Specialty Start Date End Date Keisha Brush MD [address] [place] [address] PCP - General Family Medicine 01/18/23 Myranda Villegas NP [address] [place] [address] Nurse Practitioner Family Medicine 05/19/24 Photovoltaic Installation Technician Relationship Specialty Start Date End Date Keisha Brush MD [address] [place] [address] PCP - General Family Medicine 01/18/23 Myranda Villegas NP [address] [place] [address] Nurse Practitioner Family Medicine 05/19/24 Photovoltaic Installation Technician Relationship Specialty Start Date End Date Keisha Brush MD [address] [place] [address] PCP - General Family Medicine 01/18/23 Myranda Villegas NP [address] [facility] [place] [address] Nurse Practitioner Family Medicine 05/19/24 Photovoltaic Installation Technician Relationship Specialty Start Date End Date Keisha Brush MD [address] [facility] [place] [address] PCP - General Family Medicine 01/18/23 Photovoltaic Installation Technician Relationship Specialty Start Date End Date Keisha Brush MD [address] [facility] [place] [address] PCP - General Family Medicine 01/18/23 Photovoltaic Installation Technician Relationship Specialty Start Date End Date Jennifer Salas MD [address] [facility] [address] PCP - General Gynecologic Oncology 05/04/24 Photovoltaic Installation Technician Relationship Specialty Start Date End Date Jennifer Salas MD [address] [place] [address] PCP - General Gynecologic Oncology 05/04/24 Photovoltaic Installation Technician Relationship Specialty Start Date End Date Keisha Brush MD [address] [facility] [place] [address] PCP - General Family Medicine 01/18/23 Myranda Villegas NP [address] [place] [address] Nurse Practitioner Family Medicine 05/19/24 Photovoltaic Installation Technician Relationship Specialty Start Date End Date Keisha Brush MD [address] [facility] [place] [address] PCP - General Family Medicine 01/18/23 Myranda Villegas NP [address] [place] [address] Nurse Practitioner Family Medicine 05/19/24 Photovoltaic Installation Technician Relationship Specialty Start Date End Date Keisha Brush MD [address] [facility] [place] [address] PCP - General Family Medicine 01/18/23 Myranda Villegas NP [address] [place] [address] Nurse Practitioner Family Medicine 05/19/24 Team Status: Active Member Role Status Dates NON STAFF Primary Care Provider Active Team Status: Inactive Member Role Status Dates NON STAFF Primary Care Provider Active Start: September 20, 2024 End: September 20, 2024 Salvador Brooke DO Emergency Provider Active St art: September 20, 2024 End: September 20, 2024 Photovoltaic Installation Technician Relationship Specialty Start Date End Date Myranda Villegas APRN-LEADERSHIP DEVELOPMENT INSTRUCTOR [address] [place] [address] PCP - General Nurse Practitioner 12/14/22 Photovoltaic Installation Technician Relationship Specialty Start Date End Date Myranda Villegas APRN-LEADERSHIP DEVELOPMENT INSTRUCTOR [address] [place] [address] PCP - General Nurse Practitioner 12/14/22 Photovoltaic Installation Technician Relationship Specialty Start Date End Date Jennifer Salas MD [address] [facility] [place] [address] PCP - General Gynecologic Oncology 05/04/24 Photovoltaic Installation Technician Relationship Specialty Start Date End Date Keisha Brush MD [address] [place], [place] [id number] PCP - General Family Medicine 01/18/23 Myranda Villegas NP [address] [place], [place] [address] Nurse Practitioner Family Medicine 05/19/24 Photovoltaic Installation Technician Relationship Specialty Start Date End Date Jennifer Salas MD [address] [facility] [address] PCP - General Gynecologic Oncology 05/04/24 Goals (unrecognized section and content) Goals may be documented in a n alternate section FOR RECORDS PERTAINING TO PATIENTS WHO ARE OR HAVE BEEN ENROLLED IN A CHEMICAL DEPENDENCY/SUBSTANCEABUSE PROGRAM, SOME INFORMATION MAY BE OMITTED. This clinical summary was aggregated from multiple sources. Caution should be exercised in using it in the provision of clinical care. This summary normalizes information from multiple sources, and as a consequence, information in this document may materially change the coding, format and clinical context of patient data. In addition, data may be omitted in some cases. CLINICAL DECISIONS SHOULD BE BASED ON THE PRIMARY CLINICAL RECORDS. [facility]. provides no warranty or guarantee of the accuracy or completeness of information in this document.
== END 2024-10-06 11:02 | disposition home or self-care (01) ==
PROVIDERS: PCP Nurse Practitioner Family; Visit Provider Obstetrics & Gynecology
DX: Z01.818 Encounter for other preprocedural examination (principal); N93.9 Abnormal uterine and vaginal bleeding, unspecified; N92.1 Excessive and frequent menstruation with irregular cycle; Z80.41 Family history of malignant neoplasm of ovary

== ENCOUNTER 2024-10-20 10:35 | Day surgery (SDC) | payer OTHER, SELFPAY ==
[2024-10-20] VITALS (12 sets, daily range): BP systolic 99–137; BP diastolic 50–89; PULSE 70–89; TEMP 36.5–36.6; O2SAT 94–99; BMI 31.9
[2024-10-20 10:46] LABS: Basophils Absolute Auto 0.1 10^3/uL (0.0-0.1); Basophils Percent Auto 0.6 % (0.2-2.0); Eosinophils Percent Auto 0.1 % (0.9-7.0); Hematocrit 43.8 % (36.0-48.0); Hemoglobin 14.4 g/dL (12.0-16.0); Immature Granulocytes Abs Auto 0.01 10^3/uL (0.00-0.03); Immature Granulocytes Pct Auto 0.1 % (0.0-0.5); Lymphocytes Absolute Auto 2.7 10^3/uL (1.2-3.8); Lymphocytes Percent Auto 30.8 % (20.5-60.0); Mean Corpuscular HGB Conc 32.9 g/dL (29.9-35.2); Mean Corpuscular Hemoglobin 29.2 pg (26.7-34.0); Mean Corpuscular Volume 88.8 fL (81.0-99.0); Mean Platelet Volume 9.2 fL (9.5-13.5); Monocytes Absolute Auto 0.8 10^3/uL (0.3-0.8); Monocytes Percent Auto 8.7 % (1.7-12.0); Neutrophils Absolute Auto 5.3 10^3/uL (1.4-6.5); Neutrophils Percent Auto 59.7 % (43.0-75.0); Platelet Count 285 10^3/uL (150-450); Red Blood Count 4.93 10^6/uL (4.20-5.40); White Blood Count 8.8 10^3/uL (4.0-11.0)
[2024-10-20] MEDS: LACTATED RINGER'S SOLUTION 1,000 ML 50 ML IV ×2 (11:15→16:42)
[2024-10-20 11:26] LABS: HCG Quantitative <1 mIU/mL
[2024-10-20] MEDS: LACTATED RINGER'S SOLUTION 1,000 ML 1000 ML IV (14:23)
--- NOTE | 2024-10-20 14:49 | P.ON_ITS ---
Brief Operative Note Date of procedure: 10/20/24 Pre-op diagnosis general: aub, family ho ovarian cancer Post-op diagnosis: same as pre-op Procedure: NAME OF PROCEDURE: [ D&c hysteroscopy, robotic assisted bilateral salpingoopherectomy] PROCEDURE: The patient was taken back to the Operating Room where she was prepped and draped in normal sterile fashion after being placed under general anesthesia without difficulty. She was also placed in the dorsal lithotomy position. A weighted speculum was placed in the patient?s vagina. The anterior lip of the cervix was identified and grasped with a single tooth tenaculum. The patient?s uterus was then sounded roughly to [? 8] cm. The patient was then gently dilated using Hegar dilators. The hysteroscope was passed through the patient?s cervix into the uterus. Both ostia were identified. fluffy appearing endometrium. No gross evidence of malignancy, no gross evidence of polyps or fibroids. The hysteroscope was then removed from the uterus. gentle currettage was performed until a gritty texture was noted. The endometrial curettings were sent out to pathology. The single tooth tenaculum was then removed from the patient's anterior lip of the cervix where excellent hemostasis was noted. All instruments were removed from the patient?s vagina. A wet sponge stick was placed into the patient's vagina. Attention was then turned to the patient's abdomen, where a scalpel was used to make a small infraumbilical incision. The S retractors were then used to dissect the underlying layers until the fascia could be seen. The fascia was then grasped with Anuja clamps and tented up. A knife was then used to make a small incision to the fascia. The muscle was identified, at that time two sutures of #0 Vicryl on a GI needle was then used and placed through the fascia. the peritoneum was then identified and entered bluntly. The 10-4 Riri was then placed into the patient's abdomen. This was confirmed with direct visualization of the bowel, using the laparoscope. The patient's abdomen was then insufflated using approximately 4 liters of CO2 gas. Survey of the patient's abdomen demonstrated ovaries were normal in appearance as well as both tubes and uterus. A second and third rt and lt lateral robotic ports which were 8 mm in size, was then placed after the skin incision was made under direct visualization . the robotic arms were engaged. The patient's tube and ovary on the patient's right side was identified and tented up using a grasper, the vessel sealer apparatus was then used to come across the infundibular pelvic ligament and mesosalpingx , the tube and ovary was then removed in its entirety. This was done on the contralateral side. The tubes and ovary were the removed from the patients abdomen using an endocatch. Excellent hemostasis was noted. The lateral ports were then moved under direct visualization with excellent hemostasis. All instruments were removed from the patient's abdomen. The fascia was closed using the #0 Vicryl on GI needle. The skin was closed using 4-0 Vicryl subcuticularly. All instruments were removed from the patient's vagina as well. The patient was taken out of the dorsal lithotomy position and placed in the supine position and taken to recovery in stable condition. Sponge, lap and needle counts were correct x2. Anesthesia: KARENA Surgeon: [employer] Machine Builder: Miranda Reinoso Estimated blood loss (mL): 5 Pathology: other (tubes and ovaries) Condition: stable Disposition: PACU Urinary Catheter Management Urinary Catheter Management Urethral: Cath placed during this visit: no
[2024-10-20] MEDS: HYDROCODONE/ACET 5-325 MG TABLET 1 TAB PO (16:17)
--- NOTE | 2024-10-20 16:25 | PC.NURSE ---
No active drainage noted with umbilical incisional dressing changed; denies urge to void; peripad dry
--- NOTE | 2024-10-20 16:28 | PC.NURSE ---
Medicated with oral pain medication as ordered
--- NOTE | 2024-10-20 17:58 | PC.NURSE ---
no active bleeding noted on mid dressing
--- NOTE | 2024-10-20 18:07 | PC.NURSE ---
small amount bleeding noted on peripad
--- NOTE | 2024-10-20 18:08 | PC.NURSE ---
Up to bathroom and voided clear yellow without difficulty
== END 2024-10-20 18:00 | disposition home or self-care (01) ==
PROVIDERS: PCP Nurse Practitioner Family; Visit Provider Obstetrics & Gynecology
PROC: (CPT 840; principal; 2024-10-20 11:45)
PROC: (CPT 840; 2024-10-20 11:45)
DX: N93.9 Abnormal uterine and vaginal bleeding, unspecified (principal); N92.1 Excessive and frequent menstruation with irregular cycle; Z80.41 Family history of malignant neoplasm of ovary; N83.8 Other noninflammatory disorders of ovary, fallopian tube and broad ligament; Z87.891 Personal history of nicotine dependence; G47.33 Obstructive sleep apnea (adult) (pediatric); K21.9 Gastro-esophageal reflux disease without esophagitis; E07.9 Disorder of thyroid, unspecified
CPT/HCPCS: 58558; 58661; 36415; 84702; 85025; 88302; 88305; J0131; J1100; J1171; J1885; J2250; J2371; J2405; J2704; J3010